=== PATIENT | female | born 1945 | race Caucasian/White ===

== ENCOUNTER 2023-09-15 12:23 | Outpatient (OUT) | payer MEDICARE, SELFPAY ==
--- NOTE | 2023-09-15 12:39 | ECG_ITS ---
[facility] Test Date: 2023-09-15 Pat Name: JULIO C MARKS Department: Room: - Gender: Female [employer]: : 1945 Requested By: EDDIE MELENDEZ Order Number: [id number] Reading MD: HELGA KOO Measurements Intervals Cameron Rate: 57 P: 51 WI: 195 QRS: 21 QRSD: 83 T: 55 QT: 399 QTc: 391 Interpretive Statements SINUS BRADYCARDIA WARNING: DATA QUALITY MAY AFFECT INTERPRETATION No previous ECG available for comparison Electronically Signed On 09-16-2023 7:08:22 EST by HELGA KOO
== END 2023-09-15 12:24 | disposition home or self-care (01) ==
LOC: PST 12:29
PROVIDERS: Visit Provider Urology
DX: Z01.812 Encounter for preprocedural laboratory examination (principal); N20.1 Calculus of ureter
CPT/HCPCS: 93005

== ENCOUNTER 2023-09-25 08:35 | Day surgery (SDC) | payer MEDICARE, SELFPAY ==
[2023-09-15 13:19] VITALS: BP 136/66; PULSE 63; RESP 20; TEMP 36.3; O2SAT 98; BMI 26.4
[2023-09-25] VITALS (8 sets, daily range): BP systolic 143–181; BP diastolic 55–70; PULSE 62–98; RESP 10–18; TEMP 36.1–36.4; O2SAT 94–98; BMI 26.4
--- NOTE | 2023-09-25 | FL_ITS ---
[address] [address] Patient Name: JULIO C MARKS MRN: [id number] date: 1945 Sex: F Assigned Patient Location: [facility] Current Patient Location: Accession/Order Number: [id number] Exam Date: 09/25/2023 10:52 Report Date: 09/30/2023 09:12 At the request of: EDDIE MELENDEZ Procedure: FL fluoroscopy <1hr NON-READ EXAM: FL fluoroscopy <1hr NON-READ HISTORY: left kidney stone TECHNIQUE: FINDINGS: Please see Operative Report. Electronically authenticated by: RADIOLOGIST NO Date: 09/30/2023 09:12
--- OUTSIDE RECORDS SUMMARY | 2023-09-25 08:40 | XMS_ITS | CCD ---
Author Name Unknown Address [address] [facility] [address] [facility] [address] [place] [address] Organization [facility] Care Team Providers Care Senior Database Programmer Name Role Phone GILDARDOALBERTA YBARRA Hardik Primary Care Physician Zach, Chayito Primary Care Provider Zach, Chayito Primary Care Provider [phone] Zach, Chayito Primary Care Provider Andry Fraire Primary Care Physician [phone] MARY GHOTRA Attending Unavailable ZACH, CHAYITO Primary Care Unavailable MARY GHOTRA Attending Unavailable MARY GHOTRA Referring Unavailable ZACH, CHAYITO Primary Care Unavailable ZACH, CHAYITO Primary Care Unavailable MARY GHOTRA Attending Unavailable ZACH, CHAYITO Primary Care Unavailable MARY GHOTRA Attending Unavailable MARY GHOTRA Referring Unavailable ZACH, CHAYITO Primary Care Unavailable Alejandro Zhao Attending Unavailable Hedy Ferro Attending Unavailable Juno, Andry Liao Admitting Unavailable Juno, Andry Liao Attending Unavailable Bernardino Alvarez Attending Unavailable Bernardino Alvarez Attending Unavailable Ellis Flor Attending Unavailable Link, Andry Liao Attending Unavailable Link, Andry Liao Referring Unavailable Rashawn MELENDEZ Attending Unavailable Rashawn MELENDEZ Admitting Unavailable Link, Andry Liao Admitting Unavailable Link, Andry Liao Attending Unavailable Rashawn MELENDEZ Consulting Unavailable Erum JONES Attending Unavailable Celi Vences Admitting Unavailable MD Rashawn MELENDEZ Consulting Unavailable AL, Rashawn R Consulting Unavailable MELENDEZ, Rashawn R Consulting Unavailable MELENDEZ, Rashawn R Consulting Unavailable MELENDEZ, Rashawn R Consulting Unavailable MELENDEZ, Rashawn R Consulting Unavailable MELENDEZ, Rashawn R Consulting Unavailable MELENDEZ, Rashawn R Consulting Unavailable MELENDEZ, Rashawn R Consulting Unavailable MELENDEZ, Rashawn Mccarthy Consulting Unavailable MELENDEZ, Rashawn Mccarthy Consulting Unavailable MELENDEZ, Rashawn R Consulting Unavailable MELENDEZ, Rashawn R Consulting Unavailable Kelsey, Shahana Kerr Attending Unavailable Shahana Cole Attending Unavailable MARY NATH Attending Unavailable RICHARD, ALBERTA Dye Attending Unavailable RICHARD, ALBERTA Dey Attending Unavailable RICHARD, ALBERTA Dye Attending Unavailable AL, Rashawn Mccarthy Attending Unavailable Allergies Allergy Classification Reported Allergen(s) Allergy Type Date of Onset Reaction(s) Facility (20 sources) Acetaminophen / oxyCODONE; Translations: [acetaminophen-ox ycodone] Drug Allergy 5 GI Upset, Vomiting (disorder) [facility] [place] Comment on above: lost control urine. vision problems made me wild (8 sources) Acetaminophen; Translations: [ACETAMINOPHEN] Drug Allergy 9 Other: See Comments [facility] (1 source) Acetaminophen / oxyCODONE; Translations: [OXYCODONE-ACETAM INOPHEN] Drug Allergy 5 [facility]ository (1 source) Acetaminophen / oxyCODONE; Translations: [Percocet] Drug Allergy [facility] Repository (1 source) Acetaminophen / oxyCODONE; Translations: [Percocet 5/325] Drug Allergy [facility] Repository Medications Current Medications Medication Drug Class(es) Dates Sig (Normalized) Sig (Original) amoxicillin 875 mg / clavulanate 125 mg oral tablet (1 source) Penicillin-class Antibacterial Start: 12-30-2022 End: 01-06-2023 take 1 tablet by mouth every twelve hours Augmentin 875 mg oral tablet = 1 tab(s), Oral, q12hr, X 7 day(s), # 14 tab(s), Refills(s) 0, Pharmacy: [facility]/pharmacy #[id number], 154, cm, 12/30/22 11:19:00 EDT, Height/Length Dosing, 62.7, kg, 12/30/22 11:19:00 EDT, Weight Dosing Start Date: 12/30/22 Stop Date: 01/06/23 Status: Ordered Artificial Tears preserved ophthalmic solution (12 sources) Start: 12-02-2022 take 1 drop(s) into the eye(s) twice daily Artificial Tears preserved ophthalmic solution 1 drop(s), OPTH, BID for dry eyes, 30 mL, Refill(s) 0 Start Date: 12/02/22 Status: Ordered aspirin 81 mg delayed release oral tablet (5 sources) Platelet Aggregation Inhibitor, Nonsteroidal Anti-inflammatory Drug Start: 09-04-2021 take 1 tablet by mouth once daily aspirin 81 mg Oral EC Tab 81 mg = 1 tab(s), Oral, Daily, # 30 tab(s), Refills(s) 0, Pharmacy: [facility]/pharmacy #[id number], 155, cm, 09/02/21 16:44:00 EST, Height/Length Dosing, 62, kg, 09/02/21 16:44:00 EST, Weight Dosing Start Date: 09/04/21 Status: Ordered Start: 09-04-2021 take 1 tablet by krysten th once daily aspirin 81 mg Oral EC Tab 81 mg = 1 tab(s), Oral, Daily, # 30 tab(s), Refills(s) 0, Pharmacy: [facility]/pharmacy #[id number], 155, cm, 09/02/21 16:44:00 EST, Height/Length Dosing, 62, kg, 09/02/21 16:44:00 EST, Weight Dosing Start Date: 09/04/21 Status: Ordered atorvastatin 20 mg oral tablet (5 sources) HMG-CoA Reductase Inhibitor Start: 09-04-2021 take 1 tablet by mouth at bedtime Lipitor 20 mg Tab 20 mg = 1 tab(s), Oral, Bedtime, # 30 tab(s), Refills(s) 0, Pharmacy: [facility]/pharmacy #[id number], 155, cm, 09/02/21 16:44:00 EST, Height/Length Dosing, 62, kg, 09/02/21 16:44:00 EST, Weight Dosing Start Date: 09/04/21 Status: Ordered benoxinate hydrochloride 4 mg/ml / fluorescein sodium 2.5 mg/ml ophthalmic solution (4 sources) Diagnostic Dye Start: 12-09-2022 End: 12-10-2022 fluorescein-benoxin ate 0.25-0.4 % 1 Drop (FLURESS) Start: 06-11-2022 End: 06-12-2022 fluorescein-benoxinate 0.25- 0.4 % 1 Drop (FLURESS) Start: 02-05-2022 End: 02-06-2022 fluorescein-benoxinate 0.25- 0.4 % 1 Drop (FLURESS) Start: 01-09-2022 End: 01-10-2022 fluorescein-benoxinate 0.25- 0.4 % 1 Drop (FLURESS) benzonatate 200 mg oral capsule (1 source) Non-narcotic Antitussive Start: 01-12-2023 End: 01-22-2023 take 1 capsule by mouth three times daily as needed for cough benzonatate 200 mg oral capsule 200 mg = 1 cap(s), Oral, TID, PRN Cough, X 10 day(s), # 30 cap(s), Refills(s) 0, Pharmacy: [facility]/pharmacy #[id number], 154, cm, 01/12/23 10:52:00 EDT, Height/Length Dosing, 61.8, kg, 01/12/23 10:52:00 EDT, Weight Dosing Start Date: 01/12/23 Stop Date: 01/22/23 Status: Ordered Lumigan (8 sources) Prostaglandin Analog Start: 11-28-2015 take 1 drop(s) into the eye(s) once daily in the evening Lumigan one drop, Eye-Right, qPM, Refill(s) 0 Start Date: 11/28/15 Status: Ordered End: 06-11-2022 take 1 drop(s) into the eye(s) once daily at bedtime bimatoprost (LUMIGAN) 0.01 % drop ophthalmic drops Use 1 Drop in the right eye daily at bedtime. 0 06/11/2022 Discontinued (Clinical Decision) Comment on above: Use 1 Drop in the ri [facility] eye daily at bedtime. cephalexin 500 mg oral capsule (2 sources) Cephalosporin Antibacterial Start: 023 take 1 capsule by mouth every twelve hours cephalexin 500 mg Cap 500 mg = 1 cap(s), Oral, q12hr, # 20 cap(s), Refills(s) 0, Pharmacy: [facility]/pharmacy #[id number], 165, cm, 08/28/23 0:22:00 EST, Height/Length Dosing, 62.2, kg, 08/28/23 0:22:00 EST, Weight Dosing Start Date: 08/28/23 Status: Ordered ciprofloxacin 500 mg oral tablet (1 source) Quinolone Antimicrobial Start: take 1 tablet by mouth twice daily Cipro 500 mg Tab 500 mg = 1 tab(s), Oral, BID, # 14 tab(s), Refills(s) 0, [id number], cm, 09/06/23 7:13:00 EST, Height/Length Dosing, 64.5, kg, 09/06/23 7:19:00 EST, Weight Dosing Start Date: 09/06/23 Status: Ordered cyclobenzaprine hydrochloride 10 mg oral tablet (5 sources) Muscle Relaxant Start: take 1 tablet by mouth three times daily as needed for pain cyclobenzaprine 10 mg Tab 10 mg = 1 tab(s), Oral, TID, PRN Muscle pain, # 12 tab(s), Refills(s) 0, [id number] 154.9, cm, 12/29/21 2:50:00 EDT, Height/Length Dosing, 61.4, kg, 12/29/21 2:50:00 EDT, Weight Dosing Start Date: 12/29/21 Status: Ordered lidocaine 0.05 mg/mg medicated patch (5 sources) Antiarrhythmic, Amide Local Anesthetic Start: Lidoderm 5% Patch 1 patch(es), Topical, Daily Muscle pain, 7 EA, Refill(s) 0, apply 12 hours on and 12 hours off daily, [facility]/pharmacy #[id number], 154.9, cm, 12/29/21 2:50:00 EDT, Height/Length Dosing, 61.4, kg, 12/29/21 2:50:00 EDT, Weight Dosing Start Date: 12/29/21 Status: Ordered Start: 12-29-2021 Lidoderm 5% Pa tch 1 patch(es), Topical, Daily Muscle pain, 7 EA, Refill(s) 0, apply 12 hours on and 12 hours off daily, [facility]/pharmacy #[id number], 154.9, cm, 12/29/21 2:50:00 EDT, Height/Length Dosing, 61.4, kg, 12/29/21 2:50:00 EDT, Weight Dosing Start Date: 12/29/21 Status: Ordered loratadine 10 mg oral tablet (1 source) Start: 08-08-2023 End: 08-18-2023 take 1 tablet by mouth once daily loratadine 10 mg Tab 10 mg = 1 tab(s), Oral, Daily, X 10 day(s), # 10 tab(s), Refills(s) 0, [id number], cm, 08/08/23 12:41:00 EST, Height/Length Dosing, 62.6, kg, 08/08/23 12:41:00 EST, Weight Dosing Start Date: 08/08/23 Stop Date: 08/18/23 Status: Ordered methylPREDNISolone 4 mg oral tablet (1 source) Corticosteroid Start: 12-30-2022 End: 01-05-2023 Medrol 4 mg Tab = 1 packet(s), Oral, As Directed, as directed on package labeling, X 6 day(s), # 21 tab(s), Refills(s) 0, [id number], cm, 12/30/22 11:19:00 EDT, Height/Length Dosing, 62.7, kg, 12/30/22 11:19:00 EDT, Weight Dosing Start Date: 12/30/22 Stop Date: 01/05/23 Status: Ordered naproxen 500 mg oral tablet (11 sources) Nonsteroidal Anti-inflammatory Drug Start: 08-26-2023 take 1 tablet by mouth twice daily as needed for pain naproxen 500 mg Tab 500 mg = 1 tab(s), Oral, BID, PRN Pain, # 14 tab(s), Refills(s) 0, [id number] 165.1, cm, 08/26/23 1:47:00 EST, Height/Length Dosing, 62.2, kg, 08/26/23 1:47:00 EST, Weight Dosing Start Date: 08/26/23 Status: Ordered Start: 12-05-2022 take 1 tablet by krysten th twice daily naproxen 500 mg Tab 500 mg = 1 tab(s), Oral, BID, # 60 tab(s), Refills(s) 0, Pharmacy: [facility]/pharmacy #[id number], 154, cm, 12/02/22 12:59:00 EST, Height/Length Dosing, 62.1, kg, 12/02/22 12:59:00 EST, Weight Dosing Start Date: 12/05/22 Status: Ordered Start: 12-29-2021 take 1 tablet by krysten twice daily naproxen 500 mg Tab 500 mg = 1 tab(s), Oral, BID, # 60 tab(s), Refills(s) 0, [id number], cm, 11/07/22 13:10:00 EST, Height/Length Dosing, 63.2, kg, 11/07/22 13:10:00 EST, Weight Dosing Start Date: 11/07/22 Status: Ordered 24 hr oxybutynin chloride 10 mg extended release oral tablet (2 sources) Cholinergic Muscarinic Antagonist Start: 08-28-2023 take 1 tablet by mouth once daily oxybutynin 10 mg ER Tab 10 mg = 1 tab(s), Oral, Daily, # 30 tab(s), Refills(s) 1, [id number], cm, 08/28/23 0:22:00 EST, Height/Length Dosing, 62.2, kg, 08/28/23 0:22:00 EST, Weight Dosing Start Date: 08/28/23 Status: Ordered phenylephrine hydrochloride 25 mg/ml ophthalmic solution (1 source) alpha-1 Adrenergic Agonist Start: 12-09-2022 End: 12-10-2022 PHENYLephrine 2.5 % 1 Drop (AK-DILATE) polymyxin b [id number] unt/ml / trimethoprim 1 mg/ml ophthalmic solution (1 source) Dihydrofolate Reductase Inhibitor Antibacterial, Polymyxin-class Antibacterial Start: 08-08-2023 End: 08-15-2023 take 1 drop(s) into the eye(s) every three hours polymyxin B-trimethoprim Opth Blanquita 1 drop(s), Eye-Left, q3hr for 7 day(s), 10 mL, Refill(s) 0, [facility]/pharmacy #[id number], 155, cm, 08/08/23 12:41:00 EST, Height/Length Dosing, 62.6, kg, 08/08/23 12:41:00 EST, Weight Dosing Start Date: 08/08/23 Stop Date: 08/15/23 Status: Ordered Promethazine (1 source) Phenothiazine Start: 11-18-2022 End: 11-23-2022 take 5 mL by mouth every six hours for cough Promethazine DM oral syrup 5 mL, Oral, q6hr for cough for 5 day(s), 120 mL, Refill(s) 0, [facility]/pharmacy #[id number], 154, cm, 11/18/22 10:32:00 EST, Height/Length Dosing, 63.2, kg, 11/18/22 10:32:00 EST, Weight Dosing Start Date: 11/18/22 Stop Date: 11/23/22 Status: Ordered Timolol (20 sources) beta-Adrenergic Davion Start: 08-08-2022 Timolol Maleate (Eqv-Timoptic) 0.5% ophthalmic solution 1 drop(s), Eye-Right, BID, Refill(s) 0 Start Date: 08/08/22 Status: Ordered Start: 08-08-2022 Timolol Maleat e (Eqv-Timoptic) 0.5% ophthalmic solution Refill(s) 0 Start Date: 08/08/22 Status: Ordered Start: 06-11-2022 timolol maleat e (TIMOPTIC) 0.5 % ophthalmic solution Use 1 Drop in the right eye twice daily. 5 mL 06/11/2022 Active Start: 06-11-2022 timolol maleat e (TIMOPTIC) 0.5 % ophthalmic solution Use 1 Drop in the right eye twice daily. 5 mL 06/11/2022 Active Start: 02-27-2020 End: 06-11-2022 timolol maleate (TIMOPTIC) 0 .5 % ophthalmic solution INSTILL 1 DROP INTO RIGHT EYE ONCE DAILY 5 mL 02/27/2020 06/11/2022 Discontinued Start: 11-28-2015 take 1 drop(s) into the eye(s) once daily timolol one drop, Eye-Right, Daily, Refills(s) 0 Start Date: 11/28/15 Status: Ordered Comment on above: INSTILL 1 DROP INTO RIGHT EYE ONCE DAILY Use 1 Drop in the ri ght eye twice daily. tropicamide 10 mg/ml ophthalmic solution (1 source) Anticholinergic Start: 12-10-19 End: 12-11-19 tropicamide 1 % 1 Drop (MYDRIACYL) Zofran ODT 4 mg Tab-Dis (3 sources) Start: 08-26-20 take 1 tablet by mouth every eight hours as needed for nausea Zofran ODT 4 mg Tab-Dis 4 mg = 1 tab(s), Oral, q8hr, PRN Nausea/Vomiting, # 12 tab(s), Refills(s) 0, Pharmacy: [facility]/pharmacy #[id number], 165.1, cm, 08/26/23 1:47:00 EST, Height/Length Dosing, 62.2, kg, 08/26/23 1:47:00 EST, Weight Dosing Start Date: 08/26/23 Status: Ordered Completed/Discontinued Medications Medication Drug Class(es) Dates Sig (Normalized) Sig (Original) alendronic acid 70 mg oral tablet (7 sources) Bisphosphonate Start: 11-12-2018 alendronate (FOSAMAX) 70 mg tablet celecoxib 200 mg oral capsule (6 sources) Nonsteroidal Anti-inflammatory Drug Start: 01-16-2022 take 1 capsule by mouth once daily at mealtime celecoxib (CELEBREX) 200 mg capsule TAKE 1 CAPSULE BY MOUTH EVERY DAY WITH FOOD FOR 30 DAYS 0 01/16/2022 Active Comment on above: TAKE 1 CAPSULE BY MO [facility] EVERY DAY WITH FOOD FOR 30 DAYS FLUoxetine 10 mg oral capsule (7 sources) Serotonin Reuptake Inhibitor Start: 11-12-2018 FLUoxetine (PROZAC) 10 mg capsule prednisoLONE acetate 10 mg/ml ophthalmic suspension (3 sources) Corticosteroid Start: 11-06-2018 End: 06-11-2022 prednisoLONE acetate (PRED FORTE, ECONOPRED PLUS) 1 % ophthalmic suspension traMADol hydrochloride 50 mg oral tablet (1 source) Opioid Agonist Start: 11-18-2022 End: 11-21-2022 take 1 tablet by mouth every four hours Ultram 50 mg Tab 50 mg, Oral, q4hr, Take one by mouth every four hours, X 3 day(s), # 12 tab(s), Refills(s) 0, Pharmacy: [facility]/pharmacy #[id number], 154, cm, 11/18/22 10:32:00 EST, Height/Length Dosing, 63.2, kg, 11/18/22 10:32:00 EST, Weight Dosing Start Date: 11/18/22 Stop Date: 11/21/22 Status: Ordered Problems Active Problems Problem Classification Problem Date Documented Date Episodic/Chronic Abdominal pain (2 sources) Abdominal pain; Translations: [Unspecified abdominal pain] Onset: 08-26-2023 Episodic Allergic reactions (1 source) Allergy to drug; Translations: [Allergy status to unspecified drugs, medicaments and biological substances status] Episodic Blindness and vision defects (10 sources) Blind left eye, normal vision right eye; Translations: [Blindness, one eye, unspecified eye] Onset: 02-05-2022 Chronic Cataract (18 sources) Cataract; Translations: [Nuclear senile cataract] Onset: 02-05-2022 11-28-2015 Chronic Disorders of lipid metabolism (18 sources) Hyperlipidemia; Translations: [Hyperlipidemia, unspecified] Onset: 08-08-2022 09-11-2021 Chronic E Codes: Fall (1 source) Fall from bed, subsequent encounter; Translations: [Fall from bed (finding)] Episodic Glaucoma (20 sources) Glaucoma; Translations: [Primary open angle glaucoma] Onset: 02-05-2022 11-28-2015 Chronic Inflammation; infection of eye (except that caused by tuberculosis or sexually transmitteddisease) (1 source) Conjunctivitis; Translations: [Unspecified conjunctivitis] Onset: 08-08-2023 Episodic Nonspecific chest pain (1 source) Atypical chest pain 09-25-2021 Episodic Osteoarthritis (17 sources) Osteoarthritis of knee; Translations: [Bilateral primary osteoarthritis of knee] Onset: 08-08-2022 Chronic Other diseases of kidney and ureters (1 source) Other specified disorders of kidney and ureter; Translations: [N28.89] Onset: 08-28-2023 Chronic Other eye disorders (6 sources) Congenital nystagmus; 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-2022 Chronic Other eye disorders (7 sources) Dry eyes; Translations: [Dry eye syndrome of unspecified lacrimal gland] Onset: 10-02-2022 Episodic Other non-traumatic joint disorders (1 source) Pain of right shoulder joint; Translations: [Pain in right shoulder] Onset: 12-30-2022 Episodic Other nutritional; endocrine; and metabolic disorders (5 sources) Overweight in adulthood with body mass index of 25 or more but less than 30; Translations: [Body mass index (BMI) 26.0-26.9, adult] Onset: 08-08-2022 Episodic Other screening for suspected conditions (not mental disorders or infectious disease) (1 source) Cardiac disease monitoring status; Translations: [Encounter for screening for cardiovascular disorders] Onset: 08-08-2022 Episodic Other upper respiratory infections (3 sources) Acute upper respiratory infection; Translations: [Acute upper respiratory infection, unspecified] Onset: 11-18-2022 Episodic Residual codes; unclassified (1 source) Patient encounter status; Translations: [Other specified health status] Onset: 01-04-2022 Episodic Spondylosis; intervertebral disc disorders; other back problems (11 sources) Spondylosis; Translations: [Spondylosis, unspecified] Onset: 11-18-2022 Chronic Spondylosis; intervertebral disc disorders; other back problems (20 sources) Sciatica; Translations: [Sciatica, unspecified side] Onset: 01-04-2022 Episodic Unclassified (16 sources) Patient encounter status 08-08-2022 Urinary tract infections (1 source) Urinary tract infectious disease; Translations: [Urinary tract infection, site not specified] Onset: 09-06-2023 Episodic Past or Other Problems Problem Classification Problem Date Documented Da te Episodic/Chronic Conditions associated with dizziness or vertigo (12 sources) Dizziness and giddiness; Translations: [Dizziness and giddiness] Onset: 12-02-2022 Episodic Sprains and strains (11 sources) Sprain of shoulder; Translations: [Unspecified sprain of unspecified shoulder joint, initial encounter] Onset: 11-18-2022 Episodic Superficial injury; contusion (5 sources) Contusion of hand; Translations: [Contusion of unspecified hand, initial encounter] Onset: 04-13-2023 Episodic Results Test Name Value Interpretation Reference Range Facility C Urineon 09-08-2023 Bacteria identified Cx Nom (U) Microbiology PROCEDURE: Urine Culture [R1] SOURCE: U CleanCatch BODY SITE: COLLECTED DATE/TIME: 09/06/2023 07:31 EST RECEIVED DATE/TIME: 09/06/2023 11:17 EST START DATE/TIME: 09/06/2023 11:17 EST FREE TEXT SOURCE: Pillo Cordova, Hedy Ferro M.D., Hedy Black FINAL REPORTS Final Report [] Verified Date/Time: 09/08/2023 07:45 EST No growth at 2 days. Performing Locations R1: This test was performed at: [facility], [address] [place] [address], [address] , [place], Normal [facility] Comment on above: Performed By: #### 2 [id number], [id number], [id number], [id number], [id number], [id number] #### [facility] [address] [place] [address] Auto Diffon 09-06-2023 Basophils/100 WBC (Bld) 0.9 % Normal 0.0-2.0 [facility] Comment on above: Order Comment: Order Added by Discern Expert. Performed By: #### 2 [id number], [id number], [id number], [id number], [id number], [id number] #### [facility] [address] [place] [address] Basophils/Leukocytes Auto (Bld) [Pure # fraction] 0.1 E9/L Normal 0.0-0.2 [facility] Comment on above: Order Comment: Order Added by Discern Expert. Performed By: #### 2 [id number], [id number], [id number], [id number], [id number], [id number] #### [facility] [address] [place] [address] Eosinophils/100 WBC (Bld) 3.4 % Normal 0.0-8.0 [facility] Comment on above: Order Comment: Order Added by Discern Expert. Performed By: #### 2 [id number], [id number], [id number], 0875015, [id number], [id number] #### [facility] [address] [place] [address] Eosinophils/Leukocyte s Auto (Bld) [Pure # fraction] 0.4 E9/L Normal 0.0-0.5 [facility] Comment on above: Order Comment: Order Added by Discern Expert. Performed By: #### 2 [id number], [id number], [id number], [id number], [id number], [id number] #### [facility] [address] [place] [address] Lymphocytes/100 WBC (Bld) 10.3 % Low 14.0-50.0 [facility] Comment on above: Order Comment: Order Added by Discern Expert. Performed By: #### 2 666214, [id number], 8182983, 7062371, 1616030, [id number] #### [facility] [address] [place] [address] Lymphocytes/Leukocyte s Auto (Bld) [Pure # fraction] 1.1 E9/L Normal 1.0-4.0 [facility] Comment on above: Order Comment: Order Added by Discern Expert. Performed By: #### 2 [id number], [id number], 0369501, 5946535, 9161628, [id number] #### [facility] [address] [place] [address] Monocytes/100 WBC (Bld) 9.0 % Normal 4.0-14.0 [facility] Comment on above: Order Comment: Order Added by Discern Expert. Performed By: #### 2 656374, [id number], 3989298, 8855574, 2110974, [id number] #### [facility] [address] [place] [address] Monocytes/Leukocytes Auto (Bld) [Pure # fraction] 1.0 E9/L Normal 0.2-1.0 [facility] Comment on above: Order Comment: Order Added by Discern Expert. Performed By: #### 2 [id number], [id number], 9978269, 4695090, 3086639, [id number] #### [facility] [address] [place] [address] 225[address] Neutrophils/100 WBC (Bld) 76.4 % High 36.0-75.0 [facility] Comment on above: Order Comment: Order Added by Discern Expert. Performed By: #### 2 756814, [id number], 6361125, 2179053, 5233673, [id number] #### [facility] [address] [place] [address] Neutrophils/Leukocyte s Auto (Bld) [Pure # fraction] 8.4 E9/L High 2.0-7.5 [facility] Comment on above: Order Comment: Order Added by Discern Expert. Performed By: #### 2 459387, [id number], 8861664, 8880246, 3569336, 7375254 #### [facility] [address] [place] [address] BMPon 09-06-2023 Creatinine [Mass/Vol] 1.2 mg/dL Normal 0.5-1.3 [facility] Comment on above: Performed By: #### 2 545902, [id number], 5021167, 6175856, 3040824, [id number] #### [facility] [address] [place] [address] Urea nitrogen/Creatinine [Mass ratio] 23 No Units High 10-20 [facility] Comment on above: Performed By: #### 2 [id number], [id number], 8152790, 2631608, 6790665, 8129366 #### [facility] [address] [place] [address] Urea nitrogen [Mass/Vol] 28 mg/dL High 5-21 [facility] Comment on above: Performed By: #### 2 159509, [id number], 3903462, 9089977, 6080465, 7896586 #### [facility] [address] [place] [address] Anion gap [Moles/Vol] 13 mmol/L Normal 6-16 [facility] Comment on above: Performed By: #### 2 [id number], [id number], 0173865, 9094633, 1778030, [id number] #### [facility] [address] [place] [address] Calcium [Mass/Vol] 9.5 mg/dL Normal 8.9-11.1 [facility] Comment on above: Performed By: #### 2 347148, [id number], 9041179, 7661201, 7315134, 3998086 #### [facility] [address] [place] [address] Chloride [Moles/Vol] 107 mmol/L Normal 101-111 [facility] [facility] Comment on above: Performed By: #### 2 [id number], [id number], [id number], 5344864, 0244843, [id number] #### [facility] [address] [place] [address] CO2 [Moles/Vol] 21 mmol/L Normal 21-31 [facility] Comment on above: Performed By: #### 2 736654, [id number], 4331974, 2591653, 3835816, 5598195 #### [facility] [address] [place] [address] Glucose [Mass/Vol] 99 mg/dL Normal 55-199 [facility] Comment on above: Result Comment: If t his glucose result represents a fasting glucose, interpretation should refer to the following reference range: 55-99 mg/dL Performed By: #### 2 064590, [id number], 7224806, 8790288, 4937762, [id number] #### [facility] [address] [place] [address] Potassium [Moles/Vol] 4.4 mmol/L Normal 3.5-5.3 [facility] Comment on above: Performed By: #### 2 333479, 60009159, 0343168, 0529268, 6786464, 8373917 #### [facility] [address] [place] [address] Sodium [Moles/Vol] 137 mmol/L Normal 135-145 [facility] Comment on above: Performed By: #### 2 642371, 57219346, 2429945, 3220160, 7652344, 0983641 #### [facility] [address] [place] [address] CBC w/ Auto Diffon 3 Erythrocyte distribution width (RBC) [Ratio] 13.5 % Normal 10.9-14.2 [facility] Comment on above: Performed By: #### 2 236549, [id number], 8557790, 6924050, 6561280, 3302840 #### [facility] [address] [place] [address] Hematocrit (Bld) [Volume fraction] 43.7 % Normal 34.0-46.0 [facility] Comment on above: Performed By: #### 2 440785, 57741453, 7156784, 9496112, 3832725, 8897312 #### [facility] [address] [place] [address] Hemoglobin (Bld) [Mass/Vol] 14.5 g/dL Normal 12.0-16.0 [facility] Comment on above: Performed By: #### 2 883786, 38730313, 1795167, 6053379, 5753129, 1718933 #### [facility] [address] [place], [place] [address] MCH (RBC) [Entitic mass] 29.9 pg Normal 27.0-34.0 [facility] Comment on above: Performed By: #### 2 091668, 27691230, 6152988, 8904344, 3830466, 0108793 #### [facility] [address] [place] [address] MCHC (RBC) [Mass/Vol] 33.2 g/dL Normal 31.4-36.0 [facility] Comment on above: Performed By: #### 2 466501, 98879637, 4259189, 9280629, 7814062, 3543779 #### [facility] [address] [place] [address] MCV (RBC) [Entitic vol] 90.0 fL Normal 80.0-100.0 [facility] Comment on above: Performed By: #### 2 510337, 42967581, 0013377, 1816830, 3203025, 4761815 #### [facility] [address] [place] [address] Platelet mean volume (Bld) [Entitic vol] 8.0 fL Normal 6.4-10.8 [facility] Comment on above: Performed By: #### 2 379501, 26008998, 5431180, 4194188, 9026966, 0065107 #### [facility] [address] [place] [address] Platelets (Bld) [#/Vol] 419.0 E9/L Normal 150.0-500.0 [facility] Comment on above: Performed By: #### 2 845425, 38636859, 6672595, 8912046, 1415838, 3244877 #### [facility] [address] [place] [address] RBC (Bld) [#/Vol] 4.9 E12/L Normal 4.3-5.9 [facility] Comment on above: Performed By: #### 2 441331, 12939524, 0656569, 1141043, 9893271, 3877944 #### [facility] [address] [place] [address] WBC corrected for nucl RBC Auto (Bld) [#/Vol] 11.0 E9/L Normal 4.0-11.0 [facility] Comment on above: Performed By: #### 2 844270, 78783880, 5027479, 4199037, 7656159, 2829578 #### [facility] [address] [place] [address] CHEMISTRYOrdered By: SYSTEM SYSTEM on 09-06-2023 Anion gap [Moles/Vol] 13 mmol/L Normal 6 - 16 mEq/L [facility] Remisol Calcium [Mass/Vol] 9.5 mg/dL Normal 8.9 - 11. 1 mg/dL [facility] Remisol Chloride [Moles/Vol] 107 mmol/L Normal 101 - 1 11 mmol/L [facility] Remisol CO2 [Moles/Vol] 21 mmol/L Normal 21 - 31 mmol/L [facility] Remisol Creatinine [Mass/Vol] 1.2 mg/dL Normal 0.5 - 1.3 mg/dL [facility] Remisol GFR/1.73 sq M.predicted among non-blacks MDRD (S/P/Bld) [Vol rate/Area] 46 mL/min/1.73 m2 Low >=59mL/min/ 1.73 m2 [facility] Chem S Comment on above: Interpretive Data: C hronic kidney disease could be indicated at eGFR's of less than 60 mL/min/1.73m2. Kidney failure is indicated at less than 15 mL/min/1.73m2. Glucose [Mass/Vol] 99 mg/dL Normal 55 - 199 mg/dL [facility] Remisol Comment on above: Interpretive Data: I f this glucose result represents a fasting glucose, interpretation should refer to the following reference range: 55-99 mg/dL Potassium [Moles/Vol] 4.4 mmol/L Normal 3.5 - 5.3 mmol/L [facility] Remisol Sodium [Moles/Vol] 137 mmol/L Normal 135 - 145 mmol/L [facility] Remisol Urea nitrogen [Mass/Vol] 28 mg/dL High 5 - 21 mg/dL [facility] [place] Remisol Urea nitrogen/Creatinine [Mass ratio] 23 mg/mg High 10 - 20 [facility] [place] Remisol COAGULATIONOrdered By: Michelle Jurado on 09-06-2023 aPTT Coag (PPP) [Time] 34.6 s Normal 25.1 - 36.5 second(s) [facility] Auto Coag Comment on above: Interpretive Data: P libertad 15 days - 4 weeks 1 - 5 months 6 - 11 months 1 - 5 years 6 - 10 years 11 - 17 years PTT Mean: 35.4 (27.6-45.6) Mean: 33.5 (24.8-40.7) Mean: 32.4 (25.1-40.7) Mean: 31.6 (24.0-39.2) Mean: 31.6 (26.9-38.7) Mean: 31.0 (24.6-38.4) Pediatric Reference ranges were obtained from a study by Jorge Christian et al. prepared from 1437 samples obtained at 7 different centers using the same coagulation reagent and instrumentation as [facility]. Currently there are no coagulation studies available worldwide for children to 14 days, and no normal ranges. Heparin therapeutic range (represented by Anti-Factor Xa activity of 0.2 - 0.4 U/mL) corresponds to PTT of 56.6 - 109.0 sec. INR Coag (PPP) [Relative time] 0.9 {INR} Invalid Interpretation Code [facility] Auto Coag Comment on above: Interpretive Data: I NR results are specifically intended to assess patients stabilized on long-term Anticoagulation therapy suggested INR s Less Intensive Anticoagulation 2.0 3.0 Conventional Range 3.0 4.5 PT Coag (PPP) [Time] 10.4 s Normal 9.4 - 1 2.5 second(s) [facility] Auto Coag Comment on above: Interpretive Data: 1 5 days - 4 weeks 1 - 5 months 6 -11 months 1 5 years 6 10 years 11 -17 years Mean: 11.2 (9.5 12.6) Mean: 11.0 (9.7 12.8) Mean: 11.0 (9.8 13.0) Mean: 11.3 (9.9 13.4) Mean: 11.7 (10.0 14.6) Mean: 11.8 (10.0 - 14.1) Pediatric Reference ranges were obtained from a study by marielos Lantigua al. prepared from 1437 samples obtained at 7 different centers using the same coagulation reagent and instrumentation as [facility]. Currently there are no coagulation studies available worldwide for children to 14 days, and no normal ranges. CT Abdomen/Pelvis w/o Contra kayleyn 09-06-2023 CT Abdomen/Pelvis w/o Contrast Exam Date/Time: 09/06/2023 08:01 EST Reason for Exam: Abdominal pain, acute, nonlocalized;Other (please specify) Report IMPRESSION: There are no acute changes. Status post left ureteral stent placement with improved inflation surrounding the left kidney compared to the prior study. EXAMINATION: CT Abdomen/Pelvis w/o Contrast HISTORY: Abdominal pain, acute, nonlocalized COMPARISON: CT abdomen pelvis from 08/28/2023 TECHNIQUE: Contiguous axial CT sections of the abdomen and pelvis. No IV contrast administered. Unenhanced imaging is limited for the evaluation of some intra-abdominal and pelvic pathologies. Sagittal and coronal reformats have been obtained. All CT scans at this facility use dose modulation, iterative reconstruction, and/or weight based dosing when appropriate to reduce radiation dose to as low as reasonably achievable. FINDINGS Lung bases:Visualized lung bases show no significant pathology Liver: The visualized portions of the liver are normal in size and attenuation. There are no focal solid or cystic lesions. There is no intra or extrahepatic bile duct dilatation. Gallbladder: No calcified gallstones. Normal gallbladder wall. No pericholecystic fluid. Spleen: There are no focal lesions or calcifications in the visualized portions of the spleen. There is no splenomegaly Pancreas: The pancreas is normal in size and attenuation without focal lesions or dilatation of the pancreatic duct. Adrenal glands are negative. Kidneys: The right kidney is normal in size and position without hydronephrosis or renal stones. The left kidney is normal in size and position without hydronephrosis or renal stones. There is been interval placement of a left ureteral stent in good position. There is either mild left hydronephrosis or parapelvic cyst. There is interval mild improvement of the previously noted inflammation surrounding the left kidney. Urinary bladder: The urinary bladder is within normal limits. Report Bowel: There are no distended loops of bowel. There is no CT evidence of appendicitis. The colon is within normal limits without surrounding inflammation. Nodes: No lymphadenopathy. Aorta: There is no abdominal aortic aneurysm. Peritoneum: No free fluid or free air. Pelvis: There are no solid or cystic lesions. Abdominal wall: The abdominal wall is intact. Bones :There are no acute osseous changes. Soft tissues: The soft tissues are unremarkable. Ordering Provider: Hedy Ferro FINAL REPORT Dictated: 09/06/2023 8:32 am Tj Hernandez MD, V. Signed (Electronic Signature): 09/06/2023 8:32 am Signed by: Tj Hernandez MD, V. Transcribed by: SARI Technologist: ROLAND Technical Comments Rectal Contrast Given? No Oral contrast amount in ml's: 0 Normal [facility] Consent for Treatmenton Consent for Treatment [id number] F Normal [facility] Discharge Instructionson Discharge Instructions [id number] F Normal [facility] ED Clinical Summaryon 2022 ED Clinical Summary (Inserted Image. Katiana ble to display) [address] [address] ED Clinical Summary Person Information Name: SWEETIE OSORIO [place] Age: 77 Years : 1945 Sex: Female Language: Chinese PCP: Andry Fraire DO Marital Status: Phone: [phone] Visit Id: Visit Reason: Dysuria; Flank pain; left kidney pain Speciality: Acuity: 3 Enc Type: Emergency Med Service: Emergency Arrival: 09/06/2023 07:00:28 Discharge: 09/06/2023 10:11:48 LOS: 000 03:11 Checkin: 09/06/2023 07:00:28 Checkout: 09/06/2023 10:11:48 Dispo Type: Home (Routine DC) EVENTS: Event Name Event Status Request Date/Time Start Date/Time Complete Date/Time Arrive Complete 09/06/2023 07:00:28 09/06/2023 07:00:28 09/06/2023 07:00:28 Document Home Meds Request 09/06/2023 07:00:28 Triage Complete 09/06/2023 07:00:28 09/06/2023 07:13:44 09/06/2023 07:13:44 Registration Complete 09/06/2023 07:05:33 09/06/2023 07:05:33 09/06/2023 07:05:33 Reg Complete Request 09/06/2023 07:05:33 Reg Bed Request Complete 09/06/2023 07:05:33 09/06/2023 07:05:33 09/06/2023 07:05:33 Bed Assign Complete 09/06/2023 07:06:33 09/06/2023 07:06:33 09/06/2023 07:06:33 Dr Exam Complete 09/06/2023 07:06:34 09/06/2023 07:08:25 09/06/2023 07:08:25 RN Exam Complete 09/06/2023 07:06:34 09/06/2023 07:21:00 09/06/2023 07:21:00 Registration Request 09/06/2023 07:08:25 30 Day Return Request 09/06/2023 07:13:44 Meds Admin Complete 09/06/2023 07:23:10 09/06/2023 07:31:51 Pending Labs Complete 09/06/2023 07:23:10 09/06/2023 09:17:07 Lab Complete 09/06/2023 07:23:10 09/06/2023 09:17:07 Urine Collect Complete 09/06/2023 07:23:10 09/06/2023 08:20:21 CT Complete 09/06/2023 07:23:10 09/06/2023 07:43:49 09/06/2023 08:01:11 Pending Labs Complete 09/06/2023 07:53:55 09/06/2023 07:53:55 09/06/2023 09:17:08 Lab Complete 09/06/2023 07:53:55 09/06/2023 07:53:55 09/06/2023 09:17:08 Pending Labs Complete 09/06/2023 07:59:16 09/06/2023 07:59:16 09/06/2023 07:59:22 Lab Complete 09/06/2023 07:59:16 09/06/2023 07:59:16 09/06/2023 07:59:22 Pending Labs Collected 09/06/2023 08:02:37 09/06/2023 08:02:37 Lab Collected 09/06/2023 08:02:37 09/06/2023 08:02:37 Discharge Complete 09/06/2023 10:02:44 09/06/2023 10:11:52 09/06/2023 10:11:52 Transfer Complete 09/06/2023 10:11:52 09/06/2023 10:11:52 09/06/2023 10:11:52 ADDRESS: [address] [place] [id number] PHYS DOC NOTES: MEDICAL INFORMATION: Prescriptions Given: New Medications [facility]/pharmacy #[id number], [address], [place] [id number], [phone] ciprofloxacin (Cipro 500 mg Tab) 1 Tablets By Mouth 2 times a day. Refills: 0. Medications to Continue with No Changes Other Medications cephalexin (cephalexin 500 mg Cap) 1 Capsules By Mouth every 12 hours. Refills: 0. naproxen (naproxen 500 mg Tab) 1 Tablets By Mouth 2 times a day as needed Pain. Refills: 0. ocular lubricant (Artificial Tears preserved ophthalmic solution) 1 Drops Ophthalmic 2 times a day as needed for dry eyes. ondansetron (Zofran ODT 4 mg Tab-Dis) 1 Tablets By Mouth every 8 hours as needed Nausea/Vomiting. Refills: 0. oxybutynin (oxybutynin 10 mg ER Tab) 1 Tablets By Mouth every day. Refills: 1. timolol ophthalmic (Timolol Maleate (Eqv-Timoptic) 0.5% ophthalmic solution) 1 Drops Right eye 2 times a day. PATIENT EDUCATION INFORMATION: Instructions: Urinary Tract Infection, Adult; Flank Pain, Adult Follow up: With: Address: When: Rashawn MELENDEZ [facility], [address], [place] [address] Business (1) In 3 days 09/09/2023 Comments: Stop taking Cephalexin and start taking Cipro as prescribed. Return to the emergency room if the pain gets worse, fever or any new symptoms. With: Address: When: Andry Juno [address], [facility] [address] [place] [address] Business (1) In 3 days DIAGNOSIS: 1:Urinary tract infection; 2:Flank pain Normal [facility] ED Note-Physicianon 09-06-20 ED Note-Physician Basic Information Time Seen: Hedy Ferro M.D. 09/06/2023 07:08 Chief Complaint patient c/o left kidney pain that started two weeks ago. states that a stent was placed last by Dr. james. patient states that the pain has has not gotten any better and has started to experience burning with urination. denies n/v, or fevers History of Present Illness The patient is a 77-year-old female past medical history of kidney stones, hyperlipidemia who presented to the emergency room with left flank pain and burning with urination. The patient states she had a kidney stone and stent placed recently. Her pain got better and since yesterday the pain started coming back again. She describes the flank pain as achy. She states the pain is on and off. Currently the pain is better. The patient states the pain radiates toward the groin. She reports burning with urination now. She denies any blood in urine. Denies any fever, denies any chills. The patient denies any nausea, denies any vomiting. She reports some loose stool. The patient is concerned that her stent has moved. She denies any other associated symptoms. Review of Systems Additional ROS info: Except as noted in the above Review of Systems and in the History of Present Illness all other systems have been reviewed and are negative or noncontributory. 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 Cardiovascular: regular rate and rhythm Respiratory: Lungs CTA, respirations non labored, breath sounds equal Gastrointestinal: soft, non distended, mild tenderness left hypochondrium, no guarding Extremities: no deformity, no trauma Neurological: Alert and oriented, speech normal, no focal neuro deficits Psychiatric: cooperative, affect anxious, Medical Decision Making MEDICAL DECISION MAKING Number and Complexity of Problems Differential Diagnosis: [] [facility] Data External documents reviewed: [] My EKG interpretation: [] My CT interpretation: [] My X-ray interpretation: [] My Ultrasound interpretation: [] Decision rules/scores evaluated: [] Discussed with: [] Treatment and Disposition ED Course: The patient presented with left flank pain on and off. Possible is due to her stent. Less likely pyelonephritis. Blood work reviewed unremarkable. Creatinine slightly up 1.2. The patient was given 1 L of normal saline. She has no flank pain currently. CT of the abdomen and pelvis shows stent in good position with decreased inflammatory changes from previous CT. The patient has been on Keflex. The urine shows infection despite being on Keflex for 7 to 8 days. Will discharge patient home we will switch her antibiotic. Will stop Keflex and start Cipro. Will have her follow-up with urology. The patient was instructed to return to the emergency room if her pain becomes persistent, vomiting, fever or any new symptoms. Shared decision making: [] Code status: [] Assessment/Plan 1. Urinary tract infection (N39.0: Urinary tract infection, site not specified) 2. Flank pain (R10.9: Unspecified abdominal pain) Orders: ciprofloxacin, 500 mg = 1 tab(s), Oral, BID, # 14 tab(s), Refills(s) 0, Pharmacy: [facility]/pharmacy #[id number], 152.4, cm, 09/06/23 7:13:00 EST, Height/Length Dosing, 64.5, kg, 09/06/23 7:19:00 EST, Weight Dosing Sodium Chloride 0.9% intravenous solution, 1,000 mL, Soln-IV, IV, Once, Stop date 09/06/23 7:22:00 EST, STAT, Start date 09/06/23 7:22:00 EST, Infuse over 61, minute(s) Automated Diff Basic Metabolic Panel CBC w/ Auto Diff CT Abdomen/Pelvis w/o Contrast eGFR PT & PTT UA With Cult Reflex Urine Culture Medications Administered Given NS 1000 ml Bolus, 1000 mL, IV Disposition Plan Patient Discharge Condition Stable Discharge Disposition Discharge home Discharge Prescription List Prescriptions Cipro 500 mg Tab, 500 mg= 1 tab(s), Oral, BID Follow-up With When Contact Information Rashawn MELENDEZ In 3 days 09/09/2023 [facility] [address], [facility] [place] [address]- Business (1) Additional Instructions: Stop taking Cephalexin and start taking Cipro as prescribed. Return to the emergency room if the pain gets worse, fever or any new symptoms. Andry Fraire In 3 days [address], [address] [facility] [place] [address]- Business (1) Additional Instructions: Patient Education Urinary Tract Infection, Adult Flank Pain, Adult Problem List/Past Medical History Ongoing Contusion of hand Degenerative arthritis of knee, bilateral Dizziness and giddiness Hyperlipidemia Lumbar back pain with radiculopathy affecting left lower extremity Screening for cardiovascular co (more content not included)... Normal [facility] Comment on above: Result Comment: Elec tronically Signed By: Pillo Cordova, Hedy Black\.br\Date and Time Signed: 09/06/23 10:06 EST ED Patient Education Noteon 09-06-2023 ED Patient Education Note Obstetrics and Gynecology Urinary Tract Infection, Adult A urinary tract infection (UTI) is an infection of any part of the urinary tract. The urinary tract includes the kidneys, ureters, bladder, and urethra. These organs make, store, and get rid of urine in the body. An upper UTI affects the ureters and kidneys. A lower UTI affects the bladder and urethra. What are the causes? Most urinary tract infections are caused by bacteria in your genital area around your urethra, where urine leaves your body. These bacteria grow and cause inflammation of your urinary tract. What increases the risk? You are more likely to develop this condition if: ? You have a urinary catheter that stays in place. ? You are not able to control when you urinate or have a bowel movement (incontinence). ? You are female and you: ? Use a spermicide or diaphragm for control. ? Have low estrogen levels. ? Are . ? You have certain genes that increase your risk. ? You are sexually active. ? You take antibiotic medicines. ? You have a condition that causes your flow of urine to slow down, such as: ? An enlarged prostate, if you are male. ? Blockage in your urethra. ? A kidney stone. ? A nerve condition that affects your bladder control (neurogenic bladder). ? Not getting enough to drink, or not urinating often. ? You have certain medical conditions, such as: ? Diabetes. ? A weak disease-fighting system (immunesystem). ? Sickle cell disease. ? Gout. ? Spinal cord injury. What are the signs or symptoms? Symptoms of this condition include: ? Needing to urinate right away (urgency). ? Frequent urination. This may include small amounts of urine each time you urinate. ? Pain or burning with urination. ? Blood in the urine. ? Urine that smells bad or unusual. ? Trouble urinating. ? Cloudy urine. ? Vaginal discharge, if you are female. ? Pain in the abdomen or the lower back. You may also have: ? Vomiting or a decreased appetite. ? Confusion. ? Irritability or tiredness. ? A fever or chills. ? Diarrhea. The first symptom in older adults may be confusion. In some cases, they may not have any symptoms until the infection has worsened. How is this diagnosed? This condition is diagnosed based on your medical history and a physical exam. You may also have other tests, including: ? Urine tests. ? Blood tests. ? Tests for STIs (sexually transmitted infections). If you have had more than one UTI, a cystoscopy or imaging studies may be done to determine the cause of the infections. How is this treated? Treatment for this condition includes: ? Antibiotic medicine. ? Zzyu-kvr-bsrcplk medicines to treat discomfort. ? Drinking enough water to stay hydrated. If you have frequent infections or have other conditions such as a kidney stone, you may need to see a health care provider who specializes in the urinary tract (urologist). In rare cases, urinary tract infections can cause sepsis. Sepsis is a life-threatening condition that occurs when the body responds to an infection. Sepsis is treated in the hospital with IV antibiotics, fluids, and other medicines. Follow these instructions at home: Medicines ? Take cbgp-slp-opyqwvb and prescription medicines only as told by your health care provider. ? If you were prescribed an antibiotic medicine, take it as told by your health care provider. Do not stop using the antibiotic even if you start to feel better. General instructions ? Make sure you: ? Empty your bladder often and completely. Do not hold urine for long periods of time. ? Empty your bladder after sex. ? Wipe from front to back after urinating or having a bowel movement if you are female. Use each tissue only one time when you wipe. ? Drink enough fluid to keep your urine pale yellow. ? Keep all follow-up visits. This is important. Contact a health care provider if: ? Your symptoms do not get better after 1?2 days. ? Your symptoms go away and then return. Get help right away if: ? You have severe pain in your back or your lower abdomen. ? You have a fever or chills. ? You have nausea or vomiting. Summary ? A urinary tract infection (UTI) is an infection of any part of the urinary tract, which includes the kidneys, ureters, bladder, and urethra. ? Most urinary tract infections are caused by bacteria in your genital area. ? Treatment for this condition often includes antibiotic medicines. ? If you were prescribed an antibiotic medicine, take it as told by your health care provider. Do not stop using the antibiotic even if you start to feel better. ? Keep all follow-up visits. This is important. This information is not intended to replace advice given to you by your health care provider. Make sure you discuss any questions you have with your health care provider. Document Revised: 04/27/2021 Document Revie (more content not included)... Normal [facility] ED Patient Summaryon 023 ED Patient Summary (Inserted Image. Katiana ble to display) [address] [address] Patient Discharge Instructions Person Information Name: SWEETIE OSORIO Age: 77 Years Arrival Date: 09/06/2023 07:00:28 Discharge Diagnosis: 1:Urinary tract infection; 2:Flank pain Primary Care Physician: Andry Fraire DO Provider Information Primary Provider: Hedy Ferro M.D. Advanced Telephone Interviewer:None The exam and treatment you received in the Emergency Department were for an urgent problem and are not intended as complete care. It is important that you follow up with a doctor, nurse practitioner, or physician?s therapeutic assistant for ongoing care. If your symptoms become worse or you do not improve as expected and you are unable to reach your usual health care provider, you should return to the Emergency Department. We are available 24 hours a day. SWEETIE OSORIO has been given the following list of patient education materials, prescriptions and follow-up instructions: Follow-up Instructions: With: Address: When: Rashawn MELENDEZ [facility], [address] [address] Business (1) In 3 days 09/09/2023 Comments: Stop taking Cephalexin and start taking Cipro as prescribed. Return to the emergency room if the pain gets worse, fever or any new symptoms. With: Address: When: Andry Fraire [facility] [address], [address] [place] [address] Business (1) In 3 days In the event that this physician does not participate in your insurance network, please consult with your insurance company to find a nearby participating provider. Patient Education Materials: Urinary Tract Infection, Adult; Flank Pain, Adult A MESSAGE TO ALL PATIENTS REGARDING OPIOIDS PRESCRIPTION OPIOIDS: WHAT YOU NEED TO KNOW Prescription opioids can be used to help relieve bjopquay-ak-ejnfxe pain and are often prescribed following a surgery or injury, or for certain health conditions. These medications can be an important part of the treatment but also come with serious risks. It is important to work with your healthcare provider to make sure you are getting the safest, most effective care. WHAT ARE THE RISKS AND SIDE EFFECTS OF OPIOID USE? Prescription opioids carry serious risks of addiction and overdose, especially with prolonged use. An opioid overdose, often marked by slowed breathing, can cause sudden . The use of prescription opioids can have a number of side effects as well, even when taken as directed: ? Tolerance?meaning you might need to take more of the medication for the same pain relief ? Physical dependence?meaning you have symptoms of withdrawal when a medication is stopped ? Increased sensitivity to pain ? Constipation ? Nausea, vomiting, and dry mouth ? Sleepiness and dizziness ? Confusion ? Depression ? Low levels of testosterone that can result in lower sex drive, energy, and strength ? Itching and sweating RISKS ARE GREATER WITH: ? History of drug misuse, substance use disorder, or overdose ? Mental health conditions (such as depression or anxiety) ? Sleep apnea ? Older age (65 years and older) ? Avoid alcohol while taking prescription opioids. Also, unless specifically advised by your health care provider, medications to avoid include: ? Benzodiazepines (such as Xanax or Valium) ? Muscle relaxants (such as Soma or Flexeril) ? Hypnotics (such as Ambien or Lunesta) ? Other prescription opioids KNOW YOUR OPTIONS Talk to your health care provider about ways to manage your pain that don?t involve prescription opioids. Some of these options may actually work better and have fewer risks and side effects. Options may include: ? Pain relievers such as acetaminophen, ibuprofen, and naproxen ? Some medication that are also used for depression or seizures ? Physical therapy and exercise ? Cognitive behavioral therapy, a psychological, goal-directed approach, in which patients learn how to modify physical, behavioral, and emotional triggers of pain and stress. IF YOU ARE PRESCRIBED OPIOIDS FOR PAIN: ? Never take opioids in greater amounts or more often than prescribed. ? Follow up with your primary health care provider. o Work together to create a plan on how to manage your pain. o Talk about ways to help manage your pain that don?t involve prescription opioids. o Talk about any and all concerns and side effects. ? Help prevent misuse and abuse o Never sell or share prescription opioids. o Never use another person?s prescription opioids. ? Store prescription opioids in a secure place and out of reach of others (this may include visitors, children, friends, and family). ? Safely dispose of unused prescription opioids: Find your community drug take-back program or your pharmacy mail-back program, or flush them down the toilet, following guidance from the Food and (more content not included)... Normal [facility] HEMATOLOGYOrdered By: SYSTEM SYSTEM on 09-06-2023 Basophils/100 WBC (Bld) 0.9 % Normal 0.0 - 2.0 % [facility] HemeAutoSS Basophils/Leukocytes Auto (Bld) [Pure # fraction] 0.1 E9/L Normal 0.0 - 0.2 E9/L [facility]eAuto[facility] Eosinophils/100 WBC (Bld) 3.4 % Normal 0.0 - 8.0 % [facility]eAuto[facility] Eosinophils/Leukocyte s Auto (Bld) [Pure # fraction] 0.4 E9/L Normal 0.0 - 0.5 E9/L [facility] Lymphocytes/100 WBC (Bld) 10.3 % Low 14.0 - 50.0 % [facility]eAuto[facility] Lymphocytes/Leukocyte s Auto (Bld) [Pure # fraction] 1.1 E9/L Normal 1.0 - 4.0 E9/L [facility] Monocytes/100 WBC (Bld) 9.0 % Normal 4.0 - 14.0 % [facility] HemeAutoSS Monocytes/Leukocytes Auto (Bld) [Pure # fraction] 1.0 E9/L Normal 0.2 - 1.0 E9/L [facility]Auto[facility] Neutrophils/100 WBC (Bld) 76.4 % High 36.0 - 75.0 % [facility]eAutoSS Neutrophils/Leukocyte s Auto (Bld) [Pure # fraction] 8.4 E9/L High 2.0 - 7.5 E9/L [facility] HEMATOLOGYOrdered By: Montse Villarreal on 09-06-2023 Erythrocyte distribution width (RBC) [Ratio] 13.5 % Normal 10.9 - 14.2 % [facility] Hematocrit (Bld) [Volume fraction] 43.7 % Normal 34.0 - 46.0 % [facility] Hemoglobin (Bld) [Mass/Vol] 14.5 g/dL Normal 12.0 - 16.0 gm/dL [facility] MCH (RBC) [Entitic mass] 29.9 pg Normal 27.0 - 34.0 pg [facility] MCHC (RBC) [Mass/Vol] 33.2 g/dL Normal 31.4 - 36.0 gm/dL [facility] MCV (RBC) [Entitic vol] 90.0 fL Normal 80.0 - 100.0 fL [facility] Platelet mean volume (Bld) [Entitic vol] 8.0 fL Normal 6.4 - 10.8 fL [facility] Platelets (Bld) [#/Vol] 419.0 E9/L Normal 150.0 - 500.0 E9/L [facility] RBC (Bld) [#/Vol] 4.9 E12/L Normal 4.3 - 5.9 E12/L [facility] WBC corrected for nucl RBC Auto (Bld) [#/Vol] 11.0 E9/L Normal 4.0 - 11.0 E9/L [facility] PT & PTTon 09-06-2023 aPTT Coag (PPP) [Time] 34.6 second(s) Normal 25.1-36.5 [facility] Comment on above: Result Comment: Para meter 15 days - 4 weeks 1 - 5 months 6 - 11 months 1 - 5 years 6 - 10 years 11 - 17 years PTT Mean: 35.4 (27.6-45.6) Mean: 33.5 (24.8-40.7) Mean: 32.4 (25.1-40.7) Mean: 31.6 (24.0-39.2) Mean: 31.6 (26.9-38.7) Mean: 31.0 (24.6-38.4) Pediatric Reference ranges were obtained from a study by Jorge Christian et al. prepared from 1437 samples obtained at 7 different centers using the same coagulation reagent and instrumentation as [facility] [place]. Currently there are no coagulation studies available worldwide for children to 14 days, and no normal ranges. Heparin therapeutic range (represented by Anti-Factor Xa activity of 0.2 - 0.4 U/mL) corresponds to PTT of 56.6 - 109.0 sec. Performed By: #### 2 [id number], [id number], 2087930, 3280979, 7334792, 7536992 #### [facility] [address] [place] [address] INR Coag (PPP) [Relative time] 0.9 {INR} Invalid Interpretation Code [facility] Comment on above: Result Comment: INR results are specifically intended to assess patients stabilized on long-term Anticoagulation therapy suggested INR?s ?Less Intensive Anticoagulation? 2.0 ? 3.0 Conventional Range 3.0 ? 4.5 Performed By: #### 2 023947, [id number], 2577792, 0276079, 8389811, 7235458 #### [facility] [address] [place] [address] PT Coag (PPP) [Time] 10.4 second(s) Normal 9.4-12.5 [facility] Comment on above: Result Comment: 15 d ays - 4 weeks 1 - 5 months 6 -11 months 1 ? 5 years 6 ? 10 years 11 -17 years Mean: 11.2 (9.5 ? 12.6) Mean: 11.0 (9.7 ? 12.8) Mean: 11.0 (9.8 ? 13.0) Mean: 11.3 (9.9 ? 13.4) Mean: 11.7 (10.0 ? 14.6) Mean: 11.8 (10.0 - 14.1) Pediatric Reference ranges were obtained from a study by Jorge Christian et al. prepared from 1437 samples obtained at 7 different centers using the same coagulation reagent and instrumentation as [facility] [place]. Currently there are no coagulation studies available worldwide for children to 14 days, and no normal ranges. Performed By: #### 2 373579, 58900651, 4845560, 4698079, 5604517, 2831998 #### [facility] [address] [place] [address] UA With Cult Reflexon 2022 Bacteria LM Ql (Urine sed) TRACE Normal Trace [facility] Comment on above: Performed By: #### 2 332007, 22871975, 3960075, 9434474, 0322571, 5867848 #### [facility] [address] [place] [address] Bilirubin Ql (U) Negative Normal Negative [facility] Comment on above: Performed By: #### 2 320845, 74817530, 7173543, 3140356, 9923556, 9138045 #### [facility] [address] [place] [address] Clarity (U) CLOUDY Abnormal Clear [facility] Comment on above: Performed By: #### 2 142364, 02997612, 6548700, 9302250, 6499413, 1233081 #### [facility] [address] [place] [address] Color (U) YELLOW Normal Yellow [facility] Comment on above: Performed By: #### 2 114169, 88152220, 1772257, 6090228, 5579772, 6533388 #### [facility] [address] [place] [address] Crystals LM Ql (Urine sed) Present Normal [facility] Comment on above: Performed By: #### 2 672270, 91382388, 7516788, 2047321, 8548578, 2238750 #### [facility] [address] [place] [address] Epithelial cells.squamous LM.HPF (Urine sed) [#/Area] 0-2 Normal 0-2 [facility] Comment on above: Performed By: #### 2 889070, 12580873, 5198800, 6080565, 4414077, 2869098 #### [facility] [address] [place] [address] Glucose Test strip (U) [Mass/Vol] Negative Normal Negative [facility] Comment on above: Performed By: #### 2 212381, 86196738, 2387296, 1485178, 6700388, 9861146 #### [facility] [address] [place] [address] Hemoglobin Ql (U) 3+ Abnormal Negative [facility] Comment on above: Performed By: #### 2 862884, 49534926, 5871358, 7878586, 7874370, 8878307 #### [facility] [address] [place] [address] Ketones (U) [Mass/Vol] Negative Normal Negative [facility] Comment on above: Performed By: #### 2 724600, 32148522, 0170256, 2104177, 1415112, 6638893 #### [facility] [address] [place] [address] Koosharem.plasma/Lithiu m.RBC (Bld) [Mass ratio] 21-30 Abnormal 0-3 [facility] Comment on above: Performed By: #### 2 924471, 82988125, 4195952, 6027631, 5126784, 4250031 #### [facility] [address] [place] [address] Mucus Ql (Urine sed) TRACE Normal [facility] Comment on above: Performed By: #### 2 596291, 74466086, 2308427, 8632471, 4702365, 7420376 #### [facility] [address] [place] [address] Nitrite Ql (U) Negative Normal Negative [facility] Comment on above: Performed By: #### 2 361113, 20329683, 1375111, 8926842, 0701828, 7044068 #### [facility] [address] [place] [address] pH (U) 5.5 [pH] Invalid Interpretation Code 5.0-9.0 [facility] Comment on above: Performed By: #### 2 392263, 40908786, 7598751, 0852199, 2250139, 5268262 #### [facility] [address] [place] [address] Protein (U) [Mass/Vol] 3+ Abnormal Negative [facility] Comment on above: Performed By: #### 2 485474, 52677243, 2252752, 3521397, 4239865, 4045381 #### [facility] [address] [place] [address] Specific gravity (U) [Rel density] >=1.030 Invalid Interpretation Code 1.005-1.030 [facility] Comment on above: Performed By: #### 2 900076, 61247497, 1332886, 0113885, 2927546, 7880308 #### [facility] [address] [place] [address] Type of Urine collection method Clean Catch Normal [facility] Comment on above: Performed By: #### 2 718178, 83801781, 2101441, 7777192, 7315683, 5257062 #### [facility] [address] [place] [address] Urobilinogen Qn (U) 0.2 {Lorena'U}/dL Normal 0.0-1.0 [facility] Comment on above: Performed By: #### 2 618082, 89013226, 8785581, 3889309, 0279435, 5267874 #### [facility] [address] [place] [address] WBC Auto Ql (U) 1+ Abnormal Negative [facility] Comment on above: Performed By: #### 2 746614, 17841960, 8300609, 7434829, 9164191, 5136419 #### [facility] [address] [place] [address] WBC LM.HPF (Urine sed) [#/Area] /[HPF] Abnormal 0-5 [facility] Comment on above: Performed By: #### 2 607166, 36167171, 4137103, 1644937, 9682439, 9773148 #### [facility] [address] [place] [address] URINALYSISOrdered By: Danielle Jurado on 09-06-2023 Bacteria LM Ql (Urine sed) Trace /HPF Normal Trace/HPF [facility] UA Auto SS Bilirubin Ql (U) Negative (09/06/23 7:31 AM) Normal Negative [facility]A Auto SS Clarity (U) Cloudy *ABN* (09/06/23 7:31 AM) Invalid Interpretation Code Clear [facility] UA Auto SS Color (U) Yellow (09/06/23 7:31 AM) Normal Yellow [facility] UA Auto SS Crystals LM Ql (Urine sed) Present (09/06/23 7:31 AM) Normal [facility] UA Auto SS Epithelial cells.squamous LM.HPF (Urine sed) [#/Area] 0-2 /HPF Normal 0-2/HPF [facility] UA Aut o SS Glucose Test strip (U) [Mass/Vol] Negative (09/06/23 7:31 AM) Normal Negative [facility] UA Auto SS Hemoglobin Ql (U) 3+ *ABN* (09/06/23 7:31 AM) Invalid Interpretation Code Negative [facility] UA Auto SS Ketones (U) [Mass/Vol] Negative (09/06/23 7:31 AM) Normal Negative [facility] UA Auto SS Koosharem.plasma/Lithiu m.RBC (Bld) [Mass ratio] 21-30 /HPF Invalid Interpretation Code 0-3/HPF [facility] UA Auto SS Mucus Ql (Urine sed) Trace (09/06/23 7:31 AM) Normal [facility] UA Auto SS Nitrite Ql (U) Negative (09/06/23 7:31 AM) Normal Negative [facility] UA Auto SS pH (U) 5.5 *NA* (09/06/23 7:31 AM) Invalid Interpretation Code 5.0 - 9.0 [facility] UA Auto SS Protein (U) [Mass/Vol] 3+ *ABN* (09/06/23 7:31 AM) Invalid Interpretation Code Negative [facility] UA Auto SS Specific gravity (U) [Rel density] >=1.030 *NA* (09/06/23 7:31 AM) Invalid Interpretation Code 1.005 - 1.030 [facility] UA Auto SS UA Spec Desc Clean Catch (09/06/23 7:31 AM) Normal [facility] UA Auto SS Urobilinogen Qn (U) 0.7479657 {Lorena'U}/dL Normal 0.0 - 1.0 EU/dL [facility] UA Auto SS WBC Auto Ql (U) 1+ *ABN* (09/06/23 7:31 AM) Invalid Interpretation Code Negative [facility] UA Auto SS WBC LM.HPF (Urine sed) [#/Area] /[HPF] Invalid Interpretation Code 0-5/HPF [facility] UA Auto SS eGFRon 09-06-2023 GFR/1.73 sq M.predicted among non-blacks MDRD (S/P/Bld) [Vol rate/Area] 46 mL/min/1.73 m2 Low >=59 [facility] Comment on above: Order Comment: Order added by Discern Expert. Result Comment: Psychology Technician brianne kidney disease could be indicated at eGFR's of less than 60 mL/min/1.73m2. Kidney failure is indicated at less than 15 mL/min/1.73m2. Performed By: #### 2 240879, 70390132, 3188127, 9694452, 8185257, 4406644 #### [facility] [address] [place] [address] Consent for Treatmenton Consent for Treatment [id number] F Normal [facility] XR Abdomen 1 Viewon 09-05-20 XR Abdomen 1 View Exam Date/Time: 09/05/2023 09:50 EST Reason for Exam: N20.0 Calculus of kidney;Kidney stone Report IMPRESSION: LEFT DOUBLE-J URETERAL STENT. 2.5 MM PROXIMAL LEFT URETERAL CALCULUS. CLINICAL HISTORY: Kidney stone, N20.0 Calculus of kidney COMPARISON: CT abdomen pelvis, August 28, 2023. FINDINGS: Left double-J ureteral stent. No calcifications identified overlying region of left knee. 2.5 mm calculus visualized adjacent to the stent within proximal left ureter. Phleboliths in pelvis. No right renal calcification. Gas and stool in colon. No diffuse small bowel dilatation or mass effect. Mild lumbar scoliosis with convexity to left apex L2. Ordering Provider: Rashawn MELENDEZ FINAL REPORT Dictated: 09/05/2023 11:47 am Liborio Bhakta MD Signed (Electronic Signature): 09/05/2023 11:47 am Signed by: Liborio Bhakta MD Transcribed by: SARI Technologist: JUAN ANTONIO Technical Comments Radiation Dose: Ka,r in mGy = na DAP = na Normal [facility] Consent for Procedure/Surger yon 09-04-2023 Consent for Procedure/Surgery [id number] F Normal Ever [facility] Patient Educationon 09-04-20 Patient Education Nephrology Laser Therapy for Kidney Stones Laser therapy for kidney stones is a procedure to break up small, hard mineral deposits that form in the kidney (kidney stones). The procedure is done using a device that produces a focused beam of light (laser). The laser breaks up kidney stones into pieces that are small enough to be passed out of the body through urination or removed from the body during the procedure. You may need laser therapy if you have kidney stones that are painful or block your urinary tract. This procedure is done by inserting a tube (ureteroscope) into your kidney through the urethral opening. The urethra is the part of the body that drains urine from the bladder. In women, the urethra opens above the vaginal opening. In men, the urethra opens at the tip of the penis. The ureteroscope is inserted through the urethra, and surgical instruments are moved through the bladder and the muscular tube that connects the kidney to the bladder (ureter) until they reach the kidney. Tell a health care provider about: ? Any allergies you have. ? All medicines you are taking, including vitamins, herbs, eye drops, creams, and yhwm-gsx-anpqcdv medicines. ? Any problems you or family members have had with anesthetic medicines. ? Any blood disorders you have. ? Any surgeries you have had. ? Any medical conditions you have. ? Whether you are or may be . What are the risks? Generally, this is a safe procedure. However, problems may occur, including: ? Infection. ? Bleeding. ? Allergic reactions to medicines. ? Damage to the urethra, bladder, or ureter. ? Urinary tract infection (UTI). ? Narrowing of the urethra (urethral stricture). ? Difficulty passing urine. ? Blockage of the kidney caused by a fragment of kidney stone. What happens before the procedure? Medicines ? Ask your health care provider about: ? Changing or stopping your regular medicines. This is especially important if you are taking diabetes medicines or blood thinners. ? Taking medicines such as aspirin and ibuprofen. These medicines can thin your blood. Do not take these medicines unless your health care provider tells you to take them. ? Taking cfbq-snu-kbiysaa medicines, vitamins, herbs, and supplements. Eating and drinking Follow instructions from your health care provider about eating and drinking, which may include: ? 8 hours before the procedure ? stop eating heavy meals or foods, such as meat, fried foods, or fatty foods. ? 6 hours before the procedure ? stop eating light meals or foods, such as toast or cereal. ? 6 hours before the procedure ? stop drinking milk or drinks that contain milk. ? 2 hours before the procedure ? stop drinking clear liquids. Staying hydrated Follow instructions from your health care provider about hydration, which may include: ? Up to 2 hours before the procedure ? you may continue to drink clear liquids, such as water, clear fruit juice, black coffee, and plain tea. General instructions ? You may have a physical exam before the procedure. You may also have tests, such as imaging tests and blood or urine tests. ? If your ureter is too narrow, your health care provider may place a soft, flexible tube (stent) inside of it. The stent may be placed days or weeks before your laser therapy procedure. ? Plan to have someone take you home from the hospital or clinic. ? If you will be going home right after the procedure, plan to have someone stay with you for 24 hours. ? Do not use any products that contain nicotine or tobacco for at least 4 weeks before the procedure. These products include cigarettes, e-cigarettes, and chewing tobacco. If you need help quitting, ask your health care provider. ? Ask your health care provider: ? How your surgical site will be marked or identified. ? What steps will be taken to help prevent infection. These may include: ? Removing hair at the surgery site. ? Washing skin with a germ-killing soap. ? Taking antibiotic medicine. What happens during the procedure? ? An IV will be inserted into one of your veins. ? You will be given one or more of the following: ? A medicine to help you relax (sedative). ? A medicine to numb the area (local anesthetic). ? A medicine to make you fall asleep (general anesthetic). ? A ureteroscope will be inserted into your urethra. The ureteroscope will send images to a video screen in the operating room to guide your surgeon to the area of your kidney that will be treated. ? A small, flexible tube will be threaded through the ureteroscope and into your bladder and ureter, up to your kidney. ? The laser device will be inserted into your kidney through the tube. Your surgeon will pulse the laser on and off to break up kidney stones. ? A surgical instrument that has a tiny wire basket may be inserted through the tube into your kidney to remove the pieces (more content not included)... [facility] Insurance Correspondence Off iceon 09-01-2023 Insurance Correspondence Office [id number] F [facility] IntraOperative Documentson 1 11-02-2022 IntraOperative Documents [id number] F [facility] Main OR Intraoperative Recor don 09-01-2023 Main OR Intraoperative Record IntraOp Document Type FT Summary Primary Physician: Rsahawn MELENDEZ MD Finalized Date/Time: 09/01/23 08:13:46 Pt. Name: DEVEN OSORIORALPH Reed/Sex: 1945 Female Med Rec #: [id number] Physician: Celi Vences MD Financial #: [id number] Pt. Type: I Room/Bed: [place] [address] Admit/Disch: 08/28/23 00:09:47 - 08/29/23 12:50:00 Institution: Case Times FT Entry 1 Patient Times In Room 08/28/23 15:49:00 Out Room 08/28/23 16:16:00 Procedure Times Start 08/28/23 16:04:00 Stop 08/28/23 16:10:00 Anesthesia Times Start 08/28/23 15:49:00 Stop 08/28/23 16:16:00 Last Modified By: Deisi Lin CST 09/01/23 08:13:42 General Comments: 09/01/23 Chart opened to review and send charges [facility]oth CSFA Case Attendance FT Entry 1 Entry 2 Entry 3 Case Attendee MD Pilar, Radha MELENDEZ MD, Yehuda Scott Role Performed Anesthesiologist of Surgeon - Primary Scrub - Primary Record Time In 08/28/23 15:54:00 08/28/23 15:54:00 08/28/23 15:54:00 Time Out 08/28/23 16:16:00 08/28/23 16:16:00 08/28/23 16:16:00 Procedure CYSTOSCOPY RETROGRADE CYSTOSCOPY RETROGRADE CYSTOSCOPY RETROGRADE STENT INSERTION(Left) STENT INSERTION(Left) STENT INSERTION(Left) Comments Last Modified By: Dondo Lucas Fatou Bladimir Copeland Lucas Ii Lucas Basurto Ii F 08/28/23 16:37:04 08/28/23 16:37:04 08/28/23 16:37:04 Entry 4 Entry 5 Entry 6 Case Attendee Min RehanKali Doll Ii, CST RN, Michelle Kaiser Role Performed Correctional Nurse - Primary Staff - Other Staff - Other Time In 08/28/23 15:54:00 08/28/23 15:54:00 08/28/23 15:54:00 Time Out 08/28/23 16:16:00 08/28/23 16:16:00 08/28/23 16:00:00 Procedure CYSTOSCOPY RETROGRADE CYSTOSCOPY RETROGRADE CYSTOSCOPY RETROGRADE STENT INSERTION(Left) STENT INSERTION(Left) STENT INSERTION(Left) Comments helped in positioning helped in positioning Last Modified By: Liliamapoorvado Lucas Fatou Garrison Min Lucas Ii Lucas Basurto Ii Bladimir 08/28/23 16:37:04 08/28/23 16:37:04 08/28/23 16:37:04 Entry 7 Case Attendee Marion Baker Role Performed Thread Dresser Time In 08/28/23 15:54:00 Time Out 08/28/23 16:16:00 Procedure CYSTOSCOPY RETROGRADE STENT INSERTION(Left) Comments Last Modified By: Rehan Copelandluisa Fatou Garrison 08/28/23 16:37:04 Perioperative Protocols FT Pre-Care Text: Implements protective measures prior to operative or invasive procedure, confirms identity before the operative or invasive procedure, verifies operative procedure, surgical site, and laterality Entry 1 Procedure(s) CYSTOSCOPY RETROGRADE Patient Identity Birthday, ID Band STENT INSERTION(Left) Verified (select at Check, Patient least 2): Participation Consents / H and P Anesthesia Consent, Operative Site N/A Verified HandP, Surgery/Procedure Marking Verified Consent Surgical Site Yes Laterality Verified Yes Verified Procedure Verified Yes Correct Patient Yes Position Verified Availability Equipment, Implant, Prep Dry No Verified (If Medication Applicable) PreOp Antibiotic Yes Time Out MD Pilar, Radha F, Given Participants Rashawn MELENDEZ MD, Yehuda Arguello, Lucas Copeland Ii, Angy SCHNEIDER, Yara Carranza RN, Olivia Velasquez Amy Time Out Complete 08/28/23 16:00:00 Outcomes Met? Yes Last Modified By: Lucas Copeland Ii 08/28/23 16:28:25 Post-Care Text: The patient is free from signs and symptoms of injury caused by extraneous objects Allergy Information FT Pre-Care Text: Verifies allergies Entry 1 Allergies Reviewed? Yes Allergies Reviewed Self/Patient With Outcomes Met? Yes Last Modified By: Lucas Copeland Ii 08/28/23 16:28:35 Post-Care Text: The patient received appropriate medication(s) safely administered during the perioperative period Surgical Procedures FT Entry 1 Procedure Description Procedure CYSTOSCOPY RETROGRADE Modifiers Left STENT INSERTION Surgeon Description CYSTOSCOPY, RETROGRADE, STENT INSERTION LEFT Primary Procedure Yes Primary Surgeon Rashawn MELENDEZ MD Start 08/28/23 16:04:00 Stop 08/28/23 16:10:00 Anesthesia Type General Surgical Service Urology Wound Class 2 - Clean-Contaminated Last Modified By: Lucas Copeland Ii 08/28/23 16:29:20 General Case Data FT Pre-Care Text: Classifies surgical wound, implements aseptic technique, initiates traffic control Entry 1 Case Information OR OR 1 FT Case Level Level 3 Wound Class 2 - Clean-Contaminated Specialty Urology ASA Class 3 Preop Diagnosis URETERAL STONE LEFT Postop Same As Preop Yes Postop Diagnosis URETERAL STONE LEFT Outcomes Met? Yes Last Modified By: Deisi Lin CST 09/01/23 08:13:20 Post-Care Text: The patient is free from signs and symptoms of infection Skin Assessment (Pre Procedure) FT Pre-Care Text: Implements protective measures to prevent skin/ tissue injury due to thermal or mechanical sources Evaluates for signs and symptoms of physical injury to skin and tissue Entry 1 Skin (more content not included)... Normal [facility] PACU Recordon 09-01-2023 PACU Record [id number] F Normal [facility] Discharge Instructionson Discharge Instructions [id number] FF [facility] Progress Note-Physicianon Progress Note-Physician Patient: SWEETIE OSORIO Age: 77 years Sex: Female : 1945 Associated Diagnoses: None Author: MD Quezada Ahmad F Postoperative Information Postoperative disposition: Postoperative disposition: To PACU. Optimetrix number: Optimetrix number [id number]. Anesthetic utilized: General. Health Status Allergies: Allergic Reactions (Selected) Severity Not Documented Percocet- Vomiting. Physical Examination VS/Measurements Pain Assessment: Controlled. General: Awake, Alert, Appropriate. Respiratory: Adequate air exchange. Cardiovascular: Stable, Normal peripheral perfusion. Neurological: Normal sensory function, Normal motor function. Assessment Anesthetic outcome No anesthetic complications noted. Adequate pain relief. able to void without difficulty, able to ambulate with assist, tolerating PO intake, no N/V. Review / Management Condition: Stable. Plan Transfer/Discharge: Transfer/Discharge Discharge when meets criteria ( To home ). [facility] Comment on above: Result Comment: Elec tronically Signed By: MD Quezada Ahmad F\.br\Date and Time Signed: 08/30/23 19:31 EST Progress Note-Physician Patient: SWEETIE OSORIO Age: 77 years Sex: Female : 1945 Associated Diagnoses: None Author: MD Quezada Ahmad F Preoperative Information Time patient last ate or drank:=== (npo 8 hours) Anesthesia history: Patient history: No prior anesthesia problems. Re-evaluation prior to induction: Completed, Initial evaluation reviewed. Review of Systems Respiratory: No shortness of breath. Cardiovascular: No chest pain. Hematology/Lymphatics: No bruising tendency, No bleeding tendency. Health Status Allergies: Allergic Reactions (All) Severity Not Documented Percocet- Vomiting. Canceled/Inactive Reactions (All) No Known Allergies Percocet 5/325- Vomiting. Current medications: (Selected) Prescriptions Prescribed Zofran ODT 4 mg Tab-Dis: 4 mg = 1 tab(s), Oral, q8hr, PRN Nausea/Vomiting, # 12 tab(s), Refills(s) 0, [id number], 165.1, cm, 08/26/23 1:47:00 EST, Height/Length Dosing, 62.2, kg, 08/26/23 1:47:00 EST, Weight Dosing cephalexin 500 mg Cap: 500 mg = 1 cap(s), Oral, q12hr, # 20 cap(s), Refills(s) 0, [id number], 165, cm, 08/28/23 0:22:00 EST, Height/Length Dosing, 62.2, kg, 08/28/23 0:22:00 EST, Weight Dosing naproxen 500 mg Tab: 500 mg = 1 tab(s), Oral, BID, PRN Pain, # 14 tab(s), Refills(s) 0, [id number], 165.1, cm, 08/26/23 1:47:00 EST, Height/Length Dosing, 62.2, kg, 08/26/23 1:47:00 EST, Weight Dosing oxybutynin 10 mg ER Tab: 10 mg = 1 tab(s), Oral, Daily, # 30 tab(s), Refills(s) 1, [id number], 165, cm, 08/28/23 0:22:00 EST, Height/Length Dosing, 62.2, kg, 08/28/23 0:22:00 EST, Weight Dosing Documented Medications Documented Artificial Tears preserved ophthalmic solution: 1 drop(s), OPTH, BID for dry eyes, 30 mL, Refill(s) 0 Timolol Maleate (Eqv-Timoptic) 0.5% ophthalmic solution: 1 drop(s), Eye-Right, BID, Refill(s) 0 Problem list: All Problems Glaucoma / SNOMED CT 20525362 / Confirmed Cataract of right eye / SNOMED CT 966038092 / Confirmed Hyperlipidemia / SNOMED CT 10325517 / Confirmed Lumbar back pain with radiculopathy affecting left lower extremity / SNOMED CT 424612061 / Confirmed Screening for cardiovascular condition / SNOMED CT 112777665 / Confirmed Degenerative arthritis of knee, bilateral / SNOMED CT 2584587647 / Confirmed Dizziness and giddiness / SNOMED CT 064763978 / Confirmed Spondylosis / SNOMED CT 71115221 / Confirmed Sprain of shoulder / SNOMED CT 0327859 / Confirmed Contusion of hand / SNOMED CT 96054129 / Confirmed Resolved: At risk for falls / SNOMED CT 199047961 Problem added when Risk for Falls Careplan was initiated. Resolved due to patient discharge. Canceled: Atypical chest pain / SNOMED CT 492600572 Canceled: Thoracic back pain / SNOMED CT 514667752 Histories Past Medical History: No active or resolved past medical history items have been selected or recorded. Family History: History is unknown. Procedure history: Cystoscopy with stent insertion ([id number]) on 08/28/2023 at 77 Years. None ([id number]). left shoulder rotator cuff repair 12-04-15. Social History Social & Psychosocial Habits Alcohol 08/26/2023 Risk Assessment: Denies Alcohol Use 08/26/2023 Use: Current Comment: Parth - 08/01/2018 04:23 - Dee Nolan RN Comment: den - 11/21/2018 10:18 - Darcy Young RN Comment: den - 03/13/2019 07:43 - Maxine Schultz Comment: den - 05/19/2021 15:06 - MONTSE HARTLEY CNP Comment: rogelio. - 12/02/2022 13:19 - Denita Lo RN Substance Abuse 08/26/2023 Risk Assessment: Denies Substance Abuse 08/26/2023 Use: Current Comment: Parth - 08/01/2018 04:24 Dee Motley RN Comment: den - 11/21/2018 10:18 Darcy Win RN Comment: - 03/13/2019 07:43 Maxine Sánchez Comment: rogelio - 05/19/2021 15:06 MONTSE PENALOZA CNP Comment: rogelio. - 12/02/2022 13:19 Denita Gaming RN Tobacco 08/26/2023 Risk Assessment: Denies Tobacco Use Comment: den - 11/21/2018 10:18 Darcy Win RN Comment: rogelio - 05/19/2021 15:06 MONTSE PENALOZA CNP 08/26/2023 Tobacco Use: Never (less than 100 in l Smokeless tobacco use: Never Type: Cigarettes 08/26/2023 Tobacco Use: Never (less than 100 in l Smokeless tobacco use: Never 08/26/2023 Tobacco Use: Never (less than 100 in l Smokeless tobacco use: Never Comment: denies. - 12/02/2022 13:19 - Teresita CRUZ, Denita Mary . Physical Examination Please see preop flow sheet Airway: Mallampati classification: II (soft palate, fauces, uvula visible). Respiratory: Lungs are clear to auscultation. Cardiovascular: Normal rate, Regular rhythm. Neurologic: Alert. Review / Management Results review Interpretation of Outside Results Chest x-ray results Radiology results ECG interpretation Condition Plan [place] [employer]hes[employer] (ASA) physical status classification: Class III. Anestheti (more content not included)... Normal [facility] Comment on above: Result Comment: Elec tronically Signed By: MD Pilar, Radha Garrison\.br\Date and Time Signed: 08/30/23 19:29 EST Auto Diffon 08-29-2023 Basophils/100 WBC (Bld) 0.2 % Normal 0.0-2.0 [facility] Comment on above: Order Comment: Order Added by Discern Expert. Performed By: #### 2 799623, 51473851, 6715128, 1464255, 1193696, 6359760 #### [facility] [address] [place] [address] Basophils/Leukocytes Auto (Bld) [Pure # fraction] 0.0 E9/L Normal 0.0-0.2 [facility] Comment on above: Order Comment: Order Added by Discern Expert. Performed By: #### 2 898196, 06886170, 5922047, 2222292, 7796340, 0153717 #### [facility] [address] [place] [address] Eosinophils/100 WBC (Bld) 0.0 % Normal 0.0-8.0 [facility] Comment on above: Order Comment: Order Added by Discern Expert. Performed By: #### 2 008301, 45609681, 5093909, 2112027, 2889795, 4329211 #### [facility] [address] [place] [address] Eosinophils/Leukocyte s Auto (Bld) [Pure # fraction] 0.0 E9/L Normal 0.0-0.5 [facility] Comment on above: Order Comment: Order Added by Discern Expert. Performed By: #### 2 425840, 16452170, 8584663, 8139307, 6236044, 0617352 #### [facility] [address] [place] [address] Lymphocytes/100 WBC (Bld) 5.8 % Low 14.0-50.0 [facility] Comment on above: Order Comment: Order Added by Discern Expert. Performed By: #### 2 904790, 76363539, 7159827, 4523530, 8618798, 9443689 #### [facility] [address] [place] [address] Lymphocytes/Leukocyte s Auto (Bld) [Pure # fraction] 0.5 E9/L Low 1.0-4.0 [facility] Comment on above: Order Comment: Order Added by Discern Expert. Performed By: #### 2 541946, 49734499, 0936196, 2784316, 4771839, 4595048 #### [facility] [address] [place] [address] Monocytes/100 WBC (Bld) 3.4 % Low 4.0-14.0 [facility] Comment on above: Order Comment: Order Added by Discern Expert. Performed By: #### 2 533398, 23583891, 8556584, 1394593, 3092395, 8682146 #### [facility] [address] [place] [address] Monocytes/Leukocytes Auto (Bld) [Pure # fraction] 0.3 E9/L Normal 0.2-1.0 [facility] Comment on above: Order Comment: Order Added by Discern Expert. Performed By: #### 2 042995, 08839114, 7585713, 9886841, 2057397, 9101677 #### [facility] [address] [place] [address] Neutrophils/100 WBC (Bld) 90.6 % High 36.0-75.0 [facility] Comment on above: Order Comment: Order Added by Discern Expert. Performed By: #### 2 516783, 13033825, 4815588, 1028938, 8586868, 1913158 #### [facility] [address] [place] [address] Neutrophils/Leukocyte s Auto (Bld) [Pure # fraction] 8.4 E9/L High 2.0-7.5 [facility] Comment on above: Order Comment: Order Added by Discern Expert. Performed By: #### 2 683846, 37611942, 3771796, 7597708, 7809510, 9274189 #### [facility] [address] [place] [address] BMP 08-29-2023 Creatinine [Mass/Vol] 0.8 mg/dL Normal 0.5-1.3 [facility] Comment on above: Performed By: #### 2 617694, 72569009, 2204795, 5255721, 8369110, 4394318 #### [facility] [address] [place] [address] Anion gap [Moles/Vol] 11 mmol/L Normal 6-16 [facility] Comment on above: Performed By: #### 2 260909, 26846108, 8137823, 1179104, 5903165, 5354523 #### [facility] [address] [place] [address] Calcium [Mass/Vol] 8.4 mg/dL Low 8.9-11.1 [facility] Comment on above: Performed By: #### 2 187566, 14412349, 0657670, 8747346, 7577212, 3810760 #### [facility] [address] [place] [address] Chloride [Moles/Vol] 109 mmol/L Normal 101-111 [facility] Comment on above: Performed By: #### 2 549286, 79209119, 5329725, 8794429, 8853394, 7515039 #### [facility] [address] [place] [address] CO2 [Moles/Vol] 23 mmol/L Normal 21-31 [facility] Comment on above: Performed By: #### 2 701163, 33161930, 4696038, 7314236, 7567129, 4665152 #### [facility] [address] [place] [address] Glucose [Mass/Vol] 116 mg/dL Normal 55-199 [facility] Comment on above: Result Comment: If t his glucose result represents a fasting glucose, interpretation should refer to the following reference range: 55-99 mg/dL Performed By: #### 2 187037, 10260518, 0807999, 7055608, 6562639, 4254969 #### [facility] [address] [place] [address] Potassium [Moles/Vol] 4.1 mmol/L Normal 3.5-5.3 [facility] Comment on above: Performed By: #### 2 381915, 42776028, 2260140, 0949113, 8089587, 7236115 #### [facility] [address] [place] [address] Sodium [Moles/Vol] 139 mmol/L Normal 135-145 [facility] Comment on above: Performed By: #### 2 154837, 59961261, 1885166, 1376311, 5452753, 3833024 #### [facility] [address] [place] [address] Urea nitrogen [Mass/Vol] 12 mg/dL Normal 5-21 [facility] Comment on above: Performed By: #### 2 005811, 11693758, 0749558, 9524275, 8395537, 6918532 #### [facility] [address] [place] [address] Urea nitrogen/Creatinine [Mass ratio] 15 No Units Normal 10-20 [facility] Comment on above: Performed By: #### 2 988400, 16544576, 8625571, 0166011, 8914409, 6698934 #### [facility] [address] [place] [address] CBC w/ Auto Diffon 3 Erythrocyte distribution width (RBC) [Ratio] 13.8 % Normal 10.9-14.2 [facility] Comment on above: Performed By: #### 2 021776, 84887850, 1442262, 9087125, 0950551, 7239002 #### [facility] [address] [place] [address] Hematocrit (Bld) [Volume fraction] 38.2 % Normal 34.0-46.0 [facility] Comment on above: Performed By: #### 2 069787, 18177361, 2638870, 0272843, 6828614, 1469489 #### [facility] [address] [place] [address] Hemoglobin (Bld) [Mass/Vol] 13.0 g/dL Normal 12.0-16.0 [facility] Comment on above: Performed By: #### 2 199633, 15583586, 8033465, 4490188, 8204902, 4973590 #### [facility] [address] [place] [address] MCH (RBC) [Entitic mass] 30.5 pg Normal 27.0-34.0 [facility] Comment on above: Performed By: #### 2 292162, 04021131, 8715100, 3791393, 3833404, 6208413 #### [facility] [address] [place] [address] MCHC (RBC) [Mass/Vol] 33.9 g/dL Normal 31.4-36.0 [facility] Comment on above: Performed By: #### 2 775495, 69977010, 3083128, 8904506, 1956570, 2332552 #### [facility] [address] [place] [address] MCV (RBC) [Entitic vol] 89.9 fL Normal 80.0-100.0 [facility] Comment on above: Performed By: #### 2 476323, 78550417, 7161353, 8954363, 5176738, 7524048 #### [facility] [address] [place] [address] Platelet mean volume (Bld) [Entitic vol] 8.6 fL Normal 6.4-10.8 [facility] Comment on above: Performed By: #### 2 386425, 05368138, 4863807, 0973719, 6460069, 7980585 #### [facility] [address] [place] [address] Platelets (Bld) [#/Vol] 239.0 E9/L Normal 150.0-500.0 [facility] Comment on above: Performed By: #### 2 991442, 12770252, 8734876, 9692793, 6393041, 2562554 #### [facility] [address] [place] [address] RBC (Bld) [#/Vol] 4.2 E12/L Low 4.3-5.9 [facility] Comment on above: Performed By: #### 2 049951, 93084140, 9183008, 3593231, 3877772, 4055155 #### [facility] [address] [place] [address] WBC corrected for nucl RBC Auto (Bld) [#/Vol] 9.2 E9/L Normal 4.0-11.0 [facility] Comment on above: Performed By: #### 2 574838, 85767430, 7742353, 6075049, 9029470, 9179393 #### [facility] [address] [place] [address] Capillary Glucose POCon 12-0 Glucose [Mass/Vol] 195 mg/dL High 55-99 [facility] Comment on above: Result Comment: Sivan angel RN/ Performed By: #### 2 68057379 #### [facility] [address] [place] [address] Glucose [Mass/Vol] 109 mg/dL High 55-99 [facility] Comment on above: Result Comment: Sivan WAGNER Performed By: #### 2 848173, 60562911, 9548272, 8360331, 0455089, 5329519 #### [facility] [address] [place] [address] Consent for Anesthesiaon Consent for Anesthesia [id number] F Normal [facility] Discharge Note-Nursingon Discharge Note-Nursing SWEETIE OSORIO :1945 Visit Date:08/28/2023 Inpatient Discharge Instructions Your Care Team Admitting Physician - Ru ALONSO, Celi Consulting Physician - AL ALONSO, Rashawn Mccarthy Reason for Your Visit right sided abdominal pain Your Diagnosis Abdominal pain Left ureteral stone Pararenal urinoma Acute kidney injury Bilateral renal cysts Hyperlipidemia Osteoarthritis Abdominal pain Tests Performed Automated Diff BMP BMP Capillary Glucose POC CBC w/ Auto Diff eGFR Hepatic Function Panel Lipase Level PT & PTT UA With Cult Reflex CT Abdomen/Pelvis w/o Contrast XR Urography Retrograde Left -- Results Pending -- Please visit your patient portal for your results or contact your primary care physician. This Is Your Medications List cephalexin (cephalexin 500 mg Cap) naproxen (naproxen 500 mg Tab) ocular lubricant (Artificial Tears preserved ophthalmic solution) ondansetron (Zofran ODT 4 mg Tab-Dis) oxybutynin (oxybutynin 10 mg ER Tab) timolol ophthalmic (Timolol Maleate (Eqv-Timoptic) 0.5% ophthalmic solution) Procedure History Cystoscopy (08/28/2023), left shoulder rotator cuff repair 3-7-16, None. Discharge Vitals Temperature (Oral) 36.8 ?C Heart Rate (Monitored) 72 Respiratory Rate 18 Blood Pressure 133/63 Height 152.4 cm Weight 65 kg What to do next Instructions From Your Doctor Event Name Event Result Discharge Diet(s) Regular Pending Diagnostic Test Results None Pharmacy Information [facility] New Follow Up Appointments after Discharge Follow Up with Andry Link When: 09/09/2023 03:30 PM EST Where: [facility] [facility] [place] [address]- Business (1) Medications What How Much When Instructions Next Dose New cephalexin (cephalexin 500 mg Cap) 1 Capsules By Mouth Every 12 [id number] @ 9pm New oxybutynin (oxybutynin 10 mg ER Tab) 1 Tablets By Mouth Every day Refills: 1 [facility] 08/30/23 Unchanged naproxen (naproxen 500 mg Tab) 1 Tablets By Mouth 2 times a day as needed for Pain Take as needed 2x a day for pain Unchanged ocular lubricant (Artificial Tears preserved ophthalmic solution) 1 Drops Ophthalmic 2 times a day as needed for for dry eyes Take as needed 2x a day for dry eyes Unchanged ondansetron (Zofran ODT 4 mg Tab-Dis) 1 Tablets By Mouth Every 8 hours as needed for Nausea/Vomiting Take as needed every 8 hours for nausea/vomiting Unchanged timolol ophthalmic (Timolol Maleate (Eqv-Timoptic) 0.5% ophthalmic solution) 1 Drops Right eye 2 times a day 08/29/23 @ 9pm [id number] [address] [place], [place] [id number] [phone] Test Results CBC BMP WBC: 9.2 E9/L (08/29/23 06:52:00) Glucose Lvl: 116 mg/dL (08/29/23 06:52:00) RBC: 4.2 E12/L Low (08/29/23 06:52:00) BUN: 12 mg/dL (08/29/23 06:52:00) HGB: 13 gm/dL (08/29/23 06:52:00) Creatinine: 0.8 mg/dL (08/29/23 06:52:00) Hct: 38.2 % (08/29/23 06:52:00) BUN/Creat Ratio: 15 (08/29/23 06:52:00) MCV: 89.9 fL (08/29/23 06:52:00) Sodium Lvl: 139 mmol/L (08/29/23 06:52:00) MCH: 30.5 pg (08/29/23 06:52:00) Potassium Lvl: 4.1 mmol/L (08/29/23 06:52:00) MCHC: 33.9 gm/dL (08/29/23:52:00) Chloride: 109 mmol/L (08/29/23:52:00) RDW: 13.8 % (08/29/23:52:00) CO2: 23 mmol/L (08/29/23 06:52:00) Platelet: 239 E9/L (08/29/23:52:00) AGAP: 11 mEq/L (08/29/23 06:52:00) MPV: 8.6 fL (08/29/23 06:52:00) Calcium Lvl: 8.4 mg/dL Low (08/29/23:52:00) Allergies Percocet (Vomiting) Problems Ongoing - Any problem that you are currently receiving treatment for. Contusion of hand Degenerative arthritis of knee, bilateral Dizziness and giddiness Hyperlipidemia Lumbar back pain with radiculopathy affecting left lower extremity Screening for cardiovascular condition Spondylosis Sprain of shoulder Devices Implanted/Removed This Visit Notice: You have devices implanted this visit that may not be MRI compatible. Implanted CYSTOSCOPY RETROGRADE STENT INSERTION Ureter L STENT URETERAL 6FR LENGTH [id number] [[id number]] 08/28/2023, Unknown - DANNIE: {[id number]{17}27 [id number] Education Materials Ureteroscopy Ureteroscopy is a procedure to check for and treat problems inside part of the urinary tract. In this procedure, a long rigid or flexible tube with a lens and light at the end (ureteroscope) is used to look at the inside of the kidneys and the ureters. The ureters are the tubes that carry urine from the kidneys to the bladder. The ureteroscope is inserted into one or both of the ureters. You may need this procedure if you have frequent urinary tract infections (UTIs), blood in your urine, or a stone in one or both of your ureters. A ureteroscopy can be done: ? To find the cause of urine blockage in a ureter and to evaluate other abnormalities insi (more content not included)... Normal [facility] Interdisciplinary Note - Avinash e Manageron 08-29-2023 Interdisciplinary Note - Knitting Tester Pt is asleep in bed, previously rounded with Dr. Jones, Plan to DC home today and pt is set up with paramedicine at [place], Medicare rights reviewed, CRM following Normal [facility] Comment on above: Result Comment: Elec tronically Signed By: Risa CRUZ, Linnea\.becca\Date and Time Signed: 08/29/23 09:47 EST IntraOperative Documentson 1 10-30-2022 IntraOperative Documents [id number] F Normal [facility] XR Urography Retrograde Left on 08-29-2023 XR Urography Retrograde Left Exam Date/Time: 08/28/2023 16:19 EST Reason for Exam: Flank pain Report XR Urography Retrograde Left : 08/28/2023 3:55 PM CLINICAL HISTORY: Flank pain. COMPARISON: None available. Intraoperative fluoroscopy was provided for Dr. Melendez' procedure. Air kerma mGy: 4.2; fluoroscopy time: 0.7 minutes; dose area product: 318.37 uGym2 No diagnostic images were obtained. Please see Dr. Melendez' surgical notes for complete details. Ordering Provider: Rashawn MELENDEZ FINAL REPORT Dictated: 08/29/2023 1:30 pm Manuel Velez DO Signed (Electronic Signature): 08/29/2023 1:30 pm Signed by: Manuel Velez DO Transcribed by: SARI Technologist: MICHEAL Technical Comments Radiation Dose: Ka,r in mGy = 4.20 DAP = 318.37 Normal [facility] eGFRon 08-29-2023 GFR/1.73 sq M.predicted among non-blacks MDRD (S/P/Bld) [Vol rate/Area] 75 mL/min/1.73 m2 Normal >=59 [facility] Comment on above: Order Comment: Order added by Discern Expert. Result Comment: Psychology Technician brianne kidney disease could be indicated at eGFR's of less than 60 mL/min/1.73m2. Kidney failure is indicated at less than 15 mL/min/1.73m2. Performed By: #### 2 890377, 47668874, 0203834, 1849755, 9225888, 2551070 #### [facility] [address] [place] [address] Auto Diffon 08-28-2023 Basophils/100 WBC (Bld) 0.4 % Normal 0.0-2.0 [facility] Comment on above: Order Comment: Order Added by Discern Expert. Performed By: #### 2 024530, 5093553, 2345081, 17760980, 41654822, 5343007, 6289344 ####[facility] [address] [place] [address] Basophils/Leukocytes Auto (Bld) [Pure # fraction] 0.0 E9/L Normal 0.0-0.2 [facility] Comment on above: Order Comment: Order Added by Discern Expert. Performed By: #### 2 294216, 0543622, 6772769, 71793701, 01458423, 3158975, 7551132 ####[facility] [address] [place] [address] Eosinophils/100 WBC (Bld) 1.5 % Normal 0.0-8.0 [facility] Comment on above: Order Comment: Order Added by Discern Expert. Performed By: #### 2 246212, 2532797, 7852157, 81472125, 67994327, 4497038, 1640011 ####[facility] [address] [place] [address] Eosinophils/Leukocyte s Auto (Bld) [Pure # fraction] 0.2 E9/L Normal 0.0-0.5 [facility] Comment on above: Order Comment: Order Added by Discern Expert. Performed By: #### 2 316904, 9715335, 9980556, 72069374, 46487824, 4481569, 4004252 ####[facility] [address] [place] [address] Lymphocytes/100 WBC (Bld) 11.7 % Low 14.0-50.0 [facility] Comment on above: Order Comment: Order Added by Discern Expert. Performed By: #### 2 413995, 5259037, 4989959, 92536688, 36620472, 6488350, 2626587 ####[facility] [address] [place] [address] Lymphocytes/Leukocyte s Auto (Bld) [Pure # fraction] 1.2 E9/L Normal 1.0-4.0 [facility] Comment on above: Order Comment: Order Added by Discern Expert. Performed By: #### 2 235693, 3842798, 5856858, 43033162, 26391953, 4830907, 1133121 ####[address] [place] [address] Monocytes/100 WBC (Bld) 5.8 % Normal 4.0-14.0 [facility] Comment on above: Order Comment: Order Added by Discern Expert. Performed By: #### 2 908950, 9733148, 8036804, 60277598, 79109903, 3036488, 4889022 ####[address] [address] Monocytes/Leukocytes Auto (Bld) [Pure # fraction] 0.6 E9/L Normal 0.2-1.0 [facility] Comment on above: Order Comment: Order Added by Discern Expert. Performed By: #### 2 498334, 0510300, 1121461, 99980449, 24771276, 7838122, 9885458 ####[address] [place] [address] Neutrophils/100 WBC (Bld) 80.6 % High 36.0-75.0 [facility] Comment on above: Order Comment: Order Added by Discern Expert. Performed By: #### 2 247410, 4986313, 8977980, 94642519, 16941443, 3612085, 7228433 ####[address] [place] [address] Neutrophils/Leukocyte s Auto (Bld) [Pure # fraction] 8.5 E9/L High 2.0-7.5 [facility] Comment on above: Order Comment: Order Added by Discern Expert. Performed By: #### 2 393916, 9086665, 6908711, 60956332, 32741548, 8286640, 2869838 ####[facility] [address] [place] [address] BMPon 08-28-2023 Creatinine [Mass/Vol] 1.7 mg/dL High 0.5-1.3 [facility] Comment on above: Performed By: #### 2 828985, 95021589, 3931533, 9878409, 4152809, 1864821 #### [facility] [address] [place] [address] Anion gap [Moles/Vol] 11 mmol/L Normal 6-16 [facility] Comment on above: Performed By: #### 2 839171, 45441372, 4921973, 5792410, 0887857, 0731734 #### [facility] [address] [place] [address] Calcium [Mass/Vol] 8.7 mg/dL Low 8.9-11.1 [facility] Comment on above: Performed By: #### 2 198158, 10411407, 6993133, 0225352, 7309636, 7709152 #### [facility] [address] [place] [address] Chloride [Moles/Vol] 109 mmol/L Normal 101-111 [facility] Comment on above: Performed By: #### 2 596217, 55597640, 4768888, 2561828, 4268376, 9646915 #### [facility] [address] [place] [address] CO2 [Moles/Vol] 22 mmol/L Normal 21-31 [facility] Comment on above: Performed By: #### 2 279383, 28171169, 2887866, 0167003, 6139522, 0561713 #### [facility] [address] [place] [address] Glucose [Mass/Vol] 196 mg/dL Normal 55-199 [facility] Comment on above: Result Comment: If t his glucose result represents a fasting glucose, interpretation should refer to the following reference range: 55-99 mg/dL Performed By: #### 2 703574, 11031468, 4278334, 6672898, 5469085, 0769918 #### [facility] [address] [place] [address] Potassium [Moles/Vol] 3.8 mmol/L Normal 3.5-5.3 [facility] Comment on above: Performed By: #### 2 906548, 39038551, 2773852, 1422846, 1238542, 3962978 #### [facility] [address] [place] [address] Sodium [Moles/Vol] 138 mmol/L Normal 135-145 [facility] Comment on above: Performed By: #### 2 066728, 24068447, 9890517, 4634773, 8712635, 1022839 #### [facility] [address] [place] [address] Urea nitrogen [Mass/Vol] 20 mg/dL Normal 5-21 [facility] Comment on above: Performed By: #### 2 315037, 73845080, 7087572, 5565605, 8877008, 3107623 #### [facility] [address] [place] [address] Urea nitrogen/Creatinine [Mass ratio] 12 No Units Normal 10-20 [facility] Comment on above: Performed By: #### 2 020537, 24659431, 8660844, 6807931, 3627789, 9711262 #### [facility] [address] [place] [address] CBC w/ Auto Diffon 3 Erythrocyte distribution width (RBC) [Ratio] 14.1 % Normal 10.9-14.2 [facility] Comment on above: Performed By: #### 2 671221, 0970790, 0758897, 07990520, 31746544, 0753450, 3003304 ####[facility] [address] [place] [address] Hematocrit (Bld) [Volume fraction] 39.8 % Normal 34.0-46.0 [facility] Comment on above: Performed By: #### 2 020355, 6617091, 7509375, 66296636, 06354572, 4636658, 1173872 ####[address] [place] [address] Hemoglobin (Bld) [Mass/Vol] 13.5 g/dL Normal 12.0-16.0 [facility] Comment on above: Performed By: #### 2 895635, 0384757, 3727667, 26285549, 17436686, 2307476, 8032599 ####[address] MCH (RBC) [Entitic mass] 30.6 pg Normal 27.0-34.0 [facility] Comment on above: Performed By: #### 2 272945, 8289427, 3408655, 60438489, 91103929, 9575302, 7640983 ####[address] [address] MCHC (RBC) [Mass/Vol] 34.0 g/dL Normal 31.4-36.0 [facility] Comment on above: Performed By: #### 2 712318, 0376716, 8855935, 52427753, 62109563, 5718346, 0350279 ####[address] [place] [address] MCV (RBC) [Entitic vol] 90.1 fL Normal 80.0-100.0 [facility] Comment on above: Performed By: #### 2 005249, 4945225, 0296540, 03820294, 35112331, 2820915, 3499514 ####[address] [address] Platelet mean volume (Bld) [Entitic vol] 8.4 fL Normal 6.4-10.8 [facility] Comment on above: Performed By: #### 2 117528, 7333234, 3590122, 12293001, 24381978, 7685976, 2622750 ####[facility] [address] [place] [address] Platelets (Bld) [#/Vol] 238.0 E9/L Normal 150.0-500.0 [facility] Comment on above: Performed By: #### 2 981186, 5316667, 1439158, 04421684, 50058595, 7903069, 6446027 ####[facility] [address] [place] [address] RBC (Bld) [#/Vol] 4.4 E12/L Normal 4.3-5.9 [facility] Comment on above: Performed By: #### 2 307822, 0045411, 3837914, 54896246, 62757212, 4072430, 9171293 ####[facility] [address] [place] [address] WBC corrected for nucl RBC Auto (Bld) [#/Vol] 10.5 E9/L Normal 4.0-11.0 [facility] Comment on above: Performed By: #### 2 518374, 8187627, 0330671, 57252725, 29382592, 4680680, 6890918 ####[facility] [address] [place] [address] CT Abdomen/Pelvis w/o Contra ston 08-28-2023 CT Abdomen/Pelvis w/o Contrast Exam Date/Time: 08/28/2023 02:06 EST Reason for Exam: Abdominal pain, acute, nonlocalized;Other (please specify) Report IMPRESSION: INTERVAL DEVELOPMENT OF MODERATE ILL-DEFINED LEFT PERINEPHRIC EDEMA SECONDARY TO A STABLE-POSITIONED 3 MM PROXIMAL LEFT URETERAL CALCULUS. INFECTION SHOULD BE EXCLUDED CLINICALLY. NO OTHER SIGNIFICANT SIGNIFICANT CHANGE FROM 2 DAYS AGO. CLINICAL HISTORY: Abdominal pain, acute, nonlocalized. COMPARISON: CT abdomen and pelvis with contrast 08/23/2023. TECHNIQUE: Spiral unenhanced images were obtained of the abdomen and pelvis without contrast. All CT scans at this facility use dose modulation, iterative reconstruction, and/or weight based dosing when appropriate to reduce radiation dose to as low as reasonably achievable. FINDINGS: Since the recent prior study, there has been interval development of moderate ill-defined left perinephric edema. An approximately 3 mm proximal left ureteral calculus has not significantly changed in position. The degree of hydronephrosis appears similar; difficult to evaluate secondary to the numerous small to moderate-sized left peripelvic cysts. There is no organized or drainable fluid collection, pathologically enlarged lymph nodes, developing opacities in the visualized lung bases, or other significant changes. Numerous chronic findings not significantly changed, as previously described in detail. Ordering Provider: Hedy Ferro FINAL REPORT Dictated: 08/28/2023 9:01 am Francisco Porras MD Signed (Electronic Signature): 08/28/2023 9:01 am Signed by: Francisco Porras MD Transcribed by: SARI Technologist: MICHAEL Technical Comments GFR (mL/min/1/73m2) 30 Contrast: None Contrast amount in ml's: 0 Normal [facility] Capillary Glucose POCon 08-01 Glucose [Mass/Vol] 138 mg/dL High 55-99 [facility] Comment on above: Result Comment: Sivan angel RN/ Performed By: #### 2 335998, 07576832, 1536392, 6378140, 8405343, 8708779 #### [facility] [address] [place] [address] Consent for Surgery/Procedur e Officeon 08-28-2023 Consent for Surgery/Procedure Office [id number] FF Normal [facility] Consent for Treatmenton 08-01 Consent for Treatment [id number] F Normal [facility] Consultation Noteon 08-28-20 23 Consultation Note Patient: NORI OSORIO MRN: [id number]-- Age: 77 years Sex: Female : 1945 Associated Diagnoses: None Author: Rashawn MELENDEZ MD Chief Complaint 08/28/2023 5:01 EST right sided abdominal pain 08/28/2023 0:19 EST pt c\o R abd pain radiating into back x3 days. states fell several days ago, naproxen not working History of Present Illness This lady has significant left-sided abdominal and flank pain that started abruptly on Friday about 3 to 4 days ago. The pain awoke her from her sleep. She presented to the ER once. CT scan was reported as negative. She was sent home on anti-inflammatories. She came back last night and her creatinine had bumped up from 1.1-1.[address] scan was repeated. This now showed a small stone in the proximal left ureter with ipsilateral hydroureteronephrosis and possible extravasation. She was admitted for pain management and fluid resuscitation. Urology was consulted for the above reasons. X Review of Systems ROS reviewed as documented in chart Health Status Allergies: Allergic Reactions (Selected) Severity Not Documented Percocet 5/325- Vomiting., Allergies (1) Active Reaction Percocet 5/325 vomiting Current medications: (Selected) Inpatient Medications Ordered NS 1000 mL Soln-IV 1,000 mL: 1,000 mL, IV, 125 mL/hr, Routine, Start date 08/28/23 3:59:00 EST, 8 hour(s), Total volume (mL): 1,000, 62.2 kg, 1.69, m2 NS 1000 mL Soln-IV 1,000 mL: 1,000 mL, IV, 250 mL/hr, STAT, Start date 08/28/23 1:39:00 EST, 4 hour(s), Total volume (mL): 1,000, 62.2 kg, 1.69, m2 Zofran 4 mg/2 mL Injection: 4 mg = 2 mL, Injection, IV Push, q6hr PRN Nausea, Routine, Start date 08/28/23 3:59:00 EST, 08/28/23 3:59:00 EST acetaminophen additive + Generic Diluent 100 mL: 1,000 mg = 100 mL, Soln-IV, IV Piggyback, q6hr PRN Pain/Fever, Routine, Start date 08/28/23 3:59:00 EST, 400 mL/hr, Infuse over 15 minute(s) morphine 2 mg/mL Inj: 2 mg = 1 mL, Injection, IV Push, q4hr PRN Pain for 5 day(s), Stop date 09/02/23 4:59:00 EST, Routine, Start date 08/28/23 5:00:00 EST, 08/28/23 5:00:00 EST Prescriptions Prescribed Zofran ODT 4 mg Tab-Dis: 4 mg = 1 tab(s), Oral, q8hr, PRN Nausea/Vomiting, # 12 tab(s), Refills(s) 0, Pharmacy: [facility]/pharmacy #[id number], 165.1, cm, 08/26/23 1:47:00 EST, Height/Length Dosing, 62.2, kg, 08/26/23 1:47:00 EST, Weight Dosing naproxen 500 mg Tab: 500 mg = 1 tab(s), Oral, BID, PRN Pain, # 14 tab(s), Refills(s) 0, [id number] 165.1, cm, 08/26/23 1:47:00 EST, Height/Length Dosing, 62.2, kg, 08/26/23 1:47:00 EST, Weight Dosing Documented Medications Documented Artificial Tears preserved ophthalmic solution: 1 drop(s), OPTH, BID for dry eyes, 30 mL, Refill(s) 0 Timolol Maleate (Eqv-Timoptic) 0.5% ophthalmic solution: 1 drop(s), Eye-Right, BID, Refill(s) 0, Medications (5) Active Scheduled: (0) Continuous: (2) Sodium Chloride 0.9% 1,000 mL 1,000 mL, IV, 250 mL/hr Sodium Chloride 0.9% 1,000 mL 1,000 mL, IV, 125 mL/hr PRN: (3) acetaminophen + Generic Diluent 100 mL 1,000 mg 100 mL, IV Piggyback, q6hr morphine 2 mg/mL preservative-free SOLN [F] 2 mg 1 mL, IV Push, q4hr ondansetron 2 mg/mL Inj [F] 4 mg 2 mL, IV Push, q6hr Problem list: All Problems Hyperlipidemia / SNOMED CT 36035720 / Confirmed Lumbar back pain with radiculopathy affecting left lower extremity / SNOMED CT 268155073 / Confirmed Screening for cardiovascular condition / SNOMED CT 628991446 / Confirmed Degenerative arthritis of knee, bilateral / SNOMED CT 7891807537 / Confirmed Dizziness and giddiness / SNOMED CT 509085246 / Confirmed Spondylosis / SNOMED CT 19171719 / Confirmed Sprain of shoulder / SNOMED CT 9277840 / Confirmed Contusion of hand / SNOMED CT 51731257 / Confirmed Glaucoma / SNOMED CT 73678044 / Confirmed Cataract of right eye / SNOMED CT 434932653 / Confirmed At risk for falls / SNOMED CT 971832424 / Possible Problem added when Risk for Falls Careplan was initiated., Active Problems (11) At risk for falls Cataract of right eye Contusion of hand Degenerative arthritis of knee, bilateral Dizziness and giddiness Glaucoma Hyperlipidemia Lumbar back pain with radiculopathy affecting left lower extremity Screening for cardiovascular condition Spondylosis Sprain of shoulder Histories Past Medical History: No active or resolved past medical history items have been selected or recorded. Procedure history: None ([id number]). left shoulder rotator cuff repair 12-04-15. Social History Social & Psychosocial Habits Alcohol 08/26/2023 Risk Assessment: Denies Alcohol Use 08/26/2023 Use: Current Comment: Denmaira - 08/01/2018 04:23 - Dee Nolan RN Comment: denmaira - 11/21/2018 10:18 - Darcy Young RN Comment: rogelio - 03/13/2019 07:43 - Maxine Schultz Comment: rogelio - 05/19/2021 15:06 - MONTSE HARTLEY CNP Comment: rogelio. - 12/02/2022 13:19 - Denita Lo RN Substance Abuse 08/26/2023 Risk Assessment: Denmaira (more content not included)... Normal [facility] Comment on above: Result Comment: Elec tronically Signed By: AL ALONSO, Rashawn Zhao.becca\Date and Time Signed: 08/28/23 15:19 EST ED Clinical Summaryon 2022 ED Clinical Summary (Inserted Image. Katiana ble to display) [address] [id number] ED Clinical Summary Person Information Name: SWEETIE OSORIO [place] Age: 77 Years : 1945 Sex: Female Language: Chinese PCP: Andry rFaire DO Marital Status: Phone: [phone] Visit Id: Visit Reason: Abdominal pain; ABD PAIN Speciality: Acuity: 3 Enc Type: Inpatient Med Service: Emergency Arrival: 08/28/2023 00:09:47 Discharge: LOS: 000 04:42 Checkin: 08/28/2023 00:09:47 Checkout: 08/28/2023 04:51:03 Dispo Type: Admitted as IP to this [facility] EVENTS: Event Name Event Status Request Date/Time Start Date/Time Complete Date/Time Arrive Complete 08/28/2023 00:09:47 08/28/2023 00:09:47 08/28/2023 00:09:47 Document Home Meds Request 08/28/2023 00:09:47 Triage Complete 08/28/2023 00:09:47 08/28/2023 00:22:47 08/28/2023 00:22:47 Bed Assign Complete 08/28/2023 00:16:10 08/28/2023 00:16:10 08/28/2023 00:16:10 Dr Exam Complete 08/28/2023 00:16:10 08/28/2023 00:19:04 08/28/2023 00:19:04 RN Exam Complete 08/28/2023 00:16:10 08/28/2023 01:00:22 08/28/2023 01:00:22 Registration Complete 08/28/2023 00:19:04 08/28/2023 00:49:16 08/28/2023 00:49:16 Pending Labs Complete 08/28/2023 00:31:08 08/28/2023 00:57:16 Lab Complete 08/28/2023 00:31:08 08/28/2023 00:57:16 Urine Collect Complete 08/28/2023 00:31:08 08/28/2023 00:57:16 Pending Labs Complete 08/28/2023 00:44:47 08/28/2023 01:36:23 Lab Complete 08/28/2023 00:44:47 08/28/2023 01:36:23 Meds Admin Complete 08/28/2023 00:44:47 08/28/2023 00:56:39 CT Cancel 08/28/2023 00:44:47 08/28/2023 01:40:01 Reg Complete Request 08/28/2023 00:49:16 Reg Bed Request Complete 08/28/2023 00:49:16 08/28/2023 00:49:16 08/28/2023 00:49:16 Meds Admin Complete 08/28/2023 00:53:14 08/28/2023 00:56:02 Pending Labs Complete 08/28/2023 00:57:42 08/28/2023 00:57:42 08/28/2023 01:36:13 Lab Complete 08/28/2023 00:57:42 08/28/2023 00:57:42 08/28/2023 01:36:13 Pending Labs Complete 08/28/2023 01:05:27 08/28/2023 01:05:27 08/28/2023 01:05:27 Pending Labs Complete 08/28/2023 01:07:43 08/28/2023 01:07:43 08/28/2023 01:07:51 Lab Complete 08/28/2023 01:07:43 08/28/2023 01:07:43 08/28/2023 01:07:51 CT Cancel 08/28/2023 01:40:00 08/28/2023 01:41:02 Meds Admin Request 08/28/2023 01:40:13 CT Complete 08/28/2023 01:41:00 08/28/2023 01:42:26 08/28/2023 02:06:04 Consult Request 08/28/2023 03:22:24 Hospitalist Consult Request 08/28/2023 03:22:24 Patient Care Request 08/28/2023 03:29:47 Patient Care Request 08/28/2023 03:29:47 Patient Care Request 08/28/2023 03:29:48 Patient Care Request 08/28/2023 03:29:48 Bed Request Cancel 08/28/2023 03:31:10 08/28/2023 03:58:15 Reg Bed Request Cancel 08/28/2023 03:31:10 08/28/2023 03:58:15 Admit Request 08/28/2023 03:31:10 Bed Request Request 08/28/2023 03:58:15 Reg Bed Request Request 08/28/2023 03:58:15 Admit Request 08/28/2023 03:58:15 Patient Care Request 08/28/2023 04:00:11 NPO Request 08/28/2023 04:00:11 Meds Admin Request 08/28/2023 04:00:11 Consult Request 08/28/2023 04:00:11 Pending Labs Request 08/28/2023 04:00:49 Lab Request 08/28/2023 04:00:49 Patient Care Request 08/28/2023 04:45:18 ADDRESS: [address] [place] [phone] PHYS DOC NOTES: MEDICAL INFORMATION: Prescriptions Given: Medications to Continue with No Changes Other Medications naproxen (naproxen 500 mg Tab) 1 Tablets By Mouth 2 times a day as needed Pain. Refills: 0. ocular lubricant (Artificial Tears preserved ophthalmic solution) 1 Drops Ophthalmic 2 times a day as needed for dry eyes. ondansetron (Zofran ODT 4 mg Tab-Dis) 1 Tablets By Mouth every 8 hours as needed Nausea/Vomiting. Refills: 0. timolol ophthalmic (Timolol Maleate (Eqv-Timoptic) 0.5% ophthalmic solution) 1 Drops Right eye 2 times a day. PATIENT EDUCATION INFORMATION: Instructions: Follow up: DIAGNOSIS: 1:Abdominal pain; 2:Left ureteral stone; 3:Pararenal urinoma; 4:Acute kidney injury; 5:Bilateral renal cysts; 6:Hyperlipidemia; 7:Osteoarthritis Normal [facility] ED Note-Physicianon 08-28-20 ED Note-Physician Basic Information Time Seen: Hedy Ferro M.D. 08/28/2023 00:19 Chief Complaint pt c\o R abd pain radiating into back x3 days. states fell several days ago, naproxen not working History of Present Illness The patient is a 77-year-old female past medical history of hyperlipidemia, osteoarthritis, who presented to the emergency room with left lower quadrant abdominal pain. The patient states she has had this pain since Friday. The patient states it seems that the pain is more towards the evening and nighttime. She describes the pain as stabbing. The patient states it seems that the pain was worse when she was sitting on the toilet. The patient states she was in the emergency room on Friday and discharged home with Zofran and Naprosyn. The patient states Naprosyn is not helping. The patient states she took tramadol prior to the arrival and pain is better. She denies any nausea or vomiting. Denies any diarrhea. Her last bowel movement was 1 hour prior to the arrival. She denies any black or bloody stool. The patient denies any burning with urination. She denies any blood in urine. She denies any fever, denies any chills. The patient denies any other associated symptoms. Review of Systems Additional ROS info: Except as noted in the above Review of Systems and in the History of Present Illness all other systems have been reviewed and are negative or noncontributory. Physical Exam Vitals & Measurements T: 36.7 ?C(Oral) HR: 83(Peripheral) RR: 14 BP: 151/65 SpO2: 96% HT: 165 cm WT: 62.2 kg BMI: 22.85 General: alert, no acute distress Skin: warm, dry Head: no trauma, normocephalic Neck: Trachea midline Eye: normal conjunctiva, sclera clear, left cornea cloudy Cardiovascular: regular rate and rhythm Respiratory: Lungs CTA, respirations non labored, breath sounds equal Gastrointestinal: soft, non distended, moderate tenderness left lower quadrant, no guarding Back: No tenderness, Normal ROM Extremities: no deformity, no trauma Neurological: Alert and oriented, speech normal, no focal neuro deficits Psychiatric: cooperative, affect appropriate for age, Medical Decision Making MEDICAL DECISION MAKING Number and Complexity of Problems Differential Diagnosis: [] [facility] Data External documents reviewed: [] My EKG interpretation: [] My CT interpretation: [] My X-ray interpretation: [] My Ultrasound interpretation: [] Decision rules/scores evaluated: [] Discussed with: Hospitalist Treatment and Disposition ED Course: Patient presented with left lower quadrant abdominal pain. Her pain has been present since Friday. She was seen in the emergency room and discharged home. The patient states the pain has gotten worse. She has tenderness in the left lower quadrant. Blood work reviewed. The patient has elevated creatinine which is new from her previous blood work on Friday. The urine shows no infection. The CT of the abdomen and pelvis rest by stat read as a stable 3 mm calculus in the region of the left UPJ. The degree of left hydronephrosis is somewhat difficult to assess given the extensive prep pelvic cyst. There is now however extensive left retroperitoneal edema and fluid. The urine shows no infection. The patient was given IV fluids and Toradol. Her pain improved. The case is discussed with the hospitalist and the patient will be admitted to the hospitalist services for further workup and evaluation. Shared decision making: [] Code status: [] Assessment/Plan 1. Abdominal pain (R10.9: Unspecified abdominal pain) 2. Left ureteral stone (N20.1: Calculus of ureter) 3. Acute kidney injury (N17.9: Acute kidney failure, unspecified) 4. 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) Orders: ketorolac, 30 mg = 1 mL, Injection, IV Push, Once, Stop date 08/28/23 0:52:00 EST, STAT, Start date 08/28/23 0:52:00 EST, 08/28/23 0:52:00 EST morphine, 2 mg = 1 mL, Injection, IV Push, Once, Stop date 08/28/23 0:44:00 EST, STAT, Start date 08/28/23 0:44:00 EST, 08/28/23 0:44:00 EST Sodium Chloride 0.9% intravenous solution 1,000 mL, 1,000 mL, IV, 250 mL/hr, STAT, Start date 08/28/23 1:39:00 EST, 4 hour(s), Total volume (mL): 1,000, 62.2 kg, 1.69, m2 Automated Diff Basic Metabolic Panel CBC w/ Auto Diff CT Abdomen/Pelvis w/o Contrast ED Physician consult Hospitalist for continued care eGFR Extra SST Tube Hepatic Function Panel Lipase Level PT & PTT UA With Cult Reflex Medications Administered Given NS 1000 mL Soln-IV 1,000 mL, 1000 mL, IV ketorolac 60 mg/2 mL Injection, 30 mg, IV Push Disposition Plan Patient Discharge Condition Stable, improved Discharge Disposition Admitted to the hospital Discharge Prescription List Prescriptions No active prescription medications Follow-up No qualifying data available Problem List/Past Medical History Ongoing Contusion of hand Degenerative arthritis of knee, bilateral Dizziness and (more content not included)... Normal [facility] Comment on above: Result Comment: Elec tronically Signed By: Pillo Cordova, Hedy Black\.br\Date and Time Signed: 08/28/23 04:29 EST ED Patient Education Noteon 08-28-2023 ED Patient Education Note Normal [facility] ED Patient Summaryon 023 ED Patient Summary (Inserted Image. Katiana ble to display) [place] [id number] Patient Discharge Instructions Person Information Name: DEVON SWEETIE Sainz Age: 77 Years Arrival Date: 08/28/2023 00:09:47 Discharge Diagnosis: 1:Abdominal pain; 2:Left ureteral stone; 3:Pararenal urinoma; 4:Acute kidney injury; 5:Bilateral renal cysts; 6:Hyperlipidemia; 7:Osteoarthritis Primary Care Physician: Andry Fraire DO Provider Information Primary Provider: Hedy Ferro M.D. Advanced Telephone Interviewer:None The exam and treatment you received in the Emergency Department were for an urgent problem and are not intended as complete care. It is important that you follow up with a doctor, nurse practitioner, or physician?s therapeutic assistant for ongoing care. If your symptoms become worse or you do not improve as expected and you are unable to reach your usual health care provider, you should return to the Emergency Department. We are available 24 hours a day. SWEETIE OSORIO has been given the following list of patient education materials, prescriptions and follow-up instructions: Follow-up Instructions: In the event that this physician does not participate in your insurance network, please consult with your insurance company to find a nearby participating provider. Patient Education Materials: A MESSAGE TO ALL PATIENTS REGARDING OPIOIDS PRESCRIPTION OPIOIDS: WHAT YOU NEED TO KNOW Prescription opioids can be used to help relieve wfhjfgls-zh-fftftp pain and are often prescribed following a surgery or injury, or for certain health conditions. These medications can be an important part of the treatment but also come with serious risks. It is important to work with your healthcare provider to make sure you are getting the safest, most effective care. WHAT ARE THE RISKS AND SIDE EFFECTS OF OPIOID USE? Prescription opioids carry serious risks of addiction and overdose, especially with prolonged use. An opioid overdose, often marked by slowed breathing, can cause sudden . The use of prescription opioids can have a number of side effects as well, even when taken as directed: ? Tolerance?meaning you might need to take more of the medication for the same pain relief ? Physical dependence?meaning you have symptoms of withdrawal when a medication is stopped ? Increased sensitivity to pain ? Constipation ? Nausea, vomiting, and dry mouth ? Sleepiness and dizziness ? Confusion ? Depression ? Low levels of testosterone that can result in lower sex drive, energy, and strength ? Itching and sweating RISKS ARE GREATER WITH: ? History of drug misuse, substance use disorder, or overdose ? Mental health conditions (such as depression or anxiety) ? Sleep apnea ? Older age (65 years and older) ? Avoid alcohol while taking prescription opioids. Also, unless specifically advised by your health care provider, medications to avoid include: ? Benzodiazepines (such as Xanax or Valium) ? Muscle relaxants (such as Soma or Flexeril) ? Hypnotics (such as Ambien or Lunesta) ? Other prescription opioids KNOW YOUR OPTIONS Talk to your health care provider about ways to manage your pain that don?t involve prescription opioids. Some of these options may actually work better and have fewer risks and side effects. Options may include: ? Pain relievers such as acetaminophen, ibuprofen, and naproxen ? Some medication that are also used for depression or seizures ? Physical therapy and exercise ? Cognitive behavioral therapy, a psychological, goal-directed approach, in which patients learn how to modify physical, behavioral, and emotional triggers of pain and stress. IF YOU ARE PRESCRIBED OPIOIDS FOR PAIN: ? Never take opioids in greater amounts or more often than prescribed. ? Follow up with your primary health care provider. o Work together to create a plan on how to manage your pain. o Talk about ways to help manage your pain that don?t involve prescription opioids. o Talk about any and all concerns and side effects. ? Help prevent misuse and abuse o Never sell or share prescription opioids. o Never use another person?s prescription opioids. ? Store prescription opioids in a secure place and out of reach of others (this may include visitors, children, friends, and family). ? Safely dispose of unused prescription opioids: Find your community drug take-back program or your pharmacy mail-back program, or flush them down the toilet, following guidance from the Food and Drug Administration (www.fda.gov/Drugs/Resou rcesForYou). ? Visit www.cdc.gov/drugoverdose to learn about the risks of opioids abuse and overdose. ? If you believe you may be struggling with addiction, tell your health health care sanitary technician and ask for guidance or call [facility]?S National Helpline at 6-653-259-ZUDQ. u Source: [place] Department of Health and Human Services/[facility] (more content not included)... Normal [facility] Hep Func Panelon 08-28-2023 Bilirubin.indirect [Mass or moles/Vol] UTC Abnormal 0.1-0.9 [facility] Comment on above: Result Comment: Resu lt verified by Discern Rule. Performed result UTC (Unable to Calculate) was sent as an Alpha code due the inability to calculate a valid numeric value. Performed By: #### 2 129863, 6454701, 6392960, 62867628, 78773262, 1485565, 8298564 ####[facility] [address] [place] [address] Albumin [Mass/Vol] 3.6 g/dL Normal 3.3-5.0 [facility] Comment on above: Performed By: #### 2 649876, 3111448, 4764458, 17269677, 98485315, 5113130, 7921213 ####[facility] [address] [place] [address] Albumin/Globulin (S) [Mass conc ratio] 1.2 Normal 1.1-2.2 [facility] Comment on above: Performed By: #### 2 106523, 6307477, 1676142, 64552076, 06186679, 8543240, 2465615 ####[facility] [address] [place] [address] ALP [Catalytic activity/Vol] 64 Int._Unit/L Normal 21-98 [facility] Comment on above: Performed By: #### 2 391196, 7969358, 9093839, 99685345, 94478176, 2011204, 1461694 ####[address] [address] ALT No additional P-5'-P [Catalytic activity/Vol] 19 Int._Unit/L Normal 6-46 [facility] Comment on above: Performed By: #### 2 902679, 5076322, 8821259, 99203305, 81558214, 7113600, 9845223 ####[address] [address] AST [Catalytic activity/Vol] 28 Int._Unit/L Normal 5-43 [facility] Comment on above: Performed By: #### 2 098853, 5350858, 9396603, 12901546, 96961725, 3624164, 8814984 ####[address] [address] Bilirubin [Mass/Vol] 0.7 mg/dL Normal 0.0-1.1 [facility] Comment on above: Performed By: #### 2 948214, 5835066, 8270038, 27771638, 01195230, 4653052, 0038902 ####[address] [address] Globulin (S) [Mass/Vol] 3.1 g/dL Normal 1.4-4.0 [facility] Comment on above: Performed By: #### 2 848954, 1776023, 6842486, 45013542, 84271081, 9883120, 8358994 ####[place] [address] [place] [address] Protein [Mass/Vol] 6.7 g/dL Normal 6.0-7.8 [facility] Comment on above: Performed By: #### 2 585790, 8608673, 7086427, 67566217, 33567839, 9150994, 0158541 ####[facility] [address] [place] [address] Bilirubin.direct [Mass/Vol] mg/dL Normal 0.1-0.4 [facility] Comment on above: Performed By: #### 2 370599, 1175110, 3119311, 00630830, 10565122, 6517584, 5943511 ####[facility] [address] [place] [address] Interdisciplinary Note - Avinash e Manageron 08-28-2023 Interdisciplinary Note - Knitting Tester CRM to room to discuss DC planning. Patient is awake, alert and oriented. Patient is from home alone. She has family support and should have a ride at DC. Patient verified PCP, home DME and insurance. Patient is here with Abdomen pain. Inpatient form verbal complete, patient had a hard time visualizing form, copy provided to patient. Patient CT= Uterine Fibroid. Patient is assigned to Dr Jones, see notes. Patient denied DME, HH, okay with Paramed f/u at DC. Patient was provided Contact info, white board updated. CRM following Possible DC 08/29 Normal [facility] Comment on above: Result Comment: Elec tronically Signed By: Bianca Snyder\.br\Date and Time Signed: 08/28/23 10:46 EST Lipase Levelon 08-28-2023 Lipase [Catalytic activity/Vol] 34 U/L Normal 13-58 [facility] Comment on above: Performed By: #### 2 355074, 08633555, 3485386, 2795446, 4826556, 2955405 #### [facility] [address] [place] [address] Main OR PACU I Recordon 08-01 Main OR PACU I Record PACU Phase I Docum ent Type FT Summary Primary Physician: Rashawn MELENDEZ MD Finalized Date/Time: 08/28/23 17:21:28 Pt. Name: SWEETIE OSORIO/Sex: 1945 Female Med Rec #: [id number] Physician: Celi Vences MD Financial #: [id number] Pt. Type: I Room/Bed: [facility] Admit/Disch: 08/28/23 00:09:47 - Institution: Case Times PACU I FT Pre-Care Text: Identifies barriers to communication and implements measures to provide psychological support Develops individualized plan of care, and ensures continuity of care Maintains patient's dignity and privacy, and maintains patient confidentiality Identifies and reports philosophical, cultural, and spiritual beliefs and values Identifies individual values and wishes concerning care Implements aseptic technique, and administers prescribed antibiotic therapy and immunizing agents as ordered Evaluates postoperative tissue perfusion Implements thermoregulation measures, and monitors body temperature Evaluates postoperative respiratory status Evaluates postoperative cardiac status Evaluates postoperative neurological status Assesses pain control, collaborated in initiating patient-controlled analgesia and implements alternative methods of pain control Verifies allergies, administers prescribed medications and solutions, evaluates response to medications Entry 1 In PACU I 08/28/23 16:19:00 Discharge from PACU 08/28/23 17:00:00 I Outcomes Met? Yes Last Modified By: Sweetie Murphy RN 08/28/23 17:20:51 Post-Care Text: The patient demonstrates knowledge of the expected response to the operative or invasive procedure The patient's care is consistent with the individualized perioperative plan of care The patient's right to privacy is maintained The patient's value system, lifestyle, ethnicity, and culture are considered, respected, and incorporated into the perioperative plan of care The patient participates in decisions affecting his or her perioperative plan of care The patient is free from signs and symptoms of infection The patient has wound/tissue perfusion consistent with or improved from baseline levels established preoperatively The patient is at or returning to normothermia at the conclusion of the immediate postoperative period The patient's respiratory function is consistent with or improved from baseline levels established preoperatively The patient's cardiovascular status is consistent with or improved from baseline levels established preoperatively The patient's cardiovascular status is consistent with or improved from baseline levels established preoperatively The patient demonstrates and/or reports adequate pain control throughout the perioperative period The patient received appropriate medication(s), safely administered during the perioperative period Acuity Level PACU I FT Entry 1 Start Time 08/28/23 16:19:00 Stop Time 08/28/23 17:00:00 Acuity Level Acuity Level I Last Modified By: Sweetie Murphy RN 08/28/23 17:21:05 Finalized By: Sweetie Murphy RN Document Signatures Signed By: Sweetie Murphy RN 08/28/23 17:21 Sweetie Murphy RN 08/28/23 17:21 [facility] Message from Medicareon 11-3 Message from Medicare [id number] F [facility] Monitor Recordon 08-28-2023 Monitor Record [id number] FF [facility] Operative Reporton Operative Report Patient: NORI OSORIO Age: 77 years Sex: Female : 1945 Associated Diagnoses: None Author: Rashawn MELENDEZ MD Postoperative Information Procedure: 1. Cystoscopy. 2. Left retrograde pyelogram. 3. Placement of 6 Japanese variable length left ureteral stent Date/ Time: 08/28/2023 16:18:00 Preoperative Diagnosis: Left ureteral calculus/left hydronephrosis/left flank pain. Postoperative Diagnosis: same. Procedure: Anesthesia Method: General. Performed by: Rashawn Melendez MD. Findings: 1. No evidence of extravasation. 2. Left UPJ filling defect.. Specimens Removed: None. Prosthesis: 6 Japanese variable length left ureteral stent. . Estimated Blood Loss: 0 ml. Orders Complications: None. Notes: Indications: This lady has a 3 mm proximal left ureteral calculus with ipsilateral hydronephrosis and a rising creatinine. She now presents for cystoscopy, left retrograde pyelogram and left stent placement. She has signed an informed consent after risks were explained. Procedure: The patient was brought to the operating room and placed on the operating room table in the supine position. SCDs were placed on her lower extremities and turned on and functioning during the entire case. Timeout was done by all parties in the room. We all agreed upon the patient's identification and the planned procedures for this patient. General anesthesia was then administered via LMA. He was then repositioned into the modified dorsal lithotomy position. All pressure points were satisfactorily padded. Genitalia were sterilely prepped and draped in the usual fashion. 2% lidocaine gel was passed per urethra. I started by passing a 22 Japanese Stortz cystoscope per urethra and into the bladder. Panendoscopy in the bladder showed no evidence of any tumors stones or mucosal lesions. I then passed the 8 Japanese cone-tip catheter and cannulated the left ureter. I then did a retrograde pyelogram. This showed a filling defect at the left UPJ region. It also showed no evidence of any extravasation. I then passed a Glidewire through the scope and guided up the ureter into the upper pole segment of the collecting system. I then slid a 6 Japanese variable length ureteral stent over the wire up into the kidney. The wire was removed and there were good curls in the kidney and in the bladder. There was a somewhat high-pressure E flux of mildly cloudy urine coming down through and around the stent into the bladder. The bladder was drained of its contents and the scope was then removed. She was then transferred to a [facility] bed and wheeled to PACU in stable condition. From a urologic standpoint, it would be okay for this lady to get discharged to home tomorrow morning after her labs verify an improvement in her creatinine and her pain is improved. Prescription for oxybutynin and Keflex have been sent. We will keep her stent in for a few weeks and then reapproach her situation with definitive ureteroscopy and possible stone manipulation.. Normal [facility] Comment on above: Result Comment: Elec tronically Signed By: AL ALONSO, Rashawn Norton\Date and Time Signed: 08/28/23 16:24 EST PT & PTTon 08-28-2023 aPTT Coag (PPP) [Time] 30.6 second(s) Normal 25.1-36.5 [facility] Comment on above: Result Comment: Para meter 15 days - 4 weeks 1 - 5 months 6 - 11 months 1 - 5 years 6 - 10 years 11 - 17 years PTT Mean: 35.4 (27.6-45.6) Mean: 33.5 (24.8-40.7) Mean: 32.4 (25.1-40.7) Mean: 31.6 (24.0-39.2) Mean: 31.6 (26.9-38.7) Mean: 31.0 (24.6-38.4) Pediatric Reference ranges were obtained from a study by román Lantigua. prepared from 1437 samples obtained at 7 different centers using the same coagulation reagent and instrumentation as [facility] [place]. Currently there are no coagulation studies available worldwide for children to 14 days, and no normal ranges. Heparin therapeutic range (represented by Anti-Factor Xa activity of 0.2 - 0.4 U/mL) corresponds to PTT of 56.6 - 109.0 sec. Performed By: #### 2 953846, 3660903, 6251950, 29905601, 16600651, 7244934, 0588620 ####[facility] [address] [place] [address] INR Coag (PPP) [Relative time] 1.0 {INR} Invalid Interpretation Code [facility] Comment on above: Result Comment: INR results are specifically intended to assess patients stabilized on long-term Anticoagulation therapy suggested INR?s ?Less Intensive Anticoagulation? 2.0 ? 3.0 Conventional Range 3.0 ? 4.5 Performed By: #### 2 715260, 0703094, 4722285, 58816058, 64029211, 7470963, 9947986 ####[facility] [address] [place] [address] PT Coag (PPP) [Time] 10.6 second(s) Normal 9.4-12.5 [facility] Comment on above: Result Comment: 15 d ays - 4 weeks 1 - 5 months 6 -11 months 1- 5 years 6-10 years 11 -17 years Mean: 11.2 (9.5-12.6) Mean: 11.0 (9.7-12.8) Mean: 11.0 (9.8-13.0) Mean: 11.3 (9.9-13.4) Mean: 11.7 (10.0-14.6) Mean: 11.8 (10.0 - 14.1) Pediatric Reference ranges were obtained from a study by mateo Lantigua prepared from 1437 samples obtained at 7 different centers using the same coagulation reagent and instrumentation as [facility] [place]. Currently there are no coagulation studies available worldwide for children to 14 days, and no normal ranges. Performed By: #### 2 386601, 9356545, 2150237, 26528062, 13814785, 1845355, 1809323 ####[facility] [address] [place] [address] RAD - Preliminary Cat Scan R eporton 08-28-2023 RAD - Preliminary Cat Scan Report [id number] FF Normal [facility] UA With Cult Reflexon 2022 Bilirubin Ql (U) Negative Normal Negative [facility] Comment on above: Performed By: #### 2 769125, 50568246, 2638108, 9318832, 9199850, 1268704 #### [facility] [address] [place] [address] Clarity (U) CLEAR Normal Clear [facility] Comment on above: Performed By: #### 2 778287, 46995460, 4799765, 1494587, 9102871, 2283880 #### [facility] [address] [place] [address] Color (U) YELLOW Normal Yellow [facility] Comment on above: Performed By: #### 2 819975, 16851751, 9635840, 1833335, 5118448, 4342977 #### [facility] [address] [place] [address] Epithelial cells.squamous LM.HPF (Urine sed) [#/Area] 0-2 Normal 0-2 [facility] Comment on above: Performed By: #### 2 056571, 78145782, 9685710, 8586328, 7950847, 5249831 #### [facility] [address] [place] [address] Glucose Test strip (U) [Mass/Vol] Negative Normal Negative [facility] Comment on above: Performed By: #### 2 405007, 98795838, 0854460, 9338428, 8549263, 4075547 #### [facility] [address] [place] [address] Hemoglobin Ql (U) Negative Normal Negative [facility] Comment on above: Performed By: #### 2 166690, 17272415, 9061799, 0512273, 5739717, 8946155 #### [facility] [address] [place] [address] Ketones (U) [Mass/Vol] Negative Normal Negative [facility] Comment on above: Performed By: #### 2 752474, 62259093, 9505948, 4224833, 5816277, 0588435 #### [facility] [address] [place] [address] Koosharem.plasma/Lithiu m.RBC (Bld) [Mass ratio] 0-3 Normal 0-3 [facility] Comment on above: Performed By: #### 2 971711, 10903904, 3451057, 1972563, 1525642, 1621738 #### [facility] [address] [place] [address] Nitrite Ql (U) Negative Normal Negative [facility] Comment on above: Performed By: #### 2 399802, 54329386, 7152558, 9447977, 2034177, 4142573 #### [facility] [address] [place] [address] pH (U) 5.5 [pH] Invalid Interpretation Code 5.0-9.0 [facility] Comment on above: Performed By: #### 2 895329, 45481719, 7937188, 5390989, 6082975, 7261323 #### [facility] [address] [place] [address] Protein (U) [Mass/Vol] Negative Normal Negative [facility] Comment on above: Performed By: #### 2 883394, 83224021, 8816963, 2103911, 3103712, 6385881 #### [facility] [address] [place] [address] Specific gravity (U) [Rel density] 1.025 Invalid Interpretation Code 1.005-1.030 [facility] Comment on above: Performed By: #### 2 085551, 85469046, 2947718, 6464616, 9388404, 0106534 #### [facility] [address] [place] [address] Type of Urine collection method Clean Catch Normal [facility] Comment on above: Performed By: #### 2 001170, 98057985, 4739161, 1001660, 2725686, 6359679 #### [facility] [address] [place] [address] Urobilinogen Qn (U) 0.2 {Lorena'U}/dL Normal 0.0-1.0 [facility] Comment on above: Performed By: #### 2 740479, 41717925, 2801575, 7657290, 4677027, 6860995 #### [facility] [address] [place] [address] WBC Auto Ql (U) Negative Normal Negative [facility] Comment on above: Performed By: #### 2 807358, 83211841, 9303812, 0599957, 5192227, 7222874 #### [facility] [address] [place] [address] WBC LM.HPF (Urine sed) [#/Area] 0-5 Normal 0-5 [facility] Comment on above: Performed By: #### 2 159502, 55833501, 8217814, 0078694, 8081477, 2824688 #### [facility] [address] [place] [address] eGFRon 08-28-2023 GFR/1.73 sq M.predicted among non-blacks MDRD (S/P/Bld) [Vol rate/Area] 30 mL/min/1.73 m2 Low >=59 [facility] Comment on above: Order Comment: Order added by Discern Expert. Result Comment: Psychology Technician brianne kidney disease could be indicated at eGFR's of less than 60 mL/min/1.73m2. Kidney failure is indicated at less than 15 mL/min/1.73m2. Performed By: #### 2 978136, 15307358, 0451157, 8723373, 6390493, 0978438 #### [facility] [address] [place] [address] Auto Diffon 08-26-2023 Basophils/100 WBC (Bld) 0.7 % Normal 0.0-2.0 [facility] Comment on above: Order Comment: Order Added by Discern Expert. Performed By: #### 2 268746, 26989347, 9761837, 2326765, 0668313, 8835769 #### [facility] [address] [place] [address] Basophils/Leukocytes Auto (Bld) [Pure # fraction] 0.0 E9/L Normal 0.0-0.2 [facility] Comment on above: Order Comment: Order Added by Discern Expert. Performed By: #### 2 998197, 06210980, 6615265, 8219410, 4785615, 6968470 #### [facility] [address] [place] [address] Eosinophils/100 WBC (Bld) 4.1 % Normal 0.0-8.0 [facility] Comment on above: Order Comment: Order Added by Discern Expert. Performed By: #### 2 126367, 97425654, 8748246, 7600512, 4730825, 3473629 #### [facility] [address] [place] [address] Eosinophils/Leukocyte s Auto (Bld) [Pure # fraction] 0.2 E9/L Normal 0.0-0.5 [facility] Comment on above: Order Comment: Order Added by Discern Expert. Performed By: #### 2 896142, 95601577, 5044487, 4759944, 1483023, 1273864 #### [facility] [address] [place] [address]21 Lymphocytes/100 WBC (Bld) 31.9 % Normal 14.0-50.0 [facility] Comment on above: Order Comment: Order Added by Discern Expert. Performed By: #### 2 767005, 92972565, 6168352, 8286319, 8027063, 4143443 #### [facility] [address] [place] [address] Lymphocytes/Leukocyte s Auto (Bld) [Pure # fraction] 1.9 E9/L Normal 1.0-4.0 [facility] Comment on above: Order Comment: Order Added by Discern Expert. Performed By: #### 2 535327, 11252893, 6868594, 6525750, 7380887, 6202105 #### [facility] [address] [place] [address]89 Monocytes/100 WBC (Bld) 8.5 % Normal 4.0-14.0 [facility] Comment on above: Order Comment: Order Added by Discern Expert. Performed By: #### 2 768090, 26946040, 6093635, 4338666, 0673091, 7320347 #### [facility] [address] [place] [address] Monocytes/Leukocytes Auto (Bld) [Pure # fraction] 0.5 E9/L Normal 0.2-1.0 [facility] Comment on above: Order Comment: Order Added by Jeannie Expert. Performed By: #### 2 727004, 02053191, 5680876, 6691162, 2932423, 0174003 #### [facility] [address] [place] [address] Neutrophils/100 WBC (Bld) 54.8 % Normal 36.0-75.0 [facility] Comment on above: Order Comment: Order Added by Discern Expert. Performed By: #### 2 979810, 28437249, 1933194, 1159496, 4184249, 1247784 #### [facility] [address] [place] [address] Neutrophils/Leukocyte s Auto (Bld) [Pure # fraction] 3.2 E9/L Normal 2.0-7.5 [facility] Comment on above: Order Comment: Order Added by Discern Expert. Performed By: #### 2 287068, 97652984, 6639926, 3112717, 9351283, 6576576 #### [facility] [address] [place] [address] BMPon 08-26-2023 Anion gap [Moles/Vol] 10 mmol/L Normal 6-16 [facility] Comment on above: Performed By: #### 2 463912, 11503177, 0265274, 8798485, 7693241, 9829217 #### [facility] [address] [place] [address] Calcium [Mass/Vol] 8.9 mg/dL Normal 8.9-11.1 [facility] Comment on above: Performed By: #### 2 156047, 87094711, 5603821, 1222389, 0147715, 9738347 #### [facility] [address] [place] [address] Chloride [Moles/Vol] 110 mmol/L Normal 101-111 [facility] Comment on above: Performed By: #### 2 174142, 41951066, 7306830, 6053851, 7749006, 6993699 #### [facility] [address] [place] [address] CO2 [Moles/Vol] 24 mmol/L Normal 21-31 [facility] Comment on above: Performed By: #### 2 923939, 98537724, 2562272, 9234577, 4784400, 7229384 #### [facility] [address] [place] [address] Creatinine [Mass/Vol] 1.1 mg/dL Normal 0.5-1.3 [facility] Comment on above: Performed By: #### 2 827902, 67508351, 7908999, 6461204, 1315476, 7165299 #### [facility] [address] [place] [address] Glucose [Mass/Vol] 105 mg/dL Normal 55-199 [facility] Comment on above: Result Comment: If t his glucose result represents a fasting glucose, interpretation should refer to the following reference range: 55-99 mg/dL Performed By: #### 2 107402, 31584452, 4562549, 9803974, 0917745, 6308632 #### [facility] [address] [place] [address] Potassium [Moles/Vol] 4.6 mmol/L Normal 3.5-5.3 [facility] Comment on above: Result Comment: 'Spe cimen hemolyzed. Result may be affected. Redraw is recommended.' Performed By: #### 2 501785, 24257935, 1044220, 4219349, 9437658, 2471219 #### [facility] [address] [place] [address] Sodium [Moles/Vol] 139 mmol/L Normal 135-145 [facility] Comment on above: Performed By: #### 2 548404, 93834810, 1600460, 7262487, 8297807, 6885597 #### [facility] [address] [place] [address] Urea nitrogen [Mass/Vol] 18 mg/dL Normal 5-21 [facility] Comment on above: Performed By: #### 2 482223, 87378819, 0564107, 6701481, 8442124, 4525965 #### [facility] [address] [place] [address] Urea nitrogen/Creatinine [Mass ratio] 16 No Units Normal 10-20 [facility] Comment on above: Performed By: #### 2 069435, 95473008, 6800249, 4860493, 1988782, 6199074 #### [facility] [address] [place] [address] CBC w/ Auto Diffon 3 Erythrocyte distribution width (RBC) [Ratio] 13.8 % Normal 10.9-14.2 [facility] Comment on above: Performed By: #### 2 940953, 12949329, 0447348, 8171276, 4186749, 3697962 #### [facility] [address] [place] [address] Hematocrit (Bld) [Volume fraction] 44.7 % Normal 34.0-46.0 [facility] Comment on above: Performed By: #### 2 664306, 38796724, 2567803, 5586894, 2760284, 7877312 #### [facility] [address] [place] [address] Hemoglobin (Bld) [Mass/Vol] 15.3 g/dL Normal 12.0-16.0 [facility] Comment on above: Performed By: #### 2 360938, 34663639, 1512581, 2278959, 6621865, 9882902 #### [facility] [address] [place] [id number] MCH (RBC) [Entitic mass] 30.6 pg Normal 27.0-34.0 [facility] Comment on above: Performed By: #### 2 931072, 72804881, 4314366, 1805080, 0469221, 9888935 #### [facility] [address] [place] [address]99[address] MCHC (RBC) [Mass/Vol] 34.2 g/dL Normal 31.4-36.0 [facility] Comment on above: Performed By: #### 2 310371, 51634556, 2401671, 7102919, 6700371, 6222324 #### [facility] [address] [place] [address] MCV (RBC) [Entitic vol] 89.2 fL Normal 80.0-100.0 [facility] Comment on above: Performed By: #### 2 015917, 87194720, 7227788, 8716678, 7756906, 3807934 #### [facility] [address] [place] [address] Platelet mean volume (Bld) [Entitic vol] 8.5 fL Normal 6.4-10.8 [facility] Comment on above: Performed By: #### 2 135579, 33104005, 3441358, 5524653, 9644627, 9984268 #### [facility] [address] [place] [address] Platelets (Bld) [#/Vol] 272.0 E9/L Normal 150.0-500.0 [facility] Comment on above: Performed By: #### 2 871133, 45221765, 7679453, 4309784, 2525995, 9268977 #### [facility] [address] [place] [address] RBC (Bld) [#/Vol] 5.0 E12/L Normal 4.3-5.9 [facility] Comment on above: Performed By: #### 2 310547, 03405761, 8269010, 7619388, 8095123, 1121725 #### [facility] [address] [place] [address] WBC corrected for nucl RBC Auto (Bld) [#/Vol] 5.8 E9/L Normal 4.0-11.0 [facility] Comment on above: Performed By: #### 2 022913, 10499363, 0115165, 8038492, 7984068, 8456838 #### [facility] [address] [place] [address] CHEMISTRYOrdered By: SYSTEM SYSTEM on 08-26-2023 Albumin [Mass/Vol] 3.8 g/dL Normal 3.3 - 5.0 gm/dL [facility] Albumin/Globulin [Mass ratio] 1.1 {ratio} Normal 1.1 - 2.2 [facility] ALP [Catalytic activity/Vol] 64 [iU]/d Normal 21 - 98 Int._Unit/L [facility] ALT No additional P-5'-P [Catalytic activity/Vol] 22 [iU]/d Normal 6 - 46 Int._Unit/L [facility] Comment on above: Result Comment: 'Spe cimen hemolyzed, result may be affected. Recommend redraw.' Anion gap [Moles/Vol] 10 mmol/L Normal 6 - 16 mEq/L [facility] AST [Catalytic activity/Vol] 30 [iU]/d Normal 5 - 43 Int._Unit/L [facility] Comment on above: Result Comment: 'Spe cimen hemolyzed, result may be affected. Recommend redraw.' Bilirubin [Mass/Vol] 1.4 mg/dL High 0.0 - 1 .1 mg/dL [facility] Comment on above: Result Comment: 'Spe cimen hemolyzed, result may be affected. Redraw is recommended.' Bilirubin.direct [Mass/Vol] 0.4 mg/dL Normal 0.1 - 0.4 mg/dL [facility] Comment on above: Result Comment: 'Spe cimen hemolyzed, result may be affected. Redraw recommended.' Bilirubin.indirect [Mass or moles/Vol] 1.0 mg/dL High 0.1 - 0.9 mg/dL [facility] Calcium [Mass/Vol] 8.9 mg/dL Normal 8.9 - 11. 1 mg/dL [facility] Chloride [Moles/Vol] 110 mmol/L Normal 101 - 1 11 mmol/L [facility] CO2 [Moles/Vol] 24 mmol/L Normal 21 - 31 mmol/L [facility] Creatinine [Mass/Vol] 1.1 mg/dL Normal 0.5 - 1.3 mg/dL [facility] GFR/1.73 sq M.predicted among non-blacks MDRD (S/P/Bld) [Vol rate/Area] 51 mL/min/1.73 m2 Low >=59mL/min/ 1.73 m2 [facility] Comment on above: Interpretive Data: C hronic kidney disease could be indicated at eGFR's of less than 60 mL/min/1.73m2. Kidney failure is indicated at less than 15 mL/min/1.73m2. Globulin (S) [Mass/Vol] 3.6 g/dL Normal 1.4 - 4.0 gm/dL [facility] Glucose [Mass/Vol] 105 mg/dL Normal 55 - 199 mg/dL [facility] Comment on above: Interpretive Data: I f this glucose result represents a fasting glucose, interpretation should refer to the following reference range: 55-99 mg/dL Lipase [Catalytic activity/Vol] 41 U/L Normal 13 - 58 unit/L [facility] Potassium [Moles/Vol] 4.6 mmol/L Normal 3.5 - 5.3 mmol/L [facility] Comment on above: Result Comment: 'Spe cimen hemolyzed. Result may be affected. Redraw is recommended.' Protein [Mass/Vol] 7.4 g/dL Normal 6.0 - 7.8 gm/dL [facility] Sodium [Moles/Vol] 139 mmol/L Normal 135 - 145 mmol/L [facility] Urea nitrogen [Mass/Vol] 18 mg/dL Normal 5 - 21 mg/dL [facility] Urea nitrogen/Creatinine [Mass ratio] 16 mg/mg Normal 10 - [address] Abdomen/Pelvis w/ Contras ton 08-26-2023 CT Abdomen/Pelvis w/ Contrast Exam Date/Time: 08/26/2023 02:49 EST Reason for Exam: Abdominal pain, acute, nonlocalized;Other (please specify) Report IMPRESSION: UTERINE FIBROID. OTHER FINDINGS DISCUSSED. CT OF THE ABDOMEN AND PELVIS WITH INTRAVENOUS CONTRAST MEDIUM. History: Abdominal pain, acute, nonlocalized. Left lower quadrant abdominal pain and flank pain. Fell one day ago. Technical Factors: CT imaging of the abdomen and pelvis were obtained and formatted as 5 mm contiguous axial images from the domes of the diaphragm to the symphysis pubis. Sagittal and coronal reconstructions were also obtained. Oral contrast medium: None. Intravenous contrast medium: Isovue-300, 100 mL. Comparison: None Findings: Lower chest: Lung bases are clear. Small hiatal hernia. Liver: Normal in size, shape, and attenuation. Bile Ducts: Normal in caliber. Gallbladder: No stones or wall thickening. Pancreas: Normal without masses, cysts, ductal dilatation or calcification. Spleen: Normal in size without masses or calcifications. No splenules. Kidneys: Normal in size and enhancement. No hydronephrosis, masses, or stones. Bilateral parapelvic renal cysts. Adrenals: Normal. Small bowel: Normal in caliber. Appendix: Normal. Colon: Normal in caliber. Report Peritoneum: No ascites, free air, or fluid collections. Vessels: Aorta normal in course and caliber. Portal vein, splenic vein, superior mesenteric vein are patent. Lymph nodes: Retroperitoneal: No enlarged retroperitoneal lymph nodes. Mesenteric: No enlarged mesenteric lymph nodes. Pelvic: No enlarged pelvic lymph nodes. Ureters: Normal in course and caliber. No calcifications. Bladder: No wall thickening. Reproductive organs: 6 mm calcification anterior uterine fundus. Abdominal Wall: 4 mm fat-containing periumbilical anterior abdominal wall defect. No diastasis of rectus musculature. No edema or masses. Bones: No bone lesions. No degenerative changes. No post operative changes. All CT scans at this facility use dose modulation, iterative reconstruction, and/or weight based dosing when appropriate to reduce radiation dose to as low as reasonably achievable. Ordering Provider: Alejandro Zhao FINAL REPORT Dictated: 08/26/2023 8:39 am Liborio Bhakta MD Signed (Electronic Signature): 08/26/2023 8:39 am Signed by: Liborio Bhakta MD Transcribed by: SARI Technologist: HUSSAIN Technical Comments GFR (mL/min/1/73m2) 51 Contrast: Isovue 300 Contrast amount in ml's: 100 Rectal Contrast Given? No Normal [facility] Consent for Treatmenton 07-31 Consent for Treatment [id number] FF Normal [facility] Discharge Instructionson Discharge Instructions [id number] FF Normal [facility] ED Clinical Summaryon 2022 ED Clinical Summary (Inserted Image. Katiana ble to display) [place] [id number] ED Clinical Summary Person Information Name: SWEETIE OSROIO Zena/[facility] Age: 77 Years : 1945 Sex: Female Language: Chinese PCP: Andry Fraire DO Marital Status: Phone: [phone] Visit Id: Visit Reason: Flank pain; Nausea; Abdominal pain; abdominal pain Speciality: Acuity: 3 Enc Type: Emergency Med Service: Emergency Arrival: 08/26/2023 01:38:28 Discharge: 08/26/2023 04:51:44 LOS: 000 03:13 Checkin: 08/26/2023 01:38:28 Checkout: 08/26/2023 04:51:44 Dispo Type: Home (Routine DC) EVENTS: Event Name Event Status Request Date/Time Start Date/Time Complete Date/Time Arrive Complete 08/26/2023 01:38:28 08/26/2023 01:38:28 08/26/2023 01:38:28 Document Home Meds Request 08/26/2023 01:38:28 Triage Complete 08/26/2023 01:38:28 08/26/2023 01:47:14 08/26/2023 01:47:14 Dr Exam Complete 08/26/2023 01:40:28 08/26/2023 01:40:28 08/26/2023 01:40:28 Registration Complete 08/26/2023 01:40:28 08/26/2023 01:42:04 08/26/2023 03:30:57 Pending Labs Complete 08/26/2023 01:41:34 08/26/2023 04:33:33 Lab Complete 08/26/2023 01:41:34 08/26/2023 04:33:33 Urine Collect Complete 08/26/2023 01:41:34 08/26/2023 04:33:33 Meds Admin Complete 08/26/2023 01:41:34 08/26/2023 02:05:17 Patient Care Complete 08/26/2023 01:41:34 08/26/2023 02:14:12 CT Complete 08/26/2023 01:41:34 08/26/2023 02:27:41 08/26/2023 02:49:59 Bed Assign Complete 08/26/2023 01:42:04 08/26/2023 01:42:04 08/26/2023 01:42:04 RN Exam Complete 08/26/2023 01:42:04 08/26/2023 02:09:27 08/26/2023 02:09:27 Pending Labs Complete 08/26/2023 01:58:07 08/26/2023 01:58:07 08/26/2023 02:22:14 Lab Complete 08/26/2023 01:58:07 08/26/2023 01:58:07 08/26/2023 02:22:14 Fall Risk Request 08/26/2023 02:09:28 Pending Labs Complete 08/26/2023 02:23:32 08/26/2023 02:23:32 08/26/2023 02:23:40 Lab Complete 08/26/2023 02:23:32 08/26/2023 02:23:32 08/26/2023 02:23:40 Meds Admin Complete 08/26/2023 02:57:44 08/26/2023 03:07:51 Meds Admin Complete 08/26/2023 03:12:17 08/26/2023 03:25:58 Reg Complete Request 08/26/2023 03:30:57 Reg Bed Request Complete 08/26/2023 03:30:58 08/26/2023 03:30:58 08/26/2023 03:30:58 Discharge Complete 08/26/2023 04:43:03 08/26/2023 04:52:00 08/26/2023 04:52:00 Transfer Complete 08/26/2023 04:52:00 08/26/2023 04:52:00 08/26/2023 04:52:00 ADDRESS: [address] [place] [phone] PHYS DOC NOTES: MEDICAL INFORMATION: Prescriptions Given: New Medications [facility]/pharmacy #[id number], [address] [place], [place] [id number], [phone] naproxen (naproxen 500 mg Tab) 1 Tablets By Mouth 2 times a day as needed Pain. Refills: 0. ondansetron (Zofran ODT 4 mg Tab-Dis) 1 Tablets By Mouth every 8 hours as needed Nausea/Vomiting. Refills: 0. Medications to Continue with No Changes Other Medications ocular lubricant (Artificial Tears preserved ophthalmic solution) 1 Drops Ophthalmic 2 times a day as needed for dry eyes. timolol ophthalmic (Timolol Maleate (Eqv-Timoptic) 0.5% ophthalmic solution) 1 Drops Right eye 2 times a day. PATIENT EDUCATION INFORMATION: Instructions: Abdominal Pain, Adult Follow up: With: Address: When: Andry Link [address], [facility] [address] [place] [address] Business (1) In 2 days 08/28/2023 DIAGNOSIS: Abdominal pain, acute Normal [facility] ED Note-Physicianon 08-26-20 23 ED Note-Physician Basic Information Time Seen: Alejandro Zhao DO 08/26/2023 01:40 History of Present Illness HPI: Patient is a 77-year-old female with past medical history of hyperlipidemia who presents the ED via EMS from home for left lower abdominal pain. Patient states this started suddenly approximately 25 minutes prior to arrival. Pain is in her left lower abdomen and does not radiate. She states that she has nausea but has not vomited with this. She got up and use the restroom and had a bowel movement which she reported was normal hoping that it would help with the pain but it seemed to only get worse. She denies any fever or chills. She denies any dysuria or urinary frequency. She has never had pain like this in the past. ROS: Pertinent review of systems conducted and is negative except as noted above. Physical exam: General: nontoxic appearing and in no distress HEENT: Mucous membranes moist Neuro: awake and alert Neck: supple, trachea midline Card: Heart regular rate and rhythm no murmur Resp: Lungs clear to auscultation no wheeze or rhonchi Abd: Soft and nondistended. Left lower quadrant tenderness no rebound or guarding. Ext: No gross deformity or edema Medical Decision Making MEDICAL DECISION MAKING Number and Complexity of Problems Differential Diagnosis: [] [facility] Data External documents reviewed: N/A My EKG interpretation: Noted in chart if applicable My CT interpretation: N/A My X-ray interpretation: Noted in chart if applicable My Ultrasound interpretation: N/A Decision rules/scores evaluated: N/A Discussed with: N/A Treatment and Disposition ED Course: Patient is uncomfortable but nontoxic-appearing. She does have tenderness of the left lower abdomen but is nonperitoneal. She is afebrile. Will obtain a CT of the abdomen pelvis in addition to blood work and urinalysis. Patient was given a dose of morphine and Zofran for comfort. Blood work shows a very slight increase in indirect bilirubin but is otherwise overall reassuring. Urine shows no signs of infection at this time. Patient continued to have some discomfort so she was given a dose of ketorolac. CT of the abdomen and pelvis is interpreted by radiology as subcentimeter hypodensities in the liver, statistically cysts but too small to characterize. Gallbladder, spleen, pancreas, and adrenal glands are unremarkable. Multiple bilateral parapelvic renal cysts. No hydronephrosis. Symmetric renal enhancement. No aortic aneurysm. Normal appendix. No bowel obstruction or inflammation. Small calcified uterine fibroid. Normal urinary bladder. No acute osseous findings. On reexamination the patient is feeling much better and the pain is almost completely relieved. We discussed the results of her lab work and imaging. Since she has such good relief with the Toradol we will give her a short prescription of as needed naproxen as well as prescription for Zofran. We discussed the need for very close follow-up with her primary care physician as well as return precautions. Patient states understanding agreement this plan was discharged stable condition. Shared decision making: As above Code status: N/A Assessment/Plan Abdominal pain, acute (R10.9: Unspecified abdominal pain) Orders: ketorolac, 15 mg = 1 mL, Injection, IV Push, Once, Stop date 08/26/23 2:57:00 EST, STAT, Start date 08/26/23 2:57:00 EST, 08/26/23 2:57:00 EST morphine, 2 mg = 1 mL, Injection, IV Push, Once, Stop date 08/26/23 1:41:00 EST, STAT, Start date 08/26/23 1:41:00 EST, 08/26/23 1:41:00 EST naproxen, 500 mg = 1 tab(s), Oral, BID, PRN Pain, # 14 tab(s), Refills(s) 0, Pharmacy: [facility]/pharmacy #[id number], 165.1, cm, 08/26/23 1:47:00 EST, Height/Length Dosing, 62.2, kg, 08/26/23 1:47:00 EST, Weight Dosing ondansetron, 4 mg = 2 mL, Injection, IV Push, Once, Stop date 08/26/23 1:41:00 EST, STAT, Start date 08/26/23 1:41:00 EST, 08/26/23 1:41:00 EST ondansetron, 4 mg = 1 tab(s), Oral, q8hr, PRN Nausea/Vomiting, # 12 tab(s), Refills(s) 0, Pharmacy: [facility]/pharmacy #[id number], 165.1, cm, 08/26/23 1:47:00 EST, Height/Length Dosing, 62.2, kg, 08/26/23 1:47:00 EST, Weight Dosing Sodium Chloride 0.9% intravenous solution, 1,000 mL, Soln-IV, IV, Once, Stop date 08/26/23 3:12:00 EST, STAT, Start date 08/26/23 3:12:00 EST, Infuse over 61, minute(s) Automated Diff Basic Metabolic Panel CBC w/ Auto Diff CT Abdomen/Pelvis w/ Contrast eGFR Hepatic Function Panel Lipase Level Saline Lock Insert UA With Cult Reflex Medications Administered Given ketorolac 15 mg/mL Inj, 15 mg, IV Push morphine 2 mg/mL Inj, 2 mg, IV Push NS 1000 ml Bolus, 1000 mL, IV ondansetron 4 mg/2 mL Inj, 4 mg, IV Push Disposition Plan Discharge Prescription List Prescriptions naproxen 500 mg Tab, 500 mg= 1 tab(s), Oral, BID, PRN Zofran ODT 4 mg Tab-Dis, 4 mg= 1 tab(s), Oral, q8hr, PRN Follow-up With When Contact Information Andry Link In 2 days 08/28/2023 EST [address], [address] [place], [place] [address] (more content not included)... Normal [facility] Comment on above: Result Comment: Elec tronically Signed By: Alejandro Zhao DO\.br\Date and Time Signed: 08/26/23 04:45 EST ED Patient Education Noteon 08-26-2023 ED Patient Education Note Gastroenterology Abdominal Pain, Adult Pain in the abdomen (abdominal pain) can be caused by many things. Often, abdominal pain is not serious and it gets better with no treatment or by being treated at home. However, sometimes abdominal pain is serious. Your health care provider will ask questions about your medical history and do a physical exam to try to determine the cause of your abdominal pain. Follow these instructions at home: Medicines ? Take euxb-tjv-liadzqo and prescription medicines only as told by your health care provider. ? Do not take a laxative unless told by your health care provider. General instructions ? Watch your condition for any changes. ? Drink enough fluid to keep your urine pale yellow. ? Keep all follow-up visits as told by your health care provider. This is important. Contact a health care provider if: ? Your abdominal pain changes or gets worse. ? You are not hungry or you lose weight without trying. ? You are constipated or have diarrhea for more than 2?3 days. ? You have pain when you urinate or have a bowel movement. ? Your abdominal pain wakes you up at night. ? Your pain gets worse with meals, after eating, or with certain foods. ? You are vomiting and cannot keep anything down. ? You have a fever. ? You have blood in your urine. Get help right away if: ? Your pain does not go away as soon as your health care provider told you to expect. ? You cannot stop vomiting. ? Your pain is only in areas of the abdomen, such as the right side or the left lower portion of the abdomen. Pain on the right side could be caused by appendicitis. ? You have bloody or black stools, or stools that look like tar. ? You have severe pain, cramping, or bloating in your abdomen. ? You have signs of dehydration, such as: ? Dark urine, very little urine, or no urine. ? Cracked lips. ? Dry mouth. ? Sunken eyes. ? Sleepiness. ? Weakness. ? You have trouble breathing or chest pain. Summary ? Often, abdominal pain is not serious and it gets better with no treatment or by being treated at home. However, sometimes abdominal pain is serious. ? Watch your condition for any changes. ? Take avgo-krt-cpidepd and prescription medicines only as told by your health care provider. ? Contact a health care provider if your abdominal pain changes or gets worse. ? Get help right away if you have severe pain, cramping, or bloating in your abdomen. This information is not intended to replace advice given to you by your health care provider. Make sure you discuss any questions you have with your health care provider. Document Revised: 11/03/2020 Document Reviewed: 01/24/2020 Elsevier Patient Education ? 2022 [employer] Normal [facility] ED Patient Summaryon 023 ED Patient Summary (Inserted Image. Katiana ble to display) [address] [address] Patient Discharge Instructions Person Information Name: SWEETIE OSORIO Age: 77 Years Arrival Date: 08/26/2023 01:38:28 Discharge Diagnosis: Abdominal pain, acute Primary Care Physician: Andry Fraire DO Provider Information Primary Provider: Alejandro Zhao DO Advanced Telephone Interviewer:None The exam and treatment you received in the Emergency Department were for an urgent problem and are not intended as complete care. It is important that you follow up with a doctor, nurse practitioner, or physician?s therapeutic assistant for ongoing care. If your symptoms become worse or you do not improve as expected and you are unable to reach your usual health care provider, you should return to the Emergency Department. We are available 24 hours a day. SWEETIE OSORIO has been given the following list of patient education materials, prescriptions and follow-up instructions: Follow-up Instructions: With: Address: When: Andry Felix, [facility] [address] [place] [address] [facility] (1) In 2 days 08/28/2023 In the event that this physician does not participate in your insurance network, please consult with your insurance company to find a nearby participating provider. Patient Education Materials: Abdominal Pain, Adult A MESSAGE TO ALL PATIENTS REGARDING OPIOIDS PRESCRIPTION OPIOIDS: WHAT YOU NEED TO KNOW Prescription opioids can be used to help relieve hcgizltb-vp-pwqtji pain and are often prescribed following a surgery or injury, or for certain health conditions. These medications can be an important part of the treatment but also come with serious risks. It is important to work with your healthcare provider to make sure you are getting the safest, most effective care. WHAT ARE THE RISKS AND SIDE EFFECTS OF OPIOID USE? Prescription opioids carry serious risks of addiction and overdose, especially with prolonged use. An opioid overdose, often marked by slowed breathing, can cause sudden . The use of prescription opioids can have a number of side effects as well, even when taken as directed: ? Tolerance?meaning you might need to take more of the medication for the same pain relief ? Physical dependence?meaning you have symptoms of withdrawal when a medication is stopped ? Increased sensitivity to pain ? Constipation ? Nausea, vomiting, and dry mouth ? Sleepiness and dizziness ? Confusion ? Depression ? Low levels of testosterone that can result in lower sex drive, energy, and strength ? Itching and sweating RISKS ARE GREATER WITH: ? History of drug misuse, substance use disorder, or overdose ? Mental health conditions (such as depression or anxiety) ? Sleep apnea ? Older age (65 years and older) ? Avoid alcohol while taking prescription opioids. Also, unless specifically advised by your health care provider, medications to avoid include: ? Benzodiazepines (such as Xanax or Valium) ? Muscle relaxants (such as Soma or Flexeril) ? Hypnotics (such as Ambien or Lunesta) ? Other prescription opioids KNOW YOUR OPTIONS Talk to your health care provider about ways to manage your pain that don?t involve prescription opioids. Some of these options may actually work better and have fewer risks and side effects. Options may include: ? Pain relievers such as acetaminophen, ibuprofen, and naproxen ? Some medication that are also used for depression or seizures ? Physical therapy and exercise ? Cognitive behavioral therapy, a psychological, goal-directed approach, in which patients learn how to modify physical, behavioral, and emotional triggers of pain and stress. IF YOU ARE PRESCRIBED OPIOIDS FOR PAIN: ? Never take opioids in greater amounts or more often than prescribed. ? Follow up with your primary health care provider. o Work together to create a plan on how to manage your pain. o Talk about ways to help manage your pain that don?t involve prescription opioids. o Talk about any and all concerns and side effects. ? Help prevent misuse and abuse o Never sell or share prescription opioids. o Never use another person?s prescription opioids. ? Store prescription opioids in a secure place and out of reach of others (this may include visitors, children, friends, and family). ? Safely dispose of unused prescription opioids: Find your community drug take-back program or your pharmacy mail-back program, or flush them down the toilet, following guidance from the Food and Drug Administration (www.fda.gov/Drugs/Resou rcesForYou). ? Visit www.cdc.gov/drugoverdose to learn about the risks of opioids abuse and overdose. ? If you believe you may be struggling with addiction, tell your health health care sanitary technician and ask for guidance or call SAMHSA?S National Helpline at 6-920-768-HELP. v Source: [place] [employer] (more content not included)... Normal [facility] HEMATOLOGYOrdered By: SYSTEM SYSTEM on 08-26-2023 Basophils/100 WBC (Bld) 0.7 % Normal 0.0 - 2.0 % [facility] HemeAutoSS Basophils/Leukocytes Auto (Bld) [Pure # fraction] 0.0 E9/L Normal 0.0 - 0.2 E9/L [facility]eAuto[facility] Eosinophils/100 WBC (Bld) 4.1 % Normal 0.0 - 8.0 % [facility]eAutoSS Eosinophils/Leukocyte s Auto (Bld) [Pure # fraction] 0.2 E9/L Normal 0.0 - 0.5 E9/L [facility] Lymphocytes/100 WBC (Bld) 31.9 % Normal 14.0 - 50.0 % [facility]eAuto[facility] Lymphocytes/Leukocyte s Auto (Bld) [Pure # fraction] 1.9 E9/L Normal 1.0 - 4.0 E9/L [facility] Monocytes/100 WBC (Bld) 8.5 % Normal 4.0 - 14.0 % [facility]eAuto[facility] Monocytes/Leukocytes Auto (Bld) [Pure # fraction] 0.5 E9/L Normal 0.2 - 1.0 E9/L [facility] Neutrophils/100 WBC (Bld) 54.8 % Normal 36.0 - 75.0 % [facility]eAuto[facility] Neutrophils/Leukocyte s Auto (Bld) [Pure # fraction] 3.2 E9/L Normal 2.0 - 7.5 E9/L [facility] HEMATOLOGYOrdered By: El Mcelroy on 08-26-2023 Erythrocyte distribution width (RBC) [Ratio] 13.8 % Normal 10.9 - 14.2 % [facility] Hematocrit (Bld) [Volume fraction] 44.7 % Normal 34.0 - 46.0 % [facility] Hemoglobin (Bld) [Mass/Vol] 15.3 g/dL Normal 12.0 - 16.0 gm/dL [facility] MCH (RBC) [Entitic mass] 30.6 pg Normal 27.0 - 34.0 pg [facility] MCHC (RBC) [Mass/Vol] 34.2 g/dL Normal 31.4 - 36.0 gm/dL [facility] MCV (RBC) [Entitic vol] 89.2 fL Normal 80.0 - 100.0 fL [facility] Platelet mean volume (Bld) [Entitic vol] 8.5 fL Normal 6.4 - 10.8 fL [facility] [place] [facility] Platelets (Bld) [#/Vol] 272.0 E9/L Normal 150.0 - 500.0 E9/L [facility] [place] [facility] RBC (Bld) [#/Vol] 5.0 E12/L Normal 4.3 - 5.9 E12/L [facility] [place] [facility] WBC corrected for nucl RBC Auto (Bld) [#/Vol] 5.8 E9/L Normal 4.0 - 11.0 E9/L [facility] [place] [facility] Hep Func Panelon 08-26-2023 Albumin [Mass/Vol] 3.8 g/dL Normal 3.3-5.0 [facility] Comment on above: Performed By: #### 2 862877, 78007915, 8313937, 7410057, 3833645, 7325925 #### [facility] [address] [place] [address] Albumin/Globulin (S) [Mass conc ratio] 1.1 Normal 1.1-2.2 [facility] Comment on above: Performed By: #### 2 620824, 18227402, 4562004, 0724371, 7570368, 9489005 #### [facility] [address] [place] [address] ALP [Catalytic activity/Vol] 64 Int._Unit/L Normal 21-98 [facility] Comment on above: Performed By: #### 2 165962, 10706360, 7262443, 9158871, 3112246, 4261138 #### [facility] [address] [place] [address] ALT No additional P-5'-P [Catalytic activity/Vol] 22 Int._Unit/L Normal 6-46 [facility] Comment on above: Result Comment: 'Spe cimen hemolyzed, result may be affected. Recommend redraw.' Performed By: #### 2 455862, 41720932, 8942406, 7348822, 0231384, 3817141 #### [facility] [address] [place] [address] AST [Catalytic activity/Vol] 30 Int._Unit/L Normal 5-43 [facility] Comment on above: Result Comment: 'Spe cimen hemolyzed, result may be affected. Recommend redraw.' Performed By: #### 2 617333, 06817843, 6847676, 2770895, 4469904, 9235978 #### [facility] [address] [place] [address] Bilirubin [Mass/Vol] 1.4 mg/dL High 0.0-1.1 [facility] Comment on above: Result Comment: 'Spe cimen hemolyzed, result may be affected. Redraw is recommended.' Performed By: #### 2 835360, 59783032, 2938839, 9200213, 2632371, 8341556 #### [facility] [address] [place] [address] Bilirubin.direct [Mass/Vol] 0.4 mg/dL Normal 0.1-0.4 [facility] Comment on above: Result Comment: 'Spe cimen hemolyzed, result may be affected. Redraw recommended.' Performed By: #### 2 058503, 09633047, 3406800, 1860163, 5016705, 9746189 #### [facility] [address] [place] [address] Bilirubin.indirect [Mass or moles/Vol] 1.0 mg/dL High 0.1-0.9 [facility] Comment on above: Performed By: #### 2 058701, 21392535, 6558493, 8210492, 4022702, 1930529 #### [facility] [address] [place] [address] Globulin (S) [Mass/Vol] 3.6 g/dL Normal 1.4-4.0 [facility] Comment on above: Performed By: #### 2 010841, 14802031, 3472066, 2723105, 5695112, 0507918 #### [facility] [address] [place] [address] Protein [Mass/Vol] 7.4 g/dL Normal 6.0-7.8 [facility] Comment on above: Performed By: #### 2 371964, 95561975, 3719161, 2737429, 1650005, 9688074 #### [facility] [address] [place] [address] Lipase Levelon 08-26-2023 Lipase [Catalytic activity/Vol] 41 U/L Normal 13-58 [facility] Comment on above: Performed By: #### 2 018090, 97265469, 3603858, 8634756, 5661664, 7394811 #### [facility] [address] [place] [address] Pre-Arrival Noteon Pre-Arrival Note Pre-Arrival Summary Name: , JULITO Current Date: 08/26/2023 01:40:40 EST Gender: Female Date of : Age: 77 Pre-Arrival Type: EMS ETA: 08/26/2023 02:02:00 EST Primary Care Physician: Presenting Problem: LLQ; Flank pain Pre-Arrival User: Estefania Desouza RN Referring Source: Location: [place] Completion Date/Time: 08/26/2023 01:31:00 [facility] Emergency Department Pre-Hospital Report Form Vital Signs: 168/68, 74HR, 20RR, 99% RA Pre-Hospital Report: Treatment in Route: Response to Treatment: Misc. Issues: Normal [facility] RAD - Preliminary Cat Scan R eporton 08-26-2023 RAD - Preliminary Cat Scan Report [id number] FF Normal [facility] UA With Cult Reflexon 2022 Bilirubin Ql (U) Negative Normal Negative [facility] Comment on above: Performed By: #### 2 452068, 93468305, 1496917, 8998892, 2513888, 5382452 #### [facility] [address] [place] [address] Clarity (U) CLEAR Normal Clear [facility] Comment on above: Performed By: #### 2 921182, 54578806, 1668133, 8181846, 4428174, 1723077 #### [facility] [address] [place] [address] Color (U) YELLOW Normal Yellow [facility] Comment on above: Performed By: #### 2 421741, 25620302, 7844402, 9884431, 6177582, 2266809 #### [facility] [address] [place] [address] Epithelial cells.squamous LM.HPF (Urine sed) [#/Area] 0-2 Normal 0-2 [facility] Comment on above: Performed By: #### 2 702742, 16867249, 3357278, 3276192, 1329618, 6045718 #### [facility] [address] [place] [address] Glucose Test strip (U) [Mass/Vol] Negative Normal Negative [facility] Comment on above: Performed By: #### 2 339381, 46632795, 2419776, 2498070, 4119393, 8478442 #### [facility] [address] [place] [address] Hemoglobin Ql (U) 1+ Abnormal Negative [facility] Comment on above: Performed By: #### 2 365085, 01046921, 5267245, 5984998, 0066376, 6336206 #### [facility] [address] [place] [address] Ketones (U) [Mass/Vol] Negative Normal Negative [facility] Comment on above: Performed By: #### 2 408458, 83622281, 2294050, 8147153, 7871832, 1816032 #### [facility] [address] [place] [address] Koosharem.plasma/Lithiu m.RBC (Bld) [Mass ratio] 0-3 Normal 0-3 [facility] Comment on above: Performed By: #### 2 657910, 14459097, 0027609, 3974750, 1490071, 0993200 #### [facility] [address] [place] [address] Nitrite Ql (U) Negative Normal Negative [facility] Comment on above: Performed By: #### 2 855756, 68059522, 9935400, 3674885, 9595199, 0724078 #### [facility] [address] [place], [place] [address] pH (U) 6.5 [pH] Invalid Interpretation Code 5.0-9.0 [facility] Comment on above: Performed By: #### 2 584966, 10207196, 3366618, 6223799, 7251569, 2783077 #### [facility] [address] [place] [address] Protein (U) [Mass/Vol] Negative Normal Negative [facility] Comment on above: Performed By: #### 2 423566, 07143551, 4769076, 5721901, 4443002, 7217226 #### [facility] [address] [place] [address] Specific gravity (U) [Rel density] 1.010 Invalid Interpretation Code 1.005-1.030 [facility] Comment on above: Performed By: #### 2 250067, 36873317, 6749266, 9310606, 1040274, 0201480 #### [facility] [address] [place] [address] Type of Urine collection method Clean Catch Normal [facility] Comment on above: Performed By: #### 2 075519, 78212694, 5025246, 4546238, 7848222, 8711676 #### [facility] [address] [place] [address] Urobilinogen Qn (U) 0.2 {Lorena'U}/dL Normal 0.0-1.0 [facility] Comment on above: Performed By: #### 2 573155, 54732947, 6815905, 8719453, 8651934, 5204621 #### [facility] [address] [place] [address] WBC Auto Ql (U) Negative Normal Negative [facility] Comment on above: Performed By: #### 2 338037, 91852098, 4289168, 8807967, 7323186, 8714575 #### [facility] [address] [place] [address] WBC LM.HPF (Urine sed) [#/Area] 0-5 Normal 0-5 [facility] Comment on above: Performed By: #### 2 513177, 58147278, 1772510, 2575438, 9614052, 4934769 #### [facility] [address] [place] [address] URINALYSISOrdered By: El Mcelroy on 08-26-2023 Bilirubin Ql (U) Negative (08/26/23 4:05 AM) Normal Negative [facility] UA Auto SS Clarity (U) Clear (08/26/23 4:05 AM) Normal Clear [facility] UA Auto SS Color (U) Yellow (08/26/23 4:05 AM) Normal Yellow [facility] UA Auto SS Epithelial cells.squamous LM.HPF (Urine sed) [#/Area] 0-2 /HPF Normal 0-2/HPF [facility] UA Aut o SS Glucose Test strip (U) [Mass/Vol] Negative (08/26/23 4:05 AM) Normal Negative [facility] UA Auto SS Hemoglobin Ql (U) 1+ *ABN* (08/26/23 4:05 AM) Invalid Interpretation Code Negative [facility] UA Auto SS Ketones (U) [Mass/Vol] Negative (08/26/23 4:05 AM) Normal Negative [facility] UA Auto SS Koosharem.plasma/Lithiu m.RBC (Bld) [Mass ratio] 0-3 /HPF Normal 0-3/HPF [facility] UA Auto SS Nitrite Ql (U) Negative (08/26/23 4:05 AM) Normal Negative [facility] UA Auto SS pH (U) 6.5 *NA* (08/26/23 4:05 AM) Invalid Interpretation Code 5.0 - 9.0 [facility] UA Auto SS Protein (U) [Mass/Vol] Negative (08/26/23 4:05 AM) Normal Negative [facility] UA Auto SS Specific gravity (U) [Rel density] 1.010 *NA* (08/26/23 4:05 AM) Invalid Interpretation Code 1.005 - 1.030 [facility] UA Auto SS UA Spec Desc Clean Catch (08/26/23 4:05 AM) Normal [facility] UA Auto SS Urobilinogen Qn (U) 0.2911742 {Lorena'U}/dL Normal 0.0 - 1.0 EU/dL [facility] UA Auto SS WBC Auto Ql (U) Negative (08/26/23 4:05 AM) Normal Negative [facility] UA Auto SS WBC LM.HPF (Urine sed) [#/Area] 0-5 /HPF Normal 0-5/HPF [facility] UA Auto SS eGFRon 08-26-2023 GFR/1.73 sq M.predicted among non-blacks MDRD (S/P/Bld) [Vol rate/Area] 51 mL/min/1.73 m2 Low >=59 [facility] Comment on above: Order Comment: Order added by Discern Expert. Result Comment: Psychology Technician brianne kidney disease could be indicated at eGFR's of less than 60 mL/min/1.73m2. Kidney failure is indicated at less than 15 mL/min/1.73m2. Performed By: #### 2 554106, 64779280, 9916963, 1664057, 0435992, 4379551 #### [facility] [address] [place] [address] XR Spine Lumbosacral Minimum 4 Viewson 04-15-2023 XR Spine Lumbosacral Minimum 4 Views Exam Date/Time: 04/14/2023 15:46 EDT Reason for Exam: M54.9 Report IMPRESSION: There is multilevel spondylosis of the lumbar spine. CLINICAL HISTORY: M54.9 6 views COMPARISON: NONE FINDINGS: The visualized bones are demineralized which is worrisome for osteoporosis, may consider bone densitometry examination. There is no acute fracture or subluxation. There is no loss of vertebral body height. There is preservation of the lordotic curvature of the lumbar spine. There is levoscoliosis with a Castano angle measurement of 26 degrees between T12 and L3. There is moderate intervertebral disc space narrowing The SI joints are symmetric. The soft tissues are within normal limits. Ordering Provider: Andry Fraire FINAL REPORT Dictated: 04/15/2023 11:38 am Tj Hernandez MD, V. Signed (Electronic Signature): 04/15/2023 11:38 am Signed by: Tj Hernandez MD, V. Transcribed by: SARI Technologist: MARITZA Technical Comments Radiation Dose: Ka,r in mGy = na DAP = na Normal [facility] XR Spine Thoracic 3 Viewson 04-15-2023 XR Spine Thoracic 3 Views Exam Date/Time: 04/14/2023 15:46 EDT Reason for Exam: M54.9 Report IMPRESSION: THERE ARE NO ACUTE OSSEOUS CHANGES. CLINICAL INFORMATION: M54.9 COMPARISON: NONE. FINDINGS: number of views views of the thoracic spine were obtained. There are visualized bones are demineralized worrisome for osteopenia, osteoporosis. There is no loss vertebral body height. There is mild intervertebral disc space narrowing at every level. There is levoscoliosis of lumbar spine. Ordering Provider: Andry Fraire FINAL REPORT Dictated: 04/15/2023 11:41 am Tj Hernandez MD, V. Signed (Electronic Signature): 04/15/2023 11:41 am Signed by: Tj Hernandez MD, V. Transcribed by: SARI Technologist: MARITZA Technical Comments Radiation Dose: Ka,r in mGy = na DAP = na Normal [facility] Consent for Treatmenton 03-29 Consent for Treatment [id number]: 127 Normal [facility] Physician Orderon 04-14-2023 Physician Order [id number] :127 [facility] Consent for Treatmenton 03-29 Consent for Treatment [id number]: 127 Normal [facility] Consent for Treatment [id number]: 127 Normal [facility] Discharge Instructionson Discharge Instructions [id number]:1 27 Normal [facility] ED Clinical Summaryon 2022 ED Clinical Summary (Inserted Image. Katiana ble to display) [place] [id number] ED Clinical Summary Person Information Name: SWEETIE OSORIO [facility]ena/[facility] [place] Age: 77 Years : 1945 Sex: Female Language: Chinese PCP: Andry Fraire DO Marital Status: Phone: [phone] Visit Id: Visit Reason: Hand pain-swelling; hurt left hand Speciality: Acuity: 4 Enc Type: Emergency Med Service: Emergency Arrival: 04/13/2023 10:21:01 Discharge: 04/13/2023 11:41:23 LOS: 000 01:20 Checkin: 04/13/2023 10:21:01 Checkout: 04/13/2023 11:41:23 Dispo Type: Home (Routine DC) EVENTS: Event Name Event Status Request Date/Time Start Date/Time Complete Date/Time Arrive Complete 04/13/2023 10:21:01 04/13/2023 10:21:01 04/13/2023 10:21:01 Document Home Meds Request 04/13/2023 10:21:01 Triage Complete 04/13/2023 10:21:01 04/13/2023 10:30:44 04/13/2023 10:30:44 Bed Assign Complete 04/13/2023 10:24:45 04/13/2023 10:24:45 04/13/2023 10:24:45 Dr Exam Complete 04/13/2023 10:24:45 04/13/2023 10:24:56 04/13/2023 10:24:56 RN Exam Complete 04/13/2023 10:24:45 04/13/2023 10:32:13 04/13/2023 10:32:13 Registration Complete 04/13/2023 10:24:56 04/13/2023 10:38:16 04/13/2023 10:38:16 Dr Exam Complete 04/13/2023 10:26:43 04/13/2023 10:26:43 04/13/2023 10:26:43 Reg Complete Request 04/13/2023 10:38:16 Reg Bed Request Complete 04/13/2023 10:38:16 04/13/2023 10:38:16 04/13/2023 10:38:16 X-Ray Complete 04/13/2023 10:57:24 04/13/2023 11:08:09 04/13/2023 11:19:57 Wet Read Request 04/13/2023 11:19:57 Discharge Complete 04/13/2023 11:31:39 04/13/2023 11:44:36 04/13/2023 11:44:36 Transfer Complete 04/13/2023 11:44:36 04/13/2023 11:44:36 04/13/2023 11:44:36 ADDRESS: [address] [place] [phone] PHYS DOC NOTES: MEDICAL INFORMATION: Prescriptions Given: Medications to Continue with No Changes Other Medications ocular lubricant (Artificial Tears preserved ophthalmic solution) 1 Drops Ophthalmic 2 times a day as needed for dry eyes. timolol ophthalmic (Timolol Maleate (Eqv-Timoptic) 0.5% ophthalmic solution) 1 Drops Right eye 2 times a day. PATIENT EDUCATION INFORMATION: Instructions: RICE Therapy for Routine Care of Injuries, Qdhp-fp-Gybg; Contusion, Awhs-ue-Tjmy Follow up: With: Address: When: Andry Link [address] [place] [address] [facility] (1) In 3 days 04/16/2023 Comments: Follow-up with your primary care provider in 3 to 5 days. If symptoms worsen, do not improve, or new symptoms arise please report back to emergency department for further evaluation. Continue to rest, ice, compress, and elevate your affected joint to relieve inflammation and swelling. You may also take Tylenol to help with pain. DIAGNOSIS: Hand contusion Normal [facility] ED Note-Physicianon 04-13-20 ED Note-Physician Basic Information Time Seen: Eris Arana PA-C 04/13/2023 10:24 Chief Complaint L pinky finger pain x 3 days, states she was moving heavy ceramic flower pots and also bumped it against something while moving furniture. History of Present Illness 77-year-old female reports emergency department with chief complaint of left pinky finger pain as well as left hand pain. Reports that she was moving heavy eccentric flowerpots, and bumped against something. Reports that she has pain the last couple days, was not improving. Was worried about possible fracture. Denies being any blood thinners. Denies any other injuries. States that she is right-handed. Review of Systems A 10 point review of systems is negative except as noted above. Medical and Surgical History: Reviewed and noted Social history: Lives at home Family History: Reviewed. Tobacco: Denies Physical Exam Vitals & Measurements T: 36.6 ?C(Oral) HR: 70(Peripheral) RR: 16 BP: 152/68 SpO2: 98% HT: 155 cm WT: 61.8 kg BMI: 25.72 General: The patient appears well and in no apparent distress. Patient is resting comfortably in chair. Afebrile Skin: Warm, dry, no pallor noted. No abrasions or lacerations noted. No ecchymosis noted. Head: Normocephalic, atraumatic Neck: No JVD Eye: PERRLA, EOMI ENT: Moist mucus membranes Cardiovascular: Regular rate normal peripheral perfusion. Radial pulses +2 bilaterally. Cap refill is brisk. Respiratory: No respiratory distress no accessory muscle use no obvious audible wheezing Chest Wall: no deformity Musculoskeletal: normal ROM, no deformity, no swelling GI: No obvious distention Neurological: A&O moves all extremities equal strength and symmetry. Full sensations Psychiatric: Cooperative and appropriate Medical Decision Making MEDICAL DECISION MAKING Number and Complexity of Problems Differential Diagnosis: [] [facility] Data External documents reviewed: [] My EKG interpretation: [] My CT interpretation: [] My X-ray interpretation: Reviewed My Ultrasound interpretation: [] Decision rules/scores evaluated: [] Discussed with: [] Treatment and Disposition ED Course: 77-year-old female reports the emergency department with chief complaint of left hand pain. Reports that she may have bumped it over the last couple of days, but is not improving. Is concerned about possible fracture. On physical exam left hand is neurovascular intact. No ecchymosis noted. Normal range of motion no deformity noted. Based on her concerns, we did do an x-ray. X-ray was negative for any acute fractures. I discussed with patient. Discussed like contusion of her hand. Discussed continue to rest, ice, compress, and elevate your affected joint to relieve inflammation and swelling. You may also take ibuprofen and Tylenol to help with pain. Discussed return precautions. Follow-up with your primary care provider in 3 to 5 days. If symptoms worsen, do not improve, or new symptoms arise please report back to emergency department for further evaluation. The patient was understanding and agreeable to plan moving forward. Shared decision making: [] Code status: [] Assessment/Plan Hand contusion (S60.229A: Contusion of unspecified hand, initial encounter) Orders: XR Hand 3+ Views Left Disposition Plan Patient Discharge Condition Stable Discharge Disposition To home Discharge Prescription List Prescriptions No active prescription medications Follow-up With When Contact Information Andry Link In 3 days 04/16/2023 EDT [address] [place] [address]- Business (1) Additional Instructions: Follow-up with your primary care provider in 3 to 5 days. If symptoms worsen, do not improve, or new symptoms arise please report back to emergency department for further evaluation. Continue to rest, ice, compress, and elevate your affected joint to relieve inflammation and swelling. You may also take Tylenol to help with pain. Patient Education RICE Therapy for Routine Care of Injuries, Rdfs-no-Nokq Contusion, Hlbn-tp-Sdjr Attestation Patient seen and evaluated by the physician therapeutic assistant. Attending physician was present in the emergency department and supervised care. This visit was performed by both the physician and an APC. I performed all aspects of the MDM as documented. This report was transcribed using voice recognition software. Every effort was made to ensure accuracy, however, inadvertently computerized pelt inspector mistakes may be present. Appropriate healthcare PPE was used in evaluating this patient. The patient was placed in a mask. The healthcare provider was wearing mask, gloves, and utilizing proper hand hygiene. All equipment was properly cleansed. Problem List/Past Medical History Ongoing Degenerative arthritis of knee, bilateral Dizziness and giddiness Hyperlipidemia Lumbar back pain with radiculopathy affecting left lower extremity Screening for cardiov (more content not included)... Normal [facility] Comment on above: Result Comment: Elec tronically Signed By: Eris Arana PA-C\.br\Date and Time Signed: 04/13/23 11:55 EDT\.br\Electronically Co-Signed By: Ellis Flor DO\.br\Date and Time Co-Signed: 04/13/23 21:48 EDT ED Patient Education Noteon 04-13-2023 ED Patient Education Note Orthopedics RICE Therapy for Routine Care of Injuries Many injuries can be cared for with rest, ice, compression, and elevation (RICE therapy). This includes: ? Resting the injured body part. ? Putting ice on the injury. ? Putting pressure (compression) on the injury. ? Raising the injured part (elevation). Using RICE therapy can help to lessen pain and swelling. Supplies needed: ? Ice. ? Plastic bag. ? Towel. ? Elastic bandage. ? Pillow or pillows to raise your injured body part. How to care for your injury with RICE therapy Rest Try to rest the injured part of your body. You can go back to your normal activities when your doctor says it is okay to do them and when you can do them without pain. If you rest the injury too much, it may not heal as well. Some injuries heal better with early movement instead of resting for too long. Ask your doctor if you should do exercises to help your injury get better. Ice ? If told, put ice on the injured area. To do this: ? Put ice in a plastic bag. ? Place a towel between your skin and the bag. ? Leave the ice on for 20 minutes, 2?3 times a day. ? Take off the ice if your skin turns bright red. This is very important. If you cannot feel pain, heat, or cold, you have a greater risk of damage to the area. ? Do not put ice on your bare skin. Use ice for as many days as your doctor tells you to use it. Compression Put pressure on the injured area. This can be done with an elastic bandage. If this type of bandage has been put on your injury: ? Follow instructions on the package the bandage came in about how to use it. ? Do not wrap the bandage too tightly. ? Wrap the bandage more loosely if part of your body beyond the bandage is blue, swollen, cold, painful, or loses feeling. ? Take off the bandage and put it on again every 3?4 hours or as told by your doctor. ? See your doctor if the bandage seems to make your problems worse. Elevation Raise the injured area above the level of your heart while you are sitting or lying down. Follow these instructions at home: ? If your symptoms get worse or last a long time, make a follow-up appointment with your doctor. You may need to have imaging tests, such as X-rays or an MRI. ? If you have imaging tests, ask how to get your results when they are ready. ? Return to your normal activities when your doctor says that it is safe. ? Keep all follow-up visits. Contact a doctor if: ? You keep having pain and swelling. ? Your symptoms get worse. Get help right away if: ? You have sudden, very bad pain at your injury or lower than your injury. ? You have redness or more swelling around your injury. ? You have tingling or numbness at your injury or lower than your injury, and it does not go away when you take off the bandage. Summary ? Many injuries can be cared for using rest, ice, compression, and elevation (RICE therapy). ? You can go back to your normal activities when your doctor says it is okay and when you can do them without pain. ? Put ice on the injured area as told by your doctor. ? Get help if your symptoms get worse or if you keep having pain and swelling. This information is not intended to replace advice given to you by your health care provider. Make sure you discuss any questions you have with your health care provider. Document Revised: 07/05/2021 Document Reviewed: 07/05/2021 [employer] Patient Education ? 2022 [employer] Contusion A contusion is a deep bruise. This is a result of an injury that causes bleeding under the skin. Symptoms of bruising include pain, swelling, and discolored skin. The skin may turn blue, purple, or yellow. Follow these instructions at home: Managing pain, stiffness, and swelling You may use RICE. This stands for: ? Resting. ? Icing. ? Compression, or putting pressure. ? Elevating, or raising the injured area. To follow this method, do these actions: ? Rest the injured area. ? If told, put ice on the injured area. ? Put ice in a plastic bag. ? Place a towel between your skin and the bag. ? Leave the ice on for 20 minutes, 2?3 times per day. ? If told, put light pressure (compression) on the injured area using an elastic bandage. Make sure the bandage is not too tight. If the area tingles or becomes numb, remove it and put it back on as told by your doctor. ? If possible, raise (elevate) the injured area above the level of your heart while you are sitting or lying down. General instructions ? Take qenc-ptj-dvtythv and prescription medicines only as told by your doctor. ? Keep all follow-up visits as told by your doctor. This is important. Contact a doctor if: ? Your symptoms do not get better after several days of treatment. ? Your symptoms get worse. ? You have trouble moving the injured area. Get help right away if: ? You have very b (more content not included)... Normal [facility] ED Patient Summaryon 023 ED Patient Summary (Inserted Image. Katiana ble to display) [place] [id number] Patient Discharge Instructions Person Information Name: SWEETIE OSORIO Age: 77 Years Arrival Date: 04/13/2023 10:21:01 Discharge Diagnosis: Hand contusion Primary Care Physician: Andry Fraire DO Provider Information Primary Provider: Ellis Flor DO Advanced Telephone Interviewer:None The exam and treatment you received in the Emergency Department were for an urgent problem and are not intended as complete care. It is important that you follow up with a doctor, nurse practitioner, or physician?s therapeutic assistant for ongoing care. If your symptoms become worse or you do not improve as expected and you are unable to reach your usual health care provider, you should return to the Emergency Department. We are available 24 hours a day. SWEETIE OSORIO has been given the following list of patient education materials, prescriptions and follow-up instructions: Follow-up Instructions: With: Address: When: Andry Link [address] [place] [address] [facility] (1) In 3 days 04/16/2023 Comments: Follow-up with your primary care provider in 3 to 5 days. If symptoms worsen, do not improve, or new symptoms arise please report back to emergency department for further evaluation. Continue to rest, ice, compress, and elevate your affected joint to relieve inflammation and swelling. You may also take Tylenol to help with pain. In the event that this physician does not participate in your insurance network, please consult with your insurance company to find a nearby participating provider. Patient Education Materials: RICE Therapy for Routine Care of Injuries, Ctwn-ip-Bmnv; Contusion, Wfst-nn-Dupg A MESSAGE TO ALL PATIENTS REGARDING OPIOIDS PRESCRIPTION OPIOIDS: WHAT YOU NEED TO KNOW Prescription opioids can be used to help relieve svwvjzmf-cc-zmtnux pain and are often prescribed following a surgery or injury, or for certain health conditions. These medications can be an important part of the treatment but also come with serious risks. It is important to work with your healthcare provider to make sure you are getting the safest, most effective care. WHAT ARE THE RISKS AND SIDE EFFECTS OF OPIOID USE? Prescription opioids carry serious risks of addiction and overdose, especially with prolonged use. An opioid overdose, often marked by slowed breathing, can cause sudden . The use of prescription opioids can have a number of side effects as well, even when taken as directed: ? Tolerance?meaning you might need to take more of the medication for the same pain relief ? Physical dependence?meaning you have symptoms of withdrawal when a medication is stopped ? Increased sensitivity to pain ? Constipation ? Nausea, vomiting, and dry mouth ? Sleepiness and dizziness ? Confusion ? Depression ? Low levels of testosterone that can result in lower sex drive, energy, and strength ? Itching and sweating RISKS ARE GREATER WITH: ? History of drug misuse, substance use disorder, or overdose ? Mental health conditions (such as depression or anxiety) ? Sleep apnea ? Older age (65 years and older) ? Avoid alcohol while taking prescription opioids. Also, unless specifically advised by your health care provider, medications to avoid include: ? Benzodiazepines (such as Xanax or Valium) ? Muscle relaxants (such as Soma or Flexeril) ? Hypnotics (such as Ambien or Lunesta) ? Other prescription opioids KNOW YOUR OPTIONS Talk to your health care provider about ways to manage your pain that don?t involve prescription opioids. Some of these options may actually work better and have fewer risks and side effects. Options may include: ? Pain relievers such as acetaminophen, ibuprofen, and naproxen ? Some medication that are also used for depression or seizures ? Physical therapy and exercise ? Cognitive behavioral therapy, a psychological, goal-directed approach, in which patients learn how to modify physical, behavioral, and emotional triggers of pain and stress. IF YOU ARE PRESCRIBED OPIOIDS FOR PAIN: ? Never take opioids in greater amounts or more often than prescribed. ? Follow up with your primary health care provider. o Work together to create a plan on how to manage your pain. o Talk about ways to help manage your pain that don?t involve prescription opioids. o Talk about any and all concerns and side effects. ? Help prevent misuse and abuse o Never sell or share prescription opioids. o Never use another person?s prescription opioids. ? Store prescription opioids in a secure place and out of reach of others (this may include visitors, children, friends, and family). ? Safely dispose of unused prescription opioids: Find your community drug take-back program or your pharmacy mail-back program, or flush them down (more content not included)... Normal [facility] XR Hand 3+ Views Lefton 03-29 XR Hand 3+ Views Left Exam Date/Time: 04/13/2023 11:19 EDT Reason for Exam: Pain, Non Traumatic Report IMPRESSION: No acute osseous findings. Degenerative changes. EXAMINATION/TECHNIQUE: XR Hand 3+ Views Left HISTORY: Pain in the fifth digit. COMPARISON: None RESULT: No acute fracture. No dislocation. Underlying decreased bone mineral density. 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 Other scattered mild to moderate degenerative changes of the IP joints. No other significant abnormality. Ordering Provider: Eris Arana FINAL REPORT Dictated: 04/13/2023 12:56 pm Edward Freire MD Signed (Electronic Signature): 04/13/2023 12:56 pm Signed by: Edward Freire MD Transcribed by: SARI Technologist: ROLAND Technical Comments Radiation Dose: jose d Darling in mGy = 0 DAP = 0 [facility] PT - Assessmentson PT - Assessments [id number]#1.00CD: 127 [facility] PT - Home Exercise Programon 02-11-2023 PT - Home Exercise Program [id number]#1.00CD :127 [facility] Nonvisit Note - PTon 023 Nonvisit Note - 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 [facility] PT - Home Exercise Programon 02-04-2023 PT - Home Exercise Program [id number]#1.00CD :127 [facility] PT - Home Exercise Programon 01-30-2023 PT - Home Exercise Program [id number]#1.00CD :127 [facility] Coding Summary.on 01-28-2023 Coding Summary. CD:[id number] Ww+P GhlYWQ+FU0WNHOtT04xtMHsp G9tW7XUUVaDLefhJIURMQgMB nAsqxXdYL2ikLPiPTEy IC8+CV5lLAPeEfotqJUnf3Z5 xWW3V85mgx3sPEfuxED3YYNl MrFhptlyg5ikaFy4XHsuNumd OyBt OZLlpT20GSM5lI92Xk43tWRz qBRyw1jydUx3VeYoPHRaOAQ6 qIvfDZkgu8UdYRCtX58shNWc c2U6 QUNdhRamuXNeHqUlbLX5oS0h FVdsrtpiu5ltipkaZux8ie99 kFCcu2Q9xTQ0Z1LlseQ8YXXv bGQg PakzyRPLqD8uqrabl5sastsv ZvDhQPBdNMn1EMh5GNSvlPbp KuLeXR51CEL5MVBtilVpO8Mq LWFs nZrbHyO1q3X0Mf7AU9RTYoxi G2SEAUFFONyayOJ+JS85cn93 S6EiHunjTux3RALgVTI4pMV2 aD0n DZOyIXylb2R0aKK0A7CtczHh kn3bg2wsDDWiESndT83hxEEn i2Q5CQYunMM4LGGgcDasSnOy aG93 Oyc+GALkhLjlm0PfVhgmy9pv x8uwjGs2IyinPXWgatJzfCgk CIM8n0UdXt8eFTOxvHU1rQY5 aD0i GgYbXrU7KReeR345AeWmaPNm KwcbS59wF1HagRE+PHRyPjx0 SKMnqDebMG4dS5EzYAQunejb bGVm nMnlHK5gKBKvgvbsVWXcoH7v HFKdW9i4InJpBsW2HMwwP4Sn BBYxtnwdUb78uZ7jKhJgHcG1 MGlu V0CouxL0QEGagIVhPSbpMTL5 Y70xb9H4SYHoDZXeXFC2zRA0 aV3noSemfarbxLXwwKheejIn dGlj CYcbSYbuP793PZSuxGuzKlXb ZGluZyBEYXRlOiAgMDUvMDIv MjAyMzwvdGQ+WXVsKDJ5yGcf PSAn bOPpZJbuWe9mxIggcNzbDC8r BQFrnmduREWnvB4rOAOijUDv kSvqBS0dVPAvqioya941DuRe MHB0 FTIarRRaE7NbyJ2vWxRzNBZv DFAkY3FpqWRfWEyzS803QFnt AeK9SSPcgmCxZ2GbTBTxkLjz OiB0 y1Q8Bz4Cg1BavzkrJ9JrgWXh VdYlSqacJPu7Y1ByNpzxdBI+ AZ86KFQaEX91LAs5VIR6fMdd PSdi ITYqN5ZzcN5aCiKeSKJeWAWl Oyc+PHRhYmxlIHdpZHRoPScx XGGrXzNfyKaySE8tTc0bJLOr LWNv fYrrjRCuBcLjg3veIKKsUFjr JE4wfYpdO2BjqZP1ZTYee9w6 Kz41Y34aQ9XgzIR+PGNvbCB3 aWR0 vM9xOqRaHtA6QXgbM190OkAr qSKmEetap4fri2sdtCl7YlG3 KHQxdtJlfYxzEOU4h1RkTc08 Y29s IHdpZHRoPSIxNSUiIHZhbGln hh9zoI3lPa2+UUFkyXM0hKT3 mE0cRyRoSrW8FFrwV068YaDg cCIv Eqrez6zmn7vpcNx9DxYsOIZv djYjvJszCPL0b1PzJl02W2Ga nOite9SsFrk1gt13fOEhq6D7 bGU9 I9NsNPOjerwdpDHmsEeaHD8m JMGqteykBPGhpA5lUQVcI2p3 BnErYeV4CUwlG4QbjvU7DBCu bGQg EHNwmIWLtN3fqnwsa3hzcfuv AcMnDSQmOUn1SNh1HGRdpDyd DiWePXH5IhH0IHA2uVXwdK2p bGln rtyeoM0gUew+XQZ6tSZxlJHI GD1aSmavmSF+SWIhUKN8jYuq ACvqQXBzdJ4kKKPzK9w4QfQt LjA1 DXvnH3OqqzZ0ETCuoTVjGJAj xKHVqF4gtpncx7akvuqxDfDb ORBrWLp6SEq6OOPonWafWcLy ZWZ0 UpY8SBS0uDXkbH0gyIzlbznu iF4zLqx+XimeyGqfSPK5CKs5 L1PyJgz8OUBzeUvmLF1sfRYk ZGlu Kk0apIodzZabCH2yILMtrvfs k220HsEji9wpRODszJCxNLob UPG8O92ea9A6VERgNUDxGKN1 dGV4 tD9egWxrfsgizNFioYjzybRm tSvbVMpgYKzwU427KVXvkKhy YhVeIMl5N0MwIdt6UGPphDpg ZT0n uNCfEIrjVx8zvCeygJitBJ2d GABzaokyl306QwIiw4bcKFQy uAUmAPqgVDG9D30wf4T2FOOy MDAw UYH7sAP3dW6gfEtmhclbsRLi xVlgfhTdbFxvNZjzZNrcJ725 QTPkjXteAuHvnDu1D3GwNol3 ZCBz hEyxMT7xyQXbMThcXn6mbHyf rEfzUE9tHDHljxjxl630ZbDc z2pbHHVaqMLmJSvlFGP6S64c b3I6 TFWpZFYuHYF2cUE4zG0hzXke bjogbGVmdDsgdmVydGljYWwt QDrpD216JSWohVnlRwFukWgl bnQg GSgzHEd7M7InVetgqCZ+PC90 IKAyQP65sPOixGFaa8mztUp7 WsBhKPYyFLU5dWowTHmgu3Ns ZXIt Q68vqAWrh0K1XCFirTzwmTDi SdHrkIL6cV6eNWzkfbexi9eg mvjbSpidg7pftp83bL76Y39h IHdp OZKfTMKcVYKlFPUsgAaudi6y jA3lTu5+LHIygTA3qLI2pW6w FPMgEvS4NKkqV072GzTeiEOk Pjxj t0wci5nbcYb1UmE3UCXptvBs mVkuZOS5u6DkRz86M76vWHzz LMExLFDsEAUjGQQlrYmtxs5p dG9w Ii8+TZBraVE6uCG4pI7lWdHo MhJ0WFjlP938VoKwuBBlFwmr I30kB3UcqLT+BRIoWyk4WKSq dHls XE6aqTWpGDxnJr0yULW1RbIc PgJrGHwtE5JmQSOpojlhlnuv qZZ3ACLxKZEraG06Xd4vpSem MTBw tPMGdS4ywkscy4yzkkhbPyUl BYNzWOs8LUz3VHBxjZehLkGh JBK8VhM8TEN3aJXmqT5wzAxh bjog aK2aU0SoYEKavtuoXr39aT8b MbSlYgQ3OUahLgu+UjCTB1EC WDwqX6oNOdjRGUz9W4NzVmx6 ZCBz dRurFL8ahJCiPMqrSm6onBlq nWfbWW7lQIFsvwudIBUzkK0s YVLjkDHtuLbgYX9zXAUqcjxz b250 JkCdXYF8FIKhyXFnV3NngX2v HkKuBJStRHUiE2ZyuAUpVXte B345XJcyRuB1NYCkcdHnP6Qx LWFs kRvcJpF4x0C1Ti8gSU0aZo7p YBY1GF25RE03uVCqf5F6uBP9 P0JvWNTidbzeqzsjzJY5YEDr MDUw pW57iHXxWMtzQs5ov2H5a615 GOGaHBGxaU51Xm5zlXhnZECn eJYVtL3woukjf0qukkmwLcYs MDAw JRr1SBw7JWQteRetTuTgTOS7 ZhE3FHQ2fXLufB9vwDklpbdq vG7tOue+UkkwTXCzrrF9A1Pe Pjx0 ASIyjFaaNY2udKIpPPlbXc6q jAhaeZjmKG1dNWXwamlcNEPq xO1fEBDmgBMcvSgkYX1uLUOz bjtm i782GvPiCNX7UHAplJVmJ4Hy lA7aPvZuXTJyFUPmW1ExxSZk PHtwM474DYubPdG4YJLgyiDb Y2Fs TSKtpLrnEgL1h2S8Zd4AUU1c yLW9M5PcUxm4HQBylCtcIB9b rEMwEZdvYs6jkXbriOuqYA9r NTBp ejctMLTvgT5aLEMgbNEbgZif EH3kFVAhnkaua612VpEqPXC1 ECIufCTrR3UmdO6iWgAcSBYk MDAw I1IdgXQlBKhqT230PRrwAyY1 QGRrlvZtM0UgNMQubJwnCyE5 b9A9Vw0ShVAgIOXlOW08SO10 ZD48 H0RjMgehdWNmxTS+PHRhYmxl IHdpZHRoPScxMDAlJyBzdHls SB2pXj2eNCJzCSMxlIogpBCs OiBj m9uzJTMbYQlfLR0qjTheK8Qa yAZ4RYPbv2t8Yb88M95uG8Ao dXA+NZZftUG5bGU8pR3iHoJc IiB2 VZbkM222YjCxfTGrWdydi4qf t9lngTq3WhRlNQSeqsTopEjp SQJ6n8UhEt68E83tUHtfEPHq PSIy LTCeLHIovQqccw2pzK5dSc4+ BMNkwRE6pWL7oI7oSsQiXxQ7 OIyyW666HrEwmIKlXqweW34z Z3Jv dXA+BSVwLpu4KRXehGauEG1k yGJhQWfdEc8qAKE6YqHiXyPr LJrjJ2CwMKIkdibosgawiWQ0 IDAu KHDnzQ97Xv2mrXvhIr4mLRSv QXS7FAMsaZUfN6MhuL5oDjGv KRKbDBSfJ2ThdWShSGuiL804 IGxl FwG5IPMtikStA4HfCBNdbUxq UpQ4p5B9Ia6FjVzabZQgVM2b LeXwFCl2X1TeJsi1LZPxrBjj ZT0n nUUeKVytEi9yuDllcUnpHR8z UPSrbjxol175BxSbr4seAQXj yFXzIBlgFYU3F34xt2S4FQSg MDAw AGV7bSB8jL3fjJectrtvgZKp sLunmqMmlRvdIZatGKvnZ639 HHYwdNvrUqMNPqp4F7HdJxn1 ZCBz cDvxTS4meEYaXDfuPb7rkFhv zCaeGT8iROCszkxkh887VhZm e0wbXGCcfRYxXOgaXCW7N30p b3I6 NUFiFDVqRSV5kKS5eI8anIik bjogbGVmdDsgdmVydGljYWwt YDidQ163BHVrkUtiKv0ONxb5 L3Rk Xxr8MYZhbUkuPL3lbOPbDLrp Yt7oxXynnTqjWO8xWCKtaahm w059WaYah6lgLWPvtJUoAXkr ZXM7 T50qs5E4SNGkHKZlYCI4oBK6 rT7kcHycntxrzVZyxMjqdkFs xKizZTndGVcmX256LNQmvWvi PlBh eWVyOjwvdGQ+AU65ok20I5Ji StqfTqs9VPJlVYB1fKJ7uQ3y SFHfHXhzl6A4mSO8W1TnbxDq ci1j a7anGNNu (more content not included)... Normal [facility] Coding Summary.on 01-24-2023 Coding Summary. CD:[id number] Ww+P GhlYWQ+CV8WJVAkH80scFNmw M2lY5DJEVrUXvxfBDDKPQvWC iTpiyNfVM9twSQuSFEq IC8+GS5wJMApLmpozKBhx1Y7 fTR3K48slq1iWPiogLW6CGNc KsOiytwib8vvgNj9DJqvNzyu OyBt CJKxxD18PET8jP20Pd42qNEh uSAyh7sapPc5NdSzZOPdIWH5 dQqcNNkrg1SlQVQpC87tuVZx c2U6 JTBlcLulxHKhBzYwgKV5vS8g EDufzehpw5aurtunNfc0st06 wZGlc8Q3oVG3S2LscsT9FCXj bGQg VvkbaYRQbN4epsjqu6vnwtdp SkUiTZGoCGn5LRl4RPVkgTjf VaZxRI29NMA6NTFsyeNpT5Xw LWFs xArqLdM1v8Z3Ik4HZ8COCbxc J3AAADSGEZsudZF+NZ37fa99 G9VfCiqnWpl3JHIkDTP9jWT9 aD0n ZXGwYIlnk8L6mFV3F0MvbeZc cj6yo5ohLQNoTHalO69qpZGv t4Y0MMJajKG3UZSumGnsRdIo aG93 Oyc+GWVlnPakt0NiLiqxi5nb a9jjeWc5ZbajRJSjjwUdaXzk IVF4y6IrOx9wJSNuhJP2pLF2 aD0i WvGuUrN7KMiwK463XzCaqLDk AmwbG12mI4KjaFD+PHRyPjx0 MKGusNqvEE5vL6EgCQMjzecc bGVm jGkpNV3pRFRskfjsZCMvcL0t GMByX9k7MrYvPsQ9DPkhT2Ph XBAufbmkXw26gM2aAqFdXfK9 MGlu S1HyboR9LEZbaNKnJBxjSIE4 N25eg0S4HPJpTWNeDGS9wLU6 vB5gvBmztruabWUhdLspbeFk dGlj DAnvGEumR394EYCvxZcbFoLp ZGluZyBEYXRlOiAgMDQvMjgv MjAyMzwvdGQ+GZUoQER0vJto PSAn qUUuGGitQk9cfOfxmGzkGM6r QNIvilrdMALhwE3eTWLfuGPv gKsmQQ1lMUAjdqfsn478WwRi MHB0 YFObsHVtC6HiaR2bPkByIMVt KMSaJ8SzzHAqGOmiE246PLve HmG4XXAatjLuJ6CmXUSmtTnb OiB0 y1F0Wd8Ft1YgrdokV9TnbVAu NvPfVydqCTj7K0SvPkylsZM+ JE28SLRhXT12NXc4PDY2yXfz PSdi XXGrD3OpjL7hWiQlDIStXREr Oyc+PHRhYmxlIHdpZHRoPScx PRDiXgDzwVggBA0tCg4uREOu LWNv gGmfqMZaLiWcv3mjUCOpFNvl IC1juRnqP7MfvIM4NRFro6q9 Az11L41zS1QjdEU+PGNvbCB3 aWR0 rC6nYiJdPcH7AWyeU247GyQw pSLlYamae4ayf1jglYn4VeC0 PHUhhyUwzAznWQR4e4FuPn93 Y29s IHdpZHRoPSIxNSUiIHZhbGln zy7joW0rPd6+UDYdhDF9nPQ2 nG7lHzDtVaC2GJvyG561FhOd cCIv Szypl5ixv7ppiNr1BwJgRGFo scDmoZzgJFI2f9AhRc51E1Ci fKmko0ObRhx0vv74kCHau8K6 bGU9 A0FmCNKdzxmlpVPqfPscXY7l TATlpcqoBTPafZ7hUDJtA0p5 WdLjPzY2JWzjS0BkrxK1QTRp bGQg COFkbKQRyX2uowcwv2gizaus YaNiITPoZYu1SNj8HVPcwKtx MtQfEQB8RaA9TPQ5sYDioS1s bGln gvixjW6mNcm+JEH4pIXiqILW GP8eXlnqfHK+PLQcLDB6eZhv FHiuDXVyaK9nPIQqY7f7SxSf LjA1 BWkbS3OxpfG4QVCpyRKhKAIs nFMLaV5usgfgh1bdrzbqTyQg MOCeYEv1AEi7WUWtlBdrMbCw ZWZ0 KpO9XUL0vHDplF2thUpaojez hC6wZjr+XytusHnhNXY5XWp4 O7ZkSmt5XOZkzGzpAL2hsOFk ZGlu Re9agIbgtLrsYH5jCQObmram b153GrXiq5uyNQBvxZPlJVcb EPH8B56nv1O7TXYfZQQyZCG8 dGV4 jJ6lvDxgofhoiIAcyIoksfVp fMjnDHadALjbO776PHYtdHrs VeWdIKu5L0VvHjo1TSWocRde ZT0n lHBdHYbaNu0xiTeeiOapIP9n XOQhanvyy545BnWcm1yvYCLk zAZfNIxcHYX7J51cp0R5ZKNb MDAw YAR7oNK3kA8htPbswsosfPRz yAefagOpxWlgEVyyXFfeX065 KZEpaBhoIiQfpAt3C1EqJzn7 ZCBz dAvdYG5zzADpTOhjWy4knZds lEuhVQ7rRPBjycjpx894MeHk p9iyYQXrrLAiOGhsDTK8H73d b3I6 CSVqVKUjKJO2kUX2xU8ocKcn bjogbGVmdDsgdmVydGljYWwt MFvaT186JCFkoSlsMtGcqCcc bnQg BSjsGWo7T8RvRrporJC+PC90 LEHtOD42wVPzcSJnx1saiRh7 OtMeVLBwSJU7rZocLFspt4Xx ZXIt R81kqUZtx3O8MFSepAuyoEHd DpVxaHN9lR6wUXseserou5wr owqsFybso4evvz24tT23L75r IHdp ENFeVDLgZYMxBUTszFvrlk1p pS5eYr4+ZDYgaFD3gBR1yZ5z CWZgFqD8ILmkJ767VpCigPLo Pjxj n0uhc1goeAx6DtH1QVXlyaBv jAusPWW5b6MqXw82A57xLVct YYQfJMCkPTJwRFZudYkqaz3b dG9w Ii8+RKGdwEF4cRC9tZ5eEyRe NeY0TAzfL805BaTlnIFdIowl S07mH2UmtRT+RPBpEzg6VVHe dHls ZU4vvEJrDUsqSv0dHFF3SwWn IpKoQBqsB0DxUNDqzzpcxajt mHC9VHEcZDKjgQ11Xy9ctAln MTBw fFRAeL5townxi5myyykcOnHz PVLwCRl2UOt4AHZpnHbeDpCl RYI3VeK3CVL1sYBwjW4esKhr bjog tO9gN7FgSGUazdxhXx72mJ4o DcKjTrN7HXybLpq+EfNLS7QX QDzaY3pAJkhAATr2I2EzVuk0 ZCBz vHdaKT3jlDZvUNvhJo4dcWbz cMxiIL1lJNHuashtLMDseN3g BDKxuEJpnJcpWU2lJGZjnhoe b250 BzByFOE1ELQuqVYcY5LawF9q FlFmBUDqSTBhB3LiqICfQJxk I254SLgiAdS8NAFvruBfU7Lb LWFs vFkoObW3n3H7Aw2uQM0pEd4i HEX7XK25BY97rNPmh8G2xYR4 T8ExWNMzhufkfnaacKF0AZTp MDUw oA37yHHpGEiyEo5sl6H5q539 HCZkQDPifM87Aw8vmAskQDIg dRHRoR7dvutga1rrosglEfLg MDAw SHq5CDt0NQSmfVlmFvXgASI5 HdN9WBY9eSSaoC5txSknpqbp uK6qYbq+ZdntPZTxvsO7F3Ec Pjx0 JJKnvOtiIT9sgLYwDOmvHj2x nEoazMczDW2rELXqzcwiZMOr uC1gHGZhtWDplRhyVZ6wBMUy bjtm s970VtHbCNV0SWFxeUEcT4Ku xA7bUcHwDDCkQZCfK8XdkPZr ZEgvL428PCqlIoC5ZMAvzuGe Y2Fs LGDssLjqXzR3u2A0Ob7IGX5c fKX8F4PjWys7IXVvaGkgAY1z kSScGQwwCl7qmLvoeYzsDE7w NTBp oqoeRAGdsY0vEEKtsHVxsKio WV4kANPwygymn949LgVvWZQ1 OAAuaYMkZ3XkkG6uOsExKOWt MDAw U7RklTLwVZbzX824XWevJpL7 YFMoakNpC8SfMBAugHfdVtB1 c1T6Zc6IGFD0vhGewka2O3Uc Pjwv dHI+MN48LGTjEG10pGYtiTSx l3kymOm4CkDwTBUxZSW3vUmd ITkgf3MbGVKrT22bwYFgi0X6 IGNv vJwfhRAfGrEqsJA1qI0wYIao acsbv9vljgdeXeoxn2jeel69 lR15F78oPNgjSTKeUIRuGURh IHZh fVdhns8ybP2bVd8+PGNvbCB3 rXI9wE2yClBhFoC1YPwvK138 RxEplVYrUnbqb7aai1ofpEm4 IjIw JTTbzjIcgAbzVAE7z3TrIa61 U45wTTbmCJHxUYKpFSKfKYWj cKygfe3tlW8zOn8+QW9ja3vy cm91 hY26tHP+GTOaMFY2qExyPAvo MEDlfE7iMGleWxT1YPCiMnYw iC48yEWsZKyfBv5ioHyqxJve MC4w FPQdyopgt147ToWya8bcXJRg yHHbZRoyBYD8P26ub0R6SOTz EJDtMVM1aZE3nC5uvEdxuozg bGVm dSfrueCefSjsRSdkTRxqH555 ZYEmcUxqLcEfrHLgP9qnjyPS ND7fIwqceCE+DZAfNDF6cEwk PSdw TGObhU1cQVIaU6r7BmNwAyQ0 RDplY5CfbmV2BICtsEQzYMPw zCQEsC2lxobmq9tnubucGwDs MDAw RKg0ZXy0CBSunAkhYlLpNEG6 FuE2AAA7nVHcvV5pfXqbnewg jT3xCsc+RklOOjwvdGQ+PHRk IHN0 cPvpOWvwYIFoyW5vONNpO1r7 FkQuThE6PUkxP3ZtluY5IATf nSAwEUSrpGENlB8dwqkvd2cj cjog EuAiQVWsWWd0QEj7VNOrwYnu TbMrVHO0CvC9OUF0tXAeiC8z rAcyvwdkuI3eTgn+TVJOOjwv dGQ+ BPQxXNY1iZpnSFqhYMGvuI7w RMKpN2w8LkGyJzO1KFywP8Hf qnY9HERoaWKlCBKzlROOvZ5p cztj r3lcynunNiQjLMCrBNu7CEg2 LUYjfMvgRuQbFFD0KxO9SSN5 bSKmaA4jtHncaosloH5nSgu+ UGF5 UWJ4GF22YI83G0RkBwclqMMa bGU+PHRhYmxlIHdpZHRoPScx JLZnWaHkrZxmEA8tIl2aWYAs LWNv bGxhcHNl (more content not included)... Normal [facility] PT - [place] 01-24-2023 PT - Orders [id number]#1.00CD :127 Normal [facility] XR Spine Cervical 4 or 5 Vie wson 01-24-2023 XR Spine Cervical 4 or 5 Views Exam Date/Time: 01/23/2023 13:32 EDT Reason for Exam: [id number] Report IMPRESSION: MODERATE CERVICAL SPONDYLOSIS MID TO LOWER LEVELS, SIMILAR TO 11/21/2018. NOTHING ACUTE OR DESTRUCTIVE IDENTIFIED. EXAM: XR Spine Cervical 4 or 5 Views DATE: 01/23/2023 CLINICAL HISTORY: M50.122. COMPARISON: Cervical spine CT 11/21/2018. TECHNIQUE: AP, lateral, oblique, and odontoid radiographs of the cervical spine were obtained. FINDINGS: Moderate to marked disc space narrowing of C4-C5 there are no C6-C7 with uncovertebral osteophytosis resulting in mild bilateral foraminal narrowing appears unchanged from the previous CT, more prominently on the left. There is no compression, fracture, significant subluxation, worrisome bone destruction, or other significant changes identified. The visualized paraspinous soft tissues are unremarkable. Ordering Provider: Andry Fraire FINAL REPORT Dictated: 01/24/2023 6:30 pm Francisco Porras MD Signed (Electronic Signature): 01/24/2023 6:30 pm Signed by: Francisco Porras MD Transcribed by: SARI Technologist: RONAK Technical Comments Radiation Dose: Ka,r in mGy = na DAP = na [facility] Consent for Treatmenton 12-29 Consent for Treatment [id number]#1.00CD: 127 Normal [facility] Consent for Treatment [id number]#1.00CD: 127 Normal [facility] PT - Assessmentson PT - Assessments [id number]#1.00CD: 127 [facility] PT - Consentson 01-23-2023 PT - Consents [id number]#1.00CD: 127 [facility] PT - Home Exercise Programon 01-23-2023 PT - Home Exercise Program [id number]#1.00CD: 127 [facility] PT - [place] 01-23-2023 PT - Orders [id number]#1.00CD :127 [facility] Physician Orderon 01-23-2023 Physician Order [id number]#1.00CD:1 27 [facility] Ambulatory Visit Summaryon 0 01-12-2023 Ambulatory Visit Summary SWEETIE OSORIO :1945 Visit Date:01/12/2023 Ambulatory Visit Instructions Your Diagnosis Acute nasopharyngitis BMI 26.0-26.9,adult Your Care Team Attending Physician - MAHAMED Cole APRN, Shahana Kerr Primary Care Physician - ALBERTA RAMOS CNP This Is Your Medications List benzonatate (benzonatate 200 mg oral capsule) Contact prescribing physician if questions or concerns ocular lubricant (Artificial Tears preserved ophthalmic solution) timolol ophthalmic (Timolol Maleate (Eqv-Timoptic) 0.5% ophthalmic solution) Procedures Performed left shoulder rotator cuff repair 3-16, None. Discharge Vitals Temperature (Oral) 36.7 ?C Heart Rate (Peripheral) 79 Respiratory Rate 16 Blood Pressure 132/80 Height 61 in Height 154 cm Weight 135.96 lb Weight 61.8 kg BMI 26.06 What to do next Scheduled Follow-Up Appointments Friday 1:00 PM EDT With: ALBERTA RAMOS CNP Where: [facility] Family Medicine [facility] Family Medicine Office/Clini c Noteon 01-12-2023 Family Medicine Office/Clinic Note Chief Complaint EST, SOB & weakness HPI Staff EST, 77 year old female who presents today for c/o shortness of breath and weakness. Symptoms started- 5 days ago Headache- no Body aches- yes Earache- no Runny/stuffy nose- both Problem with Smell- no Problem with Taste- no Sore throat- not sore but patient states that it smith Cough- yes with burning sensation Scratchy tickly throat- no Chest symptoms- no shortness of breath- yes, burning Orthopnea- no Lung Hx asthma, bronchitis, chest colds- yes, chest colds Fever/chills- no GI symptoms-no COVID exposure-no tx - none Patient evaluated on 12/30/2022 and treated for bacterial sinusitis at that time a 7-day course of Augmentin. Patient completed course on 01/05/2023 with improvement of symptoms. History of Present Illness I have reviewed and verified the staff HPI to be accurate for this encounter. Review of Systems PHQ Score Initial Depression Screen Score: 0 Physical Exam Vitals & Measurements T: 36.7 ?C(Oral) HR: 79(Peripheral) RR: 16 BP: 132/80 SpO2: 97% HT: 61 in HT: 154 cm WT: 61.8 kg WT: 135.96 lb BMI: 26.06 General: Well developed, well nourished, in no acute distress Eyes: not assessed Ears: No deformity or lesion of external ear. Canals and TM appear normal bilaterally. TM?s intact, not inflamed, with normal light reflex. Hearing grossly normal to conversational speech Nose: mild nasal mucosa inflammation and edema mild discomfort on palpation over the maxillary sinuses. Mouth: Mucous membranes moist. Normal oropharynx, and posterior pharynx without lesions or exudates. Tongue normal Neck: no adenopathy Lungs: clear to auscultation throughout, no wheezing, no rales. No respiratory distress Cardio: regular rate and rhythm, no murmur Mental Status: _ Patient is alert and oriented x3, tearful during exam. Assessment/Plan 1. Acute nasopharyngitis (J00: Acute nasopharyngitis [common cold]) Discussed exam and hx are consistent with viral illness. Advised of typical duration. Discussed antibiotics unfortunately do not treat viral illnesses, it will take time to run course- usually 7-14 days. Fluids/rest encouraged, PRN tylenol/ibuprofen for any pain. May use tessalon for symptomatic tx. Follow up with PCP if not improving over next 7-10 days or significantly worsening symptoms. Patient verbalized understanding of tx plan. Ordered: benzonatate, 200 mg = 1 cap(s), Oral, TID, PRN Cough, X 10 day(s), # 30 cap(s), Refills(s) 0, Pharmacy: [facility]/pharmacy #[id number], 154, cm, 01/12/23 10:52:00 EDT, Height/Length Dosing, 61.8, kg, 01/12/23 10:52:00 EDT, Weight Dosing 2. BMI 26.0-26.9,adult (Z68.26: Body mass index [BMI] 26.0-26.9, adult) The standard range for ages 18 and older is >=18.5 and < 25 kg/m2. Your BMI today was above this range, this falls in the overweight to obese category and there are medical benefits to weight loss. We can offer counselling, referral, and/or medical support in addressing this problem. Your BMI and weight management will be followed at subsequent visits. Ordered: Body Mass Index (BMI) documented 3008F Follow-up With When Contact Information ALBERTA RAMOS CNP [address] [place] [address] Additional Instructions: Patient Education Antibiotic Resistance BMI for Adults Upper Respiratory Infection, Adult Problem List/Past Medical History Ongoing Degenerative arthritis of knee, bilateral Dizziness and giddiness Hyperlipidemia Lumbar back pain with radiculopathy affecting left lower extremity Screening for cardiovascular condition Spondylosis Sprain of shoulder Historical No qualifying data Procedure/Surgical History left shoulder rotator cuff repair 3--16, None. Medications Artificial Tears preserved ophthalmic solution, 1 drop(s), OPTH, BID, PRN benzonatate 200 mg oral capsule, 200 mg= 1 cap(s), Oral, TID, PRN Timolol Maleate (Eqv-Timoptic) 0.5% ophthalmic solution, 1 drop(s), Eye-Right, BID Allergies Percocet 5/325 (vomiting) Social History Alcohol - Denies Alcohol Use, 11/28/2015 Current, 08/01/2018 Substance Abuse - Denies Substance Abuse, 11/28/2015 Current, 08/01/2018 Tobacco - Denies Tobacco Use, 11/28/2015 Never (less than 100 in lifetime) Tobacco Use:. Never Smokeless Tobacco Use:., 01/12/2023 Never (less than 100 in lifetime) Tobacco Use:. Never Smokeless Tobacco Use:., 11/07/2022 Never (less than 100 in lifetime) Tobacco Use:. Never Smokeless Tobacco Use:. Cigarettes, 08/08/2022 Family History Family history is unknown Immunizations Vaccine Date Status Comments influenza virus vaccine, inactivated - Not Given Patient Refuses SARS-CoV-2 (COVID-19) Ad26 vaccine 12/01/2020 Given Prophylaxis Normal [facility] Comment on above: Result Comment: Elec tronically Signed By: MAHAMED Cole APRN, [place] X\.becca\Date and Time Signed: 01/12/23 11:25 EDT Patient Educationon 01-13-20 23 Patient Education Infectious Disease Antibiotic Resistance Antibiotics are medicines used to treat infections that are caused by bacteria. Antibiotic resistance means that the medicine no longer works against the bacteria. Resistance can develop if you use antibiotics the wrong way. When antibiotics are given in response to illnesses caused by viruses, like colds or the flu, many normal bacteria in the body are killed. Some bacteria that are not killed may develop resistance to the antibiotic. These bacteria may grow and cause infections that are resistant to some other antibiotics. If this happens, the bacteria can continue to grow and cause infection. What are the causes? Antibiotic resistance happens when bacteria come into contact with an antibiotic over and over again. Over time, the bacteria become resistant to the antibiotic. What increases the risk? This condition is more likely to develop in people who: ? Are repeatedly given antibiotics to treat viral infections. ? Do not take their antibiotic medicine as prescribed, such as not finishing all of the medicine. ? Need to take antibiotics often because of a long-term medical condition. ? Take medicines that weaken their body's defense system (immune system). ? Have surgery. ? Are elderly. ? Need a procedure that replaces some of the work that healthy kidneys do (dialysis). ? Have an organ transplant. ? Are being treated for cancer. ? Have a type of infection that is more likely to be caused by resistant bacteria. These include certain: ? Skin infections. ? STIs (sexually transmitted infections). ? Respiratory infections. ? Infections of the lining of the brain and spinal cord (meningitis). ? Gastrointestinal infections. ? Eat foods from animals that were treated with antibiotics. Antibiotic-resistant bacteria can be passed through the food. ? Live with or care for someone with an antibiotic-resistant infection. ? Are hospitalized for a long time?or live in a long-term care facility. What are the signs or symptoms? The main symptom of this condition is having an infection that does not improve with normal treatment. The specific signs and symptoms that you have will depend on the type of infection, but they may include: ? A fever. ? Warmth, redness, and tenderness around a wound or incision. ? Brown, yellow, or green drainage from a wound or incision. ? A bad smell coming from a wound or incision. ? Nausea, vomiting, and abdominal pain. How is this diagnosed? This condition may be diagnosed by: ? Your medical history. Your health care provider may suspect antibiotic resistance if your condition does not improve after you have been treated for an infection. ? You may also have other tests, including: ? Analysis of a fluid or stool sample. This is done to identify bacteria under a microscope and determine what type of antibiotic will work against them (culture and sensitivity). ? Other blood tests and imaging tests. These are done to check if your infection has spread or has become more serious. How is this treated? Treatment for this condition depends on the nature of the specific infection. ? Treatment may include oral antibiotics that kill more types of bacteria (broad spectrum). ? Serious antibiotic-resistant infections may need to be treated in the hospital. In severe cases, this may include: ? Surgery to remove infected or damaged tissue. ? Antibiotics or other medicines given through an IV tube. Follow these instructions at home: Taking antibiotics correctly ? Understand when antibiotics are needed and when they are not needed. ? Do not ask for an antibiotic prescription if you have been diagnosed with a viral illness. Antibiotic medicine will not make your illness go away faster. Common viral illnesses include an ear infection, a sinus infection, the stomach flu, or bronchitis. ? Do not take antibiotics that are left over from a previous prescription. ? Do not take antibiotics that were prescribed for someone else. ? If you are prescribed an antibiotic: ? Take it exactly as told by your health care provider. Do not stop taking the medicine even if you start to feel better. ? If you have been taking it for more than 10 days, ask your health care provider or pharmacist if you should keep taking it. ? Do not save unused antibiotics to use at a later date. Get rid of unused medicine as told by your health care provider or pharmacist. Preventing infection ? If you have an infection, avoid close contact with people around you. ? Avoid using personal items that are used by other people, such as towels, razors, or bedding. ? Regularly disinfect doorknobs, food preparation surfaces, and bathrooms with bleach-containing products or solutions. ? Wash your hands with soap and water: ? After using the bathroom. ? Before and after caring for a wound or incision. ? Before and after (more content not included)... Normal [facility] Family Medicine Office/Clini c Noteon 12-30-2022 Family Medicine Office/Clinic Note Chief Complaint EST cough, sinus congestion, wheezing, HPI Staff Pt 77 yo female presents with cold Onset- 2 wks ago Headache- no dizziness after COVID in Feb Earache- yes both Sinus Congestion- yes Rhinorrhea- yes Sore Throat- yes Cough- yes wheezing- yes Dyspnea on exertion- no Lung Hx (asthma, recurring bronchitis/chest colds, COPD)- yes bronchitis Fevers/chills- yes chills, fever GI symptoms- no Treatment- vicks, tylenol, cough syrup Pt states she needs penicillin Patient reports she had a follow-up 2 to 3 days ago. Denies hitting head, loss of consciousness. Patient does report she fell directly onto right arm. Patient has history of generalized arthritis, does see orthopedics for this. She reports generalized soreness to the area with new radiation down the arm, mild tingling to the fingers. History of Present Illness I have reviewed and verified the staff HPI to be accurate for this encounter. Review of Systems PHQ Score Initial Depression Screen Score: 0 Physical Exam Vitals & Measurements T: 36.7 ?C(Oral) HR: 91(Peripheral) BP: 134/86 SpO2: 97% HT: 61 in HT: 154 cm WT: 62.7 kg WT: 137.94 lb BMI: 26.44 General: Well developed, well nourished, in no acute distress Ears: No deformity or lesion of external ear. Canals and TM appear normal bilaterally. TM?s intact, not inflamed, with normal light reflex. Hearing grossly normal to conversational speech bilateral TMs are dull in appearance Nose: mild nasal mucosa inflammation and edema Mouth: Mucous membranes moist. Normal oropharynx, and posterior pharynx without lesions or exudates. Tongue normal Neck: no adenopathy Lungs: Normal respiratory effort and clear to auscultation Cardio: regular rate and rhythm, no murmur Musculoskeletal: _ Patient is noted to have steady gait on ambulation to and from exam room. Mildly limited range of motion to the right shoulder due to patient's discomfort. Bilateral lay brother strength 5/5. Extremity: _ Right upper extremity is pink, warm to touch. Brisk cap refill. Sensation intact. Right radial pulse 2+. Neurologic: Grossly normal no pronator drift Mental Status: Alert and oriented x3. Normal mood and affect Assessment/Plan 1. Acute sinusitis with symptoms > 10 days (J01.90: Acute sinusitis, unspecified) Given duration of symptoms and exam, will cover for sinusitis with Augmentin. Finish entire course. Fluids/rest, PRN tylenol/ibuprofen for pain and/or fever encouraged. May use Mucinex DM for symptomatic tx. Follow up with PCP if not improving over next 5-7 days with ATB or significantly worsening. Patient verbalized understanding of treatment plan. Ordered: amoxicillin-clavulanate, = 1 tab(s), Oral, q12hr, X 7 day(s), # 14 tab(s), Refills(s) 0, Pharmacy: [facility] #[id number], 154, cm, 12/30/22 11:19:00 EDT, Height/Length Dosing, 62.7, kg, 12/30/22 11:19:00 EDT, Weight Dosing 2. Right shoulder pain (M25.511: Pain in right shoulder) Overall stable on exam. Will Rx Medrol Dosepak given radiculopathy. May use Tylenol for pain. Recommend rest, ice/heat, elevation as tolerated. Recommend gentle stretching and range of motion. Follow-up with orthopedics if discomfort continues. Patient verbalized understanding treatment plan. Ordered: methylPREDNISolone, = 1 packet(s), Oral, As Directed, as directed on package labeling, X 6 day(s), # 21 tab(s), Refills(s) 0, Pharmacy: [facility] #[id number], 154, cm, 12/30/22 11:19:00 EDT, Height/Length Dosing, 62.7, kg, 12/30/22 11:19:00 EDT, Weight Dosing 3. Dizziness (R42: Dizziness and giddiness) Stable on exam. Neuro exam normal. Discussed likely secondary to sinus/ear fluid pressure. Continue use of cold/sinus medication. See #1. Follow-up with PCP if dizziness continues, seek medical attention immediately for any mental status change, coordination changes, vision changes, changes in speech. Patient verbalized understanding treatment plan. 4. BMI 26.0-26.9,adult (Z68.26: Body mass index [BMI] 26.0-26.9, adult) The standard range for ages 18 and older is >=18.5 and < 25 kg/m2. Your BMI today was above this range, this falls in the overweight to obese category and there are medical benefits to weight loss. We can offer counselling, referral, and/or medical support in addressing this problem. Your BMI and weight management will be followed at subsequent visits. Follow-up With When Contact Information ALBERTA RAMOS CNP [address] [place] [address] Additional Instructions: Patient Education Shoulder Impingement Syndrome Rehab-SportsMed Shoulder Exercises-SportsMed Sinusitis, Adult BMI for Adults Problem List/Past Medical History Ongoing Degenerative arthritis of knee, bilateral Dizziness and giddiness Hyperlipidemia Lumbar back pain with radiculopathy affecting left lower extremity Screening for cardiovascular condition Spondylosis Sprain of shoulder Historical No qualifying data Procedure/Surgical History left shoulder rotator cuff re (more content not included)... Normal [facility] Comment on above: Result Comment: Elec tronically Signed By: MAHAMED Cole APRN, [place] X\.br\Date and Time Signed: 12/30/22 11:43 EDT Patient Educationon 12-31-19 Patient Education Infectious Disease Sinusitis, Adult Sinusitis is inflammation of your sinuses. Sinuses are hollow spaces in the bones around your face. Your sinuses are located: ? Around your eyes. ? In the middle of your forehead. ? Behind your nose. ? In your cheekbones. Mucus normally drains out of your sinuses. When your nasal tissues become inflamed or swollen, mucus can become trapped or blocked. This allows bacteria, viruses, and fungi to grow, which leads to infection. Most infections of the sinuses are caused by a virus. Sinusitis can develop quickly. It can last for up to 4 weeks (acute) or for more than 12 weeks (chronic). Sinusitis often develops after a cold. What are the causes? This condition is caused by anything that creates swelling in the sinuses or stops mucus from draining. This includes: ? Allergies. ? Asthma. ? Infection from bacteria or viruses. ? Deformities or blockages in your nose or sinuses. ? Abnormal growths in the nose (nasal polyps). ? Pollutants, such as chemicals or irritants in the air. ? Infection from fungi (rare). What increases the risk? You are more likely to develop this condition if you: ? Have a weak body defense system (immune system). ? Do a lot of swimming or diving. ? Overuse nasal sprays. ? Smoke. What are the signs or symptoms? The main symptoms of this condition are pain and a feeling of pressure around the affected sinuses. Other symptoms include: ? Stuffy nose or congestion. ? Thick drainage from your nose. ? Swelling and warmth over the affected sinuses. ? Headache. ? Upper toothache. ? A cough that may get worse at night. ? Extra mucus that collects in the throat or the back of the nose (postnasal drip). ? Decreased sense of smell and taste. ? Fatigue. ? A fever. ? Sore throat. ? Bad breath. How is this diagnosed? This condition is diagnosed based on: ? Your symptoms. ? Your medical history. ? A physical exam. ? Tests to find out if your condition is acute or chronic. This may include: ? Checking your nose for nasal polyps. ? Viewing your sinuses using a device that has a light (endoscope). ? Testing for allergies or bacteria. ? Imaging tests, such as an MRI or CT scan. In rare cases, a bone biopsy may be done to rule out more serious types of fungal sinus disease. How is this treated? Treatment for sinusitis depends on the cause and whether your condition is chronic or acute. ? If caused by a virus, your symptoms should go away on their own within 10 days. You may be given medicines to relieve symptoms. They include: ? Medicines that shrink swollen nasal passages (topical intranasal decongestants). ? Medicines that treat allergies (antihistamines). ? A spray that eases inflammation of the nostrils (topical intranasal corticosteroids). ? Rinses that help get rid of thick mucus in your nose (nasal saline washes). ? If caused by bacteria, your health care provider may recommend waiting to see if your symptoms improve. Most bacterial infections will get better without antibiotic medicine. You may be given antibiotics if you have: ? A severe infection. ? A weak immune system. ? If caused by narrow nasal passages or nasal polyps, you may need to have surgery. Follow these instructions at home: Medicines ? Take, use, or apply fpnz-aou-zilugnw and prescription medicines only as told by your health care provider. These may include nasal sprays. ? If you were prescribed an antibiotic medicine, take it as told by your health care provider. Do not stop taking the antibiotic even if you start to feel better. Hydrate and humidify ? Drink enough fluid to keep your urine pale yellow. Staying hydrated will help to thin your mucus. ? Use a cool mist humidifier to keep the humidity level in your home above 50%. ? Inhale steam for 10?15 minutes, 3?4 times a day, or as told by your health care provider. You can do this in the bathroom while a hot shower is running. ? Limit your exposure to cool or dry air. Rest ? Rest as much as possible. ? Sleep with your head raised (elevated). ? Make sure you get enough sleep each night. General instructions ? Apply a warm, moist washcloth to your face 3?4 times a day or as told by your health care provider. This will help with discomfort. ? Wash your hands often with soap and water to reduce your exposure to germs. If soap and water are not available, use hand glue specialty supervisor. ? Do not smoke. Avoid being around people who are smoking (secondhand smoke). ? Keep all follow-up visits as told by your health care provider. This is important. Contact a health care provider if: ? You have a fever. ? Your symptoms get worse. ? Your symptoms do not improve within 10 days. Get help right away if: ? You have a severe headache. ? You have persistent vomiting. ? You have severe pain or swell (more content not included)... Normal [facility] Coding Summary.on 12-06-2022 Coding Summary. [id number] Ww+PGhlYWQ+VJ5HTXRkH63bb PEntF0oW8ZOJAeHRixeLGOOG OdWJeXsltVoWQ0amVZqLVKg IC8+JT9wRUQyMacbxWGkz4J0 qQO2N52qcj3uPYyicMJ9CSSa TcIhnrsff2npaCg7GLokCrpl OyBt SVPdeE17KHI4lM77Jm41uLPh cZMgb1qzxDr7XoHaKDVyGOU7 rNlhNHczl0EuIERvG07rtUFv c2U6 QZZfeEwzkBDpPfIonZJ1qO2z DZulviyao1dbsdfjTqz8lb00 yRSuw6H6hES7L7KnxyK9YGQq bGQg GwjzcYLEhK1ptvwrq2djfjiq NfKzABDmEEz0GEf2WLDkmYvw FyAbRX15HFV9XEUobwJgF2Kw LWFs kQhzWfL0z2S4Zx7DA6CRPibb E7DEQUHHTPscmOI+HP42uy56 J5VzRzopHtw9BCTbWEB0bOL6 aD0n CSXrKPzvs7W3xMK0I9LoifIa tz6uq1exOFExQLeqN26czKGj g1B9ELRsiPU7TBQtgNjqMvPl aG93 Oyc+HUEooZobf1NaAetqz1lw v8rljWd1EurfNDWweuTjfUyq GST2b2DjFm6mZUYakHJ9pKD3 aD0i QhDdLbE3VZhzW382XqZtyRQv EamiY92gE7JnhXK+PHRyPjx0 DJSdoEigJV3yJ9PoQKHtqoow bGVm rOjqPJ8zZKZqlwzdQONexB4y MCEhC3o4EkIfGkQ1LFtwW6Cb XQNhssjtAq27hK3nRvFlVcS4 MGlu F1ZoczF2AVCfdEOxOXhsHVR4 U20kw7V1NAIjBLFnMWP0mQA6 qF2vaBywrpujmEEbbIvcnwPw dGlj VWhhXQmwS589ZNZdfHrgQvJh ZGluZyBEYXRlOiAgMDMvMTAv MjAyMzwvdGQ+UEQiJCK4aZec PSAn oYHjXLwoXv5pdIqgbBpnBX1y PFNslqzlCWWbtY7gBHWinUFp yAsmDW0sFTTyzamvd816IlMb MHB0 XKVykJOsA3OjhD9mEkHqUICi VUEhZ2LesMJpBYjmB760CJke BnQ3ZUIzibNtD5MnOMWgfDkm OiB0 i6E1Ae1Jo4PdnbvuK8WqpKXx UjLqGeykTRv7Y0ZoFvzlkVL+ IJ10TSNoWO08HBt6AIG8yXvv PSdi FSNyA4XymN2bFeFxYSKmANXd Oyc+PHRhYmxlIHdpZHRoPScx DTQyBsGptHbgLT0tQd3mFQWo LWNv pNgkfRCbBcYew6toLZOiYRmn TF1iaSrjF1YpeGI5WHPuw7h0 In19X34oM0GxsEK+PGNvbCB3 aWR0 pG3vZjOcRhV8UZlwI978GhKc oJItPzcfk2jua4rdnOa5YkI5 YWJodrRoxNchOII4t3NeOb99 Y29s IHdpZHRoPSIxNSUiIHZhbGln xb8twI6pCp6+MDTxuYR2fHX5 pZ1kBoGyXfU4EOrfG490BhTg cCIv Gxzgb8bqr7eyeJj6OoApUMFh koZbeVhdLRA7y7OtNk94S7Ph nOzpk2EqGnr8hp94bJEct7N5 bGU9 U9NxZGJmdtcwuBIpdQsdHE6r MKVkkqnhAEAddU8gNEBuM3u7 RoIkFeC2XEkuE8AqrcX0OJGx bGQg KMMzrDRXeJ9tuvrcw9edxyrh XoErFJXwENj0GVr5YQYqaHxp UlAtQGE0BsD6WJK4iMOgiC9z bGln bdyovT9eAvu+DZC1zSVzmWGK HH8wNqbtvWU+DHBvAJJ2fHkh EZemOPMoqQ6wESGdC3a1BgAj LjA1 LRsxL1DfauT5FUUzoRKoANYf eKIRxK6bczbtl7liwxrhHoRy YBAyYFp9RWt1TKLzkJmxFbYt ZWZ0 GkG3ODC7bWSzpI8ftUjstjdk uX7yNdg+ZixycOzoTBV1DUf2 X9XtVdz1UEXnuSkhOE0nzFDz ZGlu Gn2erVzktBmqYO7nMXTmuree z220JeTof3khRHJryVZfXGoa VWA3E12zh6W8LFZhRNRpJVK8 dGV4 eG7gnPlrwmkgwJEyrJgxmkYs lEhyVFkyUOawC397SKOhyCud IsFvZFb4V4KlEyg2TZWumAgb ZT0n cCRsUZnhNl5wlPksyFynBH7d TFJellesf944AgSsg2kpFWYd hOWgLGqbGKV1J30lr4X7LVYt MDAw BWM4hRB6xE9uqQlvahjbhHYq fSsndoJtfTyvWLdqAHfuC842 KQSbmOpeXjLgbSi5K7AgSxz8 ZCBz dSpgKJ2euRAgLHnhPi9oxWjt hEvoTN5aZRVnqtngp494ZeYl x9rvPRFgePFsKHkxMEC8T81h b3I6 PCApZISkLLK5mOJ0kP8qeMnz bjogbGVmdDsgdmVydGljYWwt OLedI319JVFrnOtyNnCocLme bnQg EAfaWPp4A5NtFbhjdWL+PC90 BXGjME88jQUiaWFjc0hlvRl5 HvOrDBJiLBE4gXuyGHyaw8Ag ZXIt U43vcFChy5T5BYCjqRkqhWLv ZmLjpMO9wS6fXZcmjbton7ue eikkVnhhm5gowz23oQ94S08h IHdp GVRrCISxFBJmVFYtgUcspp0l iN0uVa1+REOboXT7mOI3iV4d MVVrVuY2FTypT159ZaGuiAAv Pjxj w8zfk5fchPt9DfD7XNWmbkYu xVspDZW8v3QyUd27S33aBGsy GZLtGIZrXIXyCIPxrYbdub0m dG9w Ii8+GQIvdJN6kTO1uT5oThWn UnK1SHhcZ836GkPenSKqAjej V25iM4YgvFH+LBNeObw4PGCi dHls WC9cxMCsTWvmLj0aLNZ4MfIl GnFiLEbsW4GrLEZbfgumrxfm uAA2IYYtWHPsqA14Kf3jsIod MTBw oJPToP2nrmbsr4flnttaWjFd FRIiJDb3PSi1NVTztRtiObTh SBZ4TwX6SJD4tUPgdE1udUwb bjog lH6fG0VxKTDbmwhaVa43yN6m BmRpPhP2UBcnUbs+CoEEF9KQ QPpvJ2xLLcwIRHg6U4GeHkw4 ZCBz tBmfUM1gjYHfELvwVq0knRlw vNyzTG0rUKHmbgwvBNTkjT9u DJQdgGEurHziZI1tRBVyzimd b250 UoIyWAQ8XHZfkRAgQ2UzbC0r PtHpNOWkCAPsW5RldWGfTOel L202ZGraGwS5MYWbhhTmZ2Qq LWFs ePhbXiM9c1H7No5jJS1nCa5r IYE5XK52CL31rZCte7O0kLE4 P7YwVHYmcxajcgnjrUL3MZQf MDUw gS98eANlYHyzWl4pg2K2l783 WNMpVREjzL20Fw0fsZtxFXTj vRCLyS5oxtmyi7itoabqZmVu MDAw BRx7DYf5VMJwtNtsBdJeQEU6 AnI6RFV3kLKbrV1frRpwmhux nX6iVra+UxwxPVVfoeW6Y7Fk Pjx0 GLJjyBwbJC5rhBZgELbkJw9v hXkndDpwPG7lFAOwpqhpYCVf qS3qTJHybXSwgQogJQ3tMNUy bjtm m174TvPoVXL8PULblSIfN3Ve xX5jIdSkRZYnBWWtU1DraGJi TAhdZ730UIgfJfW5DOIdlxUw Y2Fs XZUbzGewUoK3b6S7Sr6CDR6l hXO1T0KbPmo7CXHqvAecDA0d dFTqOFpcKx3tpPwkxVvrKR0o NTBp orlqMTOfbK6kNGZedMFliEnk WD6uTOSetdqax510LpDrRAY1 CYHmaWZmD7XxsP8zEfCeTMBj MDAw M6UgfHLjKEmlI906VJlfNoB7 BKCxhmOfB0EgAUBznZnuOzA8 h5U7Jv2GjWOxI7YcY5p5V2Ao Pjwv dHI+NQ23OONwQF46yPIkjDJw m5ydsNk1NtWmPDRhLED5hAvu FEtia8XkEJHsC17qnIOif4M4 IGNv fKtshQXwRaQvdVS8hR0tPEmv sjban1zqcvilFwmru8uhtr08 iV05I76xKZhbDJSgRHYdGNKq IHZh vTtwwt2caE2tUy1+PGNvbCB3 yQC1cN6kHzOcCpZ6XEsnE558 BeOteURzXeruo0fpm5rgvRs1 IjIw DOCrfkHerGkeXEN9r2TsIa18 H22xEOkySPZiHTVoSGCtFGFj vDqbmx6rnQ2sDq9+ID4kf4oi cm91 iI29iCX+WTMwJPB0vVvyQZfz MVGxwB6nSLxkStS3TWVoLoHb wV31tFKyBShfXj7aeJjarOhe MC4w CILlfayxs400BtSaf3vwFTUj hOOlFMfiRQW4H75yt2B2TRQa KCTjCDT3xPC2fY6jeEpjamkq bGVm wLnjpoXhdLpeLUddWAwrS938 QAXdnZydDvCdhDPxC1mhroPC CL2cAbsgqFE+KHCmOBV7bJlq PSdw LPTyeR1lKEKgR3v1QdWwTlV7 NKuqQ7IaotK4TMFlwFElMOLw gWNLvK1diuxah7elubhbJyAn MDAw OUn2YJk5JHFpnCqgDsLvQQE0 ZpA8IKD9gFVwjW2mgQzvfxku iS0iTtu+RklOOjwvdGQ+PHRk IHN0 jVyvISucUVGsiX3qTEOyN4z4 SkZeHrP2IIckH2DiqgG4TLWg hEKyMPPwvOYEgZ0myzjtv7ce cjog OrYyPKUyRWu4OZd1SRYhlEfg HtEuKXB4IyQ2YUC6jFIocT6e gMqewmremB6yInb+TVJOOjwv dGQ+ DMGqQRF4kHuaJRntWLKknC9o ZXUqR3q4JtVtSuH2UPbaA1Jx qmS8ORHpkIRxZZJljCKWlI4p cztj w9ztgabcTyZgLKZgHWl7SQm0 LMHunUmiRuYnZBS4MsV0TZM4 bIQtyI5etTvigoedvA9aJjs+ UGF5 DYQ6VB54YL49K7IfWwoxnAYw bGU+PHRhYmxlIHdpZHRoPScx LUPgReLyvHawOU8cQt9fYMZv LWNv bGxh (more content not included)... Normal [facility] Auto DiffOrdered By: SYSTEM SYSTEM on 12-02-2022 Basophils/100 WBC (Bld) 0.9 % Normal 0.0-2.0 [facility] Comment on above: Order Comment: Order Added by Discern Expert. Performed By: #### 2 988758, 89017254, 3510321, 37245452, 8414515, 4563446, 46344149 ####[address] [address] Basophils/Leukocytes Auto (Bld) [Pure # fraction] 0.1 E9/L Normal 0.0-0.2 [facility] Comment on above: Order Comment: Order Added by Discern Expert. Performed By: #### 2 862646, 85082060, 8018902, 31159065, 3118135, 6238474, 99275896 ####[address] [place] [address] Eosinophils/100 WBC (Bld) 0.6 % Normal 0.0-8.0 [facility] Comment on above: Order Comment: Order Added by Discern Expert. Performed By: #### 2 573963, 38483379, 0995472, 93247762, 5994584, 7730765, 36249897 ####[address] [place] [address] Eosinophils/Leukocyte s Auto (Bld) [Pure # fraction] 0.1 E9/L Normal 0.0-0.5 [facility] Comment on above: Order Comment: Order Added by Discern Expert. Performed By: #### 2 871630, 91106523, 7380415, 60963426, 7957678, 5073634, 05812596 ####[place] [address] [address] Lymphocytes/100 WBC (Bld) 17.3 % Normal 14.0-50.0 [facility] Comment on above: Order Comment: Order Added by Discern Expert. Performed By: #### 2 690843, 69999643, 9629681, 68026167, 7770551, 2149575, 95590907 ####[place] [address] [address] Lymphocytes/Leukocyte s Auto (Bld) [Pure # fraction] 2.1 E9/L Normal 1.0-4.0 [facility] Comment on above: Order Comment: Order Added by Discern Expert. Performed By: #### 2 375352, 51181362, 9842945, 56501660, 5060446, 3622912, 93769562 ####[place] [address] [address] Monocytes/100 WBC (Bld) 7.8 % Normal 4.0-14.0 [facility] Comment on above: Order Comment: Order Added by Discern Expert. Performed By: #### 2 303344, 72680503, 8283575, 62952892, 7049462, 3973747, 36087059 ####[address] [address] Monocytes/Leukocytes Auto (Bld) [Pure # fraction] 1.0 E9/L Normal 0.2-1.0 [facility] Comment on above: Order Comment: Order Added by Discern Expert. Performed By: #### 2 756123, 98758133, 1444300, 01990225, 7665274, 4227044, 33857274 ####[address] [address] Neutrophils/100 WBC (Bld) 73.4 % Normal 36.0-75.0 [facility] Comment on above: Order Comment: Order Added by Discern Expert. Performed By: #### 2 140806, 77275323, 1427948, 10165087, 8015851, 2518415, 13779860 ####[address] [place] [address] Neutrophils/Leukocyte s Auto (Bld) [Pure # fraction] 9.1 E9/L High 2.0-7.5 [facility] Comment on above: Order Comment: Order Added by Discern Expert. Performed By: #### 2 400469, 54377034, 5710170, 06644986, 2570651, 8952992, 58585430 ####[address] [address] BMPOrdered By: SYSTEM SYSTEM on 12-02-2022 Creatinine [Mass/Vol] 0.8 mg/dL Normal 0.5-1.3 [facility] C Remisol Comment on above: Performed By: #### 2 618229, 09463069, 7388885, 48124116, 0947459, 8776759, 37492453 ####[address] [address] Urea nitrogen [Mass/Vol] 23 mg/dL High 5-21 [facility] Comment on above: Performed By: #### 2 736366, 66140942, 4915449, 95959349, 0528254, 1672302, 17718734 ####[address] [address] Anion gap [Moles/Vol] 17 mmol/L High 6-16 [facility] Remisol Comment on above: Performed By: #### 2 516958, 35846274, 9235604, 15616147, 4115654, 5897942, 59827189 ####[address] [address] Calcium [Mass/Vol] 9.5 mg/dL Normal 8.9-11.1 FT R emisol Comment on above: Performed By: #### 2 349865, 99788753, 5819599, 49362487, 2393770, 8371559, 30698298 ####[address] [address] [place] [address] Chloride [Moles/Vol] 104 mmol/L Normal 101-111 [facility] Comment on above: Performed By: #### 2 884169, 41240835, 7263387, 48549071, 7016151, 9939085, 19591320 ####[facility] [address] [place] [address] CO2 [Moles/Vol] 21 mmol/L Normal 21-31 [facility] Jarrod blanquita Comment on above: Performed By: #### 2 678987, 57928657, 3117941, 26821634, 4880722, 0159393, 75649312 ####[facility] [address] [place] [address] Glucose [Mass/Vol] 93 mg/dL Normal 55-199 [facility] [place] R emisol Comment on above: Result Comment: If t his glucose result represents a fasting glucose, interpretation should refer to the following reference range: 55-99 mg/dL Performed By: #### 2 884078, 19174425, 4649212, 47694936, 1846001, 9582794, 49673160 ####[facility] [address] [place] [address] Potassium [Moles/Vol] 3.9 mmol/L Normal 3.5-5.3 [facility] C Remisol Comment on above: Performed By: #### 2 645844, 91729471, 2184087, 35664752, 4660859, 9918326, 92525253 ####[facility] [address] [place] [address] Sodium [Moles/Vol] 138 mmol/L Normal 135-145 [facility] [place] R emisol Comment on above: Performed By: #### 2 845349, 78165567, 0020255, 64853979, 4147249, 2030593, 78759737 ####[facility] [address] [place] [address] BMPon 12-02-2022 Urea nitrogen/Creatinine [Mass ratio] 29 No Units High 10-20 [facility] Comment on above: Performed By: #### 2 908247, 59248807, 4712664, 56306105, 3408693, 8164618, 18574128 ####[facility] [address] [place] [address] CBC w/ Auto DiffOrdered By: Jennifer Quezada on 12-02-2022 Erythrocyte distribution width (RBC) [Ratio] 13.4 % Normal 10.9-14.2 [facility] Comment on above: Performed By: #### 2 144076, 61619865, 0342540, 29216577, 4525961, 0151622, 90170974 #### [facility] [address] [place] [address] Hematocrit (Bld) [Volume fraction] 47.3 % High 34.0-46.0 [facility] Comment on above: Performed By: #### 2 944415, 31858150, 3403544, 29408426, 2787366, 6294347, 08706376 #### [facility] [address] [place] [address] Hemoglobin (Bld) [Mass/Vol] 15.8 g/dL Normal 12.0-16.0 [facility] Comment on above: Performed By: #### 2 861512, 70977930, 9409551, 14265108, 5739044, 4025037, 60587817 #### [facility] [address] [place] [address] MCH (RBC) [Entitic mass] 29.9 pg Normal 27.0-34.0 [facility] Comment on above: Performed By: #### 2 769835, 26230950, 2264681, 30535571, 3189763, 4213799, 59952264 #### [facility] [address] [place] [address] MCHC (RBC) [Mass/Vol] 33.5 g/dL Normal 31.4-36.0 [facility] Comment on above: Performed By: #### 2 387160, 88691112, 3242820, 14776683, 1792716, 9433801, 24374282 #### [facility] [address] [place] [address] MCV (RBC) [Entitic vol] 89.3 fL Normal 80.0-100.0 [facility] Comment on above: Performed By: #### 2 912468, 14296719, 8260557, 56698986, 5600224, 1923631, 92519162 #### [facility] [address] [place] [address] Platelet mean volume (Bld) [Entitic vol] 7.1 fL Normal 6.4-10.8 [facility] Comment on above: Performed By: #### 2 362905, 25310646, 6801893, 61591603, 1526756, 7677488, 76444461 #### [facility] [address] [place] [address] Platelets (Bld) [#/Vol] 403.0 E9/L Normal 150.0-500.0 [facility] Comment on above: Performed By: #### 2 434751, 29038710, 5510059, 70354280, 0236117, 0629357, 54580437 #### [facility] [address] [place] [address] RBC (Bld) [#/Vol] 5.3 E12/L Normal 4.3-5.9 [facility] Comment on above: Performed By: #### 2 725877, 81332320, 4801413, 39451425, 3446899, 9226135, 55350519 #### [facility] [address] [place] [address] WBC corrected for nucl RBC Auto (Bld) [#/Vol] 12.4 E9/L High 4.0-11.0 [facility] Comment on above: Performed By: #### 2 415248, 60125101, 6462342, 03495814, 3077215, 6821625, 52745950 #### [facility] [address] [place] [address] CHEMISTRYOrdered By: SYSTEM SYSTEM on 12-02-2022 Albumin/Globulin [Mass ratio] 1.1 {ratio} Normal 1.1 - 2.2 [facility] ALP [Catalytic activity/Vol] 73 [iU]/d Normal 21 - 98 Int._Unit/L [facility] ALT No additional P-5'-P [Catalytic activity/Vol] 34 [iU]/d Normal 6 - 46 Int._Unit/L [facility] AST [Catalytic activity/Vol] 19 [iU]/d Normal 5 - 43 Int._Unit/L [facility] GFR/1.73 sq M.predicted among blacks MDRD (S/P/Bld) [Vol rate/Area] mL/min/1.73 m2 Normal >=59mL/min/ 1.73 m2 [facility] Chem S GFR/1.73 sq M.predicted among non-blacks MDRD (S/P/Bld) [Vol rate/Area] mL/min/1.73 m2 Normal >=59mL/min/ 1.73 m2 [facility] Chem S Urea nitrogen/Creatinine [Mass ratio] 29 mg/mg High 10 - 20 [facility] COAGULATIONOrdered By: Michelle Arreola on 12-02-2022 aPTT Coag (PPP) [Time] 27.7 s Normal 25.1 - 36.5 second(s) [facility] Auto Coag PT Coag (PPP) [Time] 10.5 s Normal 9.4 - 1 2.5 second(s) [facility] Auto Coag CT Head or Brain w/o Contras ton 12-02-2022 CT Head or Brain w/o Contrast Exam Date/Time: 12/02/2022 13:31 EST Reason for Exam: dizziness, vertigo;Other (please specify) Report IMPRESSION: NO ACUTE INTRACRANIAL PROCESS OR SIGNIFICANT CHANGE FROM 11/21/2018 IDENTIFIED. EXAM: CT Head or Brain w/o Contrast DATE: 12/02/2022 CLINICAL HISTORY: dizziness, vertigo. COMPARISON: 11/21/2018. TECHNIQUE: Routine. All CT scans at this facility use dose modulation, iterative reconstruction, and/or weight based dosing when appropriate to reduce radiation dose to as low as reasonably achievable. FINDINGS: There is no intracranial hemorrhage, mass effect, midline shift, extra-axial collection, evidence of hydrocephalus, skull fracture, or a recent ischemic infarct identified. There is no significant atrophy, or white matter changes, for age. Coarse calcification inferior left optic globe, unchanged. The mastoid air cells and visualized paranasal sinuses are essentially clear. Ordering Provider: Bernardino Alvarez FINAL REPORT Dictated: 12/02/2022 1:42 pm Francisco Porras MD Signed (Electronic Signature): 12/02/2022 1:42 pm Signed by: Francisco Porras MD Transcribed by: SARI Technologist: CECE Normal [facility] Consent for Treatmenton Consent for Treatment [id number]: 127 Normal [facility] Discharge Instructionson Discharge Instructions [id number] :127 Normal [facility] ED Clinical Summaryon 2022 ED Clinical Summary (Inserted Image. Katiana ble to display) [place] [id number] ED Clinical Summary Person Information Name: SWEETIE OSORIO Zena/[facility] Age: 77 Years : 1945 Sex: Female Language: Chinese PCP: ALBERTA RAMOS CNP Marital Status: Phone: [phone] Visit Id: Visit Reason: Dizziness; DIZZY Speciality: Acuity: 2 Enc Type: Emergency Med Service: Emergency Arrival: 12/02/2022 12:49:51 Discharge: 12/02/2022 16:30:20 LOS: 000 03:41 Checkin: 12/02/2022 12:49:51 Checkout: 12/02/2022 16:30:20 Dispo Type: Home (Routine DC) EVENTS: Event Name Event Status Request Date/Time Start Date/Time Complete Date/Time Arrive Complete 12/02/2022 12:49:51 12/02/2022 12:49:51 12/02/2022 12:49:51 Document Home Meds Complete 12/02/2022 12:49:51 12/02/2022 14:22:27 12/02/2022 14:22:27 Triage Complete 12/02/2022 12:49:51 12/02/2022 12:59:26 12/02/2022 12:59:26 Bed Assign Complete 12/02/2022 12:51:18 12/02/2022 12:51:18 12/02/2022 12:51:18 Dr Exam Complete 12/02/2022 12:51:18 12/02/2022 12:53:20 12/02/2022 12:53:20 RN Exam Complete 12/02/2022 12:51:18 12/02/2022 13:21:06 12/02/2022 13:21:06 Registration Complete 12/02/2022 12:53:20 12/02/2022 13:46:19 12/02/2022 13:46:19 EKG Complete 12/02/2022 12:56:52 12/02/2022 13:01:08 Pending Labs Request 12/02/2022 13:05:31 Lab Complete 12/02/2022 13:05:31 12/02/2022 15:09:05 Urine Collect Complete 12/02/2022 13:05:31 12/02/2022 15:09:05 Patient Care Request 12/02/2022 13:05:31 RT Request 12/02/2022 13:05:31 X-Ray Complete 12/02/2022 13:05:31 12/02/2022 13:12:37 12/02/2022 13:23:10 CT Complete 12/02/2022 13:05:31 12/02/2022 13:19:21 12/02/2022 13:31:52 Pending Labs Complete 12/02/2022 13:13:19 12/02/2022 13:13:19 12/02/2022 13:41:14 Lab Complete 12/02/2022 13:13:19 12/02/2022 13:13:19 12/02/2022 13:41:14 Pending Labs Complete 12/02/2022 13:19:06 12/02/2022 13:19:06 12/02/2022 13:19:06 Pending Labs Complete 12/02/2022 13:21:05 12/02/2022 13:21:05 12/02/2022 13:21:15 Lab Complete 12/02/2022 13:21:05 12/02/2022 13:21:05 12/02/2022 13:21:15 Wet Read Complete 12/02/2022 13:23:10 12/02/2022 14:00:10 12/02/2022 14:00:10 Reg Complete Request 12/02/2022 13:46:19 Reg Bed Request Complete 12/02/2022 13:46:19 12/02/2022 13:46:19 12/02/2022 13:46:19 Discharge Complete 12/02/2022 16:10:20 12/02/2022 16:31:15 12/02/2022 16:31:15 Transfer Complete 12/02/2022 16:31:15 12/02/2022 16:31:15 12/02/2022 16:31:15 ADDRESS: [address] [facility] [id number] PHYS DOC NOTES: MEDICAL INFORMATION: Prescriptions Given: Medications to Continue with No Changes Other Medications ocular lubricant (Artificial Tears preserved ophthalmic solution) 1 Drops Ophthalmic 2 times a day as needed for dry eyes. timolol ophthalmic (Timolol Maleate (Eqv-Timoptic) 0.5% ophthalmic solution) 1 Drops Right eye 2 times a day. PATIENT EDUCATION INFORMATION: Instructions: Follow up: With: Address: When: ALBERTA RAMOS [address] [place], [place] [id number] Business (1) In 3 days DIAGNOSIS: Dizziness Normal [facility] ED Note-Nursingon 12-02-2022 ED Note-Nursing pt. ambulates withou t difficulty, denies current dizziness. Dr. Alvarez updated at this time. Normal [facility] ED Note-Physicianon 12-03-19 ED Note-Physician Basic Information Time Seen: Bernardino Alvarez DO 12/02/2022 12:53 Chief Complaint Pt reports dizziness like her whole body is vibrating since she tried to get out of the car after breakfast this morning. Denies vision changes, GIRON, n/v, or any urinary problems. History of Present Illness 77 female presents emergency department with dizziness. History is very limited by the fact that the patient is a poor historian and it is possible that she may have some underlying dementia its unclear if this was formally diagnosed. From what I can gather over the last 24 to 36 hours patient has had some sensation of dizziness. Patient is not really able to further elaborate on this she is not able to tell me if this is like a type of vertigo or near syncope. She does state that she feels like her entire body is vibrating. She is denying any headache no chest pain no shortness of breath cough fevers no abdominal pain no pain or weakness no numbness to the upper or lower extremities. Patient denies any history of CVA or CAD. No other aggravating or relieving factors no other associated symptoms no other prior treatments or complaints. Family: Reviewed and noncontributory Social: lives at home Review of systems negative unless otherwise specified in the HPI. Physical Exam Vitals & Measurements T: 36.4 ?C(Oral) HR: 76(Peripheral) RR: 18 BP: 176/75 SpO2: 99% HT: 154 cm WT: 62.1 kg BMI: 26.18 General: The patient appears well and in no apparent distress. Patient is resting comfortably on cart. Skin: Warm, dry, no pallor noted. Head: Normocephalic, atraumatic Neck: No JVD Eye: PERRLA, EOMI ENT: Moist mucus membranes Cardiovascular: Regular rate normal peripheral perfusion Respiratory: No respiratory distress no accessory muscle use no obvious audible wheezing Chest Wall: no deformity Musculoskeletal: normal ROM, no deformity, no swelling GI: Soft no obvious distention. No rebound or rigidity. No guarding. No tenderness. Neurological: A&O moves all extremities equal strength and symmetry stroke scale score 0 Psychiatric: Cooperative and appropriate somewhat anxious Procedure MEDICAL DECISION MAKING Number and Complexity of Problems Differential Diagnosis: MDM Data External documents reviewed: My EKG interpretation: in chart if applicable My CT interpretation: in chart if applicable My X-ray interpretation: in chart if applicable My Ultrasound interpretation: Decision rules/scores evaluated: Discussed with: Treatment and Disposition ED Course: Work-up in the ER has been reviewed and noted. CT read by the radiologist as no acute pathology. Laboratory studies are unremarkable. No dizziness at this time she was able to walk laps around the emergency department without any additional dizziness. She does tell me that since she had COVID and had these injuries back around November 18 she just has not felt well and she has had this episodic dizziness. I did consider the possibility of central vertigo however this does seem more episodic and has been going on for several days if not several weeks therefore patient will be discharged home. I did offer her admission to the hospital but she states that she would prefer to go home. She will follow-up in the outpatient setting return to ER symptoms should change or worsen. Shared decision making: Code status: Assessment/Plan Dizziness (R42: Dizziness and giddiness) Orders: Automated Diff Basic Metabolic Panel CBC w/ Auto Diff CT Head or Brain w/o Contrast ED Cardiac Monitoring eGFR Extra SST Tube Hepatic Function Panel Oxygen Saturation Oxygen Therapy PT & PTT Saline Lock Insert Troponin 0 Hr. Troponin 3 Hr. Troponin 6 Hr. Troponin 9 Hr. UA With Cult Reflex XR Chest Single View Disposition Plan Discharge Prescription List Prescriptions No active prescription medications Follow-up With When Contact Information ALBERTA RAMOS In 3 days [address] [place] [address] [employer] (1) Additional Instructions: Problem List/Past Medical History Ongoing Degenerative arthritis of knee, bilateral Hyperlipidemia Lumbar back pain with radiculopathy affecting left lower extremity Screening for cardiovascular condition Historical No qualifying data Procedure/Surgical History left shoulder rotator cuff repair 3-, None. Medications Inpatient No active inpatient medications Home aspirin 81 mg Oral EC Tab, 81 mg= 1 tab(s), Oral, Daily, Not taking cyclobenzaprine 10 mg Tab, 10 mg= 1 tab(s), Oral, TID, PRN, Not taking Lidoderm 5% Patch, 1 patch(es), Topical, Daily, PRN, Not taking Lipitor 20 mg Tab, 20 mg= 1 tab(s), Oral, Bedtime, Not taking Lumigan, one drop, Eye-Right, qPM, Not taking naproxen 500 mg Tab, 500 mg= 1 tab(s), Oral, BID, PRN, Not taking naproxen 500 mg Tab, 500 mg= 1 tab(s), Oral, BID timolol, one drop, Eye-Right, Daily Timolol Maleate (Eqv-Timoptic) 0.5% ophthalmic solution Allergies (more content not included)... Normal [facility] Comment on above: Result Comment: Elec tronically Signed By: Bernardino Alvarez DO\.br\Date and Time Signed: 12/02/22 16:10 EST ED Patient Education Noteon 12-02-2022 ED Patient Education Note Normal [facility] ED Patient Summaryon 023 ED Patient Summary (Inserted Image. Katiana ble to display) [address] [address] Patient Discharge Instructions Person Information Name: SWEETIE OSORIO Age: 77 Years Arrival Date: 12/02/2022 12:49:51 Discharge Diagnosis: Dizziness Primary Care Physician: ALBERTA RAMOS CNP Provider Information Primary Provider: Bernardino Alvarez DO Advanced Telephone Interviewer:None The exam and treatment you received in the Emergency Department were for an urgent problem and are not intended as complete care. It is important that you follow up with a doctor, nurse practitioner, or physician?s therapeutic assistant for ongoing care. If your symptoms become worse or you do not improve as expected and you are unable to reach your usual health care provider, you should return to the Emergency Department. We are available 24 hours a day. DEVON SWEETIE Emeli has been given the following list of patient education materials, prescriptions and follow-up instructions: Follow-up Instructions: With: Address: When: ALBERTA RAMOS [address] [facility] [address] [place], [place] [id number] Business (1) In 3 days In the event that this physician does not participate in your insurance network, please consult with your insurance company to find a nearby participating provider. Patient Education Materials: A MESSAGE TO ALL PATIENTS REGARDING OPIOIDS PRESCRIPTION OPIOIDS: WHAT YOU NEED TO KNOW Prescription opioids can be used to help relieve lyjhjybb-jp-mmkccd pain and are often prescribed following a surgery or injury, or for certain health conditions. These medications can be an important part of the treatment but also come with serious risks. It is important to work with your healthcare provider to make sure you are getting the safest, most effective care. WHAT ARE THE RISKS AND SIDE EFFECTS OF OPIOID USE? Prescription opioids carry serious risks of addiction and overdose, especially with prolonged use. An opioid overdose, often marked by slowed breathing, can cause sudden . The use of prescription opioids can have a number of side effects as well, even when taken as directed: ? Tolerance?meaning you might need to take more of the medication for the same pain relief ? Physical dependence?meaning you have symptoms of withdrawal when a medication is stopped ? Increased sensitivity to pain ? Constipation ? Nausea, vomiting, and dry mouth ? Sleepiness and dizziness ? Confusion ? Depression ? Low levels of testosterone that can result in lower sex drive, energy, and strength ? Itching and sweating RISKS ARE GREATER WITH: ? History of drug misuse, substance use disorder, or overdose ? Mental health conditions (such as depression or anxiety) ? Sleep apnea ? Older age (65 years and older) ? Avoid alcohol while taking prescription opioids. Also, unless specifically advised by your health care provider, medications to avoid include: ? Benzodiazepines (such as Xanax or Valium) ? Muscle relaxants (such as Soma or Flexeril) ? Hypnotics (such as Ambien or Lunesta) ? Other prescription opioids KNOW YOUR OPTIONS Talk to your health care provider about ways to manage your pain that don?t involve prescription opioids. Some of these options may actually work better and have fewer risks and side effects. Options may include: ? Pain relievers such as acetaminophen, ibuprofen, and naproxen ? Some medication that are also used for depression or seizures ? Physical therapy and exercise ? Cognitive behavioral therapy, a psychological, goal-directed approach, in which patients learn how to modify physical, behavioral, and emotional triggers of pain and stress. IF YOU ARE PRESCRIBED OPIOIDS FOR PAIN: ? Never take opioids in greater amounts or more often than prescribed. ? Follow up with your primary health care provider. o Work together to create a plan on how to manage your pain. o Talk about ways to help manage your pain that don?t involve prescription opioids. o Talk about any and all concerns and side effects. ? Help prevent misuse and abuse o Never sell or share prescription opioids. o Never use another person?s prescription opioids. ? Store prescription opioids in a secure place and out of reach of others (this may include visitors, children, friends, and family). ? Safely dispose of unused prescription opioids: Find your community drug take-back program or your pharmacy mail-back program, or flush them down the toilet, following guidance from the Food and Drug Administration (www.fda.gov/Drugs/Resou rcesForYou). ? Visit www.cdc.gov/drugoverdose to learn about the risks of opioids abuse and overdose. ? If you believe you may be struggling with addiction, tell your health health care sanitary technician and ask for guidance or call [facility]?S National Helpline at 1-279-923-RDOR. v Source: US Department of Health and Human Services/Center for Disease Co (more content not included)... Normal [facility] Hep Func PanelOrdered By: [employer] SYSTEM on 12-02-2022 Albumin [Mass/Vol] 4.2 g/dL Normal 3.3-5.0 [facility] R emisol Comment on above: Performed By: #### 2 458101, [id number], 5489208, 72555776, 8550822, 5879150, 52934971 ####[facility] [address] [place] [address] Bilirubin [Mass/Vol] 0.8 mg/dL Normal 0.0-1.1 [facility] Comment on above: Performed By: #### 2 945048, 18769085, 4256190, 30415637, 1820848, 0712399, 56567660 ####[facility] [address] [place] [address] Bilirubin.direct [Mass/Vol] 0.1 mg/dL Normal 0.1-0.4 [facility] Comment on above: Performed By: #### 2 950891, 40886748, 4783855, 96144585, 2975615, 4814299, 53176790 ####[facility] [address] [place] [address] Bilirubin.indirect [Mass or moles/Vol] 0.7 mg/dL Normal 0.1-0.9 [facility] Comment on above: Performed By: #### 2 315460, 19684357, 3275411, 14549590, 5388334, 9239432, 85330207 ####[facility] [address] [place] [address] Globulin (S) [Mass/Vol] 3.7 g/dL Normal 1.4-4.0 [facility] Remisol Comment on above: Performed By: #### 2 357755, 72896286, 6088898, 38463235, 9986098, 7667964, 05395976 ####[facility] [address] [place] [address] Protein [Mass/Vol] 7.9 g/dL High 6.0-7.8 [facility] R emisol Comment on above: Performed By: #### 2 473435, 79791023, 9315223, 38887676, 9420046, 5770140, 95617574 ####[facility] [address] [place] [address] Hep Func Panelon 12-02-2022 Albumin/Globulin (S) [Mass conc ratio] 1.1 Normal 1.1-2.2 [facility] Comment on above: Performed By: #### 2 619976, 14884189, 0460276, 02910250, 7722127, 4640423, 18764453 ####[facility] [address] [place] [address] ALP [Catalytic activity/Vol] 73 Int._Unit/L Normal 21-98 [facility] Comment on above: Performed By: #### 2 662393, 30351332, 1052445, 59345463, 4845969, 5120497, 21898916 ####[facility] [address] [place] [address] ALT No additional P-5'-P [Catalytic activity/Vol] 34 Int._Unit/L Normal 6-46 [facility] Comment on above: Performed By: #### 2 265529, 48223099, 3577203, 36868189, 7728072, 6612181, 61431140 ####[facility] [address] [place] [address] AST [Catalytic activity/Vol] 19 Int._Unit/L Normal 5-43 [facility] Comment on above: Performed By: #### 2 993303, 83448443, 1397476, 81527277, 1054052, 5911016, 81294696 ####[facility] [address] [place] [address] Monitor Recordon 12-02-2022 Monitor Record [id number] :127 Normal [facility] PT & PTTon 12-02-2022 aPTT Coag (PPP) [Time] 27.7 second(s) Normal 25.1-36.5 [facility] Comment on above: Result Comment: Para meter 15 days - 4 weeks 1 - 5 months 6 - 11 months 1 - 5 years 6 - 10 years 11 - 17 years PTT Mean: 35.4 (27.6-45.6) Mean: 33.5 (24.8-40.7) Mean: 32.4 (25.1-40.7) Mean: 31.6 (24.0-39.2) Mean: 31.6 (26.9-38.7) Mean: 31.0 (24.6-38.4) Pediatric Reference ranges were obtained from a study by Jorge Christian et al. prepared from 1437 samples obtained at 7 different centers using the same coagulation reagent and instrumentation as [facility]. Currently there are no coagulation studies available worldwide for children to 14 days, and no normal ranges. Heparin therapeutic range (represented by Anti-Factor Xa activity of 0.2 - 0.4 U/mL) corresponds to PTT of 56.6 - 109.0 sec. Performed By: #### 2 490009, 55059318, 9674205, 73983986, 4330107, 5109953, 94405255 ####[facility] [address] [place] [address] PT Coag (PPP) [Time] 10.5 second(s) Normal 9.4-12.5 [facility] Comment on above: Result Comment: 15 d ays - 4 weeks 1 - 5 months 6 -11 months 1- 5 years 6-10 years 11 -17 years Mean: 11.2 (9.5-12.6) Mean: 11.0 (9.7-12.8) Mean: 11.0 (9.8-13.0) Mean: 11.3 (9.9-13.4) Mean: 11.7 (10.0-14.6) Mean: 11.8 (10.0 - 14.1) Pediatric Reference ranges were obtained from a study by Jorge Christian et al. prepared from 1437 samples obtained at 7 different centers using the same coagulation reagent and instrumentation as [facility]. Currently there are no coagulation studies available worldwide for children to 14 days, and no normal ranges. Performed By: #### 2 446329, 45675828, 0189719, 11560379, 5784778, 5372837, 06549977 ####[facility] [address] [place] [address] PT & PTTOrdered By: Milagro Arreola on 12-02-2022 INR Coag (PPP) [Relative time] 1.0 {INR} Invalid Interpretation Code [facility] Auto Coag Comment on above: Result Comment: INR results are specifically intended to assess patients stabilized on long-term Anticoagulation therapy suggested INR?s ?Less Intensive Anticoagulation? 2.0 ? 3.0 Conventional Range 3.0 ? 4.5 Performed By: #### 2 138682, 31862574, 2701746, 01440289, 9752988, 4145122, 77760989 ####[facility] [address] [place] [address] Troponin 0 Hr.Ordered By: [employer] SYSTEM on 12-02-2022 Troponin I.cardiac [Mass/Vol] 5.20 pg/mL Low 10.10-27.10 [facility] Remisol Comment on above: Result Comment: The 95% CI (Confidence Interval) PPV (Positive Predictive Value) for myocardial infarction in females is 38 pg/mL, in males 51 pg/mL. The results should be used in conjunction with clinical conditions of myocardial infarction. (Access High Sensitivity Troponin I Instructions For Use, Nic Carmi, April 2018) Performed By: #### 2 867072, 26794377, 6226799, 66460571, 9013386, 7059374, 45747010 ####[facility] [address] [place] [address] UA With Cult Reflexon 2022 Bilirubin Ql (U) Negative Normal Negative [facility] Comment on above: Performed By: #### 2 715269, 53906918, 0771110, 5542044, 7217142, 2246410 #### [facility] [address] [place] [address] Clarity (U) CLEAR Normal Clear [facility] Comment on above: Performed By: #### 2 090269, 74542029, 9131954, 8461981, 0032919, 6935391 #### [facility] [address] [place] [address] Color (U) YELLOW Normal Yellow [facility] Comment on above: Performed By: #### 2 954764, 03918893, 6598687, 3429254, 0045137, 9706460 #### [facility] [address] [place] [address] Epithelial cells.squamous LM.HPF (Urine sed) [#/Area] 0-2 Normal 0-2 [facility] Comment on above: Performed By: #### 2 858552, 14216703, 1526838, 5761217, 6951968, 7542979 #### [facility] [address] [place] [address] Glucose Test strip (U) [Mass/Vol] Negative Normal Negative [facility] Comment on above: Performed By: #### 2 145395, 01883327, 6723132, 9066852, 0829316, 4441242 #### [facility] [address] [place] [address] Hemoglobin Ql (U) Negative Normal Negative [facility] Comment on above: Performed By: #### 2 429943, 80244560, 0999418, 6302660, 0229021, 2129072 #### [facility] [address] [place] [address] Ketones (U) [Mass/Vol] TRACE Abnormal Negative [facility] Comment on above: Performed By: #### 2 120136, 77522121, 1932146, 2035347, 7751157, 9481718 #### [facility] [address] [place] [address] Koosharem.plasma/Lithiu m.RBC (Bld) [Mass ratio] 0-3 Normal 0-3 [facility] Comment on above: Performed By: #### 2 342200, 83590312, 7372386, 6477460, 4931963, 5773411 #### [facility] [address] [place] [address] Nitrite Ql (U) Negative Normal Negative [facility] Comment on above: Performed By: #### 2 470807, 54347928, 3972832, 6709454, 9291155, 9839617 #### [facility] [address] [place] [address] pH (U) 6.0 [pH] Invalid Interpretation Code 5.0-9.0 [facility] Comment on above: Performed By: #### 2 382884, 62948711, 7920544, 3806648, 1388618, 1261293 #### [facility] [address] [place] [address] Protein (U) [Mass/Vol] Negative Normal Negative [facility] Comment on above: Performed By: #### 2 943952, 63763979, 5807991, 5674229, 0867773, 6719607 #### [facility] [address] [place] [address] Specific gravity (U) [Rel density] 1.010 Invalid Interpretation Code 1.005-1.030 [facility] Comment on above: Performed By: #### 2 585952, 47825523, 1001439, 7272668, 3136424, 3893798 #### [facility] [address] [place] [address] Type of Urine collection method Clean Catch Normal [facility] Comment on above: Performed By: #### 2 724064, 81961587, 9264746, 3067307, 6994429, 7835607 #### [facility] [address] [place] [address] Urobilinogen Qn (U) 0.2 {Lorena'U}/dL Normal 0.0-1.0 [facility] Comment on above: Performed By: #### 2 939863, 51521792, 1147236, 8814769, 8640336, 9030543 #### [facility] [address] [place] [address] WBC Auto Ql (U) TRACE Abnormal Negative [facility] Comment on above: Performed By: #### 2 335498, 74954979, 5327657, 9288216, 5413933, 3087193 #### [facility] [address] [place] [address] WBC LM.HPF (Urine sed) [#/Area] 0-5 Normal 0-5 [facility] Comment on above: Performed By: #### 2 153066, 21815406, 8728209, 2862228, 2329128, 4045573 #### [facility] [address] [place] [address] URINALYSISOrdered By: Nick Salcedo on 12-02-2022 Bilirubin Ql (U) Negative (12/02/22 2:54 PM) Normal Negative [facility] UA Auto SS Clarity (U) Clear (12/02/22 2:54 PM) Normal Clear [facility] UA Auto SS Color (U) Yellow (12/02/22 2:54 PM) Normal Yellow [facility] UA Auto SS Epithelial cells.squamous LM.HPF (Urine sed) [#/Area] 0-2 /HPF Normal 0-2/HPF [facility] UA Aut o SS Glucose Test strip (U) [Mass/Vol] Negative (12/02/22 2:54 PM) Normal Negative [facility] UA Auto SS Hemoglobin Ql (U) Negative (12/02/22 2:54 PM) Normal Negative [facility] UA Auto SS Ketones (U) [Mass/Vol] Trace *ABN* (12/02/22 2:54 PM) Invalid Interpretation Code Negative [facility] UA Auto SS Koosharem.plasma/Lithiu m.RBC (Bld) [Mass ratio] 0-3 /HPF Normal 0-3/HPF [facility] UA Auto SS Nitrite Ql (U) Negative (12/02/22 2:54 PM) Normal Negative [facility] UA Auto SS pH (U) 6.0 *NA* (12/02/22 2:54 PM) Invalid Interpretation Code 5.0 - 9.0 [facility] UA Auto SS Protein (U) [Mass/Vol] Negative (12/02/22 2:54 PM) Normal Negative [facility] UA Auto SS Specific gravity (U) [Rel density] 1.010 *NA* (12/02/22 2:54 PM) Invalid Interpretation Code 1.005 - 1.030 [facility] UA Auto SS UA Spec Desc Clean Catch (12/02/22 2:54 PM) Normal [facility] UA Auto SS Urobilinogen Qn (U) 0.4692288 {Lorena'U}/dL Normal 0.0 - 1.0 EU/dL [facility] UA Auto SS WBC Auto Ql (U) Trace *ABN* (12/02/22 2:54 PM) Invalid Interpretation Code Negative [facility] UA Auto SS WBC LM.HPF (Urine sed) [#/Area] 0-5 /HPF Normal 0-5/HPF [facility] UA Auto SS XR Chest Single Viewon 12-02 XR Chest Single View Exam Date/Time: 12/02/2022 13:23 EST Reason for Exam: Chest pain Report IMPRESSION: NO EVIDENCE OF ACTIVE CARDIOPULMONARY DISEASE, BY PORTABLE CHEST RADIOGRAPHY. EXAM: XR Chest Single View DATE: 12/02/2022 CLINICAL HISTORY: Chest pain. COMPARISON: Two-view chest 11/18/2022. TECHNIQUE: A portable upright AP radiograph of the chest was obtained. FINDINGS: There are shallow inspiratory volumes, without significant pulmonary infiltrate, cardiomegaly, vascular congestion, sizable pleural effusion, pneumothorax, or displaced fractures identified. Ordering Provider: Bernardino Alvarez FINAL REPORT Dictated: 12/02/2022 2:03 pm Francisco Porras MD Signed (Electronic Signature): 12/02/2022 2:03 pm Signed by: Francisco Porras MD Transcribed by: SARI Technologist: RUBENS Technical Comments Radiation Dose: Ka,r in mGy = na DAP = na Normal [facility] eGFRon 12-02-2022 GFR/1.73 sq M.predicted among blacks MDRD (S/P/Bld) [Vol rate/Area] mL/min/{1.73_m2} Normal >=59 [facility] Comment on above: Order Comment: Order added by Discern Expert. Result Comment: eGFR is race adjusted. AA=. Performed By: #### 2 110164, 84026615, 2495288, 18931344, 6458906, 8972399, 51304310 ####[facility] [address] [place] [address] GFR/1.73 sq M.predicted among non-blacks MDRD (S/P/Bld) [Vol rate/Area] mL/min/{1.73_m2} Normal >=59 [facility] Comment on above: Order Comment: Order added by Discern Expert. Result Comment: Psychology Technician brianne kidney disease could be indicated at eGFR's of less than 60 mL/min/1.73m2. Kidney failure is indicated at less than 15 mL/min/1.73m2. Performed By: #### 2 406988, 87202889, 7335320, 06941293, 2534903, 4386753, 10056918 ####[facility] [address] [place] [address] Coding Summary.on 11-19-2022 Coding Summary. CD:[id number] Gh0b Ww+PGhlYWQ+NR8ISGXcE94ac OFhsY9XZ6dKVV2FZZDBUZDKQ C5DDZ1nkLH6JFkaH3MipnUe EsdbwAIbZX49LZy9KVD4xNlm XQxofA1nzIAhE5c1PbBlDF63 uZ75IOidHGRzOfV3GxUgycvu bWFy A5kiCdDjqVAxPnh+PHRhYmxl IHdpZHRoPScxMDAlJyBzdHls QR7eZi8qTUCfPISytDjqbYYf OiBj v3jpGCLyNJjzVS9fzNgjB1Nj oVD0QLYhc8p8Op79vUU+PHRk PGI6zMjoQEkly081LtYbu5qu IDM3 pDQtMGybYYL9A69qb8O5VAUl NFUrNWV5nQR6bS3vaJoyrumb O9GqzLQzFrR6HLP2fFHrqJ3z bGln jwhfoG2pIdd+O71TSU5GEJKR KE9FPuo5J2XsYdaffAT+PC90 FQNoDC08eMDzlKGhx8lvrIj8 JzEw ETCfZDA8dUlmJOlvj8NyXFSj N42mgILwx8H3PIPjcBcwvRTy DnRyjGN2xT7bRQrpdspic3to dzsn Hmtct7ucew79iL78J51mDXcb ZGKmIDM9LCZdFYNaoBfkps1h aS6yBh1+UOluu3xak3fljPp2 IjIw WYTbmbUxzBtnZGO0h7DmEb71 F3IonIvoz7TsUba6id55xQJn d9K1kYB5IVhhKEXpiE5hXJkm ZnQ6 QBMgWdXhuU10hZZcUDdwNy9m mNycvNwsOJ0wNZFruibdDVAv aZ7mQPFlaULyuYemQW0aRFPx bjtm o780DnHmUXD7AVMtgAWyL5Bw tU9dAuJbCESbLNZhB7JpmVDy JWofU736HYwaSkE4LVEyafCz Y2Fs ZXOilEmfOfG8f4R0Ad5Ys4Qc fthhDJX1TSftCMHdKgRiLhGt OpG7D1XnEes7WNTuvVrjNJ2r J3Bh CPIkihuydtgdhWP0LIBmKAUm uD13nWRaSRhbUl2ij1C9h655 FNMcDDXorL34Lm6vhYcjAUOe dCBU nT5tkiwml4ghqngrWwIxJPWi BNw8ODd9NDTqeXlkSdOdRAM2 MrA5MNF3eXWwdL7nqFnczikf dG9w Oyc+U35ykI0cGHF8ZTM9qpyz JGFbgoNkLG31AX49D4SeZoeb dGFibGU+AQVcviYdoFakEH1k YmFj v9ojq4GiXCtjC7ElFOObWXbn Rlh6SHLpILQ7nLW4pI1xVYSy TEmzq5D1xNL3E1IlsfGrfj8f b2xs KPGvUFgjN10auZXyv4A9TCPt gKB6XSOsxFieLwJvrO39Duw+ CXZxdPjkv1KjLewaj8nlm8xy dGg9 ZqQzTWYeniQogArlMIB0k8Jk En50I70sPTroEWZoXCQjNCBo WYSrnChnks0dtF3zXd3+PGNv bCB3 hIJ2eY6pWZIaEvY6ROrfO890 RsRjhTLuRqavg8suk8riqFt5 CzCpAMVvozSuvTzcKXW9z2Ya Lz48 R39cOSezPKAwMZBlZWBpRVPx xMzlau1mvM4gDm5+MX0ve5ft ks72rJ48jSC+JLQzSMV2zKvg PSdw GCPggW6aQWpnDtJ1RPXeAfFn nE81qMQqRUzsOw2qoLvtgAsk BS1eXGIfeujbu157RjXmk6od IDEw fZRcIMegAER1K71ki8J1ZBRs BVCjFBV5aEB8vA8qnDaoixyb bGVmdDsgdmVydGljYWwtYWxp Z246 IHRvcDsnPlBhdGllbnQgTmFt XIt5D0TnUpd6OWLmmSdtXP6s tTSjORunMw5wuXgfcUlpAN5m NTBp mfvkg587WdGve9naRZWpfBBf AXxkSOS0W99uz0G4YTSzCQBb PFM8lAE2hQ5csLktiyhegJGg dDsg ekQwkLjjLIerMCwxE829JANq rSvsYqTcxhMsYHJntWX1MV35 OG09hQEgc2H8wDT6N6McAQKf bmct jojvrPR8XBWrWXWvvW20Vj9r iEdeGw2tIOBpYDY6JNDuvMSh T5RhkU7sDvEvUXVzSWJaM0Te eHQt GXpuK319EVqzJzJ4ASGspbOe Q6EhRUAmnZjySdF7z7M7Ia6I Z6G7BK76AG63qRAdx3P4sWL4 J3Bh TYRktdiobsyljDG0DHDxYZZn aU31Mx6ldXcrZu0ySHUcIUK4 LWOatAXbY4UggJ7aNjRtULCf MDAw X5JhgVRcNRcuT776ZLnfRqV8 MXYixoOmT3TrQZOcrHyhLjM9 c6R6Iz6CKXi2FI53GT98vBHk c3R5 jPT8U5RtAJQjaijecswbjGO6 CDRwVTUhaJ77Fw8azRumMo4d KABnRUP1KRAnpQYsZ2DbrZ9k OiAj SFOnMRLdL4UggZAhPRkgZ515 HXgaAgK7PGDdvlTyJ3KlYCHk fTwcTeA3j6S5Za5VRQSpAU86 IFR5 cZK7AU49MD50D9MdQiminROa bGU+PHRhYmxlIHdpZHRoPScx CLSbEnUltWdrZQ6uPb5eVANt LWNv eDpksKYzWmExl3qwFKElAJyq UZ5voRmtC2QuoCC9EFDyp5w6 Cy03E98nE3HnxHM+PGNvbCB3 aWR0 nT6gPfBjDwE4AKkrT742DhBq rKSbJixlc8ydx5ersAr0ThB8 VYKbvwRkwLpqYKL6n0FbPj44 Y29s IHdpZHRoPSIxNSUiIHZhbGln sy6akP7qUk6+NQKpvAE2xDA8 wM1vIvEuZoM9QZpsF998FcYw cCIv Hpwcb7phb9whmZx8JjVaTHNo bkVcrQldNPD5n1RrZt38R0Hd mJuyo4ShQpo3vu91xUTqy0R7 bGU9 A9MjKNOxcbxznMPyjHpfKM6v RMEumcsbRIOzhR7gVPKxB8t4 UhSkEzU3ZObjS2HlhlK6BWAr cHQg EDmeYNZ3W06nn4X7VTSmOUZj RES2vHM2xP6zmQzozbkylKAe vRljmyFyiSldWDniJNvkR864 IHRv dFunDXAadQ8zWARrvTMwtFoo JX7aRGKkiqjoRwEXD4CEUYAy DIJRGHNJPQFWHM18CX63bFGx c3R5 aEO5N6GpQXCmvdrhqvbsyNM3 TFGnEIPeqY25cYRnTCnpOc6o m9M4c917MKQcJIXtpB11Hv3s dDog KLLrjMDHwE1zddinl6fmwzqz KjJuFLPtCGs6NNk3AIKsuSyn FvJaPJR4ZtU6RRR2yLFknP1a bGln wgyyzB8lFfb+MDEvMTYvMTk0 NDwvdGQ+OWEzHSH6wZqeJHnk FBSeaV8aRAHoV3k1RoNvEoK5 MGlu H6VzHCJqpqjbMj68oD4bHlAk PxF2JOdyY1JiceC0RDXvzTVa MTsmKRB8M96fl3X9KSTzQTVj MDA7 kVB3pE8koFzfuswmfTJbeSvs qbMypUzlCCxfRJslX307LNSp yPrrCfa3BLrzSMCqUZ91EI82 dGQg z3N8wHW7F8FlRCOyinbsssud zJA1IOIxRUTnbX55tCJkFIji Rw4mg2X5q263RXBzOWJhnT12 Zm9u kLeiWTNbdUTOeG7rzuojj9zk gvhnMbBqVASfAOj3AIs7ATMw pCddUhWsHQL3ZqE8ZIQ6tGCm bC1h eLuwrwmlaT9jGis+RmVtYWxl SN98XF30lKHjs1A2mDR4I1Kt STAqjbclizednMN5WVJoHLGx aW47 tEYkUZrjLi7ja2Y8e425WGXl HLXphY22Pt6ajTpwLMBjvMDG yZ2irlkez7cccgijZqMsZBPn MDt0 YBc6ICUqrTlyMtVqHQI9SiF8 UDU3rBRokR7dnXnkurpffH1j Oyc+SD1mdnqxgrI9JN65IC54 L3Ry PjwvdGFibGU+PHRhYmxlIHdp NGYgYTvmRAWuWfQzzWkxTN0b Cp3wSIWuGSOgnBzxzZPaUvMh b2xs ECLoQGczFS2fjRldC3HpnER9 PHIpu5m2Hd79B89hC5QukLI+ XISmlHW3sDG5jY3yTcYsGmX5 YWxp D615VpDldDElOmxoc1ano0xa hUu9TsYbUBMvpxZcdVmeQEU1 o8VpIr76B23iFKexCDSoCSGw MCUi SHQswAxgvp5dcD9cIe9+PGNv lIT7jBS2lK8nTnWdTuV3DOcx M292FvKxiGNpUhpfM60aV2Ww dXA+ RJEwMcj4HIPkiJaePW0ysLIv SCtrEm8pAGP6QbApTfCbZCom E8HvQSRavtmjwtcysYM9RSHx MDUw xF47Dk9ucEhqVi1fLSAoYWQ4 KGUuwCSwN0TppS9jAaTvSGLc QMOfA6RtuUNbLUtmW617NXao ZnQ7 NTSsniUdX0BfXFGdgVdpGoG8 p5L3Ac7ZzLpqyOWvBE7rAtEg QQy8L5VeFnu3MQAluRyyVR5a cGFk XVcjKi6bkOxqoLhrKB3tNXOd yldro033GqXmt3atZOBsnXIy WMrkRZX6R36jr2Z6YJToNVMi MDA7 oBV1oH1ayQdfylkgkNKgqRmc ofOmbQigNDbiFWkkF107GIWm tEdlUfSOPrg1B7SzZee8SJJd dHls TO6fgTQlIBbyHn1xaRkssTdz WA4zFORhrypvb757CdMqg1kw RQEqpNFcBJmoBOS6T96gd2X6 ICMw PKWlIPM8nMY5iO0vlTwlblds bGVmdDsgdmVydGljYWwtYWxp G782QFUibUctCl0XOiw6S1Qn Pjx0 XIFnvEcbEW6wiVLvOZhnHz6q hEfvtYvyBQ0rNSYisvxwz116 UeGuh6skUFPzqJNiJOaqERH0 Y29s m0P0PUItWCBjPFA4mEH1mY6f bGlnbjogbGVmdDsgdmVydGlj LKtlZMmsW557OOSpmUxtJaMo eWVy OjwvdGQ+AI68pf32F1HcJeys Ydd2FDSdQTK2tBD0fH3oYRYf CAdqd8E3gMJ9B5ElikNkkt8c b2xs YXBz (more content not included)... Normal [facility] COVID-19 ([facility])on 11-18-2022 Performing Instrument FT Suhail 2 Normal [facility] Comment on above: Performed By: #### 2 [id number], [id number], 3389554, [id number], [id number], [id number] #### [facility] [address] [place] [address] SARS-CoV-2 (COVID-19) RNA KARLY+probe Ql (Resp) Detected Abnormal Not Detected [facility] Comment on above: Result Comment: Resu lts Called To Tamiko Quezada/DARBY By teresa And Read Back For Confirmation On 11/18/2022 14:44:03 EST. This test result should be correlated with clinical presentations and medical history by a healthcare provider to determine its clinical significance. This assay was performed by a reverse transcriptase real-time polymerase chain reaction (rt PCR) method on the [employer] system. This test has been authorized only for the detection of nucleic acid from SARS-CoV-2, not for any other viruses or pathogens. This test has not been FDA cleared or approved. This test has been authorized by FDA under an Emergency Use Authorization (EUA). This test is only authorized for the duration of time the declaration on that circumstances exist justifying the authorization emergency use of in vitro diagnostic tests for detection and/or diagnosis of COVID-19 infection under section 564 (b) (1) of the Act, 21 U.S.C. 360 bbb-3 (b) (1), unless authorization is terminated or revoked sooner. Performed By: #### 2 139305, [id number], 6470149, 0465062, [id number], [id number] #### [facility] [address] [place] [address] SARS-CoV-2 (COVID-19) RNA KARLY+probe Ql (Unsp spec) Pass Normal Pass [facility] Comment on above: Performed By: #### 2 869431, [id number], 8330305, 5077210, 5010200, 3405880 #### [facility] [address] [place] [id number] Specimen source Nom (Unsp spec) Nasal Normal [facility] Comment on above: Performed By: #### 2 525438, [id number], 6532346, 3223856, 8954878, 3278714 #### [facility] [address] [place] [id number] ADMITTED TO INTENSIVE CARE UNIT FOR CONDITION OF INTEREST:FIND:PT: NO Normal [facility] Comment on above: Performed By: #### 2 143142, [id number], 4411919, 5516886, 2041997, 5019506 #### [facility] [address] [place] [address] EMPLOYED IN A HEALTHCARE SETTING:FIND:PT: NO Normal [facility] Comment on above: Performed By: #### 2 627691, [id number], 6711265, 8030800, 1610964, 1940481 #### [facility] [address] [place] [address] FIRST TEST FOR CONDITION OF INTEREST:FIND:PT: Unknown Normal [facility] Comment on above: Performed By: #### 2 237086, [id number], 1664868, 3855761, 8623937, 1576082 #### [facility] [address] [place] [address] HAS SYMPTOMS RELATED TO CONDITION OF INTEREST:FIND:PT: YES Normal [facility] Comment on above: Performed By: #### 2 666351, [id number], 3892953, 4390044, 1869228, 2756476 #### [facility] [address] [place] [address] HOSPITALIZED FOR CONDITION OF INTEREST:FIND:PT: NO Normal [facility] Comment on above: Performed By: #### 2 292250, [id number], 6931312, 6516279, 6024838, 8584810 #### [facility] [address] [place] [address] STATUS:FIND:PT: NO Normal [facility] Comment on above: Performed By: #### 2 664006, [id number], 4245391, 1271289, 4293189, 5529163 #### [facility] [address] [place] [address] RESIDES IN A CONGREGATE CARE SETTING:FIND:PT: NO Normal [facility] Comment on above: Performed By: #### 2 796834, 02672789, 2550421, 6956067, 6664142, 9724070 #### [facility] [address] [place] [address] Consent for Treatmenton 10-31 Consent for Treatment [id number]: 127 Normal [facility] Discharge Instructionson Discharge Instructions [id number]: 127 Normal [facility] ED Clinical Summaryon 2022 ED Clinical Summary (Inserted Image. Katiana ble to display) [place] [id number] ED Clinical Summary Person Information Name: SWEETIE OSORIO [facility] Age: 77 Years : 1945 Sex: Female Language: Chinese PCP: ALBERTA RAMOS CNP Marital Status: Phone: [phone] Visit Id: Visit Reason: Malaise; Back pain; Shoulder pain-swelling; RT ARM/SHOULDER PAIN-FALL A MONTH AGO Speciality: Acuity: 3 Enc Type: Emergency Med Service: Emergency Arrival: 11/18/2022 10:20:56 Discharge: 11/18/2022 12:09:08 LOS: 000 01:49 Checkin: 11/18/2022 10:20:56 Checkout: 11/18/2022 12:09:08 Dispo Type: Home (Routine DC) EVENTS: Event Name Event Status Request Date/Time Start Date/Time Complete Date/Time Arrive Complete 11/18/2022 10:20:56 11/18/2022 10:20:56 11/18/2022 10:20:56 Document Home Meds Request 11/18/2022 10:20:56 Triage Complete 11/18/2022 10:20:56 11/18/2022 10:32:30 11/18/2022 10:32:30 Bed Assign Complete 11/18/2022 10:26:02 11/18/2022 10:26:02 11/18/2022 10:26:02 Dr Exam Complete 11/18/2022 10:26:02 11/18/2022 10:28:20 11/18/2022 10:28:20 RN Exam Complete 11/18/2022 10:26:02 11/18/2022 12:11:58 11/18/2022 12:11:58 Registration Complete 11/18/2022 10:28:20 11/18/2022 10:56:23 11/18/2022 10:56:23 X-Ray Complete 11/18/2022 10:37:50 11/18/2022 10:43:57 11/18/2022 11:01:12 Pending Labs Collected 11/18/2022 10:37:50 Swab Complete 11/18/2022 10:37:50 11/18/2022 11:24:21 Lab Collected 11/18/2022 10:37:50 Reg Complete Request 11/18/2022 10:56:23 Reg Bed Request Complete 11/18/2022 10:56:23 11/18/2022 10:56:23 11/18/2022 10:56:23 Wet Read Complete 11/18/2022 11:01:12 11/18/2022 11:24:04 11/18/2022 11:24:04 Meds Admin Complete 11/18/2022 11:41:55 11/18/2022 12:02:10 Discharge Complete 11/18/2022 11:42:11 11/18/2022 12:16:50 11/18/2022 12:16:50 Transfer Complete 11/18/2022 12:16:50 11/18/2022 12:16:50 11/18/2022 12:16:50 ADDRESS: [address] [place] [phone] PHYS DOC NOTES: MEDICAL INFORMATION: Prescriptions Given: New Medications [facility]/pharmacy #[id number], [address], [place] [id number], [phone] dextromethorphan-prometh azine (Promethazine DM oral syrup) 5 Milliliter By Mouth every 6 hours as needed for cough for 5 Days. Refills: 0. tramadol (Ultram 50 mg Tab) 50 Milligram By Mouth every 4 hours for 3 Days. Take one by mouth every four hours. Refills: 0. Medications to Continue with No Changes Other Medications aspirin (aspirin 81 mg Oral EC Tab) 1 Tablets By Mouth every day. Refills: 0. atorvastatin (Lipitor 20 mg Tab) 1 Tablets By Mouth at bedtime. Refills: 0. bimatoprost ophthalmic (Lumigan) one drop Right eye once a day (in the evening). cyclobenzaprine (cyclobenzaprine 10 mg Tab) 1 Tablets By Mouth 3 times a day as needed Muscle pain. Refills: 0. lidocaine topical (Lidoderm 5% Patch) 1 Patches Topical every day as needed Muscle pain. apply 12 hours on and 12 hours off daily. Refills: 0. naproxen (naproxen 500 mg Tab) 1 Tablets By Mouth 2 times a day. Refills: 0. naproxen (naproxen 500 mg Tab) 1 Tablets By Mouth 2 times a day as needed for pain. Refills: 0. timolol one drop Right eye every day. timolol ophthalmic (Timolol Maleate (Eqv-Timoptic) 0.5% ophthalmic solution) PATIENT EDUCATION INFORMATION: Instructions: Follow up: With: Address: When: Pablito Walton [address] [place] [phone] Business (1) In 3 days 11/21/2022 With: Address: When: ALBERTA R[address] [place], [place] [phone] Business (1) In 3 days DIAGNOSIS: Acute URI; Lumbar pain; Shoulder sprain; Spondylosis Normal [facility] ED Note-Physicianon 11-18-19 ED Note-Physician Basic Information Time Seen: Bernardino Alvarez DO 11/18/2022 10:28 Chief Complaint Pt presents to ED with complaints of right shoulder and lower back pain after falling out of bed while dreaming a month ago. pt also c/o GIRON, cough and malaise. History of Present Illness 77 female presents emergency department with right shoulder pain and lower back pain. Patient states that she fell out of bed about 1 month ago and landed on her right shoulder injuring her shoulder and her back. She figured the pain would go away but it did not go away. This is her first time being evaluated by a physician for this. She reports no prior history of major surgeries to her right shoulder or her lower back. She is not sure if she is ever had any MRIs to these areas. She has been taking some rfhh-ews-icyhiqi medications. Pain made worse by certain movements. She denies any numbness or weakness into the upper or lower extremities. She has no urinary symptoms. She does have a secondary complaint of feeling that she might have upper respiratory infection. She states over the last couple of days she has had a bit of a headache and low-grade temperature elevation as well as rhinorrhea and a bit of a cough as well. However when she woke up today she did not have any of the symptoms they seemingly have resolved. However she would like to get tested for COVID because of a family member that she is concerned about. She denies any chest pain or shortness of breath no abdominal pain no nausea vomiting or diarrhea. No other aggravating or relieving factors no other associated symptoms no other prior treatments or complaints. Family: Reviewed and noncontributory Social: lives at home Review of systems negative unless otherwise specified in the HPI. Physical Exam Vitals & Measurements T: 37.4 ?C(Oral) HR: 79(Peripheral) RR: 18 BP: 141/48 SpO2: 97% HT: 154 cm WT: 63.2 kg BMI: 26.65 General: The patient appears well and in no apparent distress. Patient is resting comfortably on cart. Skin: Warm, dry, no pallor noted. Head: Normocephalic, atraumatic Neck: No JVD Eye: PERRLA, EOMI ENT: Moist mucus membranes Cardiovascular: Regular rate normal peripheral perfusion Respiratory: No respiratory distress no accessory muscle use no obvious audible wheezing Chest Wall: no deformity Back: No focal tenderness to palpation to the midline of the thoracic or lumbar spine. No step-off no crepitus appreciated. Very minimal tenderness in the paraspinal musculature of the lumbar column. No tenderness over the dorsal rib cage region. Musculoskeletal: Right upper extremity exam: No focal tenderness palpation to the clavicle or scapula humerus shoulder elbow forearm wrist or hand. Neurovascularly intact distally. Patient does complain of increased pain with range of motion about the shoulder. GI: Soft no obvious distention. No rebound or rigidity. No guarding. No tenderness. Neurological: A&O moves all extremities equal strength and symmetry Psychiatric: Cooperative and appropriate Medical Decision Making MEDICAL DECISION MAKING Number and Complexity of Problems Differential Diagnosis: I did offer the patient extensive work-up she declined stating she would just be agreeable to some x-rays and swabs. MDM Data External documents reviewed: My EKG interpretation: in chart if applicable My CT interpretation: in chart if applicable My X-ray interpretation: in chart if applicable My Ultrasound interpretation: Decision rules/scores evaluated: Discussed with: Treatment and Disposition ED Course: Patient declined any additional testing such as blood work or urinalysis. Chest x-ray was agreed upon no evidence of pneumonia. COVID testing is pending flu is negative. Patient did request medication for cough she is given Phenergan DM. X-rays of the shoulder reveal no acute pathology she is educated on stretching exercises ice to the area and follow-up with orthopedics. She is given tramadol for breakthrough pain given that she has other allergies. She does have scoliosis in her lumbar spine and I did talk to her about the spondylolisthesis of L5 on S1 as well as those arthritic changes and therefore we did agree upon intramuscular Kenalog here. Multiple other treatment options were discussed with the patient ultimately she is referred to orthopedics follow-up in the outpatient setting return to ER symptoms should change or worsen. Shared decision making: Code status: Assessment/Plan Acute URI (J06.9: Acute upper respiratory infection, unspecified) Lumbar pain (M54.50: Low back pain, unspecified) Ordered: tramadol, 50 mg, Oral, q4hr, Take one by mouth every four hours, X 3 day(s), # 12 tab(s), Refills(s) 0, Pharmacy: [facility]/pharmacy #[id number], 154, cm, 11/18/22 10:32:00 EST, Height/Length Dosing, 63.2, kg, 11/18/22 10:32:00 EST, Weight Dosing Shoulder sprain (S43.409A: Unspecified sprain of unspecified shoulder joint, initial encounter) Spondylosis (M47.9: Spondylosis, unspecified) (more content not included)... Normal [facility] Comment on above: Result Comment: Elec tronically Signed By: Bernardino Alvarez DO\.br\Date and Time Signed: 11/18/22 11:44 EST ED Patient Education Noteon 11-18-2022 ED Patient Education Note Normal [facility] ED Patient Summaryon 023 ED Patient Summary (Inserted Image. Katiana ble to display) [place] [id number] Patient Discharge Instructions Person Information Name: SWEETIE OSORIO Age: 77 Years Arrival Date: 11/18/2022 10:20:56 Discharge Diagnosis: Acute URI; Lumbar pain; Shoulder sprain; Spondylosis Primary Care Physician: ALBERTA RAMOS CNP Provider Information Primary Provider: Bernardino Alvarez DO Advanced Telephone Interviewer:None The exam and treatment you received in the Emergency Department were for an urgent problem and are not intended as complete care. It is important that you follow up with a doctor, nurse practitioner, or physician?s therapeutic assistant for ongoing care. If your symptoms become worse or you do not improve as expected and you are unable to reach your usual health care provider, you should return to the Emergency Department. We are available 24 hours a day. SWEETIE OSORIO has been given the following list of patient education materials, prescriptions and follow-up instructions: Follow-up Instructions: With: Address: When: Pablito Walton [address] [place] [phone] Business (1) In 3 days 11/21/2022 With: Address: When: ALBERTA RAMOS [address] [place] [address] [address] [place], [place] [phone] [employer] (1) In 3 days In the event that this physician does not participate in your insurance network, please consult with your insurance company to find a nearby participating provider. Patient Education Materials: A MESSAGE TO ALL PATIENTS REGARDING OPIOIDS PRESCRIPTION OPIOIDS: WHAT YOU NEED TO KNOW Prescription opioids can be used to help relieve dzhsnkkz-bj-kjjorb pain and are often prescribed following a surgery or injury, or for certain health conditions. These medications can be an important part of the treatment but also come with serious risks. It is important to work with your healthcare provider to make sure you are getting the safest, most effective care. WHAT ARE THE RISKS AND SIDE EFFECTS OF OPIOID USE? Prescription opioids carry serious risks of addiction and overdose, especially with prolonged use. An opioid overdose, often marked by slowed breathing, can cause sudden . The use of prescription opioids can have a number of side effects as well, even when taken as directed: ? Tolerance?meaning you might need to take more of the medication for the same pain relief ? Physical dependence?meaning you have symptoms of withdrawal when a medication is stopped ? Increased sensitivity to pain ? Constipation ? Nausea, vomiting, and dry mouth ? Sleepiness and dizziness ? Confusion ? Depression ? Low levels of testosterone that can result in lower sex drive, energy, and strength ? Itching and sweating RISKS ARE GREATER WITH: ? History of drug misuse, substance use disorder, or overdose ? Mental health conditions (such as depression or anxiety) ? Sleep apnea ? Older age (65 years and older) ? Avoid alcohol while taking prescription opioids. Also, unless specifically advised by your health care provider, medications to avoid include: ? Benzodiazepines (such as Xanax or Valium) ? Muscle relaxants (such as Soma or Flexeril) ? Hypnotics (such as Ambien or Lunesta) ? Other prescription opioids KNOW YOUR OPTIONS Talk to your health care provider about ways to manage your pain that don?t involve prescription opioids. Some of these options may actually work better and have fewer risks and side effects. Options may include: ? Pain relievers such as acetaminophen, ibuprofen, and naproxen ? Some medication that are also used for depression or seizures ? Physical therapy and exercise ? Cognitive behavioral therapy, a psychological, goal-directed approach, in which patients learn how to modify physical, behavioral, and emotional triggers of pain and stress. IF YOU ARE PRESCRIBED OPIOIDS FOR PAIN: ? Never take opioids in greater amounts or more often than prescribed. ? Follow up with your primary health care provider. o Work together to create a plan on how to manage your pain. o Talk about ways to help manage your pain that don?t involve prescription opioids. o Talk about any and all concerns and side effects. ? Help prevent misuse and abuse o Never sell or share prescription opioids. o Never use another person?s prescription opioids. ? Store prescription opioids in a secure place and out of reach of others (this may include visitors, children, friends, and family). ? Safely dispose of unused prescription opioids: Find your community drug take-back program or your pharmacy mail-back program, or flush them down the toilet, following guidance from the Food and Drug Administration (www.fda.gov/Drugs/Resou rcesForYou). ? Visit www.cdc.gov/drugoverdose to learn about the risks of opioids abuse and overdose. ? If you believe you may be struggling with addiction, tell your health care pr (more content not included)... Normal [facility] Influenza A&B Agon 3 Influenzae A Ag Negative Normal Negative [facility] Comment on above: Performed By: #### 2 [id number], [id number], [id number], 6383488, [id number], [id number] #### [facility] [address] [place] [address] Influenzae B Ag Negative Normal Negative [facility] Comment on above: Result Comment: Test sensitivity and specificity vary for age group, specimen type, antigen types, and prevalence of disease. Test results must be evaluated in conjunction with other clinical data available to the physician. Individuals who received nasally administered Influenza A vaccine may have positive test results up to 3 days after vaccination. Performed By: #### 2 [id number], [id number], 9764376, 5428919, [id number], [id number] #### [facility] [address] [place] [address] MICRO OTHER TESTSOrdered By: Roz Flynn on 11-18-2022 Influenzae A Ag Negative (11/18/22 10:45 AM) Normal Negative [facility] [place] [facility] Sero Influenzae B Ag Negative (11/18/22 10:45 AM) Normal Negative [facility] [place] [facility] Sero XR Chest 2 Viewson 3 XR Chest 2 Views Exam Date/Time: 11/18/2022 11:01 EST Reason for Exam: Difficulty breathing Report IMPRESSION: There are no acute cardiopulmonary changes. CLINICAL HISTORY: Difficulty breathing TECHNIQUE: Anterior and lateral xray views of the chest COMPARISON: Chest x-ray from 09/12/2021 FINDINGS: The cardiomediastinal silhouette is unremarkable. The lungs are free of infiltrates effusions or consolidations. There is persistent thoracolumbar scoliosis Ordering Provider: Bernardino Alvarez FINAL REPORT Dictated: 11/18/2022 12:29 pm Tj Hernanedz MD, V. Signed (Electronic Signature): 11/18/2022 12:29 pm Signed by: Tj Hernandez MD, V. Transcribed by: SARI Technologist: JOSUÉ Hendrix [facility] XR Shoulder Complete Righton 11-18-2022 XR Shoulder Complete Right Exam Date/Time: 11/18/2022 11:01 EST Reason for Exam: Pain, Traumatic Report IMPRESSION: THERE ARE NO ACUTE CHANGES. THERE IS HYPERTROPHY OF THE AC JOINT. CLINICAL HISTORY: Pain, Traumatic COMPARISON: NONE FINDINGS: AP, internal, external rotation, Y and axillary views of the right shoulder demonstrate no evidence of a fracture, dislocation, bone abnormality. There is hypertrophy of the AC joint. Ordering Provider: Bernardino Alvarez FINAL REPORT Dictated: 11/18/2022 12:28 pm Tj Hernandez MD, V. Signed (Electronic Signature): 11/18/2022 12:28 pm Signed by: Tj Hernandez MD, V. Transcribed by: SARI Technologist: JOSUÉ Hendrix [facility] XR Spine Lumbosacral 2 or 3 Viewson 11-18-2022 XR Spine Lumbosacral 2 or 3 Views Exam Date/Time: 11/18/2022 11:01 EST Reason for Exam: Back pain Report IMPRESSION: There are no acute changes. CLINICAL HISTORY: Back pain 3 views COMPARISON: Lumbar spine x-rays from 12/31/2021 FINDINGS: The visualized bones are demineralized. There is no acute fracture or subluxation. There is no loss of vertebral body height. There is preservation of the lordotic curvature of the lumbar spine. There is levoscoliosis, similar to the prior study with a Castano angle measurement of 25 degrees between T12 and L4. There is mild intervertebral disc space narrowing at each level. The SI joints are symmetric. The soft tissues are within normal limits. Ordering Provider: Bernardino Alvarez FINAL REPORT Dictated: 11/18/2022 12:31 pm Tj Hernandez MD, V. Signed (Electronic Signature): 11/18/2022 12:31 pm Signed by: Tj Hernandez MD, V. Transcribed by: SARI Technologist: JOSUÉ Normal [facility] Family Medicine Office/Clini c Noteon 11-07-2022 Family Medicine Office/Clinic Note Chief Complaint fall HPI Staff Sweetie is a 77 year old female who presents for fall. Patient states she was sleeping. States was having a dream and was coming out of her dream. She states was laying on her back when she rolled over and fell off her bed. Patient now c/o back back pain she states this comes and goes. Patient states this happened a couple weeks ago. Has been using ice and heating pad with no relief. History of Present Illness I have reviewed and verified the staff HPI to be accurate for this encounter. Patient states he has been using heat and ice to the area with no significant benefits. Has been using stretches that she utilized with lumbar radiculopathy from physical therapy. Conservative measures have not been effective in assisting in relief of pain. Patient states throughout the day pain is very minimal however at night with lying down or when she sits for long periods of time and tries to get up and move around the pain will become worse. She does not get any pain that radiates down the upper or lower extremities. Denies any other acute symptoms or concerns. Review of Systems PHQ Score Initial Depression Screen Score: 2 ROS - Provider Constitutional: fever no, chills no, sweats no, weakness no Skin: rash no, lesions no, petechiae no Respiratory: chest discomfort no, shortness of breath no, cough no, orthopnea no, wheezing no Cardiovascular: chest pain no, palpitations no, edema no Gastrointestinal: nausea no, vomiting no, diarrhea no, GI bleeding no Genitourinary: dysuria no, hematuria no, discharge no, urinary frequency no, urinary urgency no Musculoskeletal: back pain yes, trauma yes Neurologic: headache no, dizziness no, numbness/tingling no, weakness no Physical Exam Vitals & Measurements T: 36.7 ?C(Temporal Artery) HR: 68(Peripheral) BP: 136/84 SpO2: 96% HT: 61 in HT: 154 cm WT: 63.2 kg WT: 139.04 lb BMI: 26.65 General: Well developed, well nourished, in no acute distress Neck: Neck supple. No masses or palpable cervical nodes. Trachea midline. Lungs: Normal respiratory effort and clear to auscultation Cardio: Regular rate and rhythm, normal S1 and S2, no murmur, no rub Musculoskeletal: No deformity noted of the thoracic back. There is pain to the lower thoracic region with palpation centrally. No pain noted with range of motion such as flexion/extension or axial rotation. No pain into the cervical or lumbar spine noted today. No shoulder pain or radicular symptoms noted.. Extremity: No clubbing, cyanosis, edema, or deformity, with normal ROM in both upper and lower bilateral extremities Neurologic: Grossly normal Skin: No rashes, ulcerations, or suspicious lesions to visible skin Mental Status: Alert and oriented x3. Normal mood and affect Assessment/Plan 1. Thoracic back pain (M54.6: Pain in thoracic spine) Start naproxen twice daily for the next 2 to 3 weeks. Continue with icing and heat and stretches as discussed in office. If no benefit or relief and plan at that time please notify provider and will order x-rays and refer to physical therapy for further management. 2. BMI 26.0-26.9,adult (Z68.26: Body mass index [BMI] 26.0-26.9, adult) Education attached on health risks of obesity and discusses healthy, balanced diet low in sugar, fat, carbs and exercise regimen Ordered: Body Mass Index (BMI) documented 3008F Orders: naproxen, 500 mg = 1 tab(s), Oral, BID, # 60 tab(s), Refills(s) 0, Pharmacy: [facility]/pharmacy #[id number], 154, cm, 11/07/22 13:10:00 EST, Height/Length Dosing, 63.2, kg, 11/07/22 13:10:00 EST, Weight Dosing Follow-up With When Contact Information ALBERTA RAMOS CNP [address] [place] [address] Additional Instructions: Patient Education Budget-Friendly Healthy Eating BMI for Adults Acute Back Pain, Adult Heat Therapy Back Exercises, Fetg-oa-Rple Back Exercises Problem List/Past Medical History Ongoing Degenerative arthritis of knee, bilateral Hyperlipidemia Lumbar back pain with radiculopathy affecting left lower extremity Screening for cardiovascular condition Historical No qualifying data Procedure/Surgical History left shoulder rotator cuff repair 3-7-16, None. Medications aspirin 81 mg Oral EC Tab, 81 mg= 1 tab(s), Oral, Daily, Not taking cyclobenzaprine 10 mg Tab, 10 mg= 1 tab(s), Oral, TID, PRN, Not taking Lidoderm 5% Patch, 1 patch(es), Topical, Daily, PRN, Not taking Lipitor 20 mg Tab, 20 mg= 1 tab(s), Oral, Bedtime, Not taking Lumigan, one drop, Eye-Right, qPM, Not taking naproxen 500 mg Tab, 500 mg= 1 tab(s), Oral, BID, PRN, Not taking naproxen 500 mg Tab, 500 mg= 1 tab(s), Oral, BID timolol, one drop, Eye-Right, Daily Timolol Maleate (Eqv-Timoptic) 0.5% ophthalmic solution Allergies Percocet 5/325 (vomiting) Social History Alcohol - Denies Alcohol Use, 11/28/2015 Current, 08/01/2018 Substance Abuse - Denies Substance Abuse, 11/28/2015 Current, 08/01/2018 Tobacco - Denies Tobacco U (more content not included)... Normal [facility] Comment on above: Result Comment: Elec tronically Signed By: RICHARD GALEAS, ALBERTA Dye\.br\Date and Time Signed: 11/07/22 14:13 EST Patient Educationon 11-07-19 Patient Education Nutrition Budget-Friendly Healthy Eating There are many ways to save money at the grocery store and continue to eat healthy. You can be successful if you: ? Plan meals according to your budget. ? Make a grocery list and only purchase food according to your grocery list. ? Prepare food yourself. What are tips for following this plan? Reading food labels ? Compare food labels between brand name foods and the store brand. Often the nutritional value is the same, but the store brand is lower cost. ? Look for products that do not have added sugar, fat, or salt (sodium). These often cost the same but are healthier for you. Products may be labeled as: ? Sugar-free. ? Nonfat. ? Low-fat. ? Sodium-free. ? Low-sodium. ? Look for lean ground beef labeled as at least 92% lean and 8% fat. Shopping ? Buy only the items on your grocery list and go only to the areas of the store that have the items on your list. ? Use coupons only for foods and brands you normally buy. Avoid buying items you wouldn't normally buy simply because they are on sale. ? Check online and in newspapers for weekly deals. ? Buy healthy items from the bulk bins when available, such as herbs, spices, flour, pasta, nuts, and dried fruit. ? Buy fruits and vegetables that are in season. Prices are usually lower on in-season produce. ? Look at the unit snow on the snow tag. Use it to compare different brands and sizes to find out which item is the best deal. ? Choose healthy items that are often low-cost, such as carrots, potatoes, apples, bananas, and oranges. Dried or canned beans are a low-cost protein source. ? Buy in bulk and freeze extra food. Items you can buy in bulk include meats, fish, poultry, frozen fruits, and frozen vegetables. ? Avoid buying ochhp-ej-vwf foods, such as pre-cut fruits and vegetables and pre-made salads. ? If possible, shop around to discover where you can find the best prices. Consider other retailers such as [employer] stores, larger wholesale stores, local fruit and vegetable [employer], and [employer] markets. ? Do not shop when you are hungry. If you shop while hungry, it may be hard to stick to your list and budget. ? Resist impulse buying. Use your grocery list as your official plan for the week. ? Buy a variety of vegetables and fruits by purchasing fresh, frozen, and canned items. ? Look at the top and bottom shelves for deals. Foods at eye level (eye level of an adult or child) are usually more expensive. ? Be efficient with your time when shopping. The more time you spend at the store, the more money you are likely to spend. ? To save money when choosing more expensive foods like meats and dairy: ? Choose cheaper cuts of meat, such as bone-in chicken thighs and drumsticks instead of skinless and boneless chicken. When you are ready to prepare the chicken, you can remove the skin yourself to make it healthier. ? Choose lean meats like chicken or turkey instead of beef. ? Choose canned seafood, such as tuna, salmon, or sardines. ? Buy eggs as a low-cost source of protein. ? Buy dried beans and peas, such as lentils, split peas, or kidney beans instead of meats. Dried beans and peas are a good alternative source of protein. ? Buy the larger tubs of yogurt instead of individual-sized containers. ? Choose water instead of sodas and other sweetened beverages. ? Avoid buying chips, cookies, and other junk food. These items are usually expensive and not healthy. Cooking ? Make extra food and freeze the extras in meal-sized containers or in individual portions for fast meals and snacks. ? Pre-cook on days when you have extra time to prepare meals in advance. You can keep these meals in the fridge or freezer and reheat for a quick meal. ? When you come home from the grocery store, wash, peel, and cut fruits and vegetables so they are ready to use and eat. This will help reduce food waste. Meal planning ? Do not eat out or get fast food. Prepare food at home. ? Make a grocery list and make sure to bring it with you to the store. If you have a smart phone, you could use your phone to create your shopping list. ? Plan meals and snacks according to a grocery list and budget you create. ? Use leftovers in your meal plan for the week. ? Look for recipes where you can cook once and make enough food for two meals. ? Include budget-friendly meals like stews, casseroles, and stir-gonzalez dishes. ? Try some meatless meals or try no cook meals like salads. ? Make sure that half your plate is filled with fruits or vegetables. Choose from fresh, frozen, or canned fruits and vegetables. If eating canned, remember to rinse them before eating. This will remove any excess salt added for packaging. Summary ? Eating healthy on a budget is possible if you plan your meals according to your budget, purchase according to your budget and grocery list, and prepare food yourself. ? Tips for buying more food on a (more content not included)... Normal [facility] CHEMISTRYOrdered By: SYSTEM SYSTEM on 08-08-2022 Albumin [Mass/Vol] 4.0 g/dL Normal 3.3 - 5.0 gm/dL [facility] Remisol Albumin/Globulin [Mass ratio] 1.4 {ratio} Normal 1.1 - 2.2 [facility] Remisol ALP [Catalytic activity/Vol] 66 [iU]/d Normal 21 - 98 Int._Unit/L [facility] Remisol ALT No additional P-5'-P [Catalytic activity/Vol] 17 [iU]/d Normal 6 - 46 Int._Unit/L [facility] Anion gap [Moles/Vol] 12 mmol/L Normal 6 - 16 mEq/L [facility] AST [Catalytic activity/Vol] 17 [iU]/d Normal 5 - 43 Int._Unit/L [facility] Bilirubin [Mass/Vol] 0.7 mg/dL Normal 0.0 - 1 .1 mg/dL [facility] Calcium [Mass/Vol] 9.4 mg/dL Normal 8.9 - 11. 1 mg/dL [facility] Chloride [Moles/Vol] 104 mmol/L Normal 101 - 1 11 mmol/L [facility] Cholesterol [Mass/Vol] 264 mg/dL High 120 - 200 mg/dL [facility] Cholesterol in HDL [Mass/Vol] 54 mg/dL Invalid Interpretation Code [facility] Cholesterol in LDL [Mass/Vol] 192 mg/dL High <=129mg/dL [facility] Cholesterol in VLDL [Mass/Vol] 18 mg/dL Normal 7 - 40 mg/dL [facility] CO2 [Moles/Vol] 28 mmol/L Normal 21 - 31 mmol/L [facility] Creatinine [Mass/Vol] 0.8 mg/dL Normal 0.5 - 1.3 mg/dL [facility] GFR/1.73 sq M.predicted among blacks MDRD (S/P/Bld) [Vol rate/Area] mL/min/1.73 m2 Normal >=59mL/min/ 1.73 m2 [facility] [place] Chem S GFR/1.73 sq M.predicted among non-blacks MDRD (S/P/Bld) [Vol rate/Area] mL/min/1.73 m2 Normal >=59mL/min/ 1.73 m2 [facility] [place] Chem S Globulin (S) [Mass/Vol] 2.9 g/dL Normal 1.4 - 4.0 gm/dL [facility] Glucose [Mass/Vol] 89 mg/dL Normal 55 - 199 mg/dL [facility] Potassium [Moles/Vol] 4.6 mmol/L Normal 3.5 - 5.3 mmol/L [facility] Protein [Mass/Vol] 6.9 g/dL Normal 6.0 - 7.8 gm/dL [facility] Sodium [Moles/Vol] 139 mmol/L Normal 135 - 145 mmol/L [facility] Triglyceride [Mass/Vol] 90 mg/dL Normal <=149mg/dL [facility] Urea nitrogen [Mass/Vol] 17 mg/dL Normal 5 - 21 mg/dL [facility] Urea nitrogen/Creatinine [Mass ratio] 21 mg/mg High 10 - 20 [facility] HEMATOLOGYOrdered By: SYSTEM SYSTEM on 08-08-2022 Basophils/100 WBC (Bld) 0.6 % Normal 0.0 - 2.0 % [facility] HemeAutoSS Basophils/Leukocytes Auto (Bld) [Pure # fraction] 0.0 E9/L Normal 0.0 - 0.2 E9/L [facility]eAutoSS Eosinophils/100 WBC (Bld) 2.4 % Normal 0.0 - 8.0 % [facility]eAutoSS Eosinophils/Leukocyte s Auto (Bld) [Pure # fraction] 0.1 E9/L Normal 0.0 - 0.5 E9/L [facility]eAutoSS Lymphocytes/100 WBC (Bld) 28.2 % Normal 14.0 - 50.0 % [facility]eAutoSS Lymphocytes/Leukocyte s Auto (Bld) [Pure # fraction] 1.5 E9/L Normal 1.0 - 4.0 E9/L [facility]eAutoSS Monocytes/100 WBC (Bld) 8.0 % Normal 4.0 - 14.0 % [facility]eAutoSS Monocytes/Leukocytes Auto (Bld) [Pure # fraction] 0.4 E9/L Normal 0.2 - 1.0 E9/L [facility]Auto[facility] Neutrophils/100 WBC (Bld) 60.8 % Normal 36.0 - 75.0 % [facility]eAutoSS Neutrophils/Leukocyte s Auto (Bld) [Pure # fraction] 3.3 E9/L Normal 2.0 - 7.5 E9/L [facility]eAutoSS HEMATOLOGYOrdered By: Ana Sanon on 08-08-2022 Erythrocyte distribution width (RBC) [Ratio] 13.7 % Normal 10.9 - 14.2 % [facility] Hematocrit (Bld) [Volume fraction] 43.5 % Normal 34.0 - 46.0 % [facility] Hemoglobin (Bld) [Mass/Vol] 14.3 g/dL Normal 12.0 - 16.0 gm/dL [facility]eAutoSS MCH (RBC) [Entitic mass] 29.7 pg Normal 27.0 - 34.0 pg [facility]AutoSS MCHC (RBC) [Mass/Vol] 32.8 g/dL Normal 31.4 - 36.0 gm/dL [facility] [place] [facility] MCV (RBC) [Entitic vol] 90.5 fL Normal 80.0 - 100.0 fL [facility]eAutoSS Platelet mean volume (Bld) [Entitic vol] 8.6 fL Normal 6.4 - 10.8 fL [facility] [place] [facility]eAutoSS Platelets (Bld) [#/Vol] 301.0 E9/L Normal 150.0 - 500.0 E9/L [facility] [place] [facility]eAutoSS RBC (Bld) [#/Vol] 4.8 E12/L Normal 4.3 - 5.9 E12/L [facility] [place] [facility] WBC corrected for nucl RBC Auto (Bld) [#/Vol] 5.5 E9/L Normal 4.0 - 11.0 E9/L [facility] [place] [facility]eAutoSS No Panel Information [facility] Vital Signs Date Time Vital Sign Value Performing Clinician Facility 09-06-2023 09:46-0500 Diastolic blood pressure 64 mm[Hg] [facility] 09-06-2023 09:46-0500 Heart rate 67 /min [facility] 09-06-2023 09:46-0500 Mean blood pressure 83 mm[Hg] [facility] 09-06-2023 09:46-0500 Respiratory rate 18 /min [facility] 09-06-2023 09:46-0500 SaO2% (BldA) [Mass fraction] 98 % [facility] 09-06-2023 09:46-0500 Systolic blood pressure 120 mm[Hg] [facility] 09-06-2023 09:12-0500 Diastolic blood pressure 49 mm[Hg] [facility] 09-06-2023 09:12-0500 Heart rate 66 /min [facility] 09-06-2023 09:12-0500 Mean blood pressure 79 mm[Hg] [facility] 09-06-2023 09:12-0500 Respiratory rate 16 /min [facility] 09-06-2023 09:12-0500 SaO2% (BldA) [Mass fraction] 96 % [facility] 09-06-2023 09:12-0500 Systolic blood pressure 139 mm[Hg] [facility] 09-06-2023 08:21-0500 Diastolic blood pressure 70 mm[Hg] [facility] 09-06-2023 08:21-0500 Heart rate 65 /min [facility] 09-06-2023 08:21-0500 Mean blood pressure 97 mm[Hg] [facility] 09-06-2023 08:21-0500 Respiratory rate 18 /min [facility] 09-06-2023 08:21-0500 SaO2% (BldA) [Mass fraction] 100 % [facility] 09-06-2023 08:21-0500 Systolic blood pressure 152 mm[Hg] [facility] 09-06-2023 07:09-0500 Body temperature 98.06 [degF] [facility] 09-06-2023 07:09-0500 Heart rate 68 /min [facility] 08-26-2023 04:50-0500 Body temperature 98.06 [degF] Alejandro Pavel [facility] 08-26-2023 04:50-0500 Diastolic blood pressure 62 mm[Hg] Alejandro Pavel [facility] 08-26-2023 04:50-0500 Heart rate 73 /min Alejandro Pavel [facility] 08-26-2023 04:50-0500 Mean blood pressure 89 mm[Hg] Alejandro Pavel [facility] 08-26-2023 04:50-0500 Respiratory rate 18 /min AlejandroInSpaner [facility] 08-26-2023 04:50-0500 SaO2% (BldA) [Mass fraction] 99 % Alejandro Pavel [facility] 08-26-2023 04:50-0500 Systolic blood pressure 144 mm[Hg] Alejandro Pavel [facility] 08-26-2023 03:45-0500 Diastolic blood pressure 67 mm[Hg] Alejandro Pavel [facility] 08-26-2023 03:45-0500 Heart rate 64 /min Alejandro Pavel [facility] 08-26-2023 03:45-0500 Mean blood pressure 96 mm[Hg] Alejandro Pavel [facility] 08-26-2023 03:45-0500 Respiratory rate 18 /min Alejandro Pavel [facility] 08-26-2023 03:45-0500 SaO2% (BldA) [Mass fraction] 97 % Alejandro Pavel [facility] 08-26-2023 03:45-0500 Systolic blood pressure 154 mm[Hg] Alejandro Pavel [facility] 08-26-2023 02:53-0500 Diastolic blood pressure 99 mm[Hg] Alejandro Pavel [facility] 08-26-2023 02:53-0500 Heart rate 67 /min Alejandro Pavel [facility] 08-26-2023 02:53-0500 Mean blood pressure 126 mm[Hg] Alejandro Pavel [facility] 08-26-2023 02:53-0500 Respiratory rate 18 /min Alejandro Pavel [facility] 08-26-2023 02:53-0500 SaO2% (BldA) [Mass fraction] 98 % Alejandro Zhao [facility] 08-26-2023 02:53-0500 Systolic blood pressure 181 mm[Hg] Alejandro Pavel [facility] 08-26-2023 01:40-0500 Body temperature 97.88 [degF] Alejandro Zhao [facility] 08-26-2023 01:40-0500 Heart rate 69 /min Alejandro Zhao [facility] 08-08-2023 12:36-0500 Blood Pressure Location MARY HARRISTIZ [facility] 08-08-2023 12:36-0500 Body temperature 98.06 [degF] MARY NATH [facility] 08-08-2023 12:36-0500 Diastolic blood pressure 74 mm[Hg] MELISSA NATH [facility] 08-08-2023 12:36-0500 Heart rate 61 /min MELISSA NATH [facility] 08-08-2023 12:36-0500 SaO2% (BldA) [Mass fraction] 97 % MARY NATH [facility] 08-08-2023 12:36-0500 Systolic blood pressure 132 mm[Hg] MARY HARRISTIZ [facility] 04-13-2023 10:25-0400 Body temperature 97.88 [degF] Ellis Flor [facility] 04-13-2023 10:25-0400 Diastolic blood pressure 68 mm[Hg] Ellis Flor [facility] 04-13-2023 10:25-0400 Heart rate 70 /min Ellis Flor [facility] 04-13-2023 10:25-0400 Respiratory rate 16 /min Ellis Flor [facility] 04-13-2023 10:25-0400 SaO2% (BldA) [Mass fraction] 98 % Ellis Flor [facility] 04-13-2023 10:25-0400 Systolic blood pressure 152 mm[Hg] Ellis Flor [facility] 01-12-2023 11:22-0400 Diastolic blood pressure 80 mm[Hg] Shahana Orzech [facility] 01-12-2023 11:22-0400 Mean blood pressure 97 mm[Hg] Shahana Orzech [facility] 01-12-2023 11:22-0400 Systolic blood pressure 132 mm[Hg] Shahana Orzech [facility] 01-12-2023 10:50-0400 Blood Pressure Location Shahana Orzech [facility] 01-12-2023 10:50-0400 Body temperature 98.06 [degF] Shahana Orzech [facility] 01-12-2023 10:50-0400 Diastolic blood pressure 86 mm[Hg] Shahana Orzech [facility] 01-12-2023 10:50-0400 Heart rate 79 /min Shahana Orzech [facility] 01-12-2023 10:50-0400 Respiratory rate 16 /min Shahana Orzech [facility] 01-12-2023 10:50-0400 SaO2% (BldA) [Mass fraction] 97 % Shahana Orzech [facility] 01-12-2023 10:50-0400 Systolic blood pressure 152 mm[Hg] Shahana Orzech [facility] 12-30-2022 11:14-0400 Blood Pressure Location Shahana Orzech [facility] 12-30-2022 11:14-0400 Body temperature 98.06 [degF] Shahana Orzech [facility] 12-30-2022 11:14-0400 Diastolic blood pressure 86 mm[Hg] Shahana Orzech [facility] 12-30-2022 11:14-0400 Heart rate 91 /min Shahana Orzech [facility] 12-30-2022 11:14-0400 SaO2% (BldA) [Mass fraction] 97 % Shahana Orzech [facility] 12-30-2022 11:14-0400 Systolic blood pressure 134 mm[Hg] Shahana Orzech [facility] 12-02-2022 16:26-0500 Diastolic blood pressure 99 mm[Hg] Bernardino Antonio [facility] 12-02-2022 16:26-0500 Systolic blood pressure 158 mm[Hg] Bernardino Antonio [facility] 12-02-2022 16:00-0500 Heart rate 60 /min Bernardino Antonio [facility] 12-02-2022 16:00-0500 Respiratory rate 19 /min Bernardino Flanagane [facility] 12-02-2022 16:00-0500 SaO2% (BldA) [Mass fraction] 98 % Bernardino Flanagane [facility] 12-02-2022 14:00-0500 Diastolic blood pressure 79 mm[Hg] Bernardino Flanagane [facility] 12-02-2022 14:00-0500 Heart rate 62 /min Bernardino Flanagane [facility] 12-02-2022 14:00-0500 Mean blood pressure 105 mm[Hg] Bernardino Antonio [facility] 12-02-2022 14:00-0500 Respiratory rate 21 /min Bernardino Flanagane [facility] 12-02-2022 14:00-0500 SaO2% (BldA) [Mass fraction] 99 % Bernardino Antonio [facility] 12-02-2022 13:07-0500 gluc 93 mg/dL Bernardino Flanagane [facility] 12-02-2022 13:07-0500 gluc Bernardino Flanagane [facility] 12-02-2022 13:00-0500 Diastolic blood pressure 76 mm[Hg] Bernardino Flanagane [facility] 12-02-2022 13:00-0500 Systolic blood pressure 164 mm[Hg] Bernardino Antonio [facility] 12-02-2022 12:55-0500 Body temperature 97.52 [degF] Bernardino Antonio [facility] 12-02-2022 12:55-0500 Heart rate 76 /min Bernardino Flanagane [facility] 12-02-2022 12:55-0500 Respiratory rate 18 /min Bernardino Flanagane [facility] 11-18-2022 10:28-0500 Body temperature 99.32 [degF] Bernardino Alvarez [facility] 11-18-2022 10:28-0500 Diastolic blood pressure 48 mm[Hg] Bernardino Antonio [facility] 11-18-2022 10:28-0500 Heart rate 79 /min Bernardino Antonio [facility] 11-18-2022 10:28-0500 Respiratory rate 18 /min Bernardino Alvarez [facility] 11-18-2022 10:28-0500 SaO2% (BldA) [Mass fraction] 97 % Bernardino Flanagane [facility] 11-18-2022 10:28-0500 Systolic blood pressure 141 mm[Hg] Bernardino Flanagane [facility] 11-07-2022 13:06-0500 Blood Pressure Location ALBERTA SIDELL [facility] 11-07-2022 13:06-0500 Body temperature 98.06 [degF] ALBERTA SIDELL [facility] 11-07-2022 13:06-0500 Diastolic blood pressure 84 mm[Hg] ALBERTA SIDELL [facility] 11-07-2022 13:06-0500 Heart rate 68 /min ALBERTA SIDELL [facility] 11-07-2022 13:06-0500 SaO2% (BldA) [Mass fraction] 96 % ALBERTA SIDELL [facility] 11-07-2022 13:06-0500 Systolic blood pressure 136 mm[Hg] ALBERTA SIDELL [facility] 08-08-2022 10:20-0500 Blood Pressure Location ALBERTA SIDELL [facility] 08-08-2022 10:20-0500 Body temperature 97.52 [degF] ALBERTA SIDELL [facility] 08-08-2022 10:20-0500 Diastolic blood pressure 74 mm[Hg] ALBERTA SIDELL [facility] 08-08-2022 10:20-0500 Heart rate 75 /min ALBERTA SIDELL [facility] 08-08-2022 10:20-0500 SaO2% (BldA) [Mass fraction] 97 % ALBERTA SIDELL [facility] 08-08-2022 10:20-0500 Systolic blood pressure 126 mm[Hg] ALBERTA SIDELL [facility] 01-04-2022 10:20-0400 Blood Pressure Location ALBERTA SIDELL [facility] 01-04-2022 10:20-0400 Diastolic blood pressure 76 mm[Hg] ALBERTA SIDELL [facility] 01-04-2022 10:20-0400 Heart rate 93 /min ALBERTA SIDELL [facility] 01-04-2022 10:20-0400 Respiratory rate 16 /min ALBERTA SIDELL [facility] 01-04-2022 10:20-0400 SaO2% (BldA) [Mass fraction] 98 % ALBERTA SIDELL [facility] 01-04-2022 10:20-0400 Systolic blood pressure 128 mm[Hg] ALBERTA RAMOS [facility] Encounters Encounter Date Encounter Type Care Provider Facility Start: 09-06-2023 End: 09-06-2023 Emergency department patient visit Hedy Ferro Facility:[facility] [place] Start: 09-06-2023 End: 09-06-2023 Emergency department patient visit [facility] Wayne Ferro [facility] Start: 09-05-2023 End: 09-06-2023 ambulatory Rashawn MELENDEZ Facility:[facility] [place] Start: 09-05-2023 End: 09-05-2023 Patient encounter procedure Rashawnsuzan MELENDEZ [facility] Start: 08-29-2023 ambulatory Alejandrothaddeus Zhao Facility: [facility] Start: 08-28-2023 End: 08-29-2023 Evaluation and management of inpatient Rashawn MELENDEZ Facility:[facility] [place] Start: 08-26-2023 End: 08-26-2023 Emergency department patient visit Alejandro Jasminener Facility:[facility] [place] Start: 08-26-2023 End: 08-26-2023 Emergency department patient visit Alejandro Zhao [facility] Start: 08-08-2023 End: 08-09-2023 ambulatory MARY NATH Facility:[facility] Start: 08-08-2023 End: 08-08-2023 Patient encounter procedure MARY NATH 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; Dry eye; Congenital nystagmus Start: 04-14-2023 End: 04-15-2023 ambulatory Andry C Link Facility:[facility] [place] Start: 04-13-2023 End: 04-13-2023 Emergency department patient visit Ellis Flor Facility:[facility] [place] Start: 04-13-2023 End: 04-13-2023 Emergency department patient visit Ellis Flor [facility] Start: 03-05-2023 End: 03-05-2023 ambulatory MARY GHOTRA Facility:[facility] Start: 03-05-2023 End: 03-05-2023 Patient encounter procedure Mary Ghotra OD Work Phone: Ophthalmology Comment on above: 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, moderate stage (Primary Dx); 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 Start: 02-07-2023 End: 02-08-2023 ambulatory ALBERTA RAMOS Facility:[facility] Start: 02-07-2023 End: 02-07-2023 Patient encounter procedure ALBERTA RAMOS [facility] Start: 01-23-2023 End: 05-22-2023 ambulatory Andry C Link Facility:[facility] [place] Start: 01-23-2023 End: 01-24-2023 ambulatory Andry C Link Facility:[facility] [place] Start: 01-23-2023 End: 05-21-2023 Recurring Andry C Link [facility] Start: 01-23-2023 End: 01-23-2023 Patient encounter procedure Andry C Link [facility] Start: 01-12-2023 End: 01-13-2023 ambulatory Shahana X Orzech Facility:[facility] Start: 01-12-2023 End: 01-12-2023 Patient encounter procedure Shahana X Orzech [facility] Start: 12-30-2022 End: 12-31-2022 ambulatory Shahana X Orzech Facility:[facility] Start: 12-30-2022 End: 12-30-2022 Patient encounter procedure Shahana X Orzech [facility] Start: 12-09-2022 End: 12-09-2022 ambulatory MARY GHOTRA Facility:[facility] Start: 12-09-2022 End: 12-10-2022 ambulatory ALBERTA RAMOS Facility:[facility] Start: 12-09-2022 End: 12-09-2022 Patient encounter procedure Mary Ghotra OD Work Phone: Ophthalmology Comment on above: 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, moderate stage (Primary Dx); Dry eye Start: 12-09-2022 End: 12-09-2022 Patient encounter procedure ALBERTA RAMOS [facility] [place] Start: 12-02-2022 End: 12-02-2022 Emergency department patient visit Brenardino Alvarez Facility:[facility] [place] Start: 12-02-2022 End: 12-02-2022 Emergency department patient visit Bernardino Alvarez [facility] Start: 11-18-2022 End: 11-18-2022 Emergency department patient visit Bernardino Alvarez Facility:[facility] [place] Start: 11-18-2022 End: 11-18-2022 Emergency department patient visit Bernardino Alvarez [facility] Start: 11-07-2022 End: 11-08-2022 ambulatory ALBERTA RAMOS Facility:[facility] Start: 11-07-2022 End: 11-07-2022 Patient encounter procedure ALBERTA RAMOS [facility] Start: 10-02-2022 End: 10-02-2022 ambulatory MARY GHOTRA Facility:[facility] Start: 10-02-2022 End: 10-02-2022 Patient encounter procedure Mary Job Brigido OD Work Phone: Ophthalmology Comment on above: Dry eye (Primary Dx) ; Congenital nystagmus Start: 08-08-2022 End: 08-08-2022 Lab Drop off ALBERTA RAMOS [facility] Start: 08-08-2022 End: 08-08-2022 Patient encounter procedure ALBERTA RAMOS [facility] Start: 06-11-2022 End: 06-11-2022 Patient encounter procedure Mary Ghotra OD Work Phone: Ophthalmology Comment on above: 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, moderate stage (Primary Dx); 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 Start: 02-05-2022 End: 02-05-2022 Patient encounter procedure Mary Job Brigido OD Work Phone: Ophthalmology Comment on above: 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, moderate stage (Primary Dx); 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 Start: 01-09-2022 End: 01-09-2022 Patient encounter procedure Mary Job Brigido OD Work Phone: Ophthalmology Comment on above: Drug allergy (Primar y Dx); Primary open angle glaucoma (POAG) of both eyes, moderate stage Start: 01-04-2022 End: 01-04-2022 Patient encounter procedure ALBERTA RAMOS [facility] [place] Procedures Date Procedure Procedure Detail Performing Clinician Start: 08-28-2023 Transurethral cystoscopy Rashawn AL Start: 06-24-2023 Visual field xm uni/ bi w/interp extended exam Mary Ghotra OD Work Phone: Start: 12-09-2022 Computerized ophthal alexandra imaging optic nerve Mary Ghotra OD Work Phone: Start: 06-11-2022 Visual field xm uni/ bi w/interp extended exam Mary Ghotra OD Work Phone: left shoulder rotato r cuff repair 12-04-15 ALBERTA GILDARDOTATE None (qualifier value) ALBERTA RAMOS Plan of Treatment Date Care Activity Detail Author Start: 09-25-2023 ambulatory Ambulatory Facility::[id number] Start: 05-30-2023 Influenza vaccination [facility] Start: 09-29-2022 ADVANCE DIRECTIVE DISCUSSION ADVANCE DIRECTIVE DISCUSSION [facility] Start: 09-29-2022 DEPRESSION ASSESSMENT DEPRESSION ASSESSMENT [facility] Start: 05-30-2022 Influenza vaccination [facility] Start: 09-29-2021 ADVANCE DIRECTIVE DISCUSSION ADVANCE DIRECTIVE DISCUSSION [facility] Start: 01-26-2021 COVID-19 VACCINE (2 - Booster for Bud series) COVID-19 VACCINE (2 - Booster for Bud series) [facility] Start: 2008 BONE DENSITY BONE DENSITY [facility] Start: 2008 Bone Density Screening Bone Density Screening [facility] Start: 2008 Pneumococcal Vaccine: 65+ (1 - PCV) Pneumococcal Vaccine: 65+ (1 - PCV) [facility] Start: 2008 PNEUMOCOCCAL: 65+ (1 - PCV) PNEUMOCOCCAL: 65+ (1 - PCV) [facility] Start: 2008 PNEUMOVAX AGE 65 AND OVER WITH 5YR LOOKBACK (#1) PNEUMOVAX AGE 65 AND OVER WITH 5YR LOOKBACK (#1) [facility] Start: 1993 SHINGRIX VACCINE (1 of 2) SHINGRIX VACCINE (1 of 2) [facility] Start: 1988 DIABETES SCREEN DIABETES SCREEN [facility] Start: 1988 Diabetes Screening Diabetes Screening [facility] Start: 1962 Urine microalbumin profile [facility] Start: 1961 HEPATITIS C SCREENING HEPATITIS C SCREENING [facility] Start: 1955 Adult depression screening assessment DEPRESSION SCREENING [facility] Immunizations Immunization Date Immunization Notes Care Provider Fa cility 12-01-2020 COVID-19 vaccine, vector-nr, [id number], PF, 0.5 mL; Translations: [Bud COVID-19 Vaccine] ALBERTA RAMOS [facility] Comment on above: Reason for Medicatio n: Prophylaxis NEGATED: Highlighted row has not occurred!08-08-2022 influenza virus vaccine, unspecified formulation ALBERTA RAMOS [facility] Payers Date Payer Category Payer Medicare [id number] 2022 Private Health Insurance [employer] A ETNA MEDICARE SUPPLEMENT [id number] 2022-Present [phone] [address] [address] [place] [address] Indemnity [id number] 2019 Medicare [id number] 2019 Unknown [employer] [place] [employer] [place] [employer]PPLE[place] [id number] 2019-Present [phone] [id number] [place] [address] Indemnity [id number] 2016 Medicare MEDICARE MEDICAR E A AND B [id number] 2016-Present [phone] [address] [address] [place] [address] Medicare [id number] 2016 Medicare MEDICARE MEDICAR E A AND B [id number] 2016-Present [phone] [address] [address] [place] [address] Medicare [id number] 2016 Medicare [id number] 1943 Unknown [id number] .2.727 1943 Unknown [id number] 2.16.840.1.580989.3.579 .2. 1943 Unknown [id number] 2.16.840.1.752030.3.579 .2. 1943 Unknown [id number] 2.16.840.1.508026.3.579 .2. 1943 Unknown [id number] 2.16.840.1.709296.3.579 .2. 1943 Unknown [id number] 2.16.840.1.878204.3.579 .2. 1943 Unknown [id number] 2.16.840.1.025115.3.579 .2. 1943 Unknown [id number] 2.16.840.1.549914.3.579 .2. 1943 Unknown [id number] 2.16.840.1.069230.3.579 .2. 1943 Unknown [id number] 2.16.840.1.633831.3.579 .2. 1943 Unknown [id number] 2.16.840.1.732828.3.579 .2. 1943 Unknown [id number] 2.16.840.1.132719.3.579 .2. 1943 Unknown [id number] 2.16.840.1.945154.3.579 .2.727 1943 Unknown [id number] 2.16.840.1.680745.3.579 .2.727 1943 Unknown [id number] [id number] .2.727 1943 Unknown [id number] [id number] .2.727 Social History Date Type Detail Facility Start: 01-04-2022 End: 08-08-2023 Tobacco smoking status Never smoked tobacco (finding) [facility] Comment on above: denies. Tobacco smoking status Never [facility] Comment on above: denies. Start: 03-05-2023 End: 06-24-2023 Sex Assigned At Female [facility] Start: 09-20-2015 End: 11-24-2018 Tobacco use and exposure Smokeless tobacco non-user [facility] Start: 01-09-2022 End: 06-24-2023 Alcohol intake Current non-drinker of alcohol (finding) [facility] Start: 1945 Sex Assigned At Not on file [facility] Start: 01-19-2022 End: 01-29-2022 Exposure to SARS-CoV-2 (event) Not sure [facility] Tobacco [facility] Comment on above: denies. Tobacco smoking status No Smokin g Status Entered [facility] Start: 03-05-2023 End: 06-24-2023 History of Social function [facility] Medical Equipment Procedure Code Equipment Code Equipment Origin al Text Equipment Identifier Dates CYSTOSCOPY RETROGRADE STENT INSERTION Rashawn MELENDEZ MD 08/28/23 Non Biological Ureter L {[id number] [facility] Start: 08-28-2023 Functional Status Date Assessment Result Facility 09-06-2023 Functional Status N/A [facility] 08-26-2023 Functional Status N/A [facility] 08-08-2023 Functional Status N/A [facility] 04-13-2023 Functional Status N/A [facility] 01-12-2023 Functional Status N/A [facility] 12-30-2022 Functional Status N/A [facility] 12-02-2022 Functional Status N/A [facility] 11-18-2022 Functional Status N/A [facility] 11-07-2022 Functional Status N/A [facility] 08-08-2022 Functional Status N/A [facility] Clinical Notes 01-04-2022 to 09-06-2023 Note Date & Type Note Facility 09-06-2023 Evaluation + Plan note Extrac zander from: Title:ED Note Author:Hedy Ferro M.D. te:09/06/23 1. Urinary tract infection ( N39.0: Urinary tract infection, site not specified) 2. Flank pain (R10.9: Unspecified abdominal pain) Orders: ciprofloxacin, 500 mg = 1 tab(s), Oral, BID, # 14 tab(s), Refills(s) 0, Pharmacy: [facility]/pharmacy #[id number], 152.4, cm, 09/06/23 7:13:00 EST, Height/Length Dosing, 64.5, kg, 09/06/23 7:19:00 EST, Weight Dosing Sodium Chloride 0.9% intravenous solution, 1,000 mL, Soln-IV, IV, Once, Stop date 09/06/23 7:22:00 EST, STAT, Start date 09/06/23 7:22:00 EST, Infuse over 61, minute(s) Automated Diff Basic Metabolic Panel CBC w/ Auto Diff CT Abdomen/Pelvis w/o Contrast eGFR PT & PTT UA With Cult Reflex Urine Culture Diagnostic Tests Pending * Urine Culture 09/06/23 [facility]12-09-2023 Hospital Discharge instructions Patient Education 09/06/2023 10:11:53 Urinary Tract Infection, Adult Urinary Tract Infection, Adult A urinary tract infection (UTI) is an infection of any part of the urinary tract. The urinary tractincludes the kidneys, ureters, bladder, and urethra. These organs make, store, and get rid of urinein the body. An upper UTI affects the ureters and kidneys. A lower UTI affects the bladder and urethra. What are the causes? Most urinary tract infections are caused by bacteria in your genital area around your urethra, where urine leaves your body. These bacteria grow and cause inflammation of your urinary tract. What increases the risk? You are more likely to develop this condition if: You have a urinary catheter that stays in place. You are not able to control when you urinate or have a bowel movement (incontinence). You are female and you: ?Use a spermicide or diaphragm for control. ?Have low estrogen levels. ?Are . You have certain genes that increase your risk. You are sexually active. You take antibiotic medicines. You have a condition that causes your flow of urine to slow down, such as: ?An enlarged prostate, if you are male. ?Blockage in your urethra. ?A kidney stone. ?A nerve condition that affects your bladder control (neurogenic bladder). ?Not getting enough to drink, or not urinating often. You have certain medical conditions, such as: ?Diabetes. ?A weak disease-fighting system (immunesystem). ?Sickle cell disease. ?Gout. ?Spinal cord injury. What are the signs or symptoms? Symptoms of this condition include: Needing to urinate right away (urgency). Frequent urination. This may include small amounts of urine each time you urinate. Pain or burning with urination. Blood in the urine. Urine that smells bad or unusual. Trouble urinating. Cloudy urine. Vaginal discharge, if you are female. Pain in the abdomen or the lower back. You may also have: Vomiting or a decreased appetite. Confusion. Irritability or tiredness. A fever or chills. Diarrhea. The first symptom in older adults may be confusion. In some cases, they may not have any symptoms until the infection has worsened. How is this diagnosed? This condition is diagnosed based on your medical history and a physical exam. You may also have other tests, including: Urine tests. Blood tests. Tests for STIs (sexually transmitted infections). If you have had more than one UTI, a cystoscopy or imaging studies may be done to determine the cause of the infections. How is this treated? Treatment for this condition includes: Antibiotic medicine. Wjwi-wuo-xgyexrm medicines to treat discomfort. Drinking enough water to stay hydrated. If you have frequent infections or have other conditions such as a kidney stone, you may need to see a health care provider who specializes in the urinary tract (urologist). In rare cases, urinary tract infections can cause sepsis. Sepsis is a life- threatening condition that occurs when the body responds to an infection. Sepsis is treated in the hospital with IV antibiotics, fluids, and other medicines. Follow these instructions at home: Medicines Take qgxc-hkq-zgoznie and prescription medicines only as told by your health care provider. If you were prescribed an antibiotic medicine, take it as told by your health care provider. Do notstop using the antibiotic even if you start to feel better. General instructions Make sure you: ?Empty your bladder often and completely. Do not hold urine for long periods of time. ?Empty your bladder after sex. ?Wipe from front to back after urinating or having a bowel movement if you are female. Use each tissue only one time when you wipe. Drink enough fluid to keep your urine pale yellow. Keep all follow-up visits. This is important. Contact a health care provider if: Your symptoms do not get better after 1 2 days. Your symptoms go away and then return. Get help right away if: You have severe pain in your back or your lower abdomen. You have a fever or chills. You have nausea or vomiting. Summary A urinary tract infection (UTI) is an infection of any part of the urinary tract, which includes the kidneys, ureters, bladder, and urethra. Most urinary tract infections are caused by bacteria in your genital area. Treatment for this condition often includes antibiotic medicines. If you were prescribed an antibiotic medicine, take it as told by your health care provider. Do notstop using the antibiotic even if you start to feel better. Keep all follow-up visits. This is important. This information is not intended to replace advice given to you by your health care provider. Make sure you discuss any questions you have with your health care provider. Document Revised: 04/27/2021 Document Reviewed: 04/27/2021 [employer] Patient Education 2022 [employer]. 09/06/2023 10:11:53 Flank Pain, Adult Flank Pain, Adult Flank pain is pain that is located on the side of the body between the upper abdomen and the spine.This area is called the flank. The pain may occur over a short period of time (acute), or it may belong-term or recurring (chronic). It may be mild or severe. Flank pain can be caused by many things, including: Muscle soreness or injury. Kidney infection, kidney stones, or kidney disease. Stress. A disease of the spine (vertebral disk disease). A lung infection (pneumonia). Fluid around the lungs (pulmonary edema). A skin rash caused by the chickenpox virus (shingles). Tumors that affect the back of the abdomen. Gallbladder disease. Follow these instructions at home: Drink enough fluid to keep your urine pale yellow. Rest as told by your health care provider. Take ymoa-afm-hgzcouo and prescription medicines only as told by your health care provider. Keep a journal to track what has caused your flank pain and what has made it feel better. Keep all follow-up visits. This is important. Contact a health care provider if: Your pain is not controlled with medicine. You have new symptoms. Your pain gets worse. Your symptoms last longer than 2 3 days. You have trouble urinating or you are urinating very frequently. Get help right away if: You have trouble breathing or you are short of breath. Your abdomen hurts or it is swollen or red. You have nausea or vomiting. You feel faint, or you faint. You have blood in your urine. You have flank pain and a fever. These symptoms may represent a serious problem that is an emergency. Do not wait to see if the symptoms will go away. Get medical help right away. Call your local emergency services (911 in the [place] Do not drive yourself to the hospital. Summary Flank pain is pain that is located on the side of the body between the upper abdomen and the spine. The pain may occur over a short period of time (acute), or it may be long-term or recurring (chronic). It may be mild or severe. Flank pain can be caused by many things. Contact your health care provider if your symptoms get worse or last longer than 2 3 days. This information is not intended to replace advice given to you by your health care provider. Make sure you discuss any questions you have with your health care provider. Document Revised: 11/26/2021 Document Reviewed: 11/26/2021 [employer] Patient Education 2022 [employer]. Follow Up Care 09/06/2023 07:03:12 With:Rashawn MELENDEZ Address: [facility] [address], [place] [address]- Business (1) When:09/09/2023 10:02:00 Comments:Stop taking Cephalexin and start taking Cipro as prescribed. Return to the emergency room if the pain gets worse, fever or any new symptoms. With:Andry Link Address: [facility] [address], [address] [place] [address]- Business (1) When:Within 3 Day(s) [facility]12-01-2023 NoteAdmission and Discharge Information Admit Date/Time:08/28/2023 03:58 Admitting Physician - Ru ALONSO, Celi Consulting Physician - AL ALONSO, Rashawn Mccarthy Admitting Diagnoses: Discharge Diagnoses 1. Abdominal pain, 08/28/2023 2. Left ureteral stone, 08/28/2023 3. 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 Acute kidney injury, 08/28/2023 5. Bilateral renal cysts, 08/28/2023 6. Hyperlipidemia, 08/28/2023 7. Osteoarthritis, 08/28/2023 Abdominal pain, 08/28/2023 Procedure History Cystoscopy (08/28/2023), left shoulder rotator cuff repair 3-7-16, None. Hospital Course 77-year-old female who presented to the emergency room with continued left lower quadrant abdominalpain. Pain has been present since Friday. Patient states she fell on Friday while at a friends house. Stepped backwards off the deck and fell hard on the concrete. Indicates she fell onto her right side. Was OK after the fall and able to ambulate. The next day on Friday she started noticing LLQ abdo rip pain. Pain significantly worse at nighttime. She came to the ED on Friday for evaluation. Workup was fairly unremarkable. Urinalysis was negative. CT of the abdomen and pelvis revealed no acutepathology. She was discharged home on Naprosyn, which is no longer controlling her pain. Re-presented today with continued pain. Pain continues to be severe at night. Worse with deep breathing. Is starting to radiate into her back at times. No n/v. No dysuria. Repeat CT shows a stable 3 mm ureteralstone at the left UPJ, was difficult to assess degree of hydronephrosis, left retroperitoneal edemaand fluid consistent with possible urinoma. Urinalysis again shows no infection. Creatinine is elevated at 1.7, whereas 2 days ago it was 1.0. Patient denies any recent surgeries. Patient admitted to the hospital under inpatient status. She was given IV fluid. Neurology was consulted. She underwent cystoscopy and stent placed meant. Her pain improved.She was discharged home instable condition. Follow up with [facility]. Services Consulted Consult to Urology - Ordered -- 08/28/23 3:59:00 EST, Possible urinoma, ureteral stone, Ok to call consult in AM, Consult and Co-manage Physical Exam Vitals & Measurements T: 36.8 ?C(Oral) TMIN: 36.3 ?C(Axillary) TMAX: 36.9 ?C(Oral) HR: 72(Monitored) RR: 18 BP: 133/63 SpO2: 97% HT: 152.4 cm WT: 65 kg General: alert, no acute distress Skin: warm, dry Head: no trauma, normocephalic Neck: Trachea midline, no adenopathy, no tenderness Eye: normal conjunctiva, sclera clear ENMT: TM's clear, oral mucosa moist, no pharyngeal erythema or exudate Cardiovascular: regular rate and rhythm, normal peripheral perfusion Respiratory: Lungs CTA, respirations non labored Chest wall: no deformity. Gastrointestinal: soft, non distended, no tenderness, no guarding. Back: No tenderness, Normal ROM, Normal alignment. Extremities: no deformity, no trauma Neurological: oriented x 4, LOC appropriate for age, CN II-XII intact, motor strength equal & normal bilaterally, sensation equal & normal bilaterally, speech normal Psychiatric: cooperative, affect appropriate for age, normal judgement, normal psychiatric thoughts. Laboratory Results Size - SIZE 6, FR. 22-23 cm (08/28/2023) Automated Diff (08/29/2023) Neutro Auto - 90.6 % Lymph Auto - 5.8 % Gilpin Auto - 3.4 % Eos Auto - 0.0 % Basophil Auto - 0.2 % Neutro Absolute - 8.4 E9/L Lymph Absolute - 0.5 E9/L Gilpin Absolute - 0.3 E9/L Eos Absolute - 0.0 E9/L Basophil Absolute - 0.0 E9/L BMP (08/29/2023) Glucose Lvl - 116 mg/dL BUN - 12 mg/dL Creatinine - 0.8 mg/dL BUN/Creat Ratio - 15 Sodium Lvl - 139 mmol/L Potassium Lvl - 4.1 mmol/L Chloride - 109 mmol/L CO2 - 23 mmol/L AGAP - 11 mEq/L Calcium Lvl - 8.4 mg/dL BMP (08/28/2023) Glucose Lvl - 196 mg/dL BUN - 20 mg/dL Creatinine - 1.7 mg/dL BUN/Creat Ratio - 12 Sodium Lvl - 138 mmol/L Potassium Lvl - 3.8 mmol/L Chloride - 109 mmol/L CO2 - 22 mmol/L AGAP - 11 mEq/L Calcium Lvl - 8.7 mg/dL Capillary Glucose POC (08/29/2023) Glucose Cap - 109 mg/dL POC Device SN - [id number] POC User ID - [id number] POC Username - ZEINA TEJEDA CBC w/ Auto Diff (08/29/2023) WBC - 9.2 E9/L RBC - 4.2 E12/L Hgb - 13.0 gm/dL Hct - 38.2 % MCV - 89.9 fL MCH - 30.5 pg MCHC - 33.9 gm/dL RDW - 13.8 % Platelet - 239.0 E9/L MPV - 8.6 fL eGFR (08/29/2023) eGFR - 75 mL/min/1.73 m2 Hepatic Function Panel (08/28/2023) Alk Phos - 64 Int._Unit/L ALT - 19 Int._Unit/L AST - 28 Int._Unit/L Total Protein - 6.7 gm/dL Albumin Lvl - 3.6 gm/dL Globulin - 3.1 gm/dL A/G Ratio - 1.2 Bili Total - 0.7 mg/dL Bili Direct - <0.1 mg/dL Bili Indirect - Unable to Calculate Lipase Level (08/28/2023) Lipase Lvl - 34 unit/L PT & PTT (08/28/2023) PT - 10.6 second(s) INR - 1.0 PTT - 30.6 second(s) UA With Cult Reflex (08/28/2023) UA Spec Desc - Clean Catch UA Color - Yellow2 UA Clarity - Clear2 UA Spec Grav - 1.025 (more content not included)...[facility] Comment on above:Result Comment: Electronically Signed By: TRISHA ALONSO, Erum\.br\Date and Time Signed: 08/29/23 10:[id number] NoteBasic Information Admit Date/Time:08/28/2023 03:58 Chief Complaint pt c\o R abd pain radiating into back x3 days. states fell several days ago, naproxen not working History of Present Illness 77-year-old female who presented to the emergency room with continued left lower quadrant abdominalpain. Pain has been present since Friday. Patient states she fell on Friday while at a friends house. Stepped backwards off the deck and fell hard on the concrete. Indicates she fell onto her right side. Was OK after the fall and able to ambulate. The next day on Friday she started noticing LLQ abdo rip pain. Pain significantly worse at nighttime. She came to the ED on Friday for evaluation. Workup was fairly unremarkable. Urinalysis was negative. CT of the abdomen and pelvis revealed no acutepathology. She was discharged home on Naprosyn, which is no longer controlling her pain. Re-presented today with continued pain. Pain continues to be severe at night. Worse with deep breathing. Is starting to radiate into her back at times. No n/v. No dysuria. Repeat CT shows a stable 3 mm ureteralstone at the left UPJ, was difficult to assess degree of hydronephrosis, left retroperitoneal edemaand fluid consistent with possible urinoma. Urinalysis again shows no infection. Creatinine is elevated at 1.7, whereas 2 days ago it was 1.0. Patient denies any recent surgeries. Review of Systems Constitutional: no fever, no chills, no sweats, no weakness Skin: no jaundice, no rash, no lesions, no petechiae ENMT: no ear pain, no sore throat, no congestion, no hoarseness. + blind in left eye Respiratory: no shortness of breath, no cough, no orthopnea, no wheezing Cardiovascular: no chest pain, no palpitations, no edema Gastrointestinal: no nausea, no vomiting, no diarrhea, + abdominal pain Genitourinary: no dysuria, no hematuria, no problems voiding Musculoskeletal: + trauma, + joint or muscle pain Neurologic: no headache, no dizziness Psychiatric: no depression, no anxiety Heme/Lymph: no bleeding tendency, no bruising tendency Additional ROS info: Except as noted in the above Review of Systems and in the History of Present Illness all other systems have been reviewed and are negative or noncontributory. Scoring Kaur Fall Risk Score: 40 (08/28/23) Physical Exam Vitals & Measurements T: 36.7 ?C(Oral) HR: 79(Peripheral) RR: 16 BP: 149/65 SpO2: 98% HT: 165 cm WT: 62.2 kg General: NAD, non-toxic, chatty Skin: warm, dry, no rash. No bruising noted over left flank. Head: AT/NC Neck: Trachea midline, supple Eye: left eye glassed over (ie blind) Cardiovascular: regular rate and rhythm, S1S2, normal peripheral perfusion Respiratory: Lungs CTA, respirations non labored, breath sounds equal, no w/r/r Chest wall: no deformity Gastrointestinal: soft, TTP in LLQ and it extends laterally, ND, no CVA tenderness Extremities: no deformity, no edema Neurological: oriented, LOC appropriate for age, no focal deficits, normal speech, normal gait Psychiatric: cooperative, affect appropriate for age, good eye contact Lab Results WBC: 10.5 E9/L (08/28/23 00:51:00) RBC: 4.4 E12/L (08/28/23 00:51:00) HGB: 13.5 gm/dL (08/28/23 00:51:00) Hct: 39.8 % (08/28/23 00:51:00) MCV: 90.1 fL (08/28/23 00:51:00) MCH: 30.6 pg (08/28/23 00:51:00) MCHC: 34 gm/dL (08/28/23 00:51:00) RDW: 14.1 % (08/28/23 00:51:00) Platelet: 238 E9/L (08/28/23 00:51:00) MPV: 8.4 fL (08/28/23 00:51:00) Neutro Auto: 80.6 % High (08/28/23 00:51:00) Lymph Auto: 11.7 % Low (08/28/23 00:51:00) Gilpin Auto: 5.8 % (08/28/23 00:51:00) Eos Auto: 1.5 % (08/28/23 00:51:00) Basophil Auto: 0.4 % (08/28/23 00:51:00) Neutro Absolute: 8.5 E9/L High (08/28/23 00:51:00) Lymph Absolute: 1.2 E9/L (08/28/23 00:51:00) Gilpin Absolute: 0.6 E9/L (08/28/23 00:51:00) Eos Absolute: 0.2 E9/L (08/28/23 00:51:00) Basophil Absolute: 0 E9/L (08/28/23 00:51:00) PT: 10.6 second(s) (08/28/23 00:51:00) INR: 1 (08/28/23 00:51:00) PTT: 30.6 second(s) (08/28/23 00:51:00) Glucose Lvl: 196 mg/dL (08/28/23 00:51:00) BUN: 20 mg/dL (08/28/23 00:51:00) Creatinine: 1.7 mg/dL High (08/28/23 00:51:00) eGFR: 30 mL/min/1.73 m2 Low (08/28/23 00:51:00) BUN/Creat Ratio: 12 (08/28/23 00:51:00) Sodium Lvl: 138 mmol/L (08/28/23 00:51:00) Potassium Lvl: 3.8 mmol/L (08/28/23 00:51:00) Chloride: 109 mmol/L (08/28/23 00:51:00) CO2: 22 mmol/L (08/28/23 00:51:00) AGAP: 11 mEq/L (08/28/23 00:51:00) Calcium Lvl: 8.7 mg/dL Low (08/28/23 00:51:00) Alk Phos: 64 Int._Unit/L (08/28/23 00:51:00) ALT: 19 Int._Unit/L (08/28/23 00:51:00) AST: 28 Int._Unit/L (08/28/23 00:51:00) Total Protein: 6.7 gm/dL (08/28/23 00:51:00) Albumin Lvl: 3.6 gm/dL (08/28/23 00:51:00) Globulin: 3.1 gm/dL (08/28/23 00:51:00) A/G Ratio: 1.2 (08/28/23 00:51:00) Bili Total: 0.7 mg/dL (08/28/23 00:51:00) Bili Direct: <0.1 (08/28/23 00:51:00) Bili Indirect: Unable to Calculate Abnormal (08/28/23 00:51:00) Lipase Lvl: 34 unit/L (08/28/23 00:51 (more content not included)...[facility]Result Comment: Electronically Signed By: Ru ALONSO, Celi\.br\Date and Time Signed: 08/28/23 05:01 [id number] Evaluation + Plan noteExtracted from: Title:ED Note Author:Alejandro Zhao DO Date :08/26/23 Abdominal pain, acute (R10.9 : Unspecified abdominal pain) Orders: ketorolac, 15 mg = 1 mL, Injection, IV Push, Once, Stop date 08/26/23 2:57:00 EST, STAT, Start date 08/26/23 2:57:00 EST, 08/26/23 2:57:00 EST morphine, 2 mg = 1 mL, Injection, IV Push, Once, Stop date 08/26/23 1:41:00 EST, STAT, Start date 08/26/23 1:41:00 EST, 08/26/23 1:41:00 EST naproxen, 500 mg = 1 tab(s), Oral, BID, PRN Pain, # 14 tab(s), Refills(s) 0, Pharmacy: [facility]/pharmacy #[id number], 165.1, cm, 08/26/23 1:47:00 EST, Height/Length Dosing, 62.2, kg, 08/26/23 1:47:00 EST, Weight Dosing ondansetron, 4 mg = 2 mL, Injection, IV Push, Once, Stop date 08/26/23 1:41:00 EST, STAT, Start date 08/26/23 1:41:00 EST, 08/26/23 1:41:00 EST ondansetron, 4 mg = 1 tab(s), Oral, q8hr, PRN Nausea/Vomiting, # 12 tab(s), Refills(s) 0, Pharmacy: [facility]/pharmacy #[id number], 165.1, cm, 08/26/23 1:47:00 EST, Height/Length Dosing, 62.2, kg, 08/26/23 1:47:00 EST, Weight Dosing Sodium Chloride 0.9% intravenous solution, 1,000 mL, Soln-IV, IV, Once, Stop date 08/26/23 3:12:00 EST, STAT, Start date 08/26/23 3:12:00 EST, Infuse over 61, minute(s) Automated Diff Basic Metabolic Panel CBC w/ Auto Diff CT Abdomen/Pelvis w/ Contrast eGFR Hepatic Function Panel Lipase Level Saline Lock Insert UA With Cult Reflex [facility]11-28-2023 Hospital Discharge instructions Patient Education 08/26/2023 04:52:00 Abdominal Pain, Adult Abdominal Pain, Adult Pain in the abdomen (abdominal pain) can be caused by many things. Often, abdominal pain is not serious and it gets better with no treatment or by being treated at home. However, sometimes abdominal pain is serious. Your health care provider will ask questions about your medical history and do a physical exam to try to determine the cause of your abdominal pain. Follow these instructions at home: Medicines Take eeyi-dzi-drjxpit and prescription medicines only as told by your health care provider. Do not take a laxative unless told by your health care provider. General instructions Watch your condition for any changes. Drink enough fluid to keep your urine pale yellow. Keep all follow-up visits as told by your health care provider. This is important. Contact a health care provider if: Your abdominal pain changes or gets worse. You are not hungry or you lose weight without trying. You are constipated or have diarrhea for more than 2 3 days. You have pain when you urinate or have a bowel movement. Your abdominal pain wakes you up at night. Your pain gets worse with meals, after eating, or with certain foods. You are vomiting and cannot keep anything down. You have a fever. You have blood in your urine. Get help right away if: Your pain does not go away as soon as your health care provider told you to expect. You cannot stop vomiting. Your pain is only in areas of the abdomen, such as the right side or the left lower portion of the abdomen. Pain on the right side could be caused by appendicitis. You have bloody or black stools, or stools that look like tar. You have severe pain, cramping, or bloating in your abdomen. You have signs of dehydration, such as: ?Dark urine, very little urine, or no urine. ?Cracked lips. ?Dry mouth. ?Sunken eyes. ?Sleepiness. ?Weakness. You have trouble breathing or chest pain. Summary Often, abdominal pain is not serious and it gets better with no treatment or by being treated at home. However, sometimes abdominal pain is serious. Watch your condition for any changes. Take aklb-zpz-hpfsnbi and prescription medicines only as told by your health care provider. Contact a health care provider if your abdominal pain changes or gets worse. Get help right away if you have severe pain, cramping, or bloating in your abdomen. This information is not intended to replace advice given to you by your health care provider. Make sure you discuss any questions you have with your health care provider. Document Revised: 11/03/2020 Document Reviewed: 01/24/2020 [employer] Patient Education 2022 [employer]. Follow Up Care 08/26/2023 01:39:06 With:Andry Link Address: [address] [place] [address]- Business (1) When:08/28/2023 [facility]09-26-2023 NoteHNO ID: [id number] Author: Mary Ghotra OD Service: ? 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 Type: Progress Notes Filed: 06/24/2023 12:48 PM Note Text: Tmax Unknown , Unknown ; Pachy , Gonioscopy Lasers and surgeries OD PCIOL OS Ocular Medication Intol, Non-efficacy, barriers Course Currently using Current Ophthalmic Meds timolol maleate (TIMOPTIC) 0.5 % ophthalmic solution Use 1 Drop in the right eye twice daily. HVF: 06/24/2023 OD Superior central scotoma stable compared to previous OCT: 12/09/2022 OD Mild superior, and moderate inferior Ganglion cell analysis: 12/09/2022 OD inferior wedge (H40.1132) Primary open angle glaucoma (POAG) of both eyes, moderate stage (primary encounter diagnosis) Comment: IOP is 13 in the right eye with timolol two times a day and meeting goals . 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 The treatment options/risks/benefits have been discussed. Questions answered. I have interviewed and examined Sweetie sainz Devon. I have confirmed and edited as necessary the chief complaint, history of present illness, past medical history, medications, family history, social history, review of systems, and exam findings as obtained by others. I agree with the assessment and plan as stated above,and have discussed them in detail with the patient. Mary Ghotra, OD June 24, 2023 12:44 [facility]09-26-2023 History of Present illness Narrative* Mary Ghotra, OD - 06/24/2023 12:17 PM EDT Tmax Unknown , Unknown ; Pachy , Gonioscopy Lasers and surgeries OD PCIOL OS Ocular Medication Intol, Non-efficacy, barriers Course Currently using Current Ophthalmic Meds timolol maleate (TIMOPTIC) 0.5 % ophthalmic solution Use 1 Drop in the right eye twice daily. HVF: 06/24/2023 OD Superior central scotoma stable compared to previous OCT: 12/09/2022 OD Mild superior, and moderate inferior Ganglion cell analysis: 12/09/2022 OD inferior wedge (H40.1132) Primary open angle glaucoma (POAG) of both eyes, moderate stage (primary encounter diagnosis) Comment: IOP is 13 in the right eye with timolol two times a day and meeting goals . 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 The treatment options/risks/benefitshave been discussed. Questions answered. I have interviewed and examined Sweetie Osorio. I have confirmed and edited as necessary the chief complaint, history of present illness, past medical history, medications, family history, social history, review of systems, and exam findings as obtained by others. I agree with the assessment and plan as stated above,and have discussed them in detail with the patient. Mary Ghotra, FAROOQ June 24, 2023 12:44 PM [facility] Evaluation + Plan note Extracted from: Title:ED Note Author:Sumit JACOB, Eris Paredes te:04/13/23 Hand contusion (S60.229A: Co ntusion of unspecified hand, initial encounter) Orders: XR Hand 3+ Views Left [facility]07-16-2023 Hospital Discharge instructions Patient Education 04/13/2023 11:44:37 RICE Therapy for Routine Care of Injuries, Zqsv-xv-Vccj RICE Therapy for Routine Care of Injuries Many injuries can be cared for with rest, ice, compression, and elevation (RICE therapy). This includes: Resting the injured body part. Putting ice on the injury. Putting pressure (compression) on the injury. Raising the injured part (elevation). Using RICE therapy can help to lessen pain and swelling. Supplies needed: Ice. Plastic bag. Towel. Elastic bandage. Pillow or pillows to raise your injured body part. How to care for your injury with RICE therapy Rest Try to rest the injured part of your body. You can go back to your normal activities when your doctor says it is okay to do them and when you can do them without pain. If you rest the injury too much, it may not heal as well. Some injuries heal better with early movement instead of resting for too long. Ask your doctor if you should do exercises to help your injuryget better. Ice If told, put ice on the injured area. To do this: ?Put ice in a plastic bag. ?Place a towel between your skin and the bag. ?Leave the ice on for 20 minutes, 2 3 times a day. ?Take off the ice if your skin turns bright red. This is very important. If you cannot feel pain, heat, or cold, you have a greater risk of damage to the area. Do not put ice on your bare skin. Use ice for as many days as your doctor tells you to use it. Compression Put pressure on the injured area. This can be done with an elastic bandage. If this type of bandagehas been put on your injury: Follow instructions on the package the bandage came in about how to use it. Do not wrap the bandage too tightly. ?Wrap the bandage more loosely if part of your body beyond the bandage is blue, swollen, cold, painful, or loses feeling. Take off the bandage and put it on again every 3 4 hours or as told by your doctor. See your doctor if the bandage seems to make your problems worse. Elevation Raise the injured area above the level of your heart while you are sitting or lying down. Follow these instructions at home: If your symptoms get worse or last a long time, make a follow-up appointment with your doctor. You may need to have imaging tests, such as X-rays or an MRI. If you have imaging tests, ask how to get your results when they are ready. Return to your normal activities when your doctor says that it is safe. Keep all follow-up visits. Contact a doctor if: You keep having pain and swelling. Your symptoms get worse. Get help right away if: You have sudden, very bad pain at your injury or lower than your injury. You have redness or more swelling around your injury. You have tingling or numbness at your injury or lower than your injury, and it does not go away when you take off the bandage. Summary Many injuries can be cared for using rest, ice, compression, and elevation (RICE therapy). You can go back to your normal activities when your doctor says it is okay and when you can do themwithout pain. Put ice on the injured area as told by your doctor. Get help if your symptoms get worse or if you keep having pain and swelling. This information is not intended to replace advice given to you by your health care provider. Make sure you discuss any questions you have with your health care provider. Document Revised: 07/05/2021 Document Reviewed: 07/05/2021 [employer] Patient Education 2022 [employer]. 04/13/2023 11:44:37 Contusion, Zlia-qw-Lykd Contusion A contusion is a deep bruise. This is a result of an injury that causes bleeding under the skin. Symptoms of bruising include pain, swelling, and discolored skin. The skin may turn blue, purple, or yellow. Follow these instructions at home: Managing pain, stiffness, and swelling You may use RICE. This stands for: Resting. Icing. Compression, or putting pressure. Elevating, or raising the injured area. To follow this method, do these actions: Rest the injured area. If told, put ice on the injured area. ?Put ice in a plastic bag. ?Place a towel between your skin and the bag. ?Leave the ice on for 20 minutes, 2 3 times per day. If told, put light pressure (compression) on the injured area using an elastic bandage. Make sure the bandage is not too tight. If the area tingles or becomes numb, remove it and put it back on as told by your doctor. If possible, raise (elevate) the injured area above the level of your heart while you are sitting or lying down. General instructions Take pier-lwi-blmppnc and prescription medicines only as told by your doctor. Keep all follow-up visits as told by your doctor. This is important. Contact a doctor if: Your symptoms do not get better after several days of treatment. Your symptoms get worse. You have trouble moving the injured area. Get help right away if: You have very bad pain. You have a loss of feeling (numbness) in a hand or foot. Your hand or foot turns pale or cold. Summary A contusion is a deep bruise. This is a result of an injury that causes bleeding under the skin. Symptoms of bruising include pain, swelling, and discolored skin. The skin may turn blue, purple, or yellow. This condition is treated with rest, ice, compression, and elevation. This is also called RICE. Youmay be given gczi-eiy-jnnbhhq medicines for pain. Contact a doctor if you do not feel better, or you feel worse. Get help right away if you have verybad pain, have lost feeling in a hand or foot, or the area turns pale or cold. This information is not intended to replace advice given to you by your health care provider. Make sure you discuss any questions you have with your health care provider. Document Revised: 07/11/2022 Document Reviewed: 07/11/2022 [employer] Patient Education 2022 [employer]. Follow Up Care 04/13/2023 10:22:39 With:Andry Link Address: [facility] [address] [facility] [address] [place] [address]- Business (1) When:04/16/2023 11:31:13 Comments:Follow-up with your primary care provider in 3 to 5 days. If symptoms worsen, do not improve, or new symptoms arise please report back to emergency department for further evaluation. Continue to rest, ice, compress, and elevate your affected joint to relieve inflammation and swelling. You may also take Tylenol to help with pain. [facility]06-07-2023 NoteHNO ID: [id number] Author: Mary Ghotra, FAROOQ Service: ? 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 Type: Progress Notes Filed: 03/05/2023 10:03 AM Note Text: Tmax Unknown , Unknown ; Pachy , Gonioscopy Lasers and surgeries OD PCIOL OS Ocular Medication Intol, Non-efficacy, barriers Course Currently using Current Ophthalmic Meds timolol maleate (TIMOPTIC) 0.5 % ophthalmic solution INSTILL 1 DROP INTO RIGHT EYE ONCE DAILY HVF: 06/11/2022 OD Superior central scotoma stable or better OCT: 12/09/2022 OD Mild superior, and moderate inferior Ganglion cell analysis: 12/09/2022 OD inferior wedge (H40.1132) Primary open angle glaucoma (POAG) of both eyes, moderate stage (primary encounter diagnosis) Comment: IOP is 13 in the right eye with timolol two times a day and meeting goals . 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 The treatment options/risks/benefits have been discussed. Questions answered. I have interviewed and examined Sweetie Osorio. I have confirmed and edited as necessary the chief complaint, history of present illness, past medical history, medications, family history, social history, review of systems, and exam findings as obtained by others. I agree with the assessment and plan as stated above,and have discussed them in detail with the patient. Mary Ghotra, OD March 05, 2023 9:56 [facility]06-07-2023 History of Present illness Narrative* Mary Ghotra, OD - 03/05/2023 9:55 AM EDT Tmax Unknown , Unknown ; Pachy , Gonioscopy Lasers and surgeries OD PCIOL OS Ocular Medication Intol, Non-efficacy, barriers Course Currently using Current Ophthalmic Meds timolol maleate (TIMOPTIC) 0.5 % ophthalmic solution INSTILL 1 DROP INTO RIGHT EYE ONCE DAILY HVF: 06/11/2022 OD Superior central scotoma stable or better OCT: 12/09/2022 OD Mild superior, and moderate inferior Ganglion cell analysis: 12/09/2022 OD inferior wedge (H40.1132) Primary open angle glaucoma (POAG) of both eyes, moderate stage (primary encounter diagnosis) Comment: IOP is 13 in the right eye with timolol two times a day and meeting goals . 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 The treatment options/risks/benefitshave been discussed. Questions answered. I have interviewed and examined Sweetie Franktt. I have confirmed and edited as necessary the chief complaint, history of present illness, past medical history, medications, family history, social history, review of systems, and exam findings as obtained by others. I agree with the assessment and plan as stated above,and have discussed them in detail with the patient. Mary Ghotra, OD March 05, 2023 9:56 AM [facility] Discharge instructions Patient Education 01/12/2023 11:25:20 Antibiotic Resistance Antibiotic Resistance Antibiotics are medicines used to treat infections that are caused by bacteria. Antibiotic resistance means that the medicine no longer works against the bacteria. Resistance can develop if you use antibiotics the wrong way. When antibiotics are given in response to illnesses caused by viruses, like colds or the flu, many normal bacteria in the body are killed. Some bacteria that are not killed may develop resistance to the antibiotic. These bacteria may grow and cause infections that are resistant to some other antibiotics. If this happens, the bacteria can continue to grow and cause infection. What are the causes? Antibiotic resistance happens when bacteria come into contact with an antibiotic over and over again. Over time, the bacteria become resistant to the antibiotic. What increases the risk? This condition is more likely to develop in people who: Are repeatedly given antibiotics to treat viral infections. Do not take their antibiotic medicine as prescribed, such as not finishing all of the medicine. Need to take antibiotics often because of a long-term medical condition. Take medicines that weaken their body's defense system (immune system). Have surgery. Are elderly. Need a procedure that replaces some of the work that healthy kidneys do (dialysis). Have an organ transplant. Are being treated for cancer. Have a type of infection that is more likely to be caused by resistant bacteria. These include certain: ?Skin infections. ?STIs (sexually transmitted infections). ?Respiratory infections. ?Infections of the lining of the brain and spinal cord (meningitis). ?Gastrointestinal infections. Eat foods from animals that were treated with antibiotics. Antibiotic-resistant bacteria can be passed through the food. Live with or care for someone with an antibiotic-resistant infection. Are hospitalized for a long time or live in a long-term care facility. What are the signs or symptoms? The main symptom of this condition is having an infection that does not improve with normal treatment. The specific signs and symptoms that you have will depend on the type of infection, but they mayinclude: A fever. Warmth, redness, and tenderness around a wound or incision. Brown, yellow, or green drainage from a wound or incision. A bad smell coming from a wound or incision. Nausea, vomiting, and abdominal pain. How is this diagnosed? This condition may be diagnosed by: Your medical history. Your health care provider may suspect antibiotic resistance if your conditiondoes not improve after you have been treated for an infection. You may also have other tests, including: ?Analysis of a fluid or stool sample. This is done to identify bacteria under a microscope and determine what type of antibiotic will work against them (culture and sensitivity). ?Other blood tests and imaging tests. These are done to check if your infection has spread or has become more serious. How is this treated? Treatment for this condition depends on the nature of the specific infection. Treatment may include oral antibiotics that kill more types of bacteria (broad spectrum). Serious antibiotic-resistant infections may need to be treated in the hospital. In severe cases, this may include: ?Surgery to remove infected or damaged tissue. ?Antibiotics or other medicines given through an IV tube. Follow these instructions at home: Taking antibiotics correctly Understand when antibiotics are needed and when they are not needed. Do not ask for an antibiotic prescription if you have been diagnosed with a viral illness. Antibiotic medicine will not make your illness go away faster. Common viral illnesses include an ear infection, a sinus infection, the stomach flu, or bronchitis. Do not take antibiotics that are left over from a previous prescription. Do not take antibiotics that were prescribed for someone else. If you are prescribed an antibiotic: ?Take it exactly as told by your health care provider. Do not stop taking the medicine even if you start to feel better. ?If you have been taking it for more than 10 days, ask your health care provider or pharmacist if you should keep taking it. Do not save unused antibiotics to use at a later date. Get rid of unused medicine as told by your health care provider or pharmacist. Preventing infection If you have an infection, avoid close contact with people around you. Avoid using personal items that are used by other people, such as towels, razors, or bedding. Regularly disinfect doorknobs, food preparation surfaces, and bathrooms with bleach-containing products or solutions. Wash your hands with soap and water: ?After using the bathroom. ?Before and after caring for a wound or incision. ?Before and after preparing food. General instructions Stay up-to-date on vaccinations. Many vaccines prevent illnesses that are treated with antibiotics. Contact a health care provider if: You have a fever or chills. You are taking a new antibiotic and you are not getting better after a few days. You have three or more periods of diarrhea after starting a new antibiotic. You have increased warmth, redness, or tenderness around a wound. You have brown, yellow, or green drainage from a wound or incision. You have a bad-smelling wound or incision. You have new or worsening nausea, vomiting, or abdominal pain. Get help right away if: You develop a rash. Your mouth or tongue itches. You have a tight feeling in your throat. You have trouble breathing. You have chest pain or tightness. You are dizzy or you faint. This information is not intended to replace advice given to you by your health care provider. Make sure you discuss any questions you have with your health care provider. Document Released: 12/06/2003 Document Revised: 09/30/2018 Document Reviewed: 02/17/2017 [employer] Patient Education 2020 [employer]. 01/12/2023 11:25:19 BMI for Adults BMI for Adults Body mass index (BMI) is a number that is calculated from a person's weight and height. BMI may help to estimate how much of a person's weight is composed of fat. BMI can help identify those who may be at higher risk for certain medical problems. How is BMI used with adults? BMI is used as a screening tool to identify possible weight problems. It is used to check whether aperson is obese, overweight, healthy weight, or underweight. How is BMI calculated? BMI measures your weight and compares it to your height. This can be done either in [place] ([place] or metric measurements. Note that charts are available to help you find your BMI quickly and easily without having to do these calculations yourself. To calculate your BMI in [place] ([place] measurements, your health care provider will: 1.Measure your weight in pounds (lb). 2.Multiply the number of pounds by 703. For example, for a person who weighs 180 lb, multiply that number by 703, which equals 126,540. 3.Measure your height in inches (in). Then multiply that number by itself to get a measurement called inches squared. For example, for a person who is 70 in tall, the inches squared measurement is 70 in x 70 in, which equals 4900 inches squared. 4.Divide the total from Step 2 (number of lb x 703) by the total from Step 3 (inches squared): 126,540 4900 = 25.8. This is your BMI. To calculate your BMI in metric measurements, your health care provider will: 1.Measure your weight in kilograms (kg). 2.Measure your height in meters (m). Then multiply that number by itself to get a measurement called meters squared. For example, for a person who is 1.75 m tall, the meters squared measurement is 1.75 m x 1.75 m, which is equal to 3.1 meters squared. 3.Divide the number of kilograms (your weight) by the meters squared number. In this example: 70 3.1 = 22.6. This is your BMI. How is BMI interpreted? To interpret your results, your health care provider will use BMI charts to identify whether you are underweight, normal weight, overweight, or obese. The following guidelines will be used: Underweight: BMI less than 18.5. Normal weight: BMI between 18.5 and 24.9. Overweight: BMI between 25 and 29.9. Obese: BMI of 30 and above. Please note: Weight includes both fat and muscle, so someone with a muscular build, such as an athlete, may havea BMI that is higher than 24.9. In cases like these, BMI is not an accurate measure of body fat. To determine if excess body fat is the cause of a BMI of 25 or higher, further assessments may needto be done by a health care provider. BMI is usually interpreted in the same way for men and women. Why is BMI a useful tool? BMI is useful in two ways: Identifying a weight problem that may be related to a medical condition, or that may increase the risk for medical problems. Promoting lifestyle and diet changes in order to reach a healthy weight. Summary Body mass index (BMI) is a number that is calculated from a person's weight and height. BMI may help to estimate how much of a person's weight is composed of fat. BMI can help identify those who may be at higher risk for certain medical problems. BMI can be measured using Chinese measurements or metric measurements. To interpret your results, your health care provider will use BMI charts to identify whether you are underweight, normal weight, overweight, or obese. This information is not intended to replace advice given to you by your health care provider. Make sure you discuss any questions you have with your health care provider. Document Released: 05/27/2005 Document Revised: 08/28/2018 Document Reviewed: 07/29/2018 [employer] Patient Education 2020 [employer] 01/12/2023 11:25:14 Upper Respiratory Infection, Adult Upper Respiratory Infection, Adult An upper respiratory infection (URI) is a common viral infection of the nose, throat, and upper airpassages that lead to the lungs. The most common type of URI is the common cold. URIs usually get better on their own, without medical treatment. What are the causes? A URI is caused by a virus. You may catch a virus by: Breathing in droplets from an infected person's cough or sneeze. Touching something that has been exposed to the virus (contaminated) and then touching your mouth, nose, or eyes. What increases the risk? You are more likely to get a URI if: You are very young or very old. It is jaylen or winter. You have close contact with others, such as at a daycare, school, or health care facility. You smoke. You have long-term (chronic) heart or lung disease. You have a weakened disease-fighting (immune) system. You have nasal allergies or asthma. You are experiencing a lot of stress. You work in an area that has poor air circulation. You have poor nutrition. What are the signs or symptoms? A URI usually involves some of the following symptoms: Runny or stuffy (congested) nose. Sneezing. Cough. Sore throat. Headache. Fatigue. Fever. Loss of appetite. Pain in your forehead, behind your eyes, and over your cheekbones (sinus pain). Muscle aches. Redness or irritation of the eyes. Pressure in the ears or face. How is this diagnosed? This condition may be diagnosed based on your medical history and symptoms, and a physical exam. Your health care provider may use a cotton swab to take a mucus sample from your nose (nasal swab). This sample can be tested to determine what virus is causing the illness. How is this treated? URIs usually get better on their own within 7 10 days. You can take steps at home to relieve your symptoms. Medicines cannot cure URIs, but your health care provider may recommend certain medicines to help relieve symptoms, such as: Crmg-qit-pbleitm cold medicines. Cough suppressants. Coughing is a type of defense against infection that helps to clear the respiratory system, so take these medicines only as recommended by your health care provider. Fever-reducing medicines. Follow these instructions at home: Activity Rest as needed. If you have a fever, stay home from work or school until your fever is gone or until your health care provider says you are no longer contagious. Your health care provider may have you wear a face mask to prevent your infection from spreading. Relieving symptoms Gargle with a salt-water mixture 3 4 times a day or as needed. To make a salt- water mixture, completely dissolve 1 tsp of salt in 1 cup of warm water. Use a cool-mist humidifier to add moisture to the air. This can help you breathe more easily. Eating and drinking Drink enough fluid to keep your urine pale yellow. Eat soups and other clear broths. General instructions Take hyic-ehx-sdzfoqt and prescription medicines only as told by your health care provider. These include cold medicines, fever reducers, and cough suppressants. Do not use any products that contain nicotine or tobacco, such as cigarettes and e-cigarettes. If you need help quitting, ask your health care provider. Stay away from secondhand smoke. Stay up to date on all immunizations, including the yearly (annual) flu vaccine. Keep all follow-up visits as told by your health care provider. This is important. How to prevent the spread of infection to others URIs can be passed from person to person (are contagious). To prevent the infection from spreading: ?Wash your hands often with soap and water. If soap and water are not available, use hand glue specialty supervisor. ?Avoid touching your mouth, face, eyes, or nose. ?Cough or sneeze into a tissue or your sleeve or elbow instead of into your hand or into the air. Contact a health care provider if: You are getting worse instead of better. You have a fever or chills. Your mucus is brown or red. You have yellow or brown discharge coming from your nose. You have pain in your face, especially when you bend forward. You have swollen neck glands. You have pain while swallowing. You have white areas in the back of your throat. Get help right away if: You have shortness of breath that gets worse. You have severe or persistent: ?Headache. ?Ear pain. ?Sinus pain. ?Chest pain. You have chronic lung disease along with any of the following: ?Wheezing. ?Prolonged cough. ?Coughing up blood. ?A change in your usual mucus. You have a stiff neck. You have changes in your: ?Vision. ?Hearing. ?Thinking. ?Mood. Summary An upper respiratory infection (URI) is a common infection of the nose, throat, and upper air passages that lead to the lungs. A URI is caused by a virus. URIs usually get better on their own within 7 10 days. Medicines cannot cure URIs, but your health care provider may recommend certain medicines to help relieve symptoms. This information is not intended to replace advice given to you by your health care provider. Make sure you discuss any questions you have with your health care provider. Document Released: 03/11/2002 Document Revised: 09/23/2019 Document Reviewed: 05/01/2018 [employer] Patient Education 2020 [employer]. Follow Up Care 01/12/2023 10:10:14 With:ALBERTA RAMOS CNP Address: [address] [place] [address] [address] [place] [address] When: Unknown [facility] 04-03-2023 Hospital Discharge instructions Patient Education 12/30/2022 11:43:02 Shoulder Impingement Syndrome Rehab-SportsMed Shoulder Impingement Syndrome Rehab Ask your health care provider which exercises are safe for you. Do exercises exactly as told by your health care provider and adjust them as directed. It is normal to feel mild stretching, pulling, tightness, or discomfort as you do these exercises. Stop right away if you feel sudden pain or your pain gets worse. Do not begin these exercises until told by your health care provider. Stretching and wekkn-he-iyrkuu exercise This exercise warms up your muscles and joints and improves the movement and flexibility of your shoulder. This exercise also helps to relieve pain and stiffness. Passive horizontal adduction In passive adduction, you use your other hand to move the injured arm toward your body. The injuredarm does not move on its own. In this movement, your arm is moved across your body in the horizontal plane (horizontal adduction). 1.Sit or stand and pull your left / right elbow across your chest, toward your other shoulder. Stopwhen you feel a gentle stretch in the back of your shoulder and upper arm. Keep your arm at shoulder height. Keep your arm as close to your body as you comfortably can. 2.Hold for seconds. 3.Slowly return to the starting position. Repeat times. Complete this exercise times a day. Strengthening exercises These exercises build strength and endurance in your shoulder. Endurance is the ability to use yourmuscles for a long time, even after they get tired. External rotation, isometric This is an exercise in which you press the back of your wrist against a door frame without moving your shoulder joint (isometric). 1.Stand or sit in a doorway, facing the door frame. 2.Bend your left / right elbow and place the back of your wrist against the door frame. Only the back of your wrist should be touching the frame. Keep your upper arm at your side. 3.Gently press your wrist against the door frame, as if you are trying to push your arm away from your abdomen (external rotation). Press as hard as you are able without pain. Avoid shrugging your shoulder while you press your wrist against the door frame. Keep your shoulderblade tucked down toward the middle of your back. 4.Hold for seconds. 5.Slowly release the tension, and relax your muscles completely before you repeat the exercise. Repeat times. Complete this exercise times a day. Internal rotation, isometric This is an exercise in which you press your palm against a door frame without moving your shoulder joint (isometric). 1.Stand or sit in a doorway, facing the door frame. 2.Bend your left / right elbow and place the palm of your hand against the door frame. Only your palm should be touching the frame. Keep your upper arm at your side. 3.Gently press your hand against the door frame, as if you are trying to push your arm toward your abdomen (internal rotation). Press as hard as you are able without pain. Avoid shrugging your shoulder while you press your hand against the door frame. Keep your shoulder blade tucked down toward the middle of your back. 4.Hold for seconds. 5.Slowly release the tension, and relax your muscles completely before you repeat the exercise. Repeat times. Complete this exercise times a day. Scapular protraction, supine 1.Lie on your back on a firm surface (supine position). Hold a weight in your left / right hand. 2.Raise your left / right arm straight into the air so your hand is directly above your shoulder joint. 3.Push the weight into the air so your shoulder (scapula) lifts off the surface that you are lying on. The scapula will push up or forward (protraction). Do not move your head, neck, or back. 4.Hold for seconds. 5.Slowly return to the starting position. Let your muscles relax completely before you repeat this exercise. Repeat times. Complete this exercise times a day. Scapular retraction 1.Sit in a stable chair without armrests, or stand up. 2.Secure an exercise band to a stable object in front of you so the band is at shoulder height. 3.Hold one end of the exercise band in each hand. Your palms should face down. 4.Squeeze your shoulder blades together (retraction) and move your elbows slightly behind you. Do not shrug your shoulders upward while you do this. 5.Hold for seconds. 6.Slowly return to the starting position. Repeat times. Complete this exercise times a day. Shoulder extension 1.Sit in a stable chair without armrests, or stand up. 2.Secure an exercise band to a stable object in front of you so the band is above shoulder height. 3.Hold one end of the exercise band in each hand. 4.Straighten your elbows and lift your hands up to shoulder height. 5.Squeeze your shoulder blades together and pull your hands down to the sides of your thighs (extension). Stop when your hands are straight down by your sides. Do not let your hands go behind your body. 6.Hold for seconds. 7.Slowly return to the starting position. Repeat times. Complete this exercise times a day. This information is not intended to replace advice given to you by your health care provider. Make sure you discuss any questions you have with your health care provider. Document Released: 09/15/2006 Document Revised: 01/07/2020 Document Reviewed: 10/11/2019 [employer] Patient Education 2020 [employer] 12/30/2022 11:42:57 Shoulder Exercises-SportsMed Shoulder Exercises Ask your health care provider which exercises are safe for you. Do exercises exactly as told by your health care provider and adjust them as directed. It is normal to feel mild stretching, pulling, tightness, or discomfort as you do these exercises. Stop right away if you feel sudden pain or your pain gets worse. Do not begin these exercises until told by your health care provider. Stretching exercises External rotation and abduction This exercise is sometimes called corner stretch. This exercise rotates your arm outward (external rotation) and moves your arm out from your body (abduction). 1.technical administrator a doorway with one of your feet slightly in front of the other. This is called a staggered stance. If you cannot reach your forearms to the door frame, stand facing a corner of a room. 2.Choose one of the following positions as told by your health care provider: Place your hands and forearms on the door frame above your head. Place your hands and forearms on the door frame at the height of your head. Place your hands on the door frame at the height of your elbows. 3.Slowly move your weight onto your front foot until you feel a stretch across your chest and in the front of your shoulders. Keep your head and chest upright and keep your abdominal muscles tight. 4.Hold for seconds. 5.To release the stretch, shift your weight to your back foot. Repeat times. Complete this exercise times a day. Extension, standing 1.Stand and hold a broomstick, a cane, or a similar object behind your back. Your hands should be a little wider than shoulder width apart. Your palms should face away from your back. 2.Keeping your elbows straight and your shoulder muscles relaxed, move the stick away from your body until you feel a stretch in your shoulders (extension). Avoid shrugging your shoulders while you move the stick. Keep your shoulder blades tucked down toward the middle of your back. 3.Hold for seconds. 4.Slowly return to the starting position. Repeat times. Complete this exercise times a day. Vhkhm-eg-jtybib exercises Pendulum 1.Stand near a wall or a surface that you can hold onto for balance. 2.Bend at the waist and let your left / right arm hang straight down. Use your other arm to supportyou. Keep your back straight and do not lock your knees. 3.Relax your left / right arm and shoulder muscles, and move your hips and your trunk so your left / right arm swings freely. Your arm should swing because of the motion of your body, not because youare using your arm or shoulder muscles. 4.Keep moving your hips and trunk so your arm swings in the following directions, as told by your health care provider: Side to side. Forward and backward. In clockwise and counterclockwise circles. 5.Continue each motion for seconds, or for as long as told by your health care provider. 6.Slowly return to the starting position. Repeat times. Complete this exercise times a day. Shoulder flexion, standing 1.Stand and hold a broomstick, a cane, or a similar object. Place your hands a little more than shoulder width apart on the object. Your left / right hand should be palm up, and your other hand should be palm down. 2.Keep your elbow straight and your shoulder muscles relaxed. Push the stick up with your healthy arm to raise your left / right arm in front of your body, and then over your head until you feel a stretch in your shoulder (flexion). Avoid shrugging your shoulder while you raise your arm. Keep your shoulder blade tucked down towardthe middle of your back. 3.Hold for seconds. 4.Slowly return to the starting position. Repeat times. Complete this exercise times a day. Shoulder abduction, standing 1.Stand and hold a broomstick, a cane, or a similar object. Place your hands a little more than shoulder width apart on the object. Your left / right hand should be palm up, and your other hand should be palm down. 2.Keep your elbow straight and your shoulder muscles relaxed. Push the object across your body toward your left / right side. Raise your left / right arm to the side of your body (abduction) until you feel a stretch in your shoulder. Do not raise your arm above shoulder height unless your health care provider tells you to do that. If directed, raise your arm over your head. Avoid shrugging your shoulder while you raise your arm. Keep your shoulder blade tucked down towardthe middle of your back. 3.Hold for seconds. 4.Slowly return to the starting position. Repeat times. Complete this exercise times a day. Internal rotation 1.Place your left / right hand behind your back, palm up. 2.Use your other hand to dangle an exercise band, a towel, or a similar object over your shoulder. Grasp the band with your left / right hand so you are holding on to both ends. 3.Gently pull up on the band until you feel a stretch in the front of your left / right shoulder. The movement of your arm toward the center of your body is called internal rotation. Avoid shrugging your shoulder while you raise your arm. Keep your shoulder blade tucked down towardthe middle of your back. 4.Hold for seconds. 5.Release the stretch by letting go of the band and lowering your hands. Repeat times. Complete this exercise times a day. Strengthening exercises External rotation 1.Sit in a stable chair without armrests. 2.Secure an exercise band to a stable object at elbow height on your left / right side. 3.Place a soft object, such as a folded towel or a small pillow, between your left / right upper arm and your body to move your elbow about 4 inches (10 cm) away from your side. 4.Hold the end of the exercise band so it is tight and there is no slack. 5.Keeping your elbow pressed against the soft object, slowly move your forearm out, away from your abdomen (external rotation). Keep your body steady so only your forearm moves. 6.Hold for seconds. 7.Slowly return to the starting position. Repeat times. Complete this exercise times a day. Shoulder abduction 1.Sit in a stable chair without armrests, or stand up. 2.Hold a weight in your left / right hand, or hold an exercise band with both hands. 3.Start with your arms straight down and your left / right palm facing in, toward your body. 4.Slowly lift your left / right hand out to your side (abduction). Do not lift your hand above shoulder height unless your health care provider tells you that this is safe. Keep your arms straight. Avoid shrugging your shoulder while you do this movement. Keep your shoulder blade tucked down toward the middle of your back. 5.Hold for seconds. 6.Slowly lower your arm, and return to the starting position. Repeat times. Complete this exercise times a day. Shoulder extension 1.Sit in a stable chair without armrests, or stand up. 2.Secure an exercise band to a stable object in front of you so it is at shoulder height. 3.Hold one end of the exercise band in each hand. Your palms should face each other. 4.Straighten your elbows and lift your hands up to shoulder height. 5.Step back, away from the secured end of the exercise band, until the band is tight and there is no slack. 6.Squeeze your shoulder blades together as you pull your hands down to the sides of your thighs (extension). Stop when your hands are straight down by your sides. Do not let your hands go behind yourbody. 7.Hold for seconds. 8.Slowly return to the starting position. Repeat times. Complete this exercise times a day. Shoulder row 1.Sit in a stable chair without armrests, or stand up. 2.Secure an exercise band to a stable object in front of you so it is at waist height. 3.Hold one end of the exercise band in each hand. Position your palms so that your thumbs are facing the ceiling (neutral position). 4.Bend each of your elbows to a 90-degree angle (right angle) and keep your upper arms at your sides. 5.Step back until the band is tight and there is no slack. 6.Slowly pull your elbows back behind you. 7.Hold for seconds. 8.Slowly return to the starting position. Repeat times. Complete this exercise times a day. Shoulder press-ups 1.Sit in a stable chair that has armrests. Sit upright, with your feet flat on the floor. 2.Put your hands on the armrests so your elbows are bent and your fingers are pointing forward. Your hands should be about even with the sides of your body. 3.Push down on the armrests and use your arms to lift yourself off the chair. Straighten your elbows and lift yourself up as much as you comfortably can. Move your shoulder blades down, and avoid letting your shoulders move up toward your ears. Keep your feet on the ground. As you get stronger, your feet should support less of your body weight as you lift yourself up. 4.Hold for seconds. 5.Slowly lower yourself back into the chair. Repeat times. Complete this exercise times a day. Wall push-ups 1.Stand so you are facing a stable wall. Your feet should be about one arm- length away from the wall. 2.Lean forward and place your palms on the wall at shoulder height. 3.Keep your feet flat on the floor as you bend your elbows and lean forward toward the wall. 4.Hold for seconds. 5.Straighten your elbows to push yourself back to the starting position. Repeat times. Complete this exercise times a day. This information is not intended to replace advice given to you by your health care provider. Make sure you discuss any questions you have with your health care provider. Document Released: 07/30/2006 Document Revised: 01/07/2020 Document Reviewed: 10/15/2019 [employer] Patient Education 2020 [employer] 12/30/2022 11:42:05 Sinusitis, Adult Sinusitis, Adult Sinusitis is inflammation of your sinuses. Sinuses are hollow spaces in the bones around your face.Your sinuses are located: Around your eyes. In the middle of your forehead. Behind your nose. In your cheekbones. Mucus normally drains out of your sinuses. When your nasal tissues become inflamed or swollen, mucus can become trapped or blocked. This allows bacteria, viruses, and fungi to grow, which leads to infection. Most infections of the sinuses are caused by a virus. Sinusitis can develop quickly. It can last for up to 4 weeks (acute) or for more than 12 weeks (chronic). Sinusitis often develops after a cold. What are the causes? This condition is caused by anything that creates swelling in the sinuses or stops mucus from draining. This includes: Allergies. Asthma. Infection from bacteria or viruses. Deformities or blockages in your nose or sinuses. Abnormal growths in the nose (nasal polyps). Pollutants, such as chemicals or irritants in the air. Infection from fungi (rare). What increases the risk? You are more likely to develop this condition if you: Have a weak body defense system (immune system). Do a lot of swimming or diving. Overuse nasal sprays. Smoke. What are the signs or symptoms? The main symptoms of this condition are pain and a feeling of pressure around the affected sinuses.Other symptoms include: Stuffy nose or congestion. Thick drainage from your nose. Swelling and warmth over the affected sinuses. Headache. Upper toothache. A cough that may get worse at night. Extra mucus that collects in the throat or the back of the nose (postnasal drip). Decreased sense of smell and taste. Fatigue. A fever. Sore throat. Bad breath. How is this diagnosed? This condition is diagnosed based on: Your symptoms. Your medical history. A physical exam. Tests to find out if your condition is acute or chronic. This may include: ?Checking your nose for nasal polyps. ?Viewing your sinuses using a device that has a light (endoscope). ?Testing for allergies or bacteria. ?Imaging tests, such as an MRI or CT scan. In rare cases, a bone biopsy may be done to rule out more serious types of fungal sinus disease. How is this treated? Treatment for sinusitis depends on the cause and whether your condition is chronic or acute. If caused by a virus, your symptoms should go away on their own within 10 days. You may be given medicines to relieve symptoms. They include: ?Medicines that shrink swollen nasal passages (topical intranasal decongestants). ?Medicines that treat allergies (antihistamines). ?A spray that eases inflammation of the nostrils (topical intranasal corticosteroids). ?Rinses that help get rid of thick mucus in your nose (nasal saline washes). If caused by bacteria, your health care provider may recommend waiting to see if your symptoms improve. Most bacterial infections will get better without antibiotic medicine. You may be given antibiotics if you have: ?A severe infection. ?A weak immune system. If caused by narrow nasal passages or nasal polyps, you may need to have surgery. Follow these instructions at home: Medicines Take, use, or apply fwpl-onp-jsmejsc and prescription medicines only as told by your health care provider. These may include nasal sprays. If you were prescribed an antibiotic medicine, take it as told by your health care provider. Do notstop taking the antibiotic even if you start to feel better. Hydrate and humidify Drink enough fluid to keep your urine pale yellow. Staying hydrated will help to thin your mucus. Use a cool mist humidifier to keep the humidity level in your home above 50%. Inhale steam for 10 15 minutes, 3 4 times a day, or as told by your health care provider. You can do this in the bathroom while a hot shower is running. Limit your exposure to cool or dry air. Rest Rest as much as possible. Sleep with your head raised (elevated). Make sure you get enough sleep each night. General instructions Apply a warm, moist washcloth to your face 3 4 times a day or as told by your health care provider.This will help with discomfort. Wash your hands often with soap and water to reduce your exposure to germs. If soap and water are not available, use hand glue specialty supervisor. Do not smoke. Avoid being around people who are smoking (secondhand smoke). Keep all follow-up visits as told by your health care provider. This is important. Contact a health care provider if: You have a fever. Your symptoms get worse. Your symptoms do not improve within 10 days. Get help right away if: You have a severe headache. You have persistent vomiting. You have severe pain or swelling around your face or eyes. You have vision problems. You develop confusion. Your neck is stiff. You have trouble breathing. Summary Sinusitis is soreness and inflammation of your sinuses. Sinuses are hollow spaces in the bones around your face. This condition is caused by nasal tissues that become inflamed or swollen. The swelling traps or blocks the flow of mucus. This allows bacteria, viruses, and fungi to grow, which leads to infection. If you were prescribed an antibiotic medicine, take it as told by your health care provider. Do notstop taking the antibiotic even if you start to feel better. Keep all follow-up visits as told by your health care provider. This is important. This information is not intended to replace advice given to you by your health care provider. Make sure you discuss any questions you have with your health care provider. Document Released: 09/15/2006 Document Revised: 02/15/2019 Document Reviewed: 02/15/2019 [employer] Patient Education 2020 [employer]. 12/30/2022 11:42:04 BMI for Adults BMI for Adults Body mass index (BMI) is a number that is calculated from a person's weight and height. BMI may help to estimate how much of a person's weight is composed of fat. BMI can help identify those who may be at higher risk for certain medical problems. How is BMI used with adults? BMI is used as a screening tool to identify possible weight problems. It is used to check whether aperson is obese, overweight, healthy weight, or underweight. How is BMI calculated? BMI measures your weight and compares it to your height. This can be done either in [place] ([place] or metric measurements. Note that charts are available to help you find your BMI quickly and easily without having to do these calculations yourself. To calculate your BMI in Chinese ([place] measurements, your health care provider will: 1.Measure your weight in pounds (lb). 2.Multiply the number of pounds by 703. For example, for a person who weighs 180 lb, multiply that number by 703, which equals 126,540. 3.Measure your height in inches (in). Then multiply that number by itself to get a measurement called inches squared. For example, for a person who is 70 in tall, the inches squared measurement is 70 in x 70 in, which equals 4900 inches squared. 4.Divide the total from Step 2 (number of lb x 703) by the total from Step 3 (inches squared): 126,540 4900 = 25.8. This is your BMI. To calculate your BMI in metric measurements, your health care provider will: 1.Measure your weight in kilograms (kg). 2.Measure your height in meters (m). Then multiply that number by itself to get a measurement called meters squared. For example, for a person who is 1.75 m tall, the meters squared measurement is 1.75 m x 1.75 m, which is equal to 3.1 meters squared. 3.Divide the number of kilograms (your weight) by the meters squared number. In this example: 70 3.1 = 22.6. This is your BMI. How is BMI interpreted? To interpret your results, your health care provider will use BMI charts to identify whether you are underweight, normal weight, overweight, or obese. The following guidelines will be used: Underweight: BMI less than 18.5. Normal weight: BMI between 18.5 and 24.9. Overweight: BMI between 25 and 29.9. Obese: BMI of 30 and above. Please note: Weight includes both fat and muscle, so someone with a muscular build, such as an athlete, may havea BMI that is higher than 24.9. In cases like these, BMI is not an accurate measure of body fat. To determine if excess body fat is the cause of a BMI of 25 or higher, further assessments may needto be done by a health care provider. BMI is usually interpreted in the same way for men and women. Why is BMI a useful tool? BMI is useful in two ways: Identifying a weight problem that may be related to a medical condition, or that may increase the risk for medical problems. Promoting lifestyle and diet changes in order to reach a healthy weight. Summary Body mass index (BMI) is a number that is calculated from a person's weight and height. BMI may help to estimate how much of a person's weight is composed of fat. BMI can help identify those who may be at higher risk for certain medical problems. BMI can be measured using Chinese measurements or metric measurements. To interpret your results, your health care provider will use BMI charts to identify whether you are underweight, normal weight, overweight, or obese. This information is not intended to replace advice given to you by your health care provider. Make sure you discuss any questions you have with your health care provider. Document Released: 05/27/2005 Document Revised: 08/28/2018 Document Reviewed: 07/29/2018 [employer] Patient Education 2020 [employer] Follow Up Care 12/30/2022 10:44:01 With:ALBERTA RAMOS CNP Address: [facility] [address] [place] [address] When: Unknown [facility] [id number] NoteHNO ID: [id number] Author: Mary Ghotra, OD Service: ? 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 Type: Progress Notes Filed: 12/09/2022 3:08 PM Note Text: Tmax Unknown , Unknown ; Pachy , Gonioscopy Lasers and surgeries OD PCIOL OS Ocular Medication Intol, Non-efficacy, barriers Course Currently using Current Ophthalmic Meds timolol maleate (TIMOPTIC) 0.5 % ophthalmic solution INSTILL 1 DROP INTO RIGHT EYE ONCE DAILY HVF: 06/11/2022 OD Superior central scotoma stable or better OCT: 12/09/2022 OD Mild superior, and moderate inferior Ganglion cell analysis: 12/09/2022 OD inferior wedge (H40.1132) Primary open angle glaucoma (POAG) of both eyes, moderate stage (primary encounter diagnosis) Comment: IOP is 11 in the right eye with timolol two times a day . 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 The treatment options/risks/benefits have been discussed. Questions answered. I have interviewed and examined Sweetie Osorio. I have confirmed and edited as necessary the chief complaint, history of present illness, past medical history, medications, family history, social history, review of systems, and exam findings as obtained by others. I agree with the assessment and plan as stated above,and have discussed them in detail with the patient. Mary Ghotra, OD December 09, 2022 3:00 [facility]03-13-2023 History of Present illness Narrative* Mary Ghotra, OD - 12/09/2022 2:57 PM EDT Tmax Unknown , Unknown ; Pachy , Gonioscopy Lasers and surgeries OD PCIOL OS Ocular Medication Intol, Non-efficacy, barriers Course Currently using Current Ophthalmic Meds timolol maleate (TIMOPTIC) 0.5 % ophthalmic solution INSTILL 1 DROP INTO RIGHT EYE ONCE DAILY HVF: 06/11/2022 OD Superior central scotoma stable or better OCT: 12/09/2022 OD Mild superior, and moderate inferior Ganglion cell analysis: 12/09/2022 OD inferior wedge (H40.1132) Primary open angle glaucoma (POAG) of both eyes, moderate stage (primary encounter diagnosis) Comment: IOP is 11 in the right eye with timolol two times a day . 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 The treatment options/risks/benefitshave been discussed. Questions answered. I have interviewed and examined Sweetie Osorio. I have confirmed and edited as necessary the chief complaint, history of present illness, past medical history, medications, family history, social history, review of systems, and exam findings as obtained by others. I agree with the assessment and plan as stated above,and have discussed them in detail with the patient. Mary Ghotra, OD December 09, 2022 3:00 PM [facility] Dis[facility] Follow Up Care 12/02/2022 12:50:46 With:ALBERTA RAMOS Address: [address] [place] [address] Business (1) When:Within 3 Day(s) [facility]03-06-2023 Evaluation + Plan noteExtracted from: Title:ED Note Author:Bernardino Alvarez DO Date:12/02 Dizziness (R42: Dizziness an d giddiness) Orders: Automated Diff Basic Metabolic Panel CBC w/ Auto Diff CT Head or Brain w/o Contrast ED Cardiac Monitoring eGFR Extra SST Tube Hepatic Function Panel Oxygen Saturation Oxygen Therapy PT & PTT Saline Lock Insert Troponin 0 Hr. Troponin 3 Hr. Troponin 6 Hr. Troponin 9 Hr. UA With Cult Reflex XR Chest Single View Future Appointments Appointment Date:12/09/2022 01:20:00 PM Scheduled Provider:ALBERTA RAMOS CNP Location:[facility] Appointment Type: ER/Hospital Follow Up Appointment Date:02/07/2023 01:00:00 PM Scheduled Provider:ALBERTA RAMOS CNP Location:[facility] Appointment Type:[facility]02-20-2023 Evaluation + Plan noteExtracted from: Title:ED Note Author:Bernardino Alvarez DO Date:10/31 Acute URI (J06.9: Acute uppe r respiratory infection, unspecified) Lumbar pain (M54.50: Low back pain, unspecified) Ordered: tramadol, 50 mg, Oral, q4hr, Take one by mouth every four hours, X 3 day(s), # 12 tab(s), Refills(s) 0, Pharmacy: [facility]/pharmacy #[id number], 154, cm, 11/18/22 10:32:00 EST, Height/Length Dosing, 63.2, kg, 11/18/22 10:32:00 EST, Weight Dosing Shoulder sprain (S43.409A: Unspecified sprain of unspecified shoulder joint, initial encounter) Spondylosis (M47.9: Spondylosis, unspecified) Orders: dextromethorphan-promethazine, 5 mL, Oral, q6hr for cough for 5 day(s), 120 mL, Refill(s) 0, [id number], 154, cm, 11/18/22 10:32:00 EST, Height/Length Dosing, 63.2, kg, 11/18/22 10:32:00 EST, Weight Dosing triamcinolone, 40 mg = 1 mL, Susp-Inj, IntraMuscular, Once, Stop date 11/18/22 11:41:00 EST, STAT, Start date 11/18/22 11:41:00 EST, 11/18/22 11:41:00 EST COVID-19 ([facility] [place] Influenza A&B Ag XR Chest 2 Views XR Shoulder Complete Right XR Spine Lumbosacral 2 or 3 Views Future Appointments Appointment Date:02/07/2023 01:00:00 PM Scheduled Provider:ALBERTA RAMOS CNP Location:[facility] [place] Appointment Type:FM Open [facility]02-20-2023 Hospital Discharge instructions Follow Up Care 11/18/2022 10:22:38 With:Pablito Walton Address: [address] [place] [address]- Business (1) When:11/21/2022 11:42:08 With:ALBERTA RAMOS Address: [address] [place] [address] Business (1) When:Within 3 Day(s) [facility]02-09-2023 Hospital Discharge instructions Patient Education 11/07/2022 14:12:35 Budget-Friendly Healthy Eating Budget-Friendly Healthy Eating There are many ways to save money at the grocery store and continue to eat healthy. You can be successful if you: Plan meals according to your budget. Make a grocery list and only purchase food according to your grocery list. Prepare food yourself. What are tips for following this plan? Reading food labels Compare food labels between brand name foods and the store brand. Often the nutritional value is the same, but the store brand is lower cost. Look for products that do not have added sugar, fat, or salt (sodium). These often cost the same but are healthier for you. Products may be labeled as: ?Sugar-free. ?Nonfat. ?Low-fat. ?Sodium-free. ?Low-sodium. Look for lean ground beef labeled as at least 92% lean and 8% fat. Shopping Buy only the items on your grocery list and go only to the areas of the store that have the items on your list. Use coupons only for foods and brands you normally buy. Avoid buying items you wouldn't normally buy simply because they are on sale. Check online and in newspapers for weekly deals. Buy healthy items from the bulk bins when available, such as herbs, spices, flour, pasta, nuts, anddried fruit. Buy fruits and vegetables that are in season. Prices are usually lower on in- season produce. Look at the unit snow on the snow tag. Use it to compare different brands and sizes to find out which item is the best deal. Choose healthy items that are often low-cost, such as carrots, potatoes, apples, bananas, and oranges. Dried or canned beans are a low-cost protein source. Buy in bulk and freeze extra food. Items you can buy in bulk include meats, fish, poultry, frozen fruits, and frozen vegetables. Avoid buying klfeo-ks-vfr foods, such as pre-cut fruits and vegetables and pre-made salads. If possible, shop around to discover where you can find the best prices. Consider other retailers such as [employer] stores, larger wholesale stores, local fruit and vegetable [employer], and [employer] markets. Do not shop when you are hungry. If you shop while hungry, it may be hard to stick to your list andbudget. Resist impulse buying. Use your grocery list as your official plan for the week. Buy a variety of vegetables and fruits by purchasing fresh, frozen, and canned items. Look at the top and bottom shelves for deals. Foods at eye level (eye level of an adult or child) are usually more expensive. Be efficient with your time when shopping. The more time you spend at the store, the more money youare likely to spend. To save money when choosing more expensive foods like meats and dairy: ?Choose cheaper cuts of meat, such as bone-in chicken thighs and drumsticks instead of skinless andboneless chicken. When you are ready to prepare the chicken, you can remove the skin yourself to make it healthier. ?Choose lean meats like chicken or turkey instead of beef. ?Choose canned seafood, such as tuna, salmon, or sardines. ?Buy eggs as a low-cost source of protein. ?Buy dried beans and peas, such as lentils, split peas, or kidney beans instead of meats. Dried beans and peas are a good alternative source of protein. ?Buy the larger tubs of yogurt instead of individual-sized containers. Choose water instead of sodas and other sweetened beverages. Avoid buying chips, cookies, and other junk food. These items are usually expensive and not healthy. Cooking Make extra food and freeze the extras in meal-sized containers or in individual portions for fast meals and snacks. Pre-cook on days when you have extra time to prepare meals in advance. You can keep these meals in the fridge or freezer and reheat for a quick meal. When you come home from the grocery store, wash, peel, and cut fruits and vegetables so they are ready to use and eat. This will help reduce food waste. Meal planning Do not eat out or get fast food. Prepare food at home. Make a grocery list and make sure to bring it with you to the store. If you have a smart phone, youcould use your phone to create your shopping list. Plan meals and snacks according to a grocery list and budget you create. Use leftovers in your meal plan for the week. Look for recipes where you can cook once and make enough food for two meals. Include budget-friendly meals like stews, casseroles, and stir-gonzalez dishes. Try some meatless meals or try no cook meals like salads. Make sure that half your plate is filled with fruits or vegetables. Choose from fresh, frozen, or canned fruits and vegetables. If eating canned, remember to rinse them before eating. This will remove any excess salt added for packaging. Summary Eating healthy on a budget is possible if you plan your meals according to your budget, purchase according to your budget and grocery list, and prepare food yourself. Tips for buying more food on a limited budget include buying generic brands, using coupons only forfoods you normally buy, and buying healthy items from the bulk bins when available. Tips for buying cheaper food to replace expensive food include choosing cheaper, lean cuts of meat,and buying dried beans and peas. This information is not intended to replace advice given to you by your health care provider. Make sure you discuss any questions you have with your health care provider. Document Released: 05/19/2015 Document Revised: 09/16/2018 Document Reviewed: 09/16/2018 [employer] Patient Education 2020 [employer]. 11/07/2022 14:12:34 BMI for Adults BMI for Adults Body mass index (BMI) is a number that is calculated from a person's weight and height. BMI may help to estimate how much of a person's weight is composed of fat. BMI can help identify those who may be at higher risk for certain medical problems. How is BMI used with adults? BMI is used as a screening tool to identify possible weight problems. It is used to check whether aperson is obese, overweight, healthy weight, or underweight. How is BMI calculated? BMI measures your weight and compares it to your height. This can be done either in [place] ([place] or metric measurements. Note that charts are available to help you find your BMI quickly and easily without having to do these calculations yourself. To calculate your BMI in [place] ([place] measurements, your health care provider will: 1.Measure your weight in pounds (lb). 2.Multiply the number of pounds by 703. For example, for a person who weighs 180 lb, multiply that number by 703, which equals 126,540. 3.Measure your height in inches (in). Then multiply that number by itself to get a measurement called inches squared. For example, for a person who is 70 in tall, the inches squared measurement is 70 in x 70 in, which equals 4900 inches squared. 4.Divide the total from Step 2 (number of lb x 703) by the total from Step 3 (inches squared): 126,540 4900 = 25.8. This is your BMI. To calculate your BMI in metric measurements, your health care provider will: 1.Measure your weight in kilograms (kg). 2.Measure your height in meters (m). Then multiply that number by itself to get a measurement called meters squared. For example, for a person who is 1.75 m tall, the meters squared measurement is 1.75 m x 1.75 m, which is equal to 3.1 meters squared. 3.Divide the number of kilograms (your weight) by the meters squared number. In this example: 70 3.1 = 22.6. This is your BMI. How is BMI interpreted? To interpret your results, your health care provider will use BMI charts to identify whether you are underweight, normal weight, overweight, or obese. The following guidelines will be used: Underweight: BMI less than 18.5. Normal weight: BMI between 18.5 and 24.9. Overweight: BMI between 25 and 29.9. Obese: BMI of 30 and above. Please note: Weight includes both fat and muscle, so someone with a muscular build, such as an athlete, may havea BMI that is higher than 24.9. In cases like these, BMI is not an accurate measure of body fat. To determine if excess body fat is the cause of a BMI of 25 or higher, further assessments may needto be done by a health care provider. BMI is usually interpreted in the same way for men and women. Why is BMI a useful tool? BMI is useful in two ways: Identifying a weight problem that may be related to a medical condition, or that may increase the risk for medical problems. Promoting lifestyle and diet changes in order to reach a healthy weight. Summary Body mass index (BMI) is a number that is calculated from a person's weight and height. BMI may help to estimate how much of a person's weight is composed of fat. BMI can help identify those who may be at higher risk for certain medical problems. BMI can be measured using Chinese measurements or metric measurements. To interpret your results, your health care provider will use BMI charts to identify whether you are underweight, normal weight, overweight, or obese. This information is not intended to replace advice given to you by your health care provider. Make sure you discuss any questions you have with your health care provider. Document Released: 05/27/2005 Document Revised: 08/28/2018 Document Reviewed: 07/29/2018 [employer] Patient Education 2020 [employer]. 11/07/2022 14:12:30 Acute Back Pain, Adult Acute Back Pain, Adult Acute back pain is sudden and usually short-lived. It is often caused by an injury to the muscles and tissues in the back. The injury may result from: A muscle or ligament getting overstretched or torn (strained). Ligaments are tissues that connect bones to each other. Lifting something improperly can cause a back strain. Wear and tear (degeneration) of the spinal disks. Spinal disks are circular tissue that provides cushioning between the bones of the spine (vertebrae). Twisting motions, such as while playing sports or doing yard work. A hit to the back. Arthritis. You may have a physical exam, lab tests, and imaging tests to find the cause of your pain. Acute back pain usually goes away with rest and home care. Follow these instructions at home: Managing pain, stiffness, and swelling Take mkvn-koq-cgcizis and prescription medicines only as told by your health care provider. Your health care provider may recommend applying ice during the first 24 48 hours after your pain starts. To do this: ?Put ice in a plastic bag. ?Place a towel between your skin and the bag. ?Leave the ice on for 20 minutes, 2 3 times a day. If directed, apply heat to the affected area as often as told by your health care provider. Use theheat source that your health care provider recommends, such as a moist heat pack or a heating pad. ?Place a towel between your skin and the heat source. ?Leave the heat on for 20 30 minutes. ?Remove the heat if your skin turns bright red. This is especially important if you are unable to feel pain, heat, or cold. You have a greater risk of getting burned. Activity Do not stay in bed. Staying in bed for more than 1 2 days can delay your recovery. Sit up and stand up straight. Avoid leaning forward when you sit, or hunching over when you stand. ?If you work at a desk, sit close to it so you do not need to lean over. Keep your chin tucked in. Keep your neck drawn back, and keep your elbows bent at a right angle. Your arms should look like the letter L. ?Sit high and close to the steering wheel when you drive. Add lower back (lumbar) support to your car seat, if needed. Take short walks on even surfaces as soon as you are able. Try to increase the length of time you walk each day. Do not sit, drive, or research instrumentation technician one place for more than 30 minutes at a time. Sitting or standing for long periods of time can put stress on your back. Do not drive or use heavy machinery while taking prescription pain medicine. Use proper lifting techniques. When you bend and lift, use positions that put less stress on your back: ?Bend your knees. ?Keep the load close to your body. ?Avoid twisting. Exercise regularly as told by your health care provider. Exercising helps your back heal faster andhelps prevent back injuries by keeping muscles strong and flexible. Work with a physical therapist to make a safe exercise program, as recommended by your health care provider. Do any exercises as told by your physical therapist. Lifestyle Maintain a healthy weight. Extra weight puts stress on your back and makes it difficult to have good posture. Avoid activities or situations that make you feel anxious or stressed. Stress and anxiety increase muscle tension and can make back pain worse. Learn ways to manage anxiety and stress, such as through exercise. General instructions Sleep on a firm mattress in a comfortable position. Try lying on your side with your knees slightlybent. If you lie on your back, put a pillow under your knees. Follow your treatment plan as told by your health care provider. This may include: ?Cognitive or behavioral therapy. ?Acupuncture or massage therapy. ?Meditation or yoga. Contact a health care provider if: You have pain that is not relieved with rest or medicine. You have increasing pain going down into your legs or buttocks. Your pain does not improve after 2 weeks. You have pain at night. You lose weight without trying. You have a fever or chills. Get help right away if: You develop new bowel or bladder control problems. You have unusual weakness or numbness in your arms or legs. You develop nausea or vomiting. You develop abdominal pain. You feel faint. Summary Acute back pain is sudden and usually short-lived. Use proper lifting techniques. When you bend and lift, use positions that put less stress on your back. Take trmp-gkn-ovyyigz and prescription medicines and apply heat or ice as directed by your health care provider. This information is not intended to replace advice given to you by your health care provider. Make sure you discuss any questions you have with your health care provider. Document Released: 09/15/2006 Document Revised: 01/04/2020 Document Reviewed: 04/29/2018 [employer] Patient Education 2020 [employer] 11/07/2022 14:12:27 Heat Therapy Heat Therapy Heat therapy is the use of heat to help ease sore, stiff, injured, and tight muscles and joints. Heat relaxes muscles, which may help relieve pain and muscle spasms. What are the risks? If you have any of the following conditions, do not use heat therapy unless your health care provider approves: New bruises. Open wounds. Healing wounds, infected skin, or scarred skin in the area being treated. Poor circulation. Numbness in the area being treated. Unusual swelling of the area being treated. Blood clots. Diabetes or heart disease. Cancer. Inability to communicate pain. This may include young children and people who have problems with their brain function (dementia). How to use heat therapy Use the heat source that your health care provider recommends, such as: Moist heat pack. Hot water bottle. Electric heating pad. Heated gel pack. Heated wrap. Warm water bath. Follow your health care provider's instructions about when and how to use heat therapy. In general,you should: 1.Place a towel between your skin and the heat source. 2.Leave the heat on for 20 30 minutes. Your skin may turn pink. 3.Remove the heat if your skin turns bright red. This is especially important if you are unable to feel pain, heat, or cold. You may have a greater risk of getting burned. If directed, you can also soak in a warm water bath. To prepare: 1.Put a non-slip padding in the bathtub to prevent slips or falls. 2.Fill a bathtub with warm water. 3.Always check the water temperature before getting into the bathtub. 4.Soak in the water for 15 20 minutes, or for as long as you are told by your health care provider. 5.When you are done, be careful when you stand up. You may feel dizzy. 6.After the bath, pat yourself dry. Do not rub your skin to dry it. General recommendations Be careful to avoid burning your skin. High heat or long exposure to heat can cause smith. Check your skin during heat therapy. Do not use heat therapy: ?For new injuries, especially if you have swelling on the injured area. ?On areas of skin that are already irritated, such as with a rash or sunburn. ?While sleeping. Only use heat therapy while you are awake. ?If your skin turns bright red. Contact a health care provider if you have: Blisters, redness, swelling, or numbness in the area where you use heat therapy. New pain. Pain that gets worse. Summary Heat therapy is the use of heat to help ease sore, stiff, injured, and tight muscles and joints. Heat relaxes muscles, which may help relieve pain. If you have the following conditions, do not use heat therapy unless your health care provider approves: poor circulation, healing wounds, diabetes, numbness or swelling in the area being treated, blood clots, cancer, or the inability to communicate pain. Be careful to avoid burning your skin. Only use heat therapy while you are awake. Follow your health care provider's instructions about when and how to use heat therapy. This information is not intended to replace advice given to you by your health care provider. Make sure you discuss any questions you have with your health care provider. Document Released: 12/07/2012 Document Revised: 11/08/2019 Document Reviewed: 09/26/2018 [employer] Patient Education 2020 [employer]. 11/07/2022 14:12:24 Back Exercises, Ootn-eg-Edbs Back Exercises These exercises help to make your trunk and back strong. They also help to keep the lower back flexible. Doing these exercises can help to prevent back pain or lessen existing pain. If you have back pain, try to do these exercises 2 3 times each day or as told by your doctor. As you get better, do the exercises once each day. Repeat the exercises more often as told by your doctor. To stop back pain from coming back, do the exercises once each day, or as told by your doctor. Exercises Single knee to chest Do these steps 3 5 times in a row for each le.Lie on your back on a firm bed or the floor with your legs stretched out. 2.Bring one knee to your chest. 3.Grab your knee or thigh with both hands and hold them it in place. 4.Pull on your knee until you feel a gentle stretch in your lower back or buttocks. 5.Keep doing the stretch for 10 30 seconds. 6.Slowly let go of your leg and straighten it. Pelvic tilt Do these steps 5 10 times in a row: 1.Lie on your back on a firm bed or the floor with your legs stretched out. 2.Bend your knees so they point up to the ceiling. Your feet should be flat on the floor. 3.Tighten your lower belly (abdomen) muscles to press your lower back against the floor. This will make your tailbone point up to the ceiling instead of pointing down to your feet or the floor. 4.Stay in this position for 5 10 seconds while you gently tighten your muscles and breathe evenly. Cat cow Do these steps until your lower back bends more easily: 1.Get on your hands and knees on a firm surface. Keep your hands under your shoulders, and keep your knees under your hips. You may put padding under your knees. 2.Let your head hang down toward your chest. Tighten (contract) the muscles in your belly. Point your tailbone toward the floor so your lower back becomes rounded like the back of a cat. 3.Stay in this position for 5 seconds. 4.Slowly lift your head. Let the muscles of your belly relax. Point your tailbone up toward the ceiling so your back forms a sagging arch like the back of a cow. 5.Stay in this position for 5 seconds. Press-ups Do these steps 5 10 times in a row: 1.Lie on your belly (face-down) on the floor. 2.Place your hands near your head, about shoulder-width apart. 3.While you keep your back relaxed and keep your hips on the floor, slowly straighten your arms to raise the top half of your body and lift your shoulders. Do not use your back muscles. You may change where you place your hands in order to make yourself more comfortable. 4.Stay in this position for 5 seconds. 5.Slowly return to lying flat on the floor. Bridges Do these steps 10 times in a row: 1.Lie on your back on a firm surface. 2.Bend your knees so they point up to the ceiling. Your feet should be flat on the floor. Your armsshould be flat at your sides, next to your body. 3.Tighten your butt muscles and lift your butt off the floor until your waist is almost as high as your knees. If you do not feel the muscles working in your butt and the back of your thighs, slide your feet 1 2 inches farther away from your butt. 4.Stay in this position for 3 5 seconds. 5.Slowly lower your butt to the floor, and let your butt muscles relax. If this exercise is too easy, try doing it with your arms crossed over your chest. Belly crunches Do these steps 5 10 times in a row: 1.Lie on your back on a firm bed or the floor with your legs stretched out. 2.Bend your knees so they point up to the ceiling. Your feet should be flat on the floor. 3.Cross your arms over your chest. 4.Tip your chin a little bit toward your chest but do not bend your neck. 5.Tighten your belly muscles and slowly raise your chest just enough to lift your shoulder blades atiny bit off of the floor. Avoid raising your body higher than that, because it can put too much stress on your low back. 6.Slowly lower your chest and your head to the floor. Back lifts Do these steps 5 10 times in a row: 1.Lie on your belly (face-down) with your arms at your sides, and rest your forehead on the floor. 2.Tighten the muscles in your legs and your butt. 3.Slowly lift your chest off of the floor while you keep your hips on the floor. Keep the back of your head in line with the curve in your back. Look at the floor while you do this. 4.Stay in this position for 3 5 seconds. 5.Slowly lower your chest and your face to the floor. Contact a doctor if: Your back pain gets a lot worse when you do an exercise. Your back pain does not get better 2 hours after you exercise. If you have any of these problems, stop doing the exercises. Do not do them again unless your doctor says it is okay. Get help right away if: You have sudden, very bad back pain. If this happens, stop doing the exercises. Do not do them again unless your doctor says it is okay. This information is not intended to replace advice given to you by your health care provider. Make sure you discuss any questions you have with your health care provider. Document Released: 10/18/2011 Document Revised: 06/10/2019 Document Reviewed: 06/10/2019 [employer] Patient Education 2020 [employer]. 11/07/2022 14:12:23 Back Exercises Back Exercises The following exercises strengthen the muscles that help to support the trunk and back. They also help to keep the lower back flexible. Doing these exercises can help to prevent back pain or lessen existing pain. If you have back pain or discomfort, try doing these exercises 2 3 times each day or as told by your health care provider. As your pain improves, do them once each day, but increase the number of times that you repeat the steps for each exercise (do more repetitions). To prevent the recurrence of back pain, continue to do these exercises once each day or as told by your health care provider. Do exercises exactly as told by your health care provider and adjust them as directed. It is normalto feel mild stretching, pulling, tightness, or discomfort as you do these exercises, but you should stop right away if you feel sudden pain or your pain gets worse. Exercises Single knee to chest Repeat these steps 3 5 times for each le.Lie on your back on a firm bed or the floor with your legs extended. 2.Bring one knee to your chest. Your other leg should stay extended and in contact with the floor. 3.Hold your knee in place by grabbing your knee or thigh with both hands and hold. 4.Pull on your knee until you feel a gentle stretch in your lower back or buttocks. 5.Hold the stretch for 10 30 seconds. 6.Slowly release and straighten your leg. Pelvic tilt Repeat these steps 5 10 times: 1.Lie on your back on a firm bed or the floor with your legs extended. 2.Bend your knees so they are pointing toward the ceiling and your feet are flat on the floor. 3.Tighten your lower abdominal muscles to press your lower back against the floor. This motion willtilt your pelvis so your tailbone points up toward the ceiling instead of pointing to your feet or the floor. 4.With gentle tension and even breathing, hold this position for 5 10 seconds. Cat-cow Repeat these steps until your lower back becomes more flexible: 1.Get into a vnglj-pem-vlfng position on a firm surface. Keep your hands under your shoulders, and keep your knees under your hips. You may place padding under your knees for comfort. 2.Let your head hang down toward your chest. Contract your abdominal muscles and point your tailbone toward the floor so your lower back becomes rounded like the back of a cat. 3.Hold this position for 5 seconds. 4.Slowly lift your head, let your abdominal muscles relax and point your tailbone up toward the ceiling so your back forms a sagging arch like the back of a cow. 5.Hold this position for 5 seconds. Press-ups Repeat these steps 5 10 times: 1.Lie on your abdomen (face-down) on the floor. 2.Place your palms near your head, about shoulder-width apart. 3.Keeping your back as relaxed as possible and keeping your hips on the floor, slowly straighten your arms to raise the top half of your body and lift your shoulders. Do not use your back muscles to raise your upper torso. You may adjust the placement of your hands to make yourself more comfortable. 4.Hold this position for 5 seconds while you keep your back relaxed. 5.Slowly return to lying flat on the floor. Bridges Repeat these steps 10 times: 1.Lie on your back on a firm surface. 2.Bend your knees so they are pointing toward the ceiling and your feet are flat on the floor. Yourarms should be flat at your sides, next to your body. 3.Tighten your buttocks muscles and lift your buttocks off the floor until your waist is at almost the same height as your knees. You should feel the muscles working in your buttocks and the back of your thighs. If you do not feel these muscles, slide your feet 1 2 inches farther away from your buttocks. 4.Hold this position for 3 5 seconds. 5.Slowly lower your hips to the starting position, and allow your buttocks muscles to relax completely. If this exercise is too easy, try doing it with your arms crossed over your chest. Abdominal crunches Repeat these steps 5 10 times: 1.Lie on your back on a firm bed or the floor with your legs extended. 2.Bend your knees so they are pointing toward the ceiling and your feet are flat on the floor. 3.Cross your arms over your chest. 4.Tip your chin slightly toward your chest without bending your neck. 5.Tighten your abdominal muscles and slowly raise your trunk (torso) high enough to lift your shoulder blades a tiny bit off the floor. Avoid raising your torso higher than that because it can put too much stress on your low back and does not help to strengthen your abdominal muscles. 6.Slowly return to your starting position. Back lifts Repeat these steps 5 10 times: 1.Lie on your abdomen (face-down) with your arms at your sides, and rest your forehead on the floor. 2.Tighten the muscles in your legs and your buttocks. 3.Slowly lift your chest off the floor while you keep your hips pressed to the floor. Keep the backof your head in line with the curve in your back. Your eyes should be looking at the floor. 4.Hold this position for 3 5 seconds. 5.Slowly return to your starting position. Contact a health care provider if: Your back pain or discomfort gets much worse when you do an exercise. Your worsening back pain or discomfort does not lessen within 2 hours after you exercise. If you have any of these problems, stop doing these exercises right away. Do not do them again unless your health care provider says that you can. Get help right away if: You develop sudden, severe back pain. If this happens, stop doing the exercises right away. Do not do them again unless your health care provider says that you can. This information is not intended to replace advice given to you by your health care provider. Make sure you discuss any questions you have with your health care provider. Document Released: 10/23/2005 Document Revised: 01/20/2020 Document Reviewed: 06/17/2019 [employer] Patient Education 2019 [employer] Follow Up Care 11/07/2022 09:11:50 With:ALBERTA RAMOS CNP Address: [facility] [address] [place] [address] When: Unknown [facility] [place] 01-04-2023 NoteHNO ID: [id number] Author: Mary Ghotra OD Service: ? 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 Type: Progress Notes Filed: 10/02/2022 8:27 AM Note Text: Tmax Unknown , Unknown ; Pachy , Gonioscopy Lasers and surgeries OD PCIOL OS Ocular Medication Intol, Non-efficacy, barriers Course Currently using Current Ophthalmic Meds timolol maleate (TIMOPTIC) 0.5 % ophthalmic solution INSTILL 1 DROP INTO RIGHT EYE ONCE DAILY HVF: 06/11/2022 OD Superior central scotoma stable or better OCT: 11/24/2018 OD Inferior thinning Ganglion cell analysis: (H40.1132) Primary open angle glaucoma (POAG) of both eyes, moderate stage (primary encounter diagnosis) Comment: IOP is 11 in the right eye with timolol two times a day . 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 The treatment options/risks/benefits have been discussed. Questions answered. I have interviewed and examined Sweetie Osorio. I have confirmed and edited as necessary the chief complaint, history of present illness, past medical history, medications, family history, social history, review of systems, and exam findings as obtained by others. I agree with the assessment and plan as stated above,and have discussed them in detail with the patient. Mary Ghotra, OD October 02, 2022 8:23 [facility]01-04[facility]23 History of Present illness Narrative* Mary Ghotra, OD - 10/02/2022 8:22 AM EST Tmax Unknown , Unknown ; Pachy , Gonioscopy Lasers and surgeries OD PCIOL OS Ocular Medication Intol, Non-efficacy, barriers Course Currently using Current Ophthalmic Meds timolol maleate (TIMOPTIC) 0.5 % ophthalmic solution INSTILL 1 DROP INTO RIGHT EYE ONCE DAILY HVF: 06/11/2022 OD Superior central scotoma stable or better OCT: 11/24/2018 OD Inferior thinning Ganglion cell analysis: (H40.1132) Primary open angle glaucoma (POAG) of both eyes, moderate stage (primary encounter diagnosis) Comment: IOP is 11 in the right eye with timolol two times a day . 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 The treatment options/risks/benefitshave been discussed. Questions answered. I have interviewed and examined Sweetie Cidwcett. I have confirmed and edited as necessary the chief complaint, history of present illness, past medical history, medications, family history, social history, review of systems, and exam findings as obtained by others. I agree with the assessment and plan as stated above,and have discussed them in detail with the patient. Mary Ghotra, OD October 02, 2022 8:23 AM documented in this encounterCleveland [id number] [facility] Discharge instructions Patient Education 08/08/2022 10:55:12 Budget-Friendly Healthy Eating Budget-Friendly Healthy Eating There are many ways to save money at the grocery store and continue to eat healthy. You can be successful if you: Plan meals according to your budget. Make a grocery list and only purchase food according to your grocery list. Prepare food yourself. What are tips for following this plan? Reading food labels Compare food labels between brand name foods and the store brand. Often the nutritional value is the same, but the store brand is lower cost. Look for products that do not have added sugar, fat, or salt (sodium). These often cost the same but are healthier for you. Products may be labeled as: ?Sugar-free. ?Nonfat. ?Low-fat. ?Sodium-free. ?Low-sodium. Look for lean ground beef labeled as at least 92% lean and 8% fat. Shopping Buy only the items on your grocery list and go only to the areas of the store that have the items on your list. Use coupons only for foods and brands you normally buy. Avoid buying items you wouldn't normally buy simply because they are on sale. Check online and in newspapers for weekly deals. Buy healthy items from the bulk bins when available, such as herbs, spices, flour, pasta, nuts, anddried fruit. Buy fruits and vegetables that are in season. Prices are usually lower on in- season produce. Look at the unit snow on the snow tag. Use it to compare different brands and sizes to find out which item is the best deal. Choose healthy items that are often low-cost, such as carrots, potatoes, apples, bananas, and oranges. Dried or canned beans are a low-cost protein source. Buy in bulk and freeze extra food. Items you can buy in bulk include meats, fish, poultry, frozen fruits, and frozen vegetables. Avoid buying xpafo-gl-pkt foods, such as pre-cut fruits and vegetables and pre-made salads. If possible, shop around to discover where you can find the best prices. Consider other retailers such as dollar stores, larger wholesale stores, local fruit and vegetable [employer], and farmers markets. Do not shop when you are hungry. If you shop while hungry, it may be hard to stick to your list andbudget. Resist impulse buying. Use your grocery list as your official plan for the week. Buy a variety of vegetables and fruits by purchasing fresh, frozen, and canned items. Look at the top and bottom shelves for deals. Foods at eye level (eye level of an adult or child) are usually more expensive. Be efficient with your time when shopping. The more time you spend at the store, the more money youare likely to spend. To save money when choosing more expensive foods like meats and dairy: ?Choose cheaper cuts of meat, such as bone-in chicken thighs and drumsticks instead of skinless andboneless chicken. When you are ready to prepare the chicken, you can remove the skin yourself to make it healthier. ?Choose lean meats like chicken or turkey instead of beef. ?Choose canned seafood, such as tuna, salmon, or sardines. ?Buy eggs as a low-cost source of protein. ?Buy dried beans and peas, such as lentils, split peas, or kidney beans instead of meats. Dried beans and peas are a good alternative source of protein. ?Buy the larger tubs of yogurt instead of individual-sized containers. Choose water instead of sodas and other sweetened beverages. Avoid buying chips, cookies, and other junk food. These items are usually expensive and not healthy. Cooking Make extra food and freeze the extras in meal-sized containers or in individual portions for fast meals and snacks. Pre-cook on days when you have extra time to prepare meals in advance. You can keep these meals in the fridge or freezer and reheat for a quick meal. When you come home from the grocery store, wash, peel, and cut fruits and vegetables so they are ready to use and eat. This will help reduce food waste. Meal planning Do not eat out or get fast food. Prepare food at home. Make a grocery list and make sure to bring it with you to the store. If you have a smart phone, youcould use your phone to create your shopping list. Plan meals and snacks according to a grocery list and budget you create. Use leftovers in your meal plan for the week. Look for recipes where you can cook once and make enough food for two meals. Include budget-friendly meals like stews, casseroles, and stir-gonzalez dishes. Try some meatless meals or try no cook meals like salads. Make sure that half your plate is filled with fruits or vegetables. Choose from fresh, frozen, or canned fruits and vegetables. If eating canned, remember to rinse them before eating. This will remove any excess salt added for packaging. Summary Eating healthy on a budget is possible if you plan your meals according to your budget, purchase according to your budget and grocery list, and prepare food yourself. Tips for buying more food on a limited budget include buying generic brands, using coupons only forfoods you normally buy, and buying healthy items from the bulk bins when available. Tips for buying cheaper food to replace expensive food include choosing cheaper, lean cuts of meat,and buying dried beans and peas. This information is not intended to replace advice given to you by your health care provider. Make sure you discuss any questions you have with your health care provider. Document Released: 05/19/2015 Document Revised: 09/16/2018 Document Reviewed: 09/16/2018 [employer] Patient Education 2020 [employer] 08/08/2022 10:55:11 BMI for Adults BMI for Adults Body mass index (BMI) is a number that is calculated from a person's weight and height. BMI may help to estimate how much of a person's weight is composed of fat. BMI can help identify those who may be at higher risk for certain medical problems. How is BMI used with adults? BMI is used as a screening tool to identify possible weight problems. It is used to check whether aperson is obese, overweight, healthy weight, or underweight. How is BMI calculated? BMI measures your weight and compares it to your height. This can be done either in [place] ([place] or metric measurements. Note that charts are available to help you find your BMI quickly and easily without having to do these calculations yourself. To calculate your BMI in [place] ([place] measurements, your health care provider will: 1.Measure your weight in pounds (lb). 2.Multiply the number of pounds by 703. For example, for a person who weighs 180 lb, multiply that number by 703, which equals 126,540. 3.Measure your height in inches (in). Then multiply that number by itself to get a measurement called inches squared. For example, for a person who is 70 in tall, the inches squared measurement is 70 in x 70 in, which equals 4900 inches squared. 4.Divide the total from Step 2 (number of lb x 703) by the total from Step 3 (inches squared): 126,540 4900 = 25.8. This is your BMI. To calculate your BMI in metric measurements, your health care provider will: 1.Measure your weight in kilograms (kg). 2.Measure your height in meters (m). Then multiply that number by itself to get a measurement called meters squared. For example, for a person who is 1.75 m tall, the meters squared measurement is 1.75 m x 1.75 m, which is equal to 3.1 meters squared. 3.Divide the number of kilograms (your weight) by the meters squared number. In this example: 70 3.1 = 22.6. This is your BMI. How is BMI interpreted? To interpret your results, your health care provider will use BMI charts to identify whether you are underweight, normal weight, overweight, or obese. The following guidelines will be used: Underweight: BMI less than 18.5. Normal weight: BMI between 18.5 and 24.9. Overweight: BMI between 25 and 29.9. Obese: BMI of 30 and above. Please note: Weight includes both fat and muscle, so someone with a muscular build, such as an athlete, may havea BMI that is higher than 24.9. In cases like these, BMI is not an accurate measure of body fat. To determine if excess body fat is the cause of a BMI of 25 or higher, further assessments may needto be done by a health care provider. BMI is usually interpreted in the same way for men and women. Why is BMI a useful tool? BMI is useful in two ways: Identifying a weight problem that may be related to a medical condition, or that may increase the risk for medical problems. Promoting lifestyle and diet changes in order to reach a healthy weight. Summary Body mass index (BMI) is a number that is calculated from a person's weight and height. BMI may help to estimate how much of a person's weight is composed of fat. BMI can help identify those who may be at higher risk for certain medical problems. BMI can be measured using Chinese measurements or metric measurements. To interpret your results, your health care provider will use BMI charts to identify whether you are underweight, normal weight, overweight, or obese. This information is not intended to replace advice given to you by your health care provider. Make sure you discuss any questions you have with your health care provider. Document Released: 05/27/2005 Document Revised: 08/28/2018 Document Reviewed: 07/29/2018 [employer] Patient Education 2020 [employer]. 08/08/2022 10:55:09 Arthritis, Hwaz-gk-Rjfe Arthritis Arthritis means joint pain. It can also mean joint disease. A joint is a place where bones come together. There are more than 100 types of arthritis. What are the causes? This condition may be caused by: Wear and tear of a joint. This is the most common cause. A lot of acid in the blood, which leads to pain in the joint (gout). Pain and swelling (inflammation) in a joint. Infection of a joint. Injuries in the joint. A reaction to medicines (allergy). In some cases, the cause may not be known. What are the signs or symptoms? Symptoms of this condition include: Redness at a joint. Swelling at a joint. Stiffness at a joint. Warmth coming from the joint. A fever. A feeling of being sick. How is this treated? This condition may be treated with: Treating the cause, if it is known. Rest. Raising (elevating) the joint. Putting cold or hot packs on the joint. Medicines to treat symptoms and reduce pain and swelling. Shots of medicines (cortisone) into the joint. You may also be told to make changes in your life, such as doing exercises and losing weight. Follow these instructions at home: Medicines Take ibnp-jrr-kiwvxbh and prescription medicines only as told by your doctor. Do not take aspirin for pain if your doctor says that you may have gout. Activity Rest your joint if your doctor tells you to. Avoid activities that make the pain worse. Exercise your joint regularly as told by your doctor. Try doing exercises like: ?Swimming. ?Water aerobics. ?Biking. ?Walking. Managing pain, stiffness, and swelling If told, put ice on the affected area. ?Put ice in a plastic bag. ?Place a towel between your skin and the bag. ?Leave the ice on for 20 minutes, 2 3 times per day. If your joint is swollen, raise (elevate) it above the level of your heart if told by your doctor. If your joint feels stiff in the morning, try taking a warm shower. If told, put heat on the affected area. Do this as often as told by your doctor. Use the heat source that your doctor recommends, such as a moist heat pack or a heating pad. If you have diabetes, do not apply heat without asking your doctor. To apply heat: ?Place a towel between your skin and the heat source. ?Leave the heat on for 20 30 minutes. ?Remove the heat if your skin turns bright red. This is very important if you are unable to feel pain, heat, or cold. You may have a greater risk of getting burned. General instructions Do not use any products that contain nicotine or tobacco, such as cigarettes, e- cigarettes, and chewing tobacco. If you need help quitting, ask your doctor. Keep all follow-up visits as told by your doctor. This is important. Contact a doctor if: The pain gets worse. You have a fever. Get help right away if: You have very bad pain in your joint. You have swelling in your joint. Your joint is red. Many joints become painful and swollen. You have very bad back pain. Your leg is very weak. You cannot control your pee (urine) or poop (stool). Summary Arthritis means joint pain. It can also mean joint disease. A joint is a place where bones come together. The most common cause of this condition is wear and tear of a joint. Symptoms of this condition include redness, swelling, or stiffness of the joint. This condition is treated with rest, raising the joint, medicines, and putting cold or hot packs onthe joint. Follow your doctor's instructions about medicines, activity, exercises, and other home care treatments. This information is not intended to replace advice given to you by your health care provider. Make sure you discuss any questions you have with your health care provider. Document Released: 12/10/2010 Document Revised: 08/23/2019 Document Reviewed: 08/23/2019 [employer] Patient Education 2020 [employer]. 08/08/2022 10:54:58 High Cholesterol High Cholesterol High cholesterol is a condition in which the blood has high levels of a white, waxy, fat-like substance (cholesterol). The human body needs small amounts of cholesterol. The liver makes all the cholesterol that the body needs. Extra (excess) cholesterol comes from the food that we eat. Cholesterol is carried from the liver by the blood through the blood vessels. If you have high cholesterol, deposits (plaques) may build up on the garcia of your blood vessels (arteries). Plaques makethe arteries narrower and stiffer. Cholesterol plaques increase your risk for heart attack and stroke. Work with your health care provider to keep your cholesterol levels in a healthy range. What increases the risk? This condition is more likely to develop in people who: Eat foods that are high in animal fat (saturated fat) or cholesterol. Are overweight. Are not getting enough exercise. Have a family history of high cholesterol. What are the signs or symptoms? There are no symptoms of this condition. How is this diagnosed? This condition may be diagnosed from the results of a blood test. If you are older than age 20, your health care provider may check your cholesterol every 4 6 years. You may be checked more often if you already have high cholesterol or other risk factors for heart disease. The blood test for cholesterol measures: Bad cholesterol (LDL cholesterol). This is the main type of cholesterol that causes heart disease. The desired level for LDL is less than 100. Good cholesterol (HDL cholesterol). This type helps to protect against heart disease by cleaning the arteries and carrying the LDL away. The desired level for HDL is 60 or higher. Triglycerides. These are fats that the body can store or burn for energy. The desired number for triglycerides is lower than 150. Total cholesterol. This is a measure of the total amount of cholesterol in your blood, including LDL cholesterol, HDL cholesterol, and triglycerides. A healthy number is less than 200. How is this treated? This condition is treated with diet changes, lifestyle changes, and medicines. Diet changes This may include eating more whole grains, fruits, vegetables, nuts, and fish. This may also include cutting back on red meat and foods that have a lot of added sugar. Lifestyle changes Changes may include getting at least 40 minutes of aerobic exercise 3 times a week. Aerobic exercises include walking, biking, and swimming. Aerobic exercise along with a healthy diet can help you maintain a healthy weight. Changes may also include quitting smoking. Medicines Medicines are usually given if diet and lifestyle changes have failed to reduce your cholesterol tohealthy levels. Your health care provider may prescribe a statin medicine. Statin medicines have been shown to reduce cholesterol, which can reduce the risk of heart disease. Follow these instructions at home: Eating and drinking If told by your health care provider: Eat chicken (without skin), fish, veal, shellfish, ground turkey breast, and round or loin cuts of red meat. Do not eat fried foods or fatty meats, such as hot dogs and salami. Eat plenty of fruits, such as apples. Eat plenty of vegetables, such as broccoli, potatoes, and carrots. Eat beans, peas, and lentils. Eat grains such as barley, rice, couscous, and bulgur wheat. Eat pasta without cream sauces. Use skim or nonfat milk, and eat low-fat or nonfat yogurt and cheeses. Do not eat or drink whole milk, cream, ice cream, egg yolks, or hard cheeses. Do not eat stick margarine or tub margarines that contain trans fats (also called partially hydrogenated oils). Do not eat saturated tropical oils, such as coconut oil and palm oil. Do not eat cakes, cookies, crackers, or other baked goods that contain trans fats. General instructions Exercise as directed by your health care provider. Increase your activity level with activities such as gardening, walking, and taking the stairs. Take gtbn-nmk-brksung and prescription medicines only as told by your health care provider. Do not use any products that contain nicotine or tobacco, such as cigarettes and e-cigarettes. If you need help quitting, ask your health care provider. Keep all follow-up visits as told by your health care provider. This is important. Contact a health care provider if: You are struggling to maintain a healthy diet or weight. You need help to start on an exercise program. You need help to stop smoking. Get help right away if: You have chest pain. You have trouble breathing. This information is not intended to replace advice given to you by your health care provider. Make sure you discuss any questions you have with your health care provider. Document Released: 09/15/2006 Document Revised: 09/18/2018 Document Reviewed: 03/15/2017 [employer] Patient Education 2020 [employer] Follow Up Care 08/05/2022 09:51:16 With:RICHARD GALEASALBERTA Address: [address] [place] [address] When:6 months [facility] [place] 09-13-2022 History of Present illness Narrative* Mary Ghotra, OD - 06/11/2022 3:11 PM EDT Tmax Unknown , Unknown ; Pachy , Gonioscopy Lasers and surgeries OD PCIOL OS Ocular Medication Intol, Non-efficacy, barriers Course Currently using Current Ophthalmic Meds timolol maleate (TIMOPTIC) 0.5 % ophthalmic solution INSTILL 1 DROP INTO RIGHT EYE ONCE DAILY HVF: 06/11/2022 OD Superior central scotoma stable or better OCT: 11/24/2018 OD Inferior thinning Ganglion cell analysis: (H40.1132) Primary open angle glaucoma (POAG) of both eyes, moderate stage (primary encounter diagnosis) Comment: IOP is 11 in the right eye with timolol two times a day . 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 The treatment options/risks/benefitshave been discussed. Questions answered. I have interviewed and examined Sweetie Osorio. I have confirmed and edited as necessary the chief complaint, history of present illness, past medical history, medications, family history, social history, review of systems, and exam findings as obtained by others. I agree with the assessment and plan as stated above,and have discussed them in detail with the patient. Mary Ghotra, OD June 11, 2022 3:31 PM [facility] of Present illness Narrative* Mary Ghotra, OD - 02/05/2022 2:59 PM EDT Tmax Unknown , Unknown ; Pachy , Gonioscopy Lasers and surgeries OD PCIOL OS Ocular Medication Intol, Non-efficacy, barriers Course Currently using Current Ophthalmic Meds timolol maleate (TIMOPTIC) 0.5 % ophthalmic solution INSTILL 1 DROP INTO RIGHT EYE two times a day prednisoLONE acetate (PRED FORTE, ECONOPRED PLUS) 1 % ophthalmic suspension bimatoprost (LUMIGAN) 0.01 % drop ophthalmic drops HVF: 11/24/2018 OD Superior central scotoma OCT: 11/24/2018 OD Inferior thinning Ganglion cell analysis: (H40.1132) Primary open angle glaucoma (POAG) of both eyes, moderate stage (primary encounter diagnosis) Comment: IOP is 10 in the right eye with timolol two times a day . 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 The treatment options/risks/benefitshave been discussed. Questions answered. I have interviewed and examined Sweetie Osorio. I have confirmed and edited as necessary the chief complaint, history of present illness, past medical history, medications, family history, social history, review of systems, and exam findings as obtained by others. I agree with the assessment and plan as stated above,and have discussed them in detail with the patient. Mary Ghotra, OD February 05, 2022 3:09 PM [facility] History of Past illness Narrative* Problem Noted Date Resolved Date Cataract, nuclear sclerotic senile, bilateral 06/11/2022 documented as of this encounter (statuses as of 06/11/2022) [facility] of Past illness Narrative* Problem Noted Date Resolved Date Cataract, nuclear sclerotic senile, bilateral 06/11/2022 documented as of this encounter (statuses as of 10/03/2022) [facility] of Past illness Narrative* Problem Noted Date Resolved Date Cataract, nuclear sclerotic senile, bilateral 06/11/2022 documented as of this encounter (statuses as of 12/09/2022) [facility] of Past illness Narrative* Problem Noted Date Resolved Date Cataract, nuclear sclerotic senile, bilateral 06/11/2022 documented as of this encounter (statuses as of 03/05/2023) [facility] of Past illness Narrative* Problem Noted Date Diagnosed Date Resolved Date Cataract, nuclear sclerotic senile, bilateral 02/06/2006/11/2022 documented as of this encounter (statuses as of 06/25/2023) [facility] History of Present illness Narrative* Mary Ghotra, OD - 01/09/2022 3:31 PM EDT (Z88.9) Drug allergy (primary encounter diagnosis) Comment: Allergic to Latanoprost Plan: D/C Continue Timolol two times a day (H40.1132) Primary open angle glaucoma (POAG) of both eyes, moderate stage Comment: Recommend return to eye doctor for treatment of Her glaucoma Plan: To current doctor or dr rivas RTKeshawn 1 month VaTa, stopped drop The nature of the patient's eye disease, its relationship to systemic health, its genetic components, and its prognosis have been explained to the patient/family. The treatment options/risks/benefitshave been discussed. Questions answered. I have interviewed and examined Sweetie Osorio. I have confirmed and edited as necessary the chief complaint, history of present illness, past medical history, medications, family history, social history, review of systems, and exam findings as obtained by others. I agree with the assessment and plan as stated above,and have discussed them in detail with the patient. Mary Ghotra, OD January 09, 2022 3:35 PM [facility] Hospital Discharge instructions Patient Education 01/04/2022 10:41:12 Sciatica Sciatica Sciatica is pain, numbness, weakness, or tingling along the path of the sciatic nerve. The sciatic nerve starts in the lower back and runs down the back of each leg. The nerve controls the muscles inthe lower leg and in the back of the knee. It also provides feeling (sensation) to the back of the thigh, the lower leg, and the sole of the foot. Sciatica is a symptom of another medical condition th at pinches or puts pressure on the sciatic nerve. Sciatica most often only affects one side of the body. Sciatica usually goes away on its own or with treatment. In some cases, sciatica may come back (recur). What are the causes? This condition is caused by pressure on the sciatic nerve or pinching of the nerve. This may be theresult of: A disk in between the bones of the spine bulging out too far (herniated disk). Age-related changes in the spinal disks. A pain disorder that affects a muscle in the buttock. Extra bone growth near the sciatic nerve. A break (fracture) of the pelvis. . Tumor. This is rare. What increases the risk? The following factors may make you more likely to develop this condition: Playing sports that place pressure or stress on the spine. Having poor strength and flexibility. A history of back injury or surgery. Sitting for long periods of time. Doing activities that involve repetitive bending or lifting. Obesity. What are the signs or symptoms? Symptoms can vary from mild to very severe, and they may include: Any of these problems in the lower back, leg, hip, or buttock: ?Mild tingling, numbness, or dull aches. ?Burning sensations. ?Sharp pains. Numbness in the back of the calf or the sole of the foot. Leg weakness. Severe back pain that makes movement difficult. Symptoms may get worse when you cough, sneeze, or laugh, or when you sit or stand for long periods of time. How is this diagnosed? This condition may be diagnosed based on: Your symptoms and medical history. A physical exam. Blood tests. Imaging tests, such as: ?X-rays. ?MRI. ?CT scan. How is this treated? In many cases, this condition improves on its own without treatment. However, treatment may include: Reducing or modifying physical activity. Exercising and stretching. Icing and applying heat to the affected area. Medicines that help to: ?Relieve pain and swelling. ?Relax your muscles. Injections of medicines that help to relieve pain, irritation, and inflammation around the sciatic nerve (steroids). Surgery. Follow these instructions at home: Medicines Take plpr-lpg-wkphhkq and prescription medicines only as told by your health care provider. Ask your health care provider if the medicine prescribed to you: ?Requires you to avoid driving or using heavy machinery. ?Can cause constipation. You may need to take these actions to prevent or treat constipation: ?Drink enough fluid to keep your urine pale yellow. ?Take julj-gax-nbpwqhl or prescription medicines. ?Eat foods that are high in fiber, such as beans, whole grains, and fresh fruits and vegetables. ?Limit foods that are high in fat and processed sugars, such as fried or sweet foods. Managing pain If directed, put ice on the affected area. ?Put ice in a plastic bag. ?Place a towel between your skin and the bag. ?Leave the ice on for 20 minutes, 2 3 times a day. If directed, apply heat to the affected area. Use the heat source that your health care provider recommends, such as a moist heat pack or a heating pad. ?Place a towel between your skin and the heat source. ?Leave the heat on for 20 30 minutes. ?Remove the heat if your skin turns bright red. This is especially important if you are unable to feel pain, heat, or cold. You may have a greater risk of getting burned. Activity Return to your normal activities as told by your health care provider. Ask your health care provider what activities are safe for you. Avoid activities that make your symptoms worse. Take brief periods of rest throughout the day. ?When you rest for longer periods, mix in some mild activity or stretching between periods of rest.This will help to prevent stiffness and pain. ?Avoid sitting for long periods of time without moving. Get up and move around at least one time each hour. Exercise and stretch regularly, as told by your health care provider. Do not lift anything that is heavier than 10 lb (4.5 kg) while you have symptoms of sciatica. When you do not have symptoms, you should still avoid heavy lifting, especially repetitive heavy lifting. When you lift objects, always use proper lifting technique, which includes: ?Bending your knees. ?Keeping the load close to your body. ?Avoiding twisting. General instructions Maintain a healthy weight. Excess weight puts extra stress on your back. Wear supportive, comfortable shoes. Avoid wearing high heels. Avoid sleeping on a mattress that is too soft or too hard. A mattress that is firm enough to support your back when you sleep may help to reduce your pain. Keep all follow-up visits as told by your health care provider. This is important. Contact a health care provider if: You have pain that: ?Wakes you up when you are sleeping. ?Gets worse when you lie down. ?Is worse than you have experienced in the past. ?Lasts longer than 4 weeks. You have an unexplained weight loss. Get help right away if: You are not able to control when you urinate or have bowel movements (incontinence). You have: ?Weakness in your lower back, pelvis, buttocks, or legs that gets worse. ?Redness or swelling of your back. ?A burning sensation when you urinate. Summary Sciatica is pain, numbness, weakness, or tingling along the path of the sciatic nerve. This condition is caused by pressure on the sciatic nerve or pinching of the nerve. Sciatica can cause pain, numbness, or tingling in the lower back, legs, hips, and buttocks. Treatment often includes rest, exercise, medicines, and applying ice or heat. This information is not intended to replace advice given to you by your health care provider. Make sure you discuss any questions you have with your health care provider. Document Released: 09/09/2002 Document Revised: 10/04/2019 Document Reviewed: 10/04/2019 [employer] Patient Education 2020 [employer] 01/04/2022 10:41:09 Lumbosacral Radiculopathy Lumbosacral Radiculopathy Lumbosacral radiculopathy is a condition that involves the spinal nerves and nerve roots in the lowback and bottom of the spine. The condition develops when these nerves and nerve roots move out of place or become inflamed and cause symptoms. What are the causes? This condition may be caused by: Pressure from a disk that bulges out of place (herniated disk). A disk is a plate of soft cartilagethat separates bones in the spine. Disk changes that occur with age (disk degeneration). A narrowing of the bones of the lower back (spinal stenosis). A tumor. An infection. An injury that places sudden pressure on the disks that cushion the bones of your lower spine. What increases the risk? You are more likely to develop this condition if: You are a male who is 30 50 years old. You are a female who is 50 60 years old. You use improper technique when lifting things. You are overweight or live a sedentary lifestyle. Your work requires frequent lifting. You smoke. You do repetitive activities that strain the spine. What are the signs or symptoms? Symptoms of this condition include: Pain that goes down from your back into your legs (sciatica), usually on one side of the body. Thisis the most common symptom. The pain may be worse with sitting, coughing, or sneezing. Pain and numbness in your legs. Muscle weakness. Tingling. Loss of bladder control or bowel control. How is this diagnosed? This condition may be diagnosed based on: Your symptoms and medical history. A physical exam. If the pain is lasting, you may have tests, such as: MRI scan. X-ray. CT scan. A type of X-ray used to examine the spinal canal after injecting a dye into your spine (myelogram). A test to measure how electrical impulses move through a nerve (nerve conduction study). How is this treated? Treatment may depend on the cause of the condition and may include: Working with a physical therapist. Taking pain medicine. Applying heat and ice to affected areas. Doing stretches to improve flexibility. Doing exercises to strengthen back muscles. Having chiropractic spinal manipulation. Using transcutaneous electrical nerve stimulation (TENS) therapy. Getting a steroid injection in the spine. In some cases, no treatment is needed. If the condition is long-lasting (chronic), or if symptoms are severe, treatment may involve surgery or lifestyle changes, such as following a weight-loss plan. Follow these instructions at home: Activity Avoid bending and other activities that make the problem worse. Maintain a proper position when standing or sitting: ?When standing, keep your upper back and neck straight, with your shoulders pulled back. Avoid slouching. ?When sitting, keep your back straight and relax your shoulders. Do not round your shoulders or pull them backward. Do not sit or research instrumentation technician one place for long periods of time. Take brief periods of rest throughout the day. This will reduce your pain. It is usually better to rest by lying down or standing, not sitting. When you are resting for longer periods, mix in some mild activity or stretching between periods ofrest. This will help to prevent stiffness and pain. Get regular exercise. Ask your health care provider what activities are safe for you. If you were shown how to do any exercises or stretches, do them as directed by your health care provider. Do not lift anything that is heavier than 10 lb (4.5 kg) or the limit that you are told by your health care provider. Always use proper lifting technique, which includes: ?Bending your knees. ?Keeping the load close to your body. ?Avoiding twisting. Managing pain If directed, put ice on the affected area: ?Put ice in a plastic bag. ?Place a towel between your skin and the bag. ?Leave the ice on for 20 minutes, 2 3 times a day. If directed, apply heat to the affected area as often as told by your health care provider. Use theheat source that your health care provider recommends, such as a moist heat pack or a heating pad. ?Place a towel between your skin and the heat source. ?Leave the heat on for 20 30 minutes. ?Remove the heat if your skin turns bright red. This is especially important if you are unable to feel pain, heat, or cold. You may have a greater risk of getting burned. Take vdkm-fuw-tcyjhwg and prescription medicines only as told by your health care provider. General instructions Sleep on a firm mattress in a comfortable position. Try lying on your side with your knees slightlybent. If you lie on your back, put a pillow under your knees. Do not drive or use heavy machinery while taking prescription pain medicine. If your health care provider prescribed a diet or exercise program, follow it as directed. Keep all follow-up visits as told by your health care provider. This is important. Contact a health care provider if: Your pain does not improve over time, even when taking pain medicines. Get help right away if: You develop severe pain. Your pain suddenly gets worse. You develop increasing weakness in your legs. You lose the ability to control your bladder or bowel. You have difficulty walking or balancing. You have a fever. Summary Lumbosacral radiculopathy is a condition that occurs when the spinal nerves and nerve roots in the lower part of the spine move out of place or become inflamed and cause symptoms. Symptoms include pain, numbness, and tingling that go down from your back into your legs (sciatica), muscle weakness, and loss of bladder control or bowel control. If directed, apply ice or heat to the affected area as told by your health care provider. Follow instructions about activity, rest, and proper lifting technique. This information is not intended to replace advice given to you by your health care provider. Make sure you discuss any questions you have with your health care provider. Document Released: 09/15/2006 Document Revised: 09/03/2018 Document Reviewed: 09/03/2018 [employer] Patient Education 2020 [employer]. 01/04/2022 10:41:06 Back Exercises Back Exercises The following exercises strengthen the muscles that help to support the trunk and back. They also help to keep the lower back flexible. Doing these exercises can help to prevent back pain or lessen existing pain. If you have back pain or discomfort, try doing these exercises 2 3 times each day or as told by your health care provider. As your pain improves, do them once each day, but increase the number of times that you repeat the steps for each exercise (do more repetitions). To prevent the recurrence of back pain, continue to do these exercises once each day or as told by your health care provider. Do exercises exactly as told by your health care provider and adjust them as directed. It is normalto feel mild stretching, pulling, tightness, or discomfort as you do these exercises, but you should stop right away if you feel sudden pain or your pain gets worse. Exercises Single knee to chest Repeat these steps 3 5 times for each le.Lie on your back on a firm bed or the floor with your legs extended. 2.Bring one knee to your chest. Your other leg should stay extended and in contact with the floor. 3.Hold your knee in place by grabbing your knee or thigh with both hands and hold. 4.Pull on your knee until you feel a gentle stretch in your lower back or buttocks. 5.Hold the stretch for 10 30 seconds. 6.Slowly release and straighten your leg. Pelvic tilt Repeat these steps 5 10 times: 1.Lie on your back on a firm bed or the floor with your legs extended. 2.Bend your knees so they are pointing toward the ceiling and your feet are flat on the floor. 3.Tighten your lower abdominal muscles to press your lower back against the floor. This motion willtilt your pelvis so your tailbone points up toward the ceiling instead of pointing to your feet or the floor. 4.With gentle tension and even breathing, hold this position for 5 10 seconds. Cat-cow Repeat these steps until your lower back becomes more flexible: 1.Get into a ngnru-qgq-nudld position on a firm surface. Keep your hands under your shoulders, and keep your knees under your hips. You may place padding under your knees for comfort. 2.Let your head hang down toward your chest. Contract your abdominal muscles and point your tailbone toward the floor so your lower back becomes rounded like the back of a cat. 3.Hold this position for 5 seconds. 4.Slowly lift your head, let your abdominal muscles relax and point your tailbone up toward the ceiling so your back forms a sagging arch like the back of a cow. 5.Hold this position for 5 seconds. Press-ups Repeat these steps 5 10 times: 1.Lie on your abdomen (face-down) on the floor. 2.Place your palms near your head, about shoulder-width apart. 3.Keeping your back as relaxed as possible and keeping your hips on the floor, slowly straighten your arms to raise the top half of your body and lift your shoulders. Do not use your back muscles to raise your upper torso. You may adjust the placement of your hands to make yourself more comfortable. 4.Hold this position for 5 seconds while you keep your back relaxed. 5.Slowly return to lying flat on the floor. Bridges Repeat these steps 10 times: 1.Lie on your back on a firm surface. 2.Bend your knees so they are pointing toward the ceiling and your feet are flat on the floor. Yourarms should be flat at your sides, next to your body. 3.Tighten your buttocks muscles and lift your buttocks off the floor until your waist is at almost the same height as your knees. You should feel the muscles working in your buttocks and the back of your thighs. If you do not feel these muscles, slide your feet 1 2 inches farther away from your buttocks. 4.Hold this position for 3 5 seconds. 5.Slowly lower your hips to the starting position, and allow your buttocks muscles to relax completely. If this exercise is too easy, try doing it with your arms crossed over your chest. Abdominal crunches Repeat these steps 5 10 times: 1.Lie on your back on a firm bed or the floor with your legs extended. 2.Bend your knees so they are pointing toward the ceiling and your feet are flat on the floor. 3.Cross your arms over your chest. 4.Tip your chin slightly toward your chest without bending your neck. 5.Tighten your abdominal muscles and slowly raise your trunk (torso) high enough to lift your shoulder blades a tiny bit off the floor. Avoid raising your torso higher than that because it can put too much stress on your low back and does not help to strengthen your abdominal muscles. 6.Slowly return to your starting position. Back lifts Repeat these steps 5 10 times: 1.Lie on your abdomen (face-down) with your arms at your sides, and rest your forehead on the floor. 2.Tighten the muscles in your legs and your buttocks. 3.Slowly lift your chest off the floor while you keep your hips pressed to the floor. Keep the backof your head in line with the curve in your back. Your eyes should be looking at the floor. 4.Hold this position for 3 5 seconds. 5.Slowly return to your starting position. Contact a health care provider if: Your back pain or discomfort gets much worse when you do an exercise. Your worsening back pain or discomfort does not lessen within 2 hours after you exercise. If you have any of these problems, stop doing these exercises right away. Do not do them again unless your health care provider says that you can. Get help right away if: You develop sudden, severe back pain. If this happens, stop doing the exercises right away. Do not do them again unless your health care provider says that you can. This information is not intended to replace advice given to you by your health care provider. Make sure you discuss any questions you have with your health care provider. Document Released: 10/23/2005 Document Revised: 01/20/2020 Document Reviewed: 06/17/2019 [employer] Patient Education 2020 [employer] Follow Up Care 01/02/2022 12:16:35 With:ALBERTA RAMOS CNP Address: [facility] [address] [place] [address] When:6 weeks [facility] Evaluation + Plan note Future Appointments Appointment Date:01/16/2022 06:45:00 AM Scheduled Provider: Location:[facility] [place] Appointment Type:PT Eval (FT) [facility] Evaluation + Plan note Future Appointments Appointment Date:08/27/2022 11:00:00 AM Scheduled Provider: Location:[facility] Appointment Type: Medicare Wellness Subsequent Diagnostic Tests Pending * Comprehensive Metabolic Panel 08/08/22 * CBC w/ Auto Diff 08/08/22 * Lipid Panel 08/08/22 [facility] Evaluation + Plan note Future Appointments Appointment Date:08/27/2022 11:00:00 AM Scheduled Provider: Location:[facility] Appointment Type: Medicare Wellness [facility]ments Appointment Date:02/07/2023 01:00:00 PM Scheduled Provider:ALBERTA RAMOS CNP Location:[facility] Appointment Type:[facility] Evaluation + Plan note Future Appointments Appointment Date:12/17/2022 01:15:00 PM Scheduled [facility] Type:PT Eval (FT) Appointment Date:02/07/2023 01:00:00 PM Scheduled Provider:ALBERTA RAMOS CNP Location:[facility] Appointment Type:[facility] evaluation + Plan note Future Appointments Appointment Date:01/27/2023 08:30:00 AM Scheduled Provider: Location:[facility] [place] Appointment Type:PT 45 (FT) Appointment Date:01/30/2023 08:45:00 AM Scheduled Provider: Location:[facility] [place] Appointment Type:PT 45 (FT) Appointment Date:02/03/2023 09:00:00 AM Scheduled Provider: Location:[facility] [place] Appointment Type:PT 45 (FT) Appointment Date:02/06/2023 11:45:00 AM Scheduled Provider: Location:[facility] [place] Appointment Type:PT 45 (FT) Appointment Date:02/07/2023 01:00:00 PM Scheduled Provider:ALBERTA RAMOS CNP Location:[facility] Appointment Type:FM Open Appointment Date:02/11/2023 11:00:00 AM Scheduled Provider: Location:[facility] [place] Appointment Type:PT 45 (FT) Appointment Date:02/13/2023 01:45:00 PM Scheduled Provider: Location:[facility] [place] Appointment Type:PT 45 (FT) Appointment Date:02/20/2023 11:00:00 AM Scheduled Provider: Location:[facility] [place] Appointment Type:PT Re-Eval 45 ([facility] App[facility]ments Appointment Date:02/11/2023 11:00:00 AM Scheduled Provider: Location:[facility] [place] Appointment Type:PT 45 (FT) Appointment Date:02/13/2023 01:45:00 PM Scheduled Provider: Location:[facility] [place] Appointment Type:PT 45 (FT) Appointment Date:02/20/2023 11:00:00 AM Scheduled Provider: Location:[facility] [place] Appointment Type:PT Re-Eval 45 (FT) [facility] [place] Evaluation note* Diagnosis Drug allergy- Primary Other drug allergy Primary open angle glaucoma (POAG) of both eyes, moderate stage [facility] Primary open angle glaucoma (POAG) of both eyes, moderate stage- Primary 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 Profound impairment, one eye, Impairment level not further specified [facility] Diagnosis Primary open angle glaucoma (POAG) of both eyes, moderate stage- Primary 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 Profound impairment, one eye, Impairment level not further specified [facility] Dry eye- Primary Tear film insufficiency, unspecified Congenital nystagmus [facility] Primary open angle glaucoma (POAG) of both eyes, moderate stage- Primary Dry eye Tear film insufficiency, unspecified [facility] Primary open angle glaucoma (POAG) of both eyes, moderate stage- Primary 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 Profound impairment, one eye, Impairment level not further specified [facility] Primary open angle glaucoma (POAG) of both eyes, moderate stage- Primary 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 Profound impairment, one eye, Impairment level not further specified Dry eye Tear film insufficiency, 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 In the event of a Fluress shortage, administer Marie-Fluor 1 drop into both eyes as directed for applanation tonometry Given 01/09/2022 2:30 PM EDT 1 Drop Active Administered Medications - up to 3 most recent administrations Medication Order MAR Action Action Date Dose Rate Site fluorescein-benoxinate 0.25-0.4 % 1 Drop (FLURESS) 1 Drop, BOTH EYES, DIRECTED, Starting on Fri02/05/22 at 1500, Until Fri02/06/22 at 0259, Administer for applanation tonometry. In the event of a Fluress shortage, administer Marie-Fluor 1 drop into both eyes as directed for applanation tonometry Given 02/05/2022 3:00 PM EDT 1 Drop Active Administered Medications - up to 3 most recent administrations Medication Order MAR Action Action Date Dose Rate Site fluorescein-benoxinate 0.25-0.4 % 1 Drop (FLURESS) 1 Drop, BOTH EYES, DIRECTED, Starting on Fri06/11/22 at 1430, Until Fri06/12/22 at 0229, Administer for applanation tonometry. In the event of a Fluress shortage, administer [place]-Fluor 1 drop into both eyes as directed for applanation tonometry Given 06/11/2022 2:30 PM EDT 1 Drop Summary Purpose Family History No Family History Records Found No data available for this section No data available for this section No data available for this section No data available for this section No Family History Records Found Advance Directives No Advanced Directives Records FoundNo Advanced Directives Records Found Additional Source Comments Source Comments (unrecognize d section and content) In the event this informatio n is protected by the Federal Confidentiality of Alcohol and Drug Abuse Patient Records regulations: The Federal rules restrict any use of the information to criminally investigate or prosecute any alcohol or drug abuse patient.[facility] the event this information is protected by the Federal Confidentiality of Alcohol and Drug Abuse Patient Records regulations: The Federal rules restrict any use of the information to criminally investigate or prosecute any alcohol or drug abuse patient.[facility] the event this information is protected by the Federal Confidentiality of Alcohol and Drug Abuse Patient Records regulations: The Federal rules restrict any use of the information to criminally investigate or prosecute any alcohol or drug abuse patient.[facility] the event this information is protected by the Federal Confidentiality of Alcohol and Drug Abuse Patient Records regulations: The Federal rules restrict any use of the information to criminally investigate or prosecute any alcohol or drug abuse patient.[facility] the event this information is protected by the Federal Confidentiality of Alcohol and Drug Abuse Patient Records regulations: The Federal rules restrict any use of the information to criminally investigate or prosecute any alcohol or drug abuse patient.[facility] the event this information is protected by the Federal Confidentiality of Alcohol and Drug Abuse Patient Records regulations: The Federal rules restrict any use of the information to criminally investigate or prosecute any alcohol or drug abuse patient.[facility] the event this information is protected by the Federal Confidentiality of Alcohol and Drug Abuse Patient Records regulations: The Federal rules restrict any use of the information to criminally investigate or prosecute any alcohol or drug abuse patient.[facility] Reason for Visit (unrecogniz ed section and content) Reason Comments red lid right eye Reason Comments Primary open angle glaucoma (POAG) of robin th eyes, moderate st Reason Comments Glaucoma Follow Up Reason Comments Eye Burning Both Eyes Reason Comments IOP check Care Teams (unrecognized sec tion and content) Senior Database Programmer Relationship Specialty Start Date End Date Chayito Romero PCP - General Family Practice 09/12/15 Senior Database Programmer Relationship Specialty Start Date End Date Chayito Romero PCP - General Family Practice 09/12/15 Senior Database Programmer Relationship Specialty Start Date End Date Chayito Romero PCP - General Family Practice 09/12/15 Senior Database Programmer Relationship Specialty Start Date End Date Chayito Romero PCP - General Family Medicine 09/12/15 Senior Database Programmer Relationship Specialty Start Date End Date Chayito Romero PCP - General Family Medicine 09/12/15 Senior Database Programmer Relationship Specialty Start Date End Date Chayito Romero PCP - General Family Medicine 09/12/15 INFORMATION SOURCE (unrecogn ized section and content) DATE CREATED AUTHOR 07/02/2023 [facility] DATE CREATED AUTHOR AUTHOR'S ORGANIZ ATION 09/09/2023 [facility] FOR RECORDS PERTAINING TO PATIENTS WHO ARE OR HAVE BEEN ENROLLED IN A CHEMICAL DEPENDENCY/SUBSTANCEABUSE PROGRAM, SOME INFORMATION MAY BE OMITTED. This clinical summary was aggregated from multiple sources. Caution should be exercised in using it in the provision of clinical care. This summary normalizes information from multiple sources, and as a consequence, information in this document may materially change the coding, format and clinical context of patient data. In addition, data may be omitted in some cases. CLINICAL DECISIONS SHOULD BE BASED ON THE PRIMARY CLINICAL RECORDS. [facility] provides no warranty or guarantee of the accuracy or completeness of information in this document.
[2023-09-25] MEDS: LACTATED RINGER'S SOLUTION 1,000 ML 50 ML IV (09:03)
[2023-09-25] MEDS: CEFAZOLIN SODIUM/DEXTROSE,ISO 1 GM/50 ML IV.SOLN IV (10:34)
--- NOTE | 2023-09-25 11:30 | P.URON_ITS ---
Urology Surgery Operative Note Operative Note Procedure Date: 09/25/23 Time Out Performed: yes Pre-op Diagnosis: Left ureteral calculus; status post left stent placement Post-op Diagnosis: same as pre-op Procedures performed: 1. Cystoscopy. 2. Left stent changed to 6 Tanzanian variable length. 3. Left rigid ureteral dilation #4. Left ureteroscopy. 5. Left pyeloscopy. 6. Thulium laser lithotripsy of ureteral stone. 7. Stone basket extraction. 8. Urethral dilation with [place] sounds to 32 Tanzanian. Anesthesia: General-LMA Primary Surgeon: Rashawn Carver Complications: None Estimated blood loss (mL): 5 Findings: Stone in left renal pelvis. Urethral stenosis. Specimens: Left renal stone Drains: 6 Tanzanian variable length left ureteral stent Indications for Procedures: This lady had an obstructing 4 mm proximal ureteral calculus for which she was stented several weeks ago. She now presents for definitive ureteroscopic laser stone manipulation and stent change or removal. She has signed an informed consent after risks were explained. Detailed description of Procedure: The patient was brought to the operating room and placed on the operating room table in the supine position. SCDs were placed on the lower extremities and turned on and functioning during the entire case. Timeout was done by all parties in the room. We all agreed upon the patient's identification and the planned procedures for this patient. Genn. anesthesia was then administered. The patient was then repositioned into the modified dorsal lithotomy position. All pressure points were satisfactorily padded. Genitalia were sterilely prepped and draped in usual fashion. I started by passing a 22 Tanzanian Olympus cystoscope per urethra and into the bladder. The urethra was rather stenosed and this was difficult. The stent which was nonencrusted was grasped with a grasping forceps and brought out the urethral meatus. I then slid a Glidewire through the stent up into the kidney. The old stent was removed. I then passed the 08/11 ureteral access sheath over the wire and dilated the distal ureter. The access sheath got up to the L5 level. Stylette and wire were then removed. I then passed a flexible ureteroscope through the access sheath and into the ureter. I went up the ureter and then into the kidney. The stone was in the renal pelvis. I then passed a 200 ? laser fiber through the scope and made contact with the stone. Lithotripsy was done with the thulium laser. The stone was moving and therefore I elected to use a basket. A 0 tip nitinol basket was passed and the stone was grasped. The stone was able to be removed in full. It was sent for analysis. The wire was then passed through the scope into the kidney and the scope was removed. The ureteral access sheath was removed. The cystoscope was backloaded over the wire and passed into the bladder. I then slid a 6 Tanzanian v ariable length ureteral stent over the wire into the kidney. The wire was removed and there were good curls in the kidney and in the bladder. The bladder was drained of its contents and the scope was then removed. I then used Adali sounds and dilated the urethra from 24 Tanzanian up to 32 Tanzanian. She was then [facility] and wheeled to PACU in stable condition.
--- NOTE | 2023-09-25 11:53 | PC.NURSE ---
HAS URGE TO VOID; PLACED ON BEDPAN
--- NOTE | 2023-09-25 11:55 | PC.NURSE ---
REMAINS ON BEDPAN
--- NOTE | 2023-09-25 12:10 | PC.NURSE ---
Off bedpan; did not void
--- NOTE | 2023-09-25 12:25 | PC.NURSE ---
Up to bathroom with 2 assist and voids clear pink urine without difficulty; back to cart
[2023-10-02 21:07] LABS: Calcium Oxalate Monohydrate 100 % (.); Size 3x2 mm (.)
== END 2023-09-25 12:28 | disposition home or self-care (01) ==
PROVIDERS: Visit Provider Urology
PROC: (CPT 52356; principal; 2023-09-25 09:55)
DX: N20.1 Calculus of ureter (principal); E78.5 Hyperlipidemia, unspecified; M19.90 Unspecified osteoarthritis, unspecified site; N35.92 Unspecified urethral stricture, female; Z87.440 Personal history of urinary (tract) infections; F32.A Depression, unspecified; F41.1 Generalized anxiety disorder
CPT/HCPCS: 52356; 76000; 82365; 99999; J2704